=== PATIENT | female | born 1995 | race Caucasian/White ===

== ENCOUNTER → 2016-07-27 | Outpatient (CLI) | payer SELFPAY ==
[~2016-07-27] MED LIST: CATHETER FLUSH 10 ML SYR IV PRN; FLC150T PO; Ibuprofen PO; NAPR-243 PO; PREN-98 PO; PROP60CA8 PO; SPRINTEC PO
--- NOTE | 2016-07-27 11:06 | Diagnostic Imaging Report ---
INDICATION: Right upper quadrant pain. FINDINGS: The patient was administered 5.12 mCi of Tc 99m Choletec and sequential imaging was performed over the right upper abdomen. There is progressive, homogeneous accumulation of radiotracer within the liver parenchyma. There is filling of the bile ducts and subsequent filling of the gallbladder. There is progressive clearance of activity from the liver parenchyma and accumulation of radiotracer within loops of small bowel. The patient was then administered a fatty meal, utilizing 8 ounces of Ensure. The gallbladder ejection fraction was calculated to be approximately 46%. (Normal values with Ensure are 33% or greater.) IMPRESSION: 1. Hepatobiliary scan demonstrates a patent biliary tree. 2. Normal gallbladder ejection fraction of approximately 46%. Dictated by: Dictated on workstation # [id number]
== END ==
LOC: CARD 08:03
PROVIDERS: ATTEND Nurse Practitioner Community Health
DX: R10.11 Right upper quadrant pain (principal)
CPT/HCPCS: 78227

== ENCOUNTER 2017-07-18 16:39 | Emergency (ER) | payer SELFPAY ==
[~2017-07-18] VITALS: Ht 162.6 cm; Wt 77.1 kg
[~2017-07-18 16:39] MED LIST changes: -CATHETER FLUSH 10 ML SYR IV PRN
--- OUTSIDE RECORDS SUMMARY | 2017-07-18 16:44 | XMS REPORT ---
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
--- OUTSIDE RECORDS SUMMARY | 2017-07-18 16:44 | XMS REPORT ---
Author Author BASSEM BOWER [facility] Address [address] [place] [address] Care Team Providers Care Architecture Professor Name Role Phone BASSEM BOWER Unavailable PROBLEMS Type Condition ICD9-CM Code [id number] Code Onset Dates Condition Status SNOMED Code Problem Encounter for dental examination Z01.20 Active 166708004 ALLERGIES No Known Allergies SOCIAL HISTORY No smoking Hx information available PLAN OF CARE VITAL SIGNS MEDICATIONS No Known Medications RESULTS No Results PROCEDURES No Known procedures IMMUNIZATIONS No Known Immunizations
--- OUTSIDE RECORDS SUMMARY | 2017-07-18 16:44 | XMS REPORT ---
Author Author SUNIL JACQUES Organization eClinicalWorks Address Unknown Phone Unavailable Care Team Providers Care Auto Technician Name Role Phone SUNIL JACQUES CP Unavailable Allergies, Adverse Reactions, Alerts Substance Reaction Event Type Amoxicillin rash Drug Allergy Problems Problem Type Condition ICD-9 Code Onset Dates Condition Status Assessment Unspecified episodic mood disorder 296.90 Active Problem Unspecified episodic mood disorder 296.90 Active [...] Arthralgia of temporomandibular joint 524.62 Active Medications Medication Code System Code Instructions Start Date End Date Status Dosage Propranolol HCl [facility] [address]-54 40 MG Orally Twice a day Mar 22, 2015 1 tablet Brintellix [facility] [address]-63 10 MG Orally Once a day Apr 02, 2015 1 tablet Procedures Procedure Coding System Code Date Office Visit, Est Pt., Level 5 CPT-4 55161 Apr 02, 2015 Vital Signs Date/Time: Apr 02, 2015 Temperature 98.6 F Weight 163.2 lbs Height 64 in BMI 28.01 Index Blood Pressure Diastolic 70 mmHg Blood Pressure Systolic 100 mmHg Cardiac Monitoring Heart Rate 76 bpm Results No Known Results Summary Purpose eClinicalWorks Submission
--- OUTSIDE RECORDS SUMMARY | 2017-07-18 16:44 | XMS REPORT ---
Author Author MARQUISE GARCÍA [facility] [place] eClinicalWorks Address Unknown Phone Unavailable Care Team Providers Care Care Services Manager Name Role Phone MARQUISE GARCÍA CP Unavailable Allergies No Known Allergies Problems Problem Type Condition ICD-9 Code Onset Dates Condition Status Problem Unspecified [...]
--- OUTSIDE RECORDS SUMMARY | 2017-07-18 16:44 | XMS REPORT ---
Author Author BASSEM BOWER [facility] eClinicalWorks Address Unknown Phone Unavailable Care Team Providers Care Supervisor Riprap Placing Name Role Phone BASSEM BOWER CP Unavailable Allergies, Adverse Reactions, Alerts Substance Reaction Event Type Amoxicillin rash Drug Allergy Problems Problem Type Condition ICD-9 Code Onset Dates Condition Status Assessment Frequent headaches 784.0 Active Assessment Anxiety 300.00 Active Problem Personal history of tobacco use, presenting hazards to health V15.82 Active Assessment Alopecia 704.00 Active Problem Leukorrhea, not specified as infective 623.5 Active Problem Encounter for change or removal of nonsurgical wound dressing V58.30 Active Problem examination or test, positive result V72.42 Active Problem Surveillance of previously prescribed intrauterine contraceptive device V25.42 Active Problem Abdominal pain, generalized 789.07 Active Problem Intestinal infection due to other organism, NEC 008.8 Active Problem Unspecified episodic mood disorder 296.90 Active Problem Agoraphobia with panic disorder 300.21 Active Problem Anxiety state, unspecified 300.00 Active Problem Abdominal pain, right upper quadrant 789.01 Active Problem Other general counseling and advice for contraceptive management V25.09 Active Problem Other specified symptom associated with female genital organs 625.8 Active Problem Panic disorder without agoraphobia 300.01 Active Problem Cough 786.2 Active Problem Other ganglion and cyst of synovium, tendon, and bursa 727.49 Active Problem Supervision of normal first V22.0 Active Problem 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 Active Problem Need for prophylactic vaccination and inoculation against rubella alone V04.3 Active Problem General counseling for prescription of oral contraceptives V25.01 Active Problem Routine follow-up V24.2 Active Problem External hemorrhoids without mention of complication 455.3 Active Problem Candidiasis of vulva and vagina 112.1 Active Assessment Family history of bipolar disorder V17.0 Active Problem Unspecified constipation 564.00 Active Assessment Family history of thyroid disease in mother V18.19 Active Problem Counseling on other sexually transmitted diseases V65.45 Active Problem Pain in joint, hand 719.44 Active Problem Encounter for removal of intrauterine contraceptive device V25.12 Active Problem Arthralgia of temporomandibular joint 524.62 Active Problem Screening examination for venereal disease V74.5 Active Problem Headache 784.0 Active Problem Encounter for insertion of intrauterine contraceptive device V25.11 Active Medications Medication Code System Code Instructions Start Date End Date Status Dosage Acyclovir [facility] [address]-49 800 MG Orally Five times a day prn cold sores Aug 31, 2014 1 tablet Propranolol HCl [facility] [address]-75 40 MG Orally Twice a day Mar 22, 2015 1 tablet Procedures Procedure Coding System Code Date ASSAY THYROID STIM HORMONE CPT-4 14661 Mar 22, 2015 COMPREHEN METABOLIC PANEL CPT-4 14184 Mar 22, 2015 Office Visit, Est Pt., Level 3 CPT-4 22941 Mar 22, 2015 VENIPUNCT, ROUTINE* CPT-4 66076 Mar 22, 2015 COMPLETE CBC W/AUTO DIFF WBC CPT-4 45148 Mar 22, 2015 Vital Signs Date/Time: Mar 22, 2015 Temperature 97.0 F Weight 170.0 lbs Height 64 in BMI 29.18 Index Blood Pressure Diastolic 66 mmHg Blood Pressure Systolic 108 mmHg Cardiac Monitoring Heart Rate 78 bpm Results No Known Results Summary Purpose eClinicalWorks Submission
--- OUTSIDE RECORDS SUMMARY | 2017-07-18 16:45 | XMS REPORT ---
Author Author MARQUISE GARCÍA [facility] eClinicalWorks Address Unknown Phone Unavailable Care Team Providers Care Department Helper Name Role Phone MARQUISE GARCÍA CP Unavailable Allergies, Adverse Reactions, Alerts Substance Reaction Event Type Amoxicillin rash Drug Allergy Problems Problem Type Condition Code Onset Dates Condition Status Assessment Pelvic pain in female R10.2 Active Problem Unspecified episodic mood disorder 296.90 Active Problem Personal history of tobacco use, presenting hazards to health V15.82 Active Assessment IUD (intrauterine device) in place Z97.5 Active Problem Panic disorder without agoraphobia 300.01 Active Problem External hemorrhoids without mention of complication 455.3 Active Problem 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 Active Problem Other ganglion and cyst of synovium, tendon, and bursa 727.49 Active Problem Anxiety state, unspecified 300.00 Active Problem Agoraphobia with panic disorder 300.21 Active Problem Arthralgia of temporomandibular joint 524.62 Active Medications No Known Medications Procedures Procedure Coding System Code Date TRICHOMONAS VAGIN, DIR PROBE CPT-4 02230 Jun 11, 2015 No Charge CPT-4 26250 Jun 11, 2015 CULTURE, BACTERIA, OTHER CPT-4 29551 Jun 11, 2015 Office Visit, Est Pt., Level 3 CPT-4 34652 Jun 11, 2015 URINE TEST CPT-4 39287 Jun 11, 2015 Vital Signs Date/Time: Jun 11, 2015 Temperature 97.0 F Weight 158.6 lbs Height 64 in BMI 27.22 Index Blood Pressure Diastolic 78 mmHg Blood Pressure Systolic 120 mmHg Cardiac Monitoring Heart Rate 78 bpm Results Name Result Date Reference Range Unit Abnormality Flag TEST, URINE (IN HOUSE) CULTURE, GENITAL ----Genital Culture, Routine Final report [id number] Summary Purpose eClinicalWorks Submission
--- OUTSIDE RECORDS SUMMARY | 2017-07-18 16:45 | XMS REPORT ---
Author Author BASSEM BOWER Organization eClinicalWorks Address Unknown Phone Unavailable Care Team Providers Care Police Service Technician Name Role Phone BASSEM BOWER CP Unavailable Allergies, Adverse Reactions, Alerts Substance Reaction Event Type Amoxicillin rash Drug Allergy Problems No Known Problems Medications No Known Medications Results No Known Results Summary Purpose eClinicalWorks Submission
--- OUTSIDE RECORDS SUMMARY | 2017-07-18 16:45 | XMS REPORT ---
Author Author [facility], [facility] eClinicalWorks Address Unknown Phone Unavailable Care Team Providers Care Label Pinker Name Role Phone [facility] CP Unavailable Allergies No Known Allergies Problems Problem Type Condition Code Onset Dates Condition Status Assessment Unspecified mood [affective] disorder F39 Active Problem Unspecified episodic mood disorder 296.90 [...] Medications Procedures Procedure Coding System Code Date [facility] PROMOTION CPT-4 S0280 May 24, 2015 Results No Known Results Summary Purpose eClinicalWorks Submission
--- OUTSIDE RECORDS SUMMARY | 2017-07-18 16:45 | XMS REPORT ---
Author Author GAYLE PURDY [facility] eClinicalWorks Address Unknown Phone Unavailable Care Team Providers Care Exterior Work Helper Name Role Phone GAYLE PURDY Unavailable Allergies, Adverse Reactions, Alerts Substance Reaction Event Type Amoxicillin rash Drug Allergy Problems Problem Type Condition Code Onset Dates Condition Status Assessment Right upper quadrant pain R10.11 Active Medications No Known Medications Procedures Procedure Coding System Code Date Office Visit, Est Pt., Level 3 CPT-4 79973 May 24, 2016 VENDREW, ROUTINE* CPT-4 84029 May 24, 2016 [facility] CPT-4 NOBLL May 24, 2016 Vital Signs Date/Time: May 24, 2016 Cardiac Monitoring Heart Rate 84 bpm Weight 150.4 lbs Height 64 in BMI 25.81 Index Blood Pressure Diastolic 70 mmHg Blood Pressure Systolic 104 mmHg Results Name Result Date Reference Range Unit Abnormality Flag CMP ----Calcium, Serum 9.5 55550705 8.7-10.2 mg/dL ----Carbon Dioxide, Total 26 20160524 18-29 mmol/L ----ALT (SGPT) 13 20160524 0-32 IU/L ----Creatinine, Serum 0.97 61377710 0.57-1.00 mg/dL ----AST (SGOT) 17 20160524 0-40 IU/L ----eGFR If NonAfricn Am 83 [id number] >59 mL/min/1.73 ----Alkaline Phosphatase, S 70 53841949 39-117 IU/L ----eGFR If Africn Am 96 52182623 >59 mL/min/1.73 ----Bilirubin, Total 0.2 47745601 0.0-1.2 mg/dL ----BUN/Creatinine Ratio 11 20160524 8-20 ----A/G Ratio 1.6 20160524 1.1-2.5 ----Sodium, Serum 141 38328796 136-144 mmol/L ----Globulin, Total 2.8 26651432 1.5-4.5 g/dL ----Potassium, Serum 4.8 94955329 3.5-5.2 mmol/L ----Glucose, Serum 88 76486227 65-99 mg/dL ----Chloride, Serum 99 70188965 97-106 mmol/L ----Albumin, Serum 4.6 66366811 3.5-5.5 g/dL ----BUN 11 73021542 6-20 mg/dL ----Protein, Total, Serum 7.4 84723570 6.0-8.5 g/dL ROUTINE VENIPUNCTURE CBC ----MCHC 32.7 86594092 31.5-35.7 g/dL ----MCH 25.9 [id number] 26.6-33.0 pg L ----Platelets 292 49273948 150-379 x10E3/uL ----RDW 14.2 57309685 12.3-15.4 % ----Immature Granulocytes 0 69475438 % ----Immature Grans (Abs) 0.0 16251485 0.0-0.1 x10E3/uL ----Lymphs 27 65103474 % ----Monocytes 8 00795130 % ----Neutrophils 60 73778394 % ----Neutrophils (Absolute) 5.3 14967520 1.4-7.0 x10E3/uL ----Hematocrit 39.2 39568999 34.0-46.6 % ----Lymphs (Absolute) 2.4 49219865 0.7-3.1 x10E3/uL ----MCV 79 23823356 79-97 fL ----RBC 4.94 19551705 3.77-5.28 x10E6/uL ----Eos 4 68294148 % ----Basos 1 02320549 % ----Hemoglobin 12.8 01758934 11.1-15.9 g/dL ----Baso (Absolute) 0.1 66685208 0.0-0.2 x10E3/uL ----WBC 8.7 45055275 3.4-10.8 x10E3/uL ----Monocytes(Absolute) 0.7 20160524 0.1-0.9 x10E3/uL ----Eos (Absolute) 0.3 20160524 0.0-0.4 x10E3/uL Summary Purpose eClinicalWorks Submission
--- OUTSIDE RECORDS SUMMARY | 2017-07-18 16:45 | XMS REPORT ---
Author Author MARQUISE GARCÍA [facility] eClinicalWorks Address Unknown Phone Unavailable Care Team Providers Care Flour Tester Name Role Phone MARQUISE GARCÍA CP Unavailable Allergies, Adverse Reactions, Alerts Substance Reaction Event Type Amoxicillin rash Drug Allergy Problems Problem Type Condition ICD-9 Code Onset Dates Condition Status Assessment Bilateral amaurosis fugax 362.34 Active Problem Unspecified episodic mood disorder 296.90 [...] Office Visit, Est Pt., Level 3 CPT-4 98401 Mar 26, 2015 VISUAL ACUITY SCREEN CPT-4 16526 Mar 26, 2015 Vital Signs Date/Time: Mar 26, 2015 Temperature 98.4 F Weight 170.5 lbs Height 64 in BMI 29.26 Index Blood Pressure Diastolic 76 mmHg Blood Pressure Systolic 118 mmHg Cardiac Monitoring Heart Rate 86 bpm Results No Known Results Summary Purpose eClinicalWorks Submission
--- OUTSIDE RECORDS SUMMARY | 2017-07-18 16:45 | XMS REPORT ---
Author Author [facility], [facility] eClinicalWorks Address Unknown Phone Unavailable Care Team Providers Care Licensed Social Worker Name Role Phone [facility] CP Unavailable Allergies No Known Allergies Problems [...] Code Date HEALTH PROMOTION CPT-4 S0280 May 28, 2015 Results No Known Results Summary Purpose eClinicalWorks Submission
--- OUTSIDE RECORDS SUMMARY | 2017-07-18 16:45 | XMS REPORT ---
Author Author BASSEM BOWER [facility] Address [address] [place] [address] Care Team Providers Care Home Aide Name Role Phone BASSEM BOWER Unavailable PROBLEMS Type Condition ICD9-CM Code [id number] Code Onset Dates Condition Status SNOMED Code Problem Encounter for dental examination Z01.20 Active [id number] ALLERGIES Substance Reaction Event Type Date Status Amoxicillin rash Drug Allergy Jun, Active SOCIAL HISTORY No smoking Hx information available PLAN OF CARE VITAL SIGNS Height 64 in 2016-07-06 Weight 163.7 lbs 2016-07-06 Temperature 98.5 degrees Fahrenheit 2016-07-06 Heart Rate 82 bpm 2016-07-06 Respiratory Rate 18 2016-07-06 BMI 28.10 kg/m2 2016-07-06 Blood pressure systolic 104 mmHg 2016-07-06 Blood pressure diastolic 72 mmHg 2016-07-06 MEDICATIONS Unknown Medications RESULTS Name Result Date Reference Range TSH W/ FREE T4 2016-07-06 TSH 2.940 0.450-4.500 T4,Free(Direct) 1.06 0.82-1.77 PROCEDURES Procedure Date Ordered Related Diagnosis Body Site Office Visit, Est Pt., Level 3 Jul 06, 2016 ASSAY THYROID STIM HORMONE Jul 06, 2016 VENIPUNCT, ROUTINE* Jul 06, 2016 ASSAY OF FREE THYROXINE Jul 06, 2016 IMMUNIZATIONS No Known Immunizations
--- OUTSIDE RECORDS SUMMARY | 2017-07-18 16:48 | XMS REPORT | Continuity of Care Document ---
Author Author [facility] Address Unknown Phone Unavailable Allergies Active Description Code Type Severity Reaction Onset Reported/Identified Relationship to Patient Clinical Status Yes Penicillins Drug Allergy N/A N/A 11/09/2009 Yes Penicillins Drug Allergy 11/09/2009 Yes amoxicillin [id number] Drug Allergy Moderate RASH 12/01/2011 Yes latex [id number] Drug Allergy Mild RASH 12/01/2011 Yes Amoxicillin Drug Allergy N/A N/A 04/03/2012 Yes Amoxicillin Drug Allergy 04/03/2012 Yes Penicillins [id number] Drug Allergy Moderate RASH 04/21/2015 Medications There is no data. Problems Date Dx Coded Attending Type Code Diagnosis Diagnosed By 11/09/2009 BASSEM BOWER APRN V25.02 Contraceptives 11/09/2009 BASSEM BOWER APRN V25.02 Contraceptives 11/09/2009 V25.02 Contraceptives 11/09/2009 V25.02 Contraceptives 11/09/2009 V25.02 Contraceptives 11/09/2009 V25.02 CONTRACEPTIVES 11/09/2009 V25.02 CONTRACEPTIVES 11/09/2009 V25.02 CONTRACEPTIVES 11/09/2009 ASHISH LUIS APRN A V25.02 CONTRACEPTIVES 11/09/2009 HETAL QUEZADA DO V25.02 CONTRACEPTIVES 11/09/2009 BASSEM BOWER APRN V25.02 CONTRACEPTIVES 11/09/2009 V25.02 CONTRACEPTIVES 11/09/2009 MARQUISE GARCÍA MD V25.02 CONTRACEPTIVES 11/09/2009 ASHISH LUIS APRN V25.02 CONTRACEPTIVES 11/09/2009 ASHISH LUIS APRN V25.02 CONTRACEPTIVES 11/09/2009 MARQUISE GARCÍA MD V25.02 CONTRACEPTIVES 11/09/2009 MARQUISE GARCÍA MD V25.02 CONTRACEPTIVES 11/09/2009 ASHISH LUIS APRN A V25.02 CONTRACEPTIVES 11/09/2009 RICKY MD, MARQUISE N V25.02 CONTRACEPTIVES 11/09/2009 RICKY FITZPATRICK, MARQUISE N V25.02 CONTRACEPTIVES 11/09/2009 RICKY FITZPATRICK, MARQUISE Yoo V25.02 CONTRACEPTIVES 11/09/2009 RICKY FITZPATRICK, MARQUISE N V25.02 CONTRACEPTIVES 11/09/2009 RICKY FITZPATRICK, MARQUISE N V25.02 CONTRACEPTIVES 11/09/2009 RICKY FITZPATRICK, MARQUISE N V25.02 CONTRACEPTIVES 11/09/2009 RICKY FITZPATRICK, MARQUISE N V25.02 CONTRACEPTIVES 11/09/2009 RICKY FITZPATRICK, MARQUISE N V25.02 CONTRACEPTIVES 11/09/2009 SEDRICK FITZPATRICK, SABRINA Ramos V25.02 CONTRACEPTIVES 11/09/2009 SEDRICK FITZPATRICK, SABRINA Ramos V25.02 CONTRACEPTIVES 11/09/2009 QUEZADA DO, HETAL K V25.02 CONTRACEPTIVES 11/09/2009 QUEZADA DO, HETAL K V25.02 CONTRACEPTIVES 11/09/2009 QUEZADA DO, HETAL K V25.02 CONTRACEPTIVES 11/09/2009 QUEZADA DO, HETAL K V25.02 CONTRACEPTIVES 11/09/2009 TOBY CROWDER, ASHISH A V25.02 CONTRACEPTIVES 11/09/2009 GABINO FITZPATRICK, GREG V25.02 CONTRACEPTIVES 11/09/2009 TOBY CROWDER, ASHISH A V25.02 CONTRACEPTIVES 11/09/2009 ARNOLD ESPINOZA APRN R V25.02 CONTRACEPTIVES 11/09/2009 HARJIT ALBERT, WISAM Nice V25.02 CONTRACEPTIVES 11/09/2009 TIMOTHY CROWDER, BORA R V25.02 CONTRACEPTIVES 11/09/2009 TOBY CROWDER, ASHISH A V25.02 CONTRACEPTIVES 11/09/2009 RICKY FITZPATRICK, MARQUISE Yoo V25.02 CONTRACEPTIVES 11/09/2009 TOBY CROWDER, ASHISH A V25.02 CONTRACEPTIVES 01/31/2010 BASSEM BOWER APRN V25.49 SURVEILLANCE OF OTHER CONTRACEPTIVE METHOD 01/31/2010 BASSEM BOWER APRN V25.49 SURVEILLANCE OF OTHER CONTRACEPTIVE METHOD 01/31/2010 V25.49 SURVEILLANCE OF OTHER CONTRACEPTIVE METHOD 01/31/2010 V25.49 SURVEILLANCE OF OTHER CONTRACEPTIVE METHOD 01/31/2010 V25.49 SURVEILLANCE OF OTHER CONTRACEPTIVE METHOD 01/31/2010 V25.49 SURVEILLANCE OF OTHER CONTRACEPTIVE METHOD 01/31/2010 V25.49 SURVEILLANCE OF OTHER CONTRACEPTIVE METHOD 01/31/2010 V25.49 SURVEILLANCE OF OTHER CONTRACEPTIVE METHOD 01/31/2010 TOBY SCHOOL PSYCHOLOGIST ASSISTANT ASHISH A V25.49 SURVEILLANCE OF OTHER CONTRACEPTIVE METHOD 01/31/2010 HETAL QUEZADA DO K V25.49 SURVEILLANCE OF OTHER CONTRACEPTIVE METHOD 01/31/2010 BASSEM BOWER APRN V25.49 SURVEILLANCE OF OTHER CONTRACEPTIVE METHOD 01/31/2010 V25.49 SURVEILLANCE OF OTHER CONTRACEPTIVE METHOD 01/31/2010 MARQUISE GARCÍA MD V25.49 SURVEILLANCE OF OTHER CONTRACEPTIVE METHOD 01/31/2010 TOBY SCHOOL PSYCHOLOGIST ASSISTANTWILFRIDASHISH A V25.49 SURVEILLANCE OF OTHER CONTRACEPTIVE METHOD 01/31/2010 TOBY SCHOOL PSYCHOLOGIST ASSISTANT ASHISH A V25.49 SURVEILLANCE OF OTHER CONTRACEPTIVE METHOD 01/31/2010 MARQUISE GARCÍA MD V25.49 SURVEILLANCE OF OTHER CONTRACEPTIVE METHOD 01/31/2010 MARQUISE GARCÍA MD V25.49 SURVEILLANCE OF OTHER CONTRACEPTIVE METHOD 01/31/2010 ASHISH LUIS APRN A V25.49 SURVEILLANCE OF OTHER CONTRACEPTIVE METHOD 01/31/2010 MARQUISE GARCÍA MD V25.49 SURVEILLANCE OF OTHER CONTRACEPTIVE METHOD 01/31/2010 MARQUISE GARCÍA MD V25.49 SURVEILLANCE OF OTHER CONTRACEPTIVE METHOD 01/31/2010 MARQUISE GARCÍA MD V25.49 SURVEILLANCE OF OTHER CONTRACEPTIVE METHOD 01/31/2010 MARQUISE GARCÍA MD V25.49 SURVEILLANCE OF OTHER CONTRACEPTIVE METHOD 01/31/2010 MARQUISE GARCÍA MD V25.49 SURVEILLANCE OF OTHER CONTRACEPTIVE METHOD 01/31/2010 MARQUISE GARCÍA MD V25.49 SURVEILLANCE OF OTHER CONTRACEPTIVE METHOD 01/31/2010 MARQUISE GARCÍA MD V25.49 SURVEILLANCE OF OTHER CONTRACEPTIVE METHOD 01/31/2010 MARQUISE GARCÍA MD V25.49 SURVEILLANCE OF OTHER CONTRACEPTIVE METHOD 01/31/2010 SABRINA DUBOSE MD V25.49 SURVEILLANCE OF OTHER CONTRACEPTIVE METHOD 01/31/2010 SABRINA DUBOSE MD V25.49 SURVEILLANCE OF OTHER CONTRACEPTIVE METHOD 01/31/2010 HETAL QUEZADA DO K V25.49 SURVEILLANCE OF OTHER CONTRACEPTIVE METHOD 01/31/2010 QUEZADA DOMAIAA K V25.49 SURVEILLANCE OF OTHER CONTRACEPTIVE METHOD 01/31/2010 QUEZADA DO, HETAL K V25.49 SURVEILLANCE OF OTHER CONTRACEPTIVE METHOD 01/31/2010 HETAL QUEZADA DO V25.49 SURVEILLANCE OF OTHER CONTRACEPTIVE METHOD 01/31/2010 ASHISH LUIS APRN A V25.49 SURVEILLANCE OF OTHER CONTRACEPTIVE METHOD 01/31/2010 GREG LLOYD MD V25.49 SURVEILLANCE OF OTHER CONTRACEPTIVE METHOD 01/31/2010 ASHISH LUIS APRN A V25.49 SURVEILLANCE OF OTHER CONTRACEPTIVE METHOD 01/31/2010 ARNOLD ESPINOZA APRN V25.49 SURVEILLANCE OF OTHER CONTRACEPTIVE METHOD 01/31/2010 WISAM LOMBARDI DDS V25.49 SURVEILLANCE OF OTHER CONTRACEPTIVE METHOD 01/31/2010 BORA AGUIRRE APRN V25.49 SURVEILLANCE OF OTHER CONTRACEPTIVE METHOD 01/31/2010 ASHISH LUIS APRN A V25.49 SURVEILLANCE OF OTHER CONTRACEPTIVE METHOD 01/31/2010 MARQUISE GARCÍA MD V25.49 SURVEILLANCE OF OTHER CONTRACEPTIVE METHOD 01/31/2010 ASHISH LUIS APRN A V25.49 SURVEILLANCE OF OTHER CONTRACEPTIVE METHOD 05/12/2010 BASSEM BOWER APRN 054.9 HERPES SIMPLEX WITHOUT COMPLICATION 05/12/2010 BASSEM BOWER APRN V72.31 MATERIALS MANAGEMENT CLERK EXAM, ROUTINE 05/12/2010 BASSEM BOWER APRN 054.9 HERPES SIMPLEX WITHOUT COMPLICATION 05/12/2010 BASSEM BOWER APRN V72.31 MATERIALS MANAGEMENT CLERK EXAM, ROUTINE 05/12/2010 054.9 HERPES SIMPLEX WITHOUT COMPLICATION 05/12/2010 V72.31 MATERIALS MANAGEMENT CLERK EXAM, ROUTINE 05/12/2010 054.9 HERPES SIMPLEX WITHOUT COMPLICATION 05/12/2010 V72.31 MATERIALS MANAGEMENT CLERK EXAM, ROUTINE 05/12/2010 054.9 HERPES SIMPLEX WITHOUT COMPLICATION 05/12/2010 V72.31 MATERIALS MANAGEMENT CLERK EXAM, ROUTINE 05/12/2010 054.9 HERPES SIMPLEX WITHOUT COMPLICATION 05/12/2010 V72.31 MATERIALS MANAGEMENT CLERK EXAM, ROUTINE 05/12/2010 054.9 HERPES SIMPLEX WITHOUT COMPLICATION 05/12/2010 V72.31 MATERIALS MANAGEMENT CLERK EXAM, ROUTINE 05/12/2010 054.9 HERPES SIMPLEX WITHOUT COMPLICATION 05/12/2010 V72.31 MATERIALS MANAGEMENT CLERK EXAM, ROUTINE 05/12/2010 ASHISH LUIS APRN A 054.9 HERPES SIMPLEX WITHOUT COMPLICATION 05/12/2010 ASHISH LUIS APRN A V72.31 MATERIALS MANAGEMENT CLERK EXAM, ROUTINE 05/12/2010 HETAL QUEZADA DO 054.9 HERPES SIMPLEX WITHOUT COMPLICATION 05/12/2010 QUEZADA HETAL ERWIN V72.31 MATERIALS MANAGEMENT CLERK EXAM, ROUTINE 05/12/2010 BASSEM BOWER APRN 054.9 HERPES SIMPLEX WITHOUT COMPLICATION 05/12/2010 BASSEM BOWER APRN V72.31 MATERIALS MANAGEMENT CLERK EXAM, ROUTINE 05/12/2010 054.9 HERPES SIMPLEX WITHOUT COMPLICATION 05/12/2010 V72.31 MATERIALS MANAGEMENT CLERK EXAM, ROUTINE 05/12/2010 MARQUISE GARCÍA MD N 054.9 HERPES SIMPLEX WITHOUT COMPLICATION 05/12/2010 MARQUISE GARCÍA MD N V72.31 MATERIALS MANAGEMENT CLERK EXAM, ROUTINE 05/12/2010 TOBY SCHOOL PSYCHOLOGIST ASSISTANT, ASHISH A 054.9 HERPES SIMPLEX WITHOUT COMPLICATION 05/12/2010 TOBY SCHOOL PSYCHOLOGIST ASSISTANT, ASHSIH Bradford V72.31 MATERIALS MANAGEMENT CLERK EXAM, ROUTINE 05/12/2010 TOBY CROWDER, ASHISH A 054.9 HERPES SIMPLEX WITHOUT COMPLICATION 05/12/2010 TOBY ESPARZAN, ASHISH A V72.31 MATERIALS MANAGEMENT CLERK EXAM, ROUTINE 05/12/2010 MARQUISE GARCÍA MD N 054.9 HERPES SIMPLEX WITHOUT COMPLICATION 05/12/2010 MARQUISE GARCÍA MD N V72.31 MATERIALS MANAGEMENT CLERK EXAM, ROUTINE 05/12/2010 MARQUISE GARCÍA MD N 054.9 HERPES SIMPLEX WITHOUT COMPLICATION 05/12/2010 MARQUISE GARCÍA MD N V72.31 MATERIALS MANAGEMENT CLERK EXAM, ROUTINE 05/12/2010 TOBY CROWDER, ASHISH A 054.9 HERPES SIMPLEX WITHOUT COMPLICATION 05/12/2010 TOBY CROWDER, ASHISH A V72.31 MATERIALS MANAGEMENT CLERK EXAM, ROUTINE 05/12/2010 MARQUISE GARCÍA MD N 054.9 HERPES SIMPLEX WITHOUT COMPLICATION 05/12/2010 MARQUISE GARCÍA MD N V72.31 MATERIALS MANAGEMENT CLERK EXAM, ROUTINE 05/12/2010 MARQUISE GARCÍA MD N 054.9 HERPES SIMPLEX WITHOUT COMPLICATION 05/12/2010 MARQUISE GARCÍA MD N V72.31 MATERIALS MANAGEMENT CLERK EXAM, ROUTINE 05/12/2010 MARQUISE GARCÍA MD N 054.9 HERPES SIMPLEX WITHOUT COMPLICATION 05/12/2010 MARQUISE GARCÍA MD N V72.31 MATERIALS MANAGEMENT CLERK EXAM, ROUTINE 05/12/2010 MARQUISE GARCÍA MD N 054.9 HERPES SIMPLEX WITHOUT COMPLICATION 05/12/2010 RICKY FITZPATRICK, MARQUISE N V72.31 MATERIALS MANAGEMENT CLERK EXAM, ROUTINE 05/12/2010 RICKY FITZPATRICK, MARQUISE N 054.9 HERPES SIMPLEX WITHOUT COMPLICATION 05/12/2010 RICKY FITZPATRICK, MARQUISE N V72.31 MATERIALS MANAGEMENT CLERK EXAM, ROUTINE 05/12/2010 RICKY FITZPATRICK, MARQUISE N 054.9 HERPES SIMPLEX WITHOUT COMPLICATION 05/12/2010 RICKY FITZPATRICK, MARQUISE N V72.31 MATERIALS MANAGEMENT CLERK EXAM, ROUTINE 05/12/2010 RICKY FITZPATRICK, MARQUISE N 054.9 HERPES SIMPLEX WITHOUT COMPLICATION 05/12/2010 RICKY FITZPATRICK, MARQUISE N V72.31 MATERIALS MANAGEMENT CLERK EXAM, ROUTINE 05/12/2010 RICKY FITZPATRICK, MARQUISE N 054.9 HERPES SIMPLEX WITHOUT COMPLICATION 05/12/2010 RICKY FITZPATRICK, MARQUISE N V72.31 MATERIALS MANAGEMENT CLERK EXAM, ROUTINE 05/12/2010 SABRINA DUBOSE MD 054.9 HERPES SIMPLEX WITHOUT COMPLICATION 05/12/2010 SABRINA DUBOSE MD V72.31 MATERIALS MANAGEMENT CLERK EXAM, ROUTINE 05/12/2010 SABRINA DUBOSE MD 054.9 HERPES SIMPLEX WITHOUT COMPLICATION 05/12/2010 SABRINA DUBOSE MD V72.31 MATERIALS MANAGEMENT CLERK EXAM, ROUTINE 05/12/2010 QUEZADA DO, HETAL K 054.9 HERPES SIMPLEX WITHOUT COMPLICATION 05/12/2010 QUEZADA DO, HETAL K V72.31 MATERIALS MANAGEMENT CLERK EXAM, ROUTINE 05/12/2010 QUEZADA DO, HETAL K 054.9 HERPES SIMPLEX WITHOUT COMPLICATION 05/12/2010 QUEZADA DO HETAL K V72.31 MATERIALS MANAGEMENT CLERK EXAM, ROUTINE 05/12/2010 QUEZADA DO, HETAL K 054.9 HERPES SIMPLEX WITHOUT COMPLICATION 05/12/2010 QUEZADA DO, HETAL K V72.31 MATERIALS MANAGEMENT CLERK EXAM, ROUTINE 05/12/2010 QUEZADA DO, HETAL K 054.9 HERPES SIMPLEX WITHOUT COMPLICATION 05/12/2010 QUEZADA DO, HETAL K V72.31 MATERIALS MANAGEMENT CLERK EXAM, ROUTINE 05/12/2010 ASHISH LUIS APRN 054.9 HERPES SIMPLEX WITHOUT COMPLICATION 05/12/2010 ASHISH LUIS APRN V72.31 MATERIALS MANAGEMENT CLERK EXAM, ROUTINE 05/12/2010 GREG LLOYD MD 054.9 HERPES SIMPLEX WITHOUT COMPLICATION 05/12/2010 GABINO FITZPATRICK, GREG V72.31 MATERIALS MANAGEMENT CLERK EXAM, ROUTINE 05/12/2010 TOBY SCHOOL PSYCHOLOGIST ASSISTANT, ASHISH A 054.9 HERPES SIMPLEX WITHOUT COMPLICATION 05/12/2010 TOBY SCHOOL PSYCHOLOGIST ASSISTANT, ASHISH A V72.31 MATERIALS MANAGEMENT CLERK EXAM, ROUTINE 05/12/2010 OLGA SCHOOL PSYCHOLOGIST ASSISTANT, ARNOLD R 054.9 HERPES SIMPLEX WITHOUT COMPLICATION 05/12/2010 OLGA SCHOOL PSYCHOLOGIST ASSISTANT, ARNOLD R V72.31 MATERIALS MANAGEMENT CLERK EXAM, ROUTINE 05/12/2010 WHITE DDS, WISAM D 054.9 HERPES SIMPLEX WITHOUT COMPLICATION 05/12/2010 WHITE DDS, WISAM D V72.31 MATERIALS MANAGEMENT CLERK EXAM, ROUTINE 05/12/2010 TIMOTHY SCHOOL PSYCHOLOGIST ASSISTANT, BORA R 054.9 HERPES SIMPLEX WITHOUT COMPLICATION 05/12/2010 TIMOTHY ESPARZAN, BORA R V72.31 MATERIALS MANAGEMENT CLERK EXAM, ROUTINE 05/12/2010 TOBY APRN, ASHISH A 054.9 HERPES SIMPLEX WITHOUT COMPLICATION 05/12/2010 TOBY APRN, ASHISH A V72.31 MATERIALS MANAGEMENT CLERK EXAM, ROUTINE 05/12/2010 MARQUISE GARCÍA MD N 054.9 HERPES SIMPLEX WITHOUT COMPLICATION 05/12/2010 MARQUISE GARCÍA MD V72.31 MATERIALS MANAGEMENT CLERK EXAM, ROUTINE 05/12/2010 TOBY APRN, ASHISH A 054.9 HERPES SIMPLEX WITHOUT COMPLICATION 05/12/2010 TOBY APRN, ASHISH A V72.31 MATERIALS MANAGEMENT CLERK EXAM, ROUTINE 04/05/2011 BASSEM BOWER APRN 307.81 TENSION HEADACHE 04/05/2011 BASSEM BOWER APRN 307.81 TENSION HEADACHE 04/05/2011 307.81 TENSION HEADACHE 04/05/2011 307.81 TENSION HEADACHE 04/05/2011 307.81 TENSION HEADACHE 04/05/2011 307.81 TENSION HEADACHE 04/05/2011 307.81 TENSION HEADACHE 04/05/2011 307.81 TENSION HEADACHE 04/05/2011 ASHISH LUIS APRN A 307.81 TENSION HEADACHE 04/05/2011 HETAL QUEZADA DO 307.81 TENSION HEADACHE 04/05/2011 BASSEM BOWER APRN 307.81 TENSION HEADACHE 04/05/2011 307.81 TENSION HEADACHE 04/05/2011 MARQUISE GARCÍA MD 307.81 TENSION HEADACHE 04/05/2011 TOBYASHISH Yoo APRN A 307.81 TENSION HEADACHE 04/05/2011 TOBY APRN, ASHISH A 307.81 TENSION HEADACHE 04/05/2011 MARQUISE GARCÍA MD 307.81 TENSION HEADACHE 04/05/2011 MARQUISE GARCÍA MD 307.81 TENSION HEADACHE 04/05/2011 TOBY APRN, ASHISH A 307.81 TENSION HEADACHE 04/05/2011 MARQUISE GARCÍA MD N 307.81 TENSION HEADACHE 04/05/2011 MARQUISE GARCÍA MD N 307.81 TENSION HEADACHE 04/05/2011 MARQUISE GARCÍA MD N 307.81 TENSION HEADACHE 04/05/2011 MARQUISE GARCÍA MD N 307.81 TENSION HEADACHE 04/05/2011 MARQUISE GARCÍA MD 307.81 TENSION HEADACHE 04/05/2011 MARQUISE GARCÍA MD 307.81 TENSION HEADACHE 04/05/2011 MARQUISE GARCÍA MD N 307.81 TENSION HEADACHE 04/05/2011 MARQUISE GARCÍA MD N 307.81 TENSION HEADACHE 04/05/2011 SABRINA DUBOSE MD 307.81 TENSION HEADACHE 04/05/2011 SABRINA DUBOSE MD 307.81 TENSION HEADACHE 04/05/2011 QUEZADA DO, HETAL K 307.81 TENSION HEADACHE 04/05/2011 QUEZADA DO, HETAL K 307.81 TENSION HEADACHE 04/05/2011 QUEZADA DO, HETAL K 307.81 TENSION HEADACHE 04/05/2011 QUEZADA DO, HETAL K 307.81 TENSION HEADACHE 04/05/2011 TOBY APRN, ASHISH A 307.81 TENSION HEADACHE 04/05/2011 GREG LLOYD MD 307.81 TENSION HEADACHE 04/05/2011 TOBYWILFRID Yoo APRNIDI A 307.81 TENSION HEADACHE 04/05/2011 ARNOLD ESPINOZA APRN R 307.81 TENSION HEADACHE 04/05/2011 WISAM LOMBARDI DDS 307.81 TENSION HEADACHE 04/05/2011 BORA AGUIRRE APRN R 307.81 TENSION HEADACHE 04/05/2011 TOBYWILFRID Yoo APRNIDI A 307.81 TENSION HEADACHE 04/05/2011 MARQUISE GARCÍA MD 307.81 TENSION HEADACHE 04/05/2011 TOBYASHISH Yoo APRN A 307.81 TENSION HEADACHE 08/15/2011 BASSEM BOWER APRN 564.00 CONSTIPATION 08/15/2011 BASSEM BOWER APRN 780.4 DIZZINESS AND VERTIGO 08/15/2011 BASSEM BOWER APRN 564.00 CONSTIPATION 08/15/2011 BASSEM BOWER APRN 780.4 DIZZINESS AND VERTIGO 08/15/2011 564.00 CONSTIPATION 08/15/2011 780.4 DIZZINESS AND VERTIGO 08/15/2011 564.00 CONSTIPATION 08/15/2011 780.4 DIZZINESS AND VERTIGO 08/15/2011 564.00 CONSTIPATION 08/15/2011 780.4 DIZZINESS AND VERTIGO 08/15/2011 564.00 CONSTIPATION 08/15/2011 780.4 DIZZINESS AND VERTIGO 08/15/2011 564.00 CONSTIPATION 08/15/2011 780.4 DIZZINESS AND VERTIGO 08/15/2011 564.00 CONSTIPATION 08/15/2011 780.4 DIZZINESS AND VERTIGO 08/15/2011 ASHISH LUIS APRN A 564.00 CONSTIPATION 08/15/2011 ASHISH LUIS APRN A 780.4 DIZZINESS AND VERTIGO 08/15/2011 QUEZADA DOMAIAA K 564.00 CONSTIPATION 08/15/2011 QUEZADA DO HETAL K 780.4 DIZZINESS AND VERTIGO 08/15/2011 BASSEM BOWER APRN 564.00 CONSTIPATION 08/15/2011 BASSEM BOWER APRN 780.4 DIZZINESS AND VERTIGO 08/15/2011 564.00 CONSTIPATION 08/15/2011 780.4 DIZZINESS AND VERTIGO 08/15/2011 MARQUISE GARCÍA MD 564.00 CONSTIPATION 08/15/2011 MARQUISE GARCÍA MD 780.4 DIZZINESS AND VERTIGO 08/15/2011 ASHISH LUIS APRN A 564.00 CONSTIPATION 08/15/2011 ASHISH LUIS APRN A 780.4 DIZZINESS AND VERTIGO 08/15/2011 ASHISH LUIS APRN A 564.00 CONSTIPATION 08/15/2011 ASHISH LUIS APRN A 780.4 DIZZINESS AND VERTIGO 08/15/2011 MARQUISE GARCÍA MD 564.00 CONSTIPATION 08/15/2011 MARQUISE GARCÍA MD 780.4 DIZZINESS AND VERTIGO 08/15/2011 MARQUISE GARCÍA MD 564.00 CONSTIPATION 08/15/2011 RICKY MD, MARQUISE N 780.4 DIZZINESS AND VERTIGO 08/15/2011 TOBY SCHOOL PSYCHOLOGIST ASSISTANTASHISH Yoo A 564.00 CONSTIPATION 08/15/2011 TOBY SCHOOL PSYCHOLOGIST ASSISTANTASHISH Yoo 780.4 DIZZINESS AND VERTIGO 08/15/2011 MARQUISE GARCÍA MD N 564.00 CONSTIPATION 08/15/2011 MARQUISE GARCÍA MD N 780.4 DIZZINESS AND VERTIGO 08/15/2011 MARQUISE GARCÍA MD N 564.00 CONSTIPATION 08/15/2011 MARQUISE GARCÍA MD N 780.4 DIZZINESS AND VERTIGO 08/15/2011 MARQUISE GARCÍA MD N 564.00 CONSTIPATION 08/15/2011 MARQUISE GARCÍA MD N 780.4 DIZZINESS AND VERTIGO 08/15/2011 MARQUISE GARCÍA MD N 564.00 CONSTIPATION 08/15/2011 MARQUISE GARCÍA MD N 780.4 DIZZINESS AND VERTIGO 08/15/2011 MARQUISE GARCÍA MD N 564.00 CONSTIPATION 08/15/2011 MARQUISE GARCÍA MD N 780.4 DIZZINESS AND VERTIGO 08/15/2011 MARQUISE GARCÍA MD N 564.00 CONSTIPATION 08/15/2011 MARQUISE GARCÍA MD N 780.4 DIZZINESS AND VERTIGO 08/15/2011 MARQUISE GARCÍA MD N 564.00 CONSTIPATION 08/15/2011 MARQUISE GARCÍA MD N 780.4 DIZZINESS AND VERTIGO 08/15/2011 MARQUISE GARCÍA MD N 564.00 CONSTIPATION 08/15/2011 MARQUISE GARCÍA MD N 780.4 DIZZINESS AND VERTIGO 08/15/2011 SABRINA DUBOSE MD 564.00 CONSTIPATION 08/15/2011 SABRINA DUBOSE MD 780.4 DIZZINESS AND VERTIGO 08/15/2011 SABRINA DUBOSE MD 564.00 CONSTIPATION 08/15/2011 SABRINA DUBOSE MD 780.4 DIZZINESS AND VERTIGO 08/15/2011 QUEZADA DO, HETAL K 564.00 CONSTIPATION 08/15/2011 QUEZADA DO HETAL K 780.4 DIZZINESS AND VERTIGO 08/15/2011 QUEZADA DO, HETAL K 564.00 CONSTIPATION 08/15/2011 QUEZADA DO, HETAL K 780.4 DIZZINESS AND VERTIGO 08/15/2011 QUEZADA DO, HETAL K 564.00 CONSTIPATION 08/15/2011 QUEZADA DO, HETAL K 780.4 DIZZINESS AND VERTIGO 08/15/2011 QUEZADA DO, HETAL K 564.00 CONSTIPATION 08/15/2011 QUEZADA DO, HETAL K 780.4 DIZZINESS AND VERTIGO 08/15/2011 TOBYCLAYTON CROWDER, ASHISH A 564.00 CONSTIPATION 08/15/2011 TOBY CROWDER, ASHISH A 780.4 DIZZINESS AND VERTIGO 08/15/2011 GREG LLOYD MD 564.00 CONSTIPATION 08/15/2011 GREG LLOYD MD 780.4 DIZZINESS AND VERTIGO 08/15/2011 TOBY CROWDER, ASHISH A 564.00 CONSTIPATION 08/15/2011 TOBY CROWDER, ASHISH A 780.4 DIZZINESS AND VERTIGO 08/15/2011 OLGA CROWDER, ARNOLD R 564.00 CONSTIPATION 08/15/2011 OLGA CROWDER, ARNOLD R 780.4 DIZZINESS AND VERTIGO 08/15/2011 WHITE DDS, WISAM D 564.00 CONSTIPATION 08/15/2011 WHITE DDS, WISAM D 780.4 DIZZINESS AND VERTIGO 08/15/2011 TIMOTHY CROWDER, BORA R 564.00 CONSTIPATION 08/15/2011 TIMOTHY CROWDER, BORA R 780.4 DIZZINESS AND VERTIGO 08/15/2011 TOBY APRN, ASHISH A 564.00 CONSTIPATION 08/15/2011 TOBY APRN, ASHISH A 780.4 DIZZINESS AND VERTIGO 08/15/2011 MARQUISE GARCÍA MD 564.00 CONSTIPATION 08/15/2011 MARQUISE GARCÍA MD 780.4 DIZZINESS AND VERTIGO 08/15/2011 TOBY APRN, ASHISH A 564.00 CONSTIPATION 08/15/2011 TOBY APRN, ASHISH A 780.4 DIZZINESS AND VERTIGO 12/22/2011 BASSEM BOWER APRN 300.01 AN PANIC DIS W/O AGORA 12/22/2011 BASSEM BOWER APRN 300.01 AN PANIC DIS W/O AGORA 12/22/2011 300.01 AN PANIC DIS W/O AGORA 12/22/2011 300.01 AN PANIC DIS W/O AGORA 12/22/2011 300.01 AN PANIC DIS W/O AGORA 12/22/2011 300.01 AN PANIC DIS W/O AGORA 12/22/2011 300.01 AN PANIC DIS W/O AGORA 12/22/2011 300.01 AN PANIC DIS W/O AGORA 12/22/2011 TOBY SCHOOL PSYCHOLOGIST ASSISTANT, ASHISH A 300.01 AN PANIC DIS W/O AGORA 12/22/2011 DAMIEN HETLA ERWIN K 300.01 AN PANIC DIS W/O AGORA 12/22/2011 BASSEM BOWER APRN T 300.01 AN PANIC DIS W/O AGORA 12/22/2011 300.01 AN PANIC DIS W/O AGORA 12/22/2011 MARQUISE GARCÍA MD 300.01 AN PANIC DIS W/O AGORA 12/22/2011 TOBY SCHOOL PSYCHOLOGIST ASSISTANTASHISH Yoo A 300.01 AN PANIC DIS W/O AGORA 12/22/2011 TOBYWILFRID Yoo APRNIDI A 300.01 AN PANIC DIS W/O AGORA 12/22/2011 MARQUISE GARCÍA MD 300.01 AN PANIC DIS W/O AGORA 12/22/2011 MARQUISE GARCÍA MD 300.01 AN PANIC DIS W/O AGORA 12/22/2011 ASHISH LUIS APRN A 300.01 AN PANIC DIS W/O AGORA 12/22/2011 MARQUISE GARCÍA MD N 300.01 AN PANIC DIS W/O AGORA 12/22/2011 MARQUISE GARCÍA MD N 300.01 AN PANIC DIS W/O AGORA 12/22/2011 MARQUISE GARCÍA MD N 300.01 AN PANIC DIS W/O AGORA 12/22/2011 MARQUISE GARCÍA MD N 300.01 AN PANIC DIS W/O AGORA 12/22/2011 MARQUISE GARCÍA MD N 300.01 AN PANIC DIS W/O AGORA 12/22/2011 MARQUISE GARCÍA MD N 300.01 AN PANIC DIS W/O AGORA 12/22/2011 MARQUISE GARCÍA MD 300.01 AN PANIC DIS W/O AGORA 12/22/2011 MARQUISE GARCÍA MD N 300.01 AN PANIC DIS W/O AGORA 12/22/2011 SABRINA DUBOSE MD 300.01 AN PANIC DIS W/O AGORA 12/22/2011 SABRINA DUBOSE MD 300.01 AN PANIC DIS W/O AGORA 12/22/2011 QUEZADA DO, HETAL K 300.01 AN PANIC DIS W/O AGORA 12/22/2011 QUEZADA DO, HETAL K 300.01 AN PANIC DIS W/O [facility] 12/22/2011 QUEZADA DO, HETAL K 300.01 AN PANIC DIS W/O [facility] 12/22/2011 QUEZADA DO, HETAL K 300.01 AN PANIC DIS W/O [facility] 12/22/2011 ASHISH LUIS APRN A 300.01 AN PANIC DIS W/O [facility] 12/22/2011 GREG LLOYD MD 300.01 AN PANIC DIS W/O [facility] 12/22/2011 ASHISH LUIS APRN A 300.01 AN PANIC DIS W/O [facility] 12/22/2011 ARNOLD ESPINOZA APRN 300.01 AN PANIC DIS W/O [facility] 12/22/2011 HARJIT DDS, WISAM D 300.01 AN PANIC DIS W/O [facility] 12/22/2011 BORA AGUIRRE APRN 300.01 AN PANIC DIS W/O [facility] 12/22/2011 ASHSIH LUIS APRN A 300.01 AN PANIC DIS W/O [facility] 12/22/2011 MARQUISE GARCÍA MD 300.01 AN PANIC DIS W/O [facility] 12/22/2011 ASHISH LUIS APRN A 300.01 AN PANIC DIS W/O [facility] 01/31/2012 BASSEM BOWER APRN 300.21 AN PANIC DIS W [facility] 01/31/2012 BASSEM BOWER APRN 300.21 AN PANIC DIS W [facility] 01/31/2012 300.21 AN PANIC DIS W [facility] 01/31/2012 300.21 AN PANIC DIS W [facility] 01/31/2012 300.21 AN PANIC DIS W [facility] 01/31/2012 300.21 AN PANIC DIS W [facility] 01/31/2012 300.21 AN PANIC DIS W [facility] 01/31/2012 300.21 AN PANIC DIS W [facility] 01/31/2012 ASHISH LUIS APRN A 300.21 AN PANIC DIS W [facility] 01/31/2012 QUEZADA DO, HETAL K 300.21 AN PANIC DIS W [facility] 01/31/2012 BASSEM BOWER APRN 300.21 AN PANIC DIS W [facility] 01/31/2012 300.21 AN PANIC DIS W [facility] 01/31/2012 MARQUISE GARCÍA MD N 300.21 AN PANIC DIS W [facility] 01/31/2012 [employer] PSYCHOLOGIST ASSISTANT, ASHISH A 300.21 AN PANIC DIS W [facility] 01/31/2012 [employer] SCHO[employer] PSYCHOLOGIST ASSISTANT, ASHISH A 300.21 AN PANIC DIS W [facility] 01/31/2012 MARQUISE GARCÍA MD N 300.21 AN PANIC DIS W [facility] 01/31/2012 MARQUISE GARCÍA MD N 300.21 AN PANIC DIS W [facility] 01/31/2012 [employer] SCHO[employer] PSYCHOLOGIST ASSISTANT, ASHISH A 300.21 AN PANIC DIS W [facility] 01/31/2012 MARQUISE GARCÍA MD N 300.21 AN PANIC DIS W [facility] 01/31/2012 MARQUISE GARCÍA MD N 300.21 AN PANIC DIS W [facility] 01/31/2012 MARQUISE GARCÍA MD N 300.21 AN PANIC DIS W [facility] 01/31/2012 MARQUISE GARCÍA MD N 300.21 AN PANIC DIS W [facility] 01/31/2012 MARQUISE GARCÍA MD N 300.21 AN PANIC DIS W [facility] 01/31/2012 MARQUISE GARCÍA MD N 300.21 AN PANIC DIS W [facility] 01/31/2012 MARQUISE GARCÍA MD N 300.21 AN PANIC DIS W [facility] 01/31/2012 MARQUISE GARCÍA MD N 300.21 AN PANIC DIS W [facility] 01/31/2012 SABRINA DUBOSE MD 300.21 AN PANIC DIS W [facility] 01/31/2012 SABRINA DUBOSE MD 300.21 AN PANIC DIS W [facility] 01/31/2012 QUEZADA DO, HETAL K 300.21 AN PANIC DIS W [facility] 01/31/2012 QUEZADA DO, HETAL K 300.21 AN PANIC DIS W [facility] 01/31/2012 QUEZADA DO, HETAL K 300.21 AN PANIC DIS W [facility] 01/31/2012 QUEZADA DO, HETAL K 300.21 AN PANIC DIS W [facility] 01/31/2012 [employer] S[employer] PSYCHOLOGIST ASSISTANT, ASHISH A 300.21 AN PANIC DIS W [facility] 01/31/2012 GREG LLOYD MD 300.21 AN PANIC DIS W [facility] 01/31/2012 [employer] PSYCHOLOGIST ASSISTANT, ASHISH A 300.21 AN PANIC DIS W [facility] 01/31/2012 OLGA CROWDER ARNOLD R 300.21 AN PANIC DIS W [facility] 01/31/2012 WHITE DDS, WISAM D 300.21 AN PANIC DIS W [facility] 01/31/2012 TIMOTHY CROWDERBORA R 300.21 AN PANIC DIS W [facility] 01/31/2012 TOBYASHISH Yoo APRN A 300.21 AN PANIC DIS W [facility] 01/31/2012 MARQUISE GARCÍA MD 300.21 AN PANIC DIS W [facility] 01/31/2012 TOBY SCHOOL PSYCHOLOGIST ASSISTANTASHISH Yoo A 300.21 AN PANIC DIS W [facility] 03/19/2012 BASSEM BOWER APRN 296.90 MOOD DISORDER 03/19/2012 BASSEM BOWER APRN 296.90 MOOD DISORDER 03/19/2012 296.90 MOOD DISORDER 03/19/2012 296.90 MOOD DISORDER 03/19/2012 296.90 MOOD DISORDER 03/19/2012 296.90 MOOD DISORDER 03/19/2012 296.90 MOOD DISORDER 03/19/2012 296.90 MOOD DISORDER 03/19/2012 TOBYASHISH Yoo APRN A 296.90 MOOD DISORDER 03/19/2012 HETAL QUEZADA DO 296.90 MOOD DISORDER 03/19/2012 BASSEM BOWER APRN 296.90 MOOD DISORDER 03/19/2012 296.90 MOOD DISORDER 03/19/2012 MARQUISE GARCÍA MD 296.90 MOOD DISORDER 03/19/2012 TOBYASHISH Yoo APRN A 296.90 MOOD DISORDER 03/19/2012 TOBYASHISH Yoo APRN A 296.90 MOOD DISORDER 03/19/2012 MARQUISE GARCÍA MD 296.90 MOOD DISORDER 03/19/2012 MARQUISE GARCÍA MD 296.90 MOOD DISORDER 03/19/2012 TOBYASHISH Yoo APRN A 296.90 MOOD DISORDER 03/19/2012 MARQUISE GARCÍA MD 296.90 MOOD DISORDER 03/19/2012 MARQUISE GARCÍA MD 296.90 MOOD DISORDER 03/19/2012 MRAQUISE GARCÍA MD 296.90 MOOD DISORDER 03/19/2012 MARQUISE GARCÍA MD 296.90 MOOD DISORDER 03/19/2012 RICKY MD, MARQUISE N 296.90 MOOD DISORDER 03/19/2012 MARQUISE GARCÍA MD 296.90 MOOD DISORDER 03/19/2012 MARQUISE GARCÍA MD 296.90 MOOD DISORDER 03/19/2012 MARQUISE GARCÍA MD 296.90 MOOD DISORDER 03/19/2012 SABRINA DUBOSE MD 296.90 MOOD DISORDER 03/19/2012 SABRINA DUBOSE MD 296.90 MOOD DISORDER 03/19/2012 QUEZADA DO, HETAL K 296.90 MOOD DISORDER 03/19/2012 QUEZADA DO, HETAL K 296.90 MOOD DISORDER 03/19/2012 QUEZADA DO, HETAL K 296.90 MOOD DISORDER 03/19/2012 QUEZADA DO, HETAL K 296.90 MOOD DISORDER 03/19/2012 WILFRID LUIS APRNIDI A 296.90 MOOD DISORDER 03/19/2012 GREG LLOYD MD 296.90 MOOD DISORDER 03/19/2012 WILFRID LUIS APRNIDI A 296.90 MOOD DISORDER 03/19/2012 ARNOLD ESPINOZA APRN R 296.90 MOOD DISORDER 03/19/2012 WISAM LOMBARDI DDS 296.90 MOOD DISORDER 03/19/2012 BORA AGUIRRE APRN R 296.90 MOOD DISORDER 03/19/2012 WILFRID LUIS APRNIDI A 296.90 MOOD DISORDER 03/19/2012 MARQUISE GARCÍA MD 296.90 MOOD DISORDER 03/19/2012 WILFRID LUIS APRNIDI A 296.90 MOOD DISORDER 04/03/2012 BASSEM BOWER APRN V74.5 STD SCREEN 04/03/2012 BASSEM BOWER APRN V74.5 STD SCREEN 04/03/2012 V74.5 STD SCREEN 04/03/2012 V74.5 STD SCREEN 04/03/2012 V74.5 STD SCREEN 04/03/2012 V74.5 STD SCREEN 04/03/2012 V74.5 STD SCREEN 04/03/2012 V74.5 STD SCREEN 04/03/2012 ASHISH LUIS APRN A V74.5 STD SCREEN 04/03/2012 DAMIEN DO, HETAL K V74.5 STD SCREEN 04/03/2012 BASSEM BOWER APRN V74.5 STD SCREEN 04/03/2012 V74.5 STD SCREEN 04/03/2012 MARQUISE GARCÍA MD V74.5 STD SCREEN 04/03/2012 TOBY CROWDER, ASHISH A V74.5 STD SCREEN 04/03/2012 TOBY ESPARZAN, ASHISH A V74.5 STD SCREEN 04/03/2012 RICKY FITZPATRICK, MARQUISE Yoo V74.5 STD SCREEN 04/03/2012 RICKY FITZPATRICK, MARQUISE Yoo V74.5 STD SCREEN 04/03/2012 TOBY CROWDER, ASHISH A V74.5 STD SCREEN 04/03/2012 RICKY FITZPATRICK, MARQUISE Yoo V74.5 STD SCREEN 04/03/2012 RICKY FITZPATRICK, MARQUISE Yoo V74.5 STD SCREEN 04/03/2012 RICKY FITZPATRICK, MARQUISE Yoo V74.5 STD SCREEN 04/03/2012 RICKY FITZPATRICK, MARQUISE Yoo V74.5 STD SCREEN 04/03/2012 RICKY FITZPATRICK, MARQUISE Yoo V74.5 STD SCREEN 04/03/2012 RICKY FITZPATRICK, MARQUISE Yoo V74.5 STD SCREEN 04/03/2012 RICKY FITZPATRICK, MARQUISE Yoo V74.5 STD SCREEN 04/03/2012 RICKY FITZPATRICK, MARQUISE Yoo V74.5 STD SCREEN 04/03/2012 SEDRICK FITZPATRICK, SABRINA Ramos V74.5 STD SCREEN 04/03/2012 SEDRICK FITZPATRICK, SABRINA Ramos V74.5 STD SCREEN 04/03/2012 QUEZADA DO, HETAL K V74.5 STD SCREEN 04/03/2012 QUEZADA DO, HETAL K V74.5 STD SCREEN 04/03/2012 QUEZADA DO, HETAL K V74.5 STD SCREEN 04/03/2012 QUEZADA DO, HETAL K V74.5 STD SCREEN 04/03/2012 TOBY CROWDER, ASHISH A V74.5 STD SCREEN 04/03/2012 GREG LLOYD MD V74.5 STD SCREEN 04/03/2012 TOBY CROWDER, ASHISH A V74.5 STD SCREEN 04/03/2012 ARNOLD ESPINOZA APRN V74.5 STD SCREEN 04/03/2012 WISAM LOMBARDI DDS V74.5 STD SCREEN 04/03/2012 BORA AGUIRRE APRN V74.5 STD SCREEN 04/03/2012 TOBY CROWDER, ASHISH A V74.5 STD SCREEN 04/03/2012 MARQUISE GARCÍA MD V74.5 STD SCREEN 04/03/2012 ASHISH LUIS APRN A V74.5 STD SCREEN 04/18/2012 BASSEM BOWER APRN Raegan 300.00 AN ANXIETY UNSPEC 04/18/2012 SATHISH SCHOOL PSYCHOLOGIST ASSISTANTBASSEM Yoo Raegan 300.00 AN ANXIETY UNSPEC 04/18/2012 300.00 AN ANXIETY UNSPEC 04/18/2012 300.00 AN ANXIETY UNSPEC 04/18/2012 300.00 AN ANXIETY UNSPEC 04/18/2012 300.00 AN ANXIETY UNSPEC 04/18/2012 300.00 AN ANXIETY UNSPEC 04/18/2012 300.00 AN ANXIETY UNSPEC 04/18/2012 ASHISH LUIS APRN A 300.00 AN ANXIETY UNSPEC 04/18/2012 HETAL QUEZADA DO 300.00 AN ANXIETY UNSPEC 04/18/2012 SATHISH SCHOOL PSYCHOLOGIST ASSISTANT, BASSEM Carlin 300.00 AN ANXIETY UNSPEC 04/18/2012 300.00 AN ANXIETY UNSPEC 04/18/2012 MARQUISE GARCÍA MD 300.00 AN ANXIETY UNSPEC 04/18/2012 ASHISH LUIS APRN A 300.00 AN ANXIETY UNSPEC 04/18/2012 ASHISH LUIS APRN A 300.00 AN ANXIETY UNSPEC 04/18/2012 MARQUISE GARCÍA MD 300.00 AN ANXIETY UNSPEC 04/18/2012 MARQUISE GARCÍA MD 300.00 AN ANXIETY UNSPEC 04/18/2012 WILFRID LUIS APRNIDI A 300.00 AN ANXIETY UNSPEC 04/18/2012 MARQUISE GARCÍA MD 300.00 AN ANXIETY UNSPEC 04/18/2012 MARQUISE GARCÍA MD 300.00 AN ANXIETY UNSPEC 04/18/2012 MARQUISE GARCÍA MD 300.00 AN ANXIETY UNSPEC 04/18/2012 MARQUISE GARCÍA MD N 300.00 AN ANXIETY UNSPEC 04/18/2012 MARQUISE GARCÍA MD 300.00 AN ANXIETY UNSPEC 04/18/2012 MARQUISE GARCÍA MD 300.00 AN ANXIETY UNSPEC 04/18/2012 MARQUISE GARCÍA MD 300.00 AN ANXIETY UNSPEC 04/18/2012 MARQUISE GARCÍA MD 300.00 AN ANXIETY UNSPEC 04/18/2012 SABRINA DUBOSE MD 300.00 AN ANXIETY UNSPEC 04/18/2012 SABRINA DUBOSE MD 300.00 AN ANXIETY UNSPEC 04/18/2012 QUEZADA DO, HETAL K 300.00 AN ANXIETY UNSPEC 04/18/2012 QUEZADA DO, HETAL K 300.00 AN ANXIETY UNSPEC 04/18/2012 QUEZADA DO, HETAL K 300.00 AN ANXIETY UNSPEC 04/18/2012 QUEZADA DO, HETAL K 300.00 AN ANXIETY UNSPEC 04/18/2012 WILFRID LUIS APRNIDI A 300.00 AN ANXIETY UNSPEC 04/18/2012 GREG LLOYD MD 300.00 AN ANXIETY UNSPEC 04/18/2012 WILFRID LUIS APRNIDI A 300.00 AN ANXIETY UNSPEC 04/18/2012 ARNOLD ESPINOZA APRN R 300.00 AN ANXIETY UNSPEC 04/18/2012 HARJIT GERONIMOS, WISAM D 300.00 AN ANXIETY UNSPEC 04/18/2012 BORA AGUIRRE APRN 300.00 AN ANXIETY UNSPEC 04/18/2012 WILFRID LUIS APRNIDI A 300.00 AN ANXIETY UNSPEC 04/18/2012 MARQUISE GARCÍA MD 300.00 AN ANXIETY UNSPEC 04/18/2012 ASHISH LUIS APRN A 300.00 AN ANXIETY UNSPEC 06/17/2012 BASSEM BOWER APRN 354.0 CARPAL TUNNEL SYNDROME 06/17/2012 BASSEM BOWER APRN 354.0 CARPAL TUNNEL SYNDROME 06/17/2012 354.0 CARPAL TUNNEL SYNDROME 06/17/2012 354.0 CARPAL TUNNEL SYNDROME 06/17/2012 354.0 CARPAL TUNNEL SYNDROME 06/17/2012 354.0 CARPAL TUNNEL SYNDROME 06/17/2012 354.0 CARPAL TUNNEL SYNDROME 06/17/2012 354.0 CARPAL TUNNEL SYNDROME 06/17/2012 ASHISH LUIS APRN A 354.0 CARPAL TUNNEL SYNDROME 06/17/2012 QUEZADA DO, HETAL K 354.0 CARPAL TUNNEL SYNDROME 06/17/2012 BASSEM BOWER APRN 354.0 CARPAL TUNNEL SYNDROME 06/17/2012 354.0 CARPAL TUNNEL SYNDROME 06/17/2012 MARQUISE GARCÍA MD 354.0 CARPAL TUNNEL SYNDROME 06/17/2012 ASHISH LUIS APRN A 354.0 CARPAL TUNNEL SYNDROME 06/17/2012 ASHISH LUIS APRN A 354.0 CARPAL TUNNEL SYNDROME 06/17/2012 MARQUISE GARCÍA MD 354.0 CARPAL TUNNEL SYNDROME 06/17/2012 MARQUISE GARCÍA MD 354.0 CARPAL TUNNEL SYNDROME 06/17/2012 ASHISH LUIS APRN A 354.0 CARPAL TUNNEL SYNDROME 06/17/2012 MARQUISE GARCÍA MD 354.0 CARPAL TUNNEL SYNDROME 06/17/2012 MARQUISE GARCÍA MD 354.0 CARPAL TUNNEL SYNDROME 06/17/2012 MARQUISE GARCÍA MD 354.0 CARPAL TUNNEL SYNDROME 06/17/2012 MARQUISE GARCÍA MD N 354.0 CARPAL TUNNEL SYNDROME 06/17/2012 MARQUISE GARCÍA MD 354.0 CARPAL TUNNEL SYNDROME 06/17/2012 MARQUISE GARCÍA MD 354.0 CARPAL TUNNEL SYNDROME 06/17/2012 MARQUISE GARCÍA MD 354.0 CARPAL TUNNEL SYNDROME 06/17/2012 MARQUISE GARCÍA MD 354.0 CARPAL TUNNEL SYNDROME 06/17/2012 SABRINA DUBOSE MD 354.0 CARPAL TUNNEL SYNDROME 06/17/2012 SABRINA DUBOSE MD 354.0 CARPAL TUNNEL SYNDROME 06/17/2012 QUEZADA DO, HETAL K 354.0 CARPAL TUNNEL SYNDROME 06/17/2012 QUEZADA DO, HETAL K 354.0 CARPAL TUNNEL SYNDROME 06/17/2012 QUEZADA DO, HETAL K 354.0 CARPAL TUNNEL SYNDROME 06/17/2012 QUEZADA DO, HETAL K 354.0 CARPAL TUNNEL SYNDROME 06/17/2012 ASHISH LUIS APRN A 354.0 CARPAL TUNNEL SYNDROME 06/17/2012 GREG LLOYD MD 354.0 CARPAL TUNNEL SYNDROME 06/17/2012 ASHISH LUIS APRN A 354.0 CARPAL TUNNEL SYNDROME 06/17/2012 ARNOLD ESPINOZA APRN 354.0 CARPAL TUNNEL SYNDROME 06/17/2012 WISAM LOMBARDI DDS 354.0 CARPAL TUNNEL SYNDROME 06/17/2012 BORA AGUIRRE APRN 354.0 CARPAL TUNNEL SYNDROME 06/17/2012 ASHISH LUIS APRN A 354.0 CARPAL TUNNEL SYNDROME 06/17/2012 MARQUISE GARCÍA MD 354.0 CARPAL TUNNEL SYNDROME 06/17/2012 ASHISH LUIS APRN A 354.0 CARPAL TUNNEL SYNDROME 10/29/2012 V25.09 CONTRACEPTIVE COUNSELING - GENERAL 10/29/2012 V25.09 CONTRACEPTIVE COUNSELING - GENERAL 10/29/2012 V25.09 CONTRACEPTIVE COUNSELING - GENERAL 10/29/2012 V25.09 CONTRACEPTIVE COUNSELING - GENERAL 10/29/2012 V25.09 CONTRACEPTIVE COUNSELING - GENERAL 10/29/2012 V25.09 CONTRACEPTIVE COUNSELING - GENERAL 10/29/2012 TOBY ESPARZAN, ASHISH A V25.09 CONTRACEPTIVE COUNSELING - GENERAL 10/29/2012 HETAL QUEZADA DO V25.09 CONTRACEPTIVE COUNSELING - GENERAL 10/29/2012 BASSEM BOWER APRN V25.09 CONTRACEPTIVE COUNSELING - GENERAL 10/29/2012 V25.09 CONTRACEPTIVE COUNSELING - GENERAL 10/29/2012 MARQUISE GARCÍA MD V25.09 CONTRACEPTIVE COUNSELING - GENERAL 10/29/2012 TOBYASHISH Yoo APRN A V25.09 CONTRACEPTIVE COUNSELING - GENERAL 10/29/2012 TOBYASHISH Yoo APRN A V25.09 CONTRACEPTIVE COUNSELING - GENERAL 10/29/2012 MARQUISE GARCÍA MD V25.09 CONTRACEPTIVE COUNSELING - GENERAL 10/29/2012 MARQUISE GARCÍA MD V25.09 CONTRACEPTIVE COUNSELING - GENERAL 10/29/2012 TOBYASHISH Yoo APRN A V25.09 CONTRACEPTIVE COUNSELING - GENERAL 10/29/2012 MARQUISE GARCÍA MD V25.09 CONTRACEPTIVE COUNSELING - GENERAL 10/29/2012 MARQUISE GARCÍA MD V25.09 CONTRACEPTIVE COUNSELING - GENERAL 10/29/2012 MARQUISE GARCÍA MD V25.09 CONTRACEPTIVE COUNSELING - GENERAL 10/29/2012 MARQUISE GARCÍA MD V25.09 CONTRACEPTIVE COUNSELING - GENERAL 10/29/2012 MARQUISE GARCÍA MD V25.09 CONTRACEPTIVE COUNSELING - GENERAL 10/29/2012 MARQUISE GARCÍA MD V25.09 CONTRACEPTIVE COUNSELING - GENERAL 10/29/2012 MARQUISE GARCÍA MD V25.09 CONTRACEPTIVE COUNSELING - GENERAL 10/29/2012 MARQUISE GARCÍA MD V25.09 CONTRACEPTIVE COUNSELING - GENERAL 10/29/2012 SABRINA DUBOSE MD V25.09 CONTRACEPTIVE COUNSELING - GENERAL 10/29/2012 SABRINA DUBOSE MD V25.09 CONTRACEPTIVE COUNSELING - GENERAL 10/29/2012 HETAL QUEZADA DO V25.09 CONTRACEPTIVE COUNSELING - GENERAL 10/29/2012 MAIA QUEZADA DOA K V25.09 CONTRACEPTIVE COUNSELING - GENERAL 10/29/2012 QUEZADA DO, HETAL K V25.09 CONTRACEPTIVE COUNSELING - GENERAL 10/29/2012 QUEZADA DO, HETAL K V25.09 CONTRACEPTIVE COUNSELING - GENERAL 10/29/2012 WILFRID LUIS APRNIDI A V25.09 CONTRACEPTIVE COUNSELING - GENERAL 10/29/2012 GREG LLOYD MD V25.09 CONTRACEPTIVE COUNSELING - GENERAL 10/29/2012 ASHISH LUIS APRN A V25.09 CONTRACEPTIVE COUNSELING - GENERAL 10/29/2012 ARNOLD ESPINOZA APRN R V25.09 CONTRACEPTIVE COUNSELING - GENERAL 10/29/2012 HARJIT DDS, WISAM Nice V25.09 CONTRACEPTIVE COUNSELING - GENERAL 10/29/2012 BORA AGUIRRE APRN V25.09 CONTRACEPTIVE COUNSELING - GENERAL 10/29/2012 ASHISH LUIS APRN A V25.09 CONTRACEPTIVE COUNSELING - GENERAL 10/29/2012 MARQUISE GARCÍA MD V25.09 CONTRACEPTIVE COUNSELING - GENERAL 10/29/2012 ASHISH LUIS APRN A V25.09 CONTRACEPTIVE COUNSELING - GENERAL 11/06/2012 V25.11 IUD INSERTION 11/06/2012 V25.11 IUD INSERTION 11/06/2012 V25.11 IUD INSERTION 11/06/2012 V25.11 IUD INSERTION 11/06/2012 V25.11 IUD INSERTION 11/06/2012 ASHISH LUIS APRN A V25.11 IUD INSERTION 11/06/2012 HETAL QUEZADA DO K V25.11 IUD INSERTION 11/06/2012 BASSME BOWER APRN V25.11 IUD INSERTION 11/06/2012 V25.11 IUD INSERTION 11/06/2012 MARQUISE GARCÍA MD V25.11 IUD INSERTION 11/06/2012 ASHISH LUIS APRN A V25.11 IUD INSERTION 11/06/2012 ASHISH LUIS APRN A V25.11 IUD INSERTION 11/06/2012 MARQUISE GARCÍA MD V25.11 IUD INSERTION 11/06/2012 MARQUISE GARCÍA MD V25.11 IUD INSERTION 11/06/2012 ASHISH LUIS APRN A V25.11 IUD INSERTION 11/06/2012 MARQUISE GARCÍA MD N V25.11 IUD INSERTION 11/06/2012 RICKY FITZPATRICK, MARQUISE Yoo V25.11 IUD INSERTION 11/06/2012 RICKY FITZPATRICK, MARQUISE N V25.11 IUD INSERTION 11/06/2012 RICKY FITZPATRICK, MARQUISE Yoo V25.11 IUD INSERTION 11/06/2012 RICKY FITZPATRICK, MARQUISE Yoo V25.11 IUD INSERTION 11/06/2012 RICKY FITZPATRICK, MARQUISE Yoo V25.11 IUD INSERTION 11/06/2012 RICKY FITZPATRICK, MARQUISE Yoo V25.11 IUD INSERTION 11/06/2012 RICKY FITZPATRICK, MARQUISE Yoo V25.11 IUD INSERTION 11/06/2012 SEDRICK FITZPATRICK, SABRINA Ramos V25.11 IUD INSERTION 11/06/2012 SEDRICK FITZPATRICK, SABRINA Ramos V25.11 IUD INSERTION 11/06/2012 QUEZADA DO, HETAL K V25.11 IUD INSERTION 11/06/2012 QUEZADA DO, HETAL K V25.11 IUD INSERTION 11/06/2012 QUEZADA DO, HETAL K V25.11 IUD INSERTION 11/06/2012 QUEZADA DO, HETAL K V25.11 IUD INSERTION 11/06/2012 ASHISH LUIS APRN A V25.11 IUD INSERTION 11/06/2012 GREG LLOYD MD V25.11 IUD INSERTION 11/06/2012 ASHISH LUIS APRN A V25.11 IUD INSERTION 11/06/2012 ARNOLD ESPINOZA APRN R V25.11 IUD INSERTION 11/06/2012 WISAM LOMBARDI DDS V25.11 IUD INSERTION 11/06/2012 BORA AGUIRRE APRN V25.11 IUD INSERTION 11/06/2012 ASHISH LUIS APRN A V25.11 IUD INSERTION 11/06/2012 MARQUISE GARCÍA MD V25.11 IUD INSERTION 11/06/2012 ASHISH LUIS APRN A V25.11 IUD INSERTION 12/17/2012 682.9 CELLULITIS AND ABSCESS OF UNSPECIFIED SITES 12/17/2012 V25.42 CONTRACEPTION SURVEILLANCE (IUD) 12/17/2012 682.9 CELLULITIS AND ABSCESS OF UNSPECIFIED SITES 12/17/2012 V25.42 CONTRACEPTION SURVEILLANCE (IUD) 12/17/2012 682.9 CELLULITIS AND ABSCESS OF UNSPECIFIED SITES 12/17/2012 V25.42 CONTRACEPTION SURVEILLANCE (IUD) 12/17/2012 682.9 CELLULITIS AND ABSCESS OF UNSPECIFIED SITES 12/17/2012 V25.42 CONTRACEPTION SURVEILLANCE (IUD) 12/17/2012 ASHISH LUIS APRN 682.9 CELLULITIS AND ABSCESS OF UNSPECIFIED SITES 12/17/2012 ASHISH LUIS APRN V25.42 CONTRACEPTION SURVEILLANCE (IUD) 12/17/2012 HETAL QUEZADA DO 682.9 CELLULITIS AND ABSCESS OF UNSPECIFIED SITES 12/17/2012 QUEZADA DOHETAL K V25.42 CONTRACEPTION SURVEILLANCE (IUD) 12/17/2012 BASSEM BOWER APRN 682.9 CELLULITIS AND ABSCESS OF UNSPECIFIED SITES 12/17/2012 BASSEM BOWER APRN V25.42 CONTRACEPTION SURVEILLANCE (IUD) 12/17/2012 682.9 CELLULITIS AND ABSCESS OF UNSPECIFIED SITES 12/17/2012 V25.42 CONTRACEPTION SURVEILLANCE (IUD) 12/17/2012 MARQUISE GARCÍA MD 682.9 CELLULITIS AND ABSCESS OF UNSPECIFIED SITES 12/17/2012 MARQUISE GARCÍA MD V25.42 CONTRACEPTION SURVEILLANCE (IUD) 12/17/2012 ASHISH LUIS APRN 682.9 CELLULITIS AND ABSCESS OF UNSPECIFIED SITES 12/17/2012 ASHISH LUIS APRN V25.42 CONTRACEPTION SURVEILLANCE (IUD) 12/17/2012 ASHISH LUIS APRN 682.9 CELLULITIS AND ABSCESS OF UNSPECIFIED SITES 12/17/2012 ASHISH LUIS APRN V25.42 CONTRACEPTION SURVEILLANCE (IUD) 12/17/2012 MARQUISE GARCÍA MD 682.9 CELLULITIS AND ABSCESS OF UNSPECIFIED SITES 12/17/2012 MARQUISE GARCÍA MD V25.42 CONTRACEPTION SURVEILLANCE (IUD) 12/17/2012 MARQUISE GARCÍA MD 682.9 CELLULITIS AND ABSCESS OF UNSPECIFIED SITES 12/17/2012 MARQUISE GARCÍA MD V25.42 CONTRACEPTION SURVEILLANCE (IUD) 12/17/2012 ASHISH LUIS APRN 682.9 CELLULITIS AND ABSCESS OF UNSPECIFIED SITES 12/17/2012 ASHISH LUIS APRN V25.42 CONTRACEPTION SURVEILLANCE (IUD) 12/17/2012 MARQUISE GARCÍA MD 682.9 CELLULITIS AND ABSCESS OF UNSPECIFIED SITES 12/17/2012 MARQUISE GARCÍA MD V25.42 CONTRACEPTION SURVEILLANCE (IUD) 12/17/2012 MARQUISE GARCÍA MD 682.9 CELLULITIS AND ABSCESS OF UNSPECIFIED SITES 12/17/2012 MARQUISE GARCÍA MD V25.42 CONTRACEPTION SURVEILLANCE (IUD) 12/17/2012 MARQUISE GARCÍA MD 682.9 CELLULITIS AND ABSCESS OF UNSPECIFIED SITES 12/17/2012 MARQUISE GARCÍA MD V25.42 CONTRACEPTION SURVEILLANCE (IUD) 12/17/2012 MARQUISE GARCÍA MD 682.9 CELLULITIS AND ABSCESS OF UNSPECIFIED SITES 12/17/2012 MARQUISE GARCÍA MD V25.42 CONTRACEPTION SURVEILLANCE (IUD) 12/17/2012 MARQUISE GARCÍA MD 682.9 CELLULITIS AND ABSCESS OF UNSPECIFIED SITES 12/17/2012 MARQUISE GARCÍA MD V25.42 CONTRACEPTION SURVEILLANCE (IUD) 12/17/2012 MARQUISE GARCÍA MD 682.9 CELLULITIS AND ABSCESS OF UNSPECIFIED SITES 12/17/2012 MARQUISE GARCÍA MD V25.42 CONTRACEPTION SURVEILLANCE (IUD) 12/17/2012 MARQUISE GARCÍA MD 682.9 CELLULITIS AND ABSCESS OF UNSPECIFIED SITES 12/17/2012 MARQUISE GARCÍA MD V25.42 CONTRACEPTION SURVEILLANCE (IUD) 12/17/2012 MARQUISE GARCÍA MD 682.9 CELLULITIS AND ABSCESS OF UNSPECIFIED SITES 12/17/2012 MARQUISE GARCÍA MD V25.42 CONTRACEPTION SURVEILLANCE (IUD) 12/17/2012 SABRINA DUBOSE MD 682.9 CELLULITIS AND ABSCESS OF UNSPECIFIED SITES 12/17/2012 SABRINA DUBOSE MD V25.42 CONTRACEPTION SURVEILLANCE (IUD) 12/17/2012 SABRINA DUBOSE MD 682.9 CELLULITIS AND ABSCESS OF UNSPECIFIED SITES 12/17/2012 SABRINA DUBOSE MD V25.42 CONTRACEPTION SURVEILLANCE (IUD) 12/17/2012 QUEZADA DO HETAL K 682.9 CELLULITIS AND ABSCESS OF UNSPECIFIED SITES 12/17/2012 QUEZADA DO HETAL K V25.42 CONTRACEPTION SURVEILLANCE (IUD) 12/17/2012 QUEZADA DO, HETAL K 682.9 CELLULITIS AND ABSCESS OF UNSPECIFIED SITES 12/17/2012 QUEZADA DO HETAL K V25.42 CONTRACEPTION SURVEILLANCE (IUD) 12/17/2012 QUEZADA DO, HETAL K 682.9 CELLULITIS AND ABSCESS OF UNSPECIFIED SITES 12/17/2012 QUEZADA DOMAIAA K V25.42 CONTRACEPTION SURVEILLANCE (IUD) 12/17/2012 QUEZADA DOMAIAA K 682.9 CELLULITIS AND ABSCESS OF UNSPECIFIED SITES 12/17/2012 QUEZADA DOMAIAA K V25.42 CONTRACEPTION SURVEILLANCE (IUD) 12/17/2012 ASHISH LUIS APRN 682.9 CELLULITIS AND ABSCESS OF UNSPECIFIED SITES 12/17/2012 ASHISH LUIS APRN V25.42 CONTRACEPTION SURVEILLANCE (IUD) 12/17/2012 GREG LLOYD MD 682.9 CELLULITIS AND ABSCESS OF UNSPECIFIED SITES 12/17/2012 GREG LLOYD MD V25.42 CONTRACEPTION SURVEILLANCE (IUD) 12/17/2012 ASHISH LUIS APRN 682.9 CELLULITIS AND ABSCESS OF UNSPECIFIED SITES 12/17/2012 ASHISH LUIS APRN A V25.42 CONTRACEPTION SURVEILLANCE (IUD) 12/17/2012 ARNOLD ESPINOZA APRN R 682.9 CELLULITIS AND ABSCESS OF UNSPECIFIED SITES 12/17/2012 ARNOLD ESPINOZA APRN R V25.42 CONTRACEPTION SURVEILLANCE (IUD) 12/17/2012 WISAM LOMBARDI DDS 682.9 CELLULITIS AND ABSCESS OF UNSPECIFIED SITES 12/17/2012 WISAM LOMBARDI DDS V25.42 CONTRACEPTION SURVEILLANCE (IUD) 12/17/2012 BORA AGUIRRE APRN 682.9 CELLULITIS AND ABSCESS OF UNSPECIFIED SITES 12/17/2012 BORA AGUIRRE APRN V25.42 CONTRACEPTION SURVEILLANCE (IUD) 12/17/2012 ASHISH LUIS APRN A 682.9 CELLULITIS AND ABSCESS OF UNSPECIFIED SITES 12/17/2012 ASHISH LUIS APRN V25.42 CONTRACEPTION SURVEILLANCE (IUD) 12/17/2012 MARQUISE GARCÍA MD 682.9 CELLULITIS AND ABSCESS OF UNSPECIFIED SITES 12/17/2012 MARQUISE GARCÍA MD V25.42 CONTRACEPTION SURVEILLANCE (IUD) 12/17/2012 ASHISH LUIS APRN 682.9 CELLULITIS AND ABSCESS OF UNSPECIFIED SITES 12/17/2012 ASHISH LUIS APRN V25.42 CONTRACEPTION SURVEILLANCE (IUD) 12/19/2012 V58.30 ENCOUNTER FOR CHANGE OR REMOVAL OF NONSURGICAL WOUND DRESSING 12/19/2012 V58.30 ENCOUNTER FOR CHANGE OR REMOVAL OF NONSURGICAL WOUND DRESSING 12/19/2012 V58.30 ENCOUNTER FOR CHANGE OR REMOVAL OF NONSURGICAL WOUND DRESSING 12/19/2012 ASHISH LUIS APRN V58.30 ENCOUNTER FOR CHANGE OR REMOVAL OF NONSURGICAL WOUND DRESSING 12/19/2012 HETAL QUEZADA DO V58.30 ENCOUNTER FOR CHANGE OR REMOVAL OF NONSURGICAL WOUND DRESSING 12/19/2012 BASSEM BOWER APRN V58.30 ENCOUNTER FOR CHANGE OR REMOVAL OF NONSURGICAL WOUND DRESSING 12/19/2012 V58.30 ENCOUNTER FOR CHANGE OR REMOVAL OF NONSURGICAL WOUND DRESSING 12/19/2012 MARQUISE GARCÍA MD V58.30 ENCOUNTER FOR CHANGE OR REMOVAL OF NONSURGICAL WOUND DRESSING 12/19/2012 ASHISH LUIS APRN V58.30 ENCOUNTER FOR CHANGE OR REMOVAL OF NONSURGICAL WOUND DRESSING 12/19/2012 ASHISH LUIS APRN V58.30 ENCOUNTER FOR CHANGE OR REMOVAL OF NONSURGICAL WOUND DRESSING 12/19/2012 MARQUISE GARCÍA MD V58.30 ENCOUNTER FOR CHANGE OR REMOVAL OF NONSURGICAL WOUND DRESSING 12/19/2012 MARQUISE GARCÍA MD V58.30 ENCOUNTER FOR CHANGE OR REMOVAL OF NONSURGICAL WOUND DRESSING 12/19/2012 ASHISH LUIS APRN V58.30 ENCOUNTER FOR CHANGE OR REMOVAL OF NONSURGICAL WOUND DRESSING 12/19/2012 MARQUISE GARCÍA MD V58.30 ENCOUNTER FOR CHANGE OR REMOVAL OF NONSURGICAL WOUND DRESSING 12/19/2012 MARQUISE GARCÍA MD V58.30 ENCOUNTER FOR CHANGE OR REMOVAL OF NONSURGICAL WOUND DRESSING 12/19/2012 MARQUISE GARCÍA MD V58.30 ENCOUNTER FOR CHANGE OR REMOVAL OF NONSURGICAL WOUND DRESSING 12/19/2012 MARQUISE GARCÍA MD V58.30 ENCOUNTER FOR CHANGE OR REMOVAL OF NONSURGICAL WOUND DRESSING 12/19/2012 MARQUISE GARCÍA MD V58.30 ENCOUNTER FOR CHANGE OR REMOVAL OF NONSURGICAL WOUND DRESSING 12/19/2012 MARQUISE GARCÍA MD V58.30 ENCOUNTER FOR CHANGE OR REMOVAL OF NONSURGICAL WOUND DRESSING 12/19/2012 MARQUISE GARCÍA MD V58.30 ENCOUNTER FOR CHANGE OR REMOVAL OF NONSURGICAL WOUND DRESSING 12/19/2012 MARQUISE GARCÍA MD V58.30 ENCOUNTER FOR CHANGE OR REMOVAL OF NONSURGICAL WOUND DRESSING 12/19/2012 SABRINA DUBOSE MD V58.30 ENCOUNTER FOR CHANGE OR REMOVAL OF NONSURGICAL WOUND DRESSING 12/19/2012 SABRINA DUBOSE MD V58.30 ENCOUNTER FOR CHANGE OR REMOVAL OF NONSURGICAL WOUND DRESSING 12/19/2012 MAIA QUEZADA DOA K V58.30 ENCOUNTER FOR CHANGE OR REMOVAL OF NONSURGICAL WOUND DRESSING 12/19/2012 MAIA QUEZADA DOA K V58.30 ENCOUNTER FOR CHANGE OR REMOVAL OF NONSURGICAL WOUND DRESSING 12/19/2012 MAIA QUEZADA DOA K V58.30 ENCOUNTER FOR CHANGE OR REMOVAL OF NONSURGICAL WOUND DRESSING 12/19/2012 MAIA QUEZADA DOA K V58.30 ENCOUNTER FOR CHANGE OR REMOVAL OF NONSURGICAL WOUND DRESSING 12/19/2012 ASHISH LUIS APRN A V58.30 ENCOUNTER FOR CHANGE OR REMOVAL OF NONSURGICAL WOUND DRESSING 12/19/2012 GREG LLOYD MD V58.30 ENCOUNTER FOR CHANGE OR REMOVAL OF NONSURGICAL WOUND DRESSING 12/19/2012 ASHISH LUIS APRN A V58.30 ENCOUNTER FOR CHANGE OR REMOVAL OF NONSURGICAL WOUND DRESSING 12/19/2012 ARNOLD ESPINOZA APRN V58.30 ENCOUNTER FOR CHANGE OR REMOVAL OF NONSURGICAL WOUND DRESSING 12/19/2012 WISAM LOMBARDI DDS V58.30 ENCOUNTER FOR CHANGE OR REMOVAL OF NONSURGICAL WOUND DRESSING 12/19/2012 BORA AGUIRRE APRN V58.30 ENCOUNTER FOR CHANGE OR REMOVAL OF NONSURGICAL WOUND DRESSING 12/19/2012 ASHISH LUIS APRN A V58.30 ENCOUNTER FOR CHANGE OR REMOVAL OF NONSURGICAL WOUND DRESSING 12/19/2012 MARQUISE GARCÍA MD V58.30 ENCOUNTER FOR CHANGE OR REMOVAL OF NONSURGICAL WOUND DRESSING 12/19/2012 TOBYASHISH ARNOLD APRN V58.30 ENCOUNTER FOR CHANGE OR REMOVAL OF NONSURGICAL WOUND DRESSING 02/12/2013 ASHISH LUIS APRN V25.12 IUD REMOVAL 02/12/2013 HETAL QUEZADA DO K V25.12 IUD REMOVAL 02/12/2013 BASSEM BOWER APRN V25.12 IUD REMOVAL 02/12/2013 V25.12 IUD REMOVAL 02/12/2013 MARQUISE GARCÍA MD V25.12 IUD REMOVAL 02/12/2013 ASHISH LUIS APRN V25.12 IUD REMOVAL 02/12/2013 ASHISH LUIS APRN V25.12 IUD REMOVAL 02/12/2013 MARQUISE GARCÍA MD V25.12 IUD REMOVAL 02/12/2013 MARQUISE GARCÍA MD V25.12 IUD REMOVAL 02/12/2013 ASHISH LUIS APRN V25.12 IUD REMOVAL 02/12/2013 MARQUISE GARCÍA MD N V25.12 IUD REMOVAL 02/12/2013 MARQUISE GARCÍA MD V25.12 IUD REMOVAL 02/12/2013 MARQUISE GARCÍA MD V25.12 IUD REMOVAL 02/12/2013 MARQUISE GARCÍA MD N V25.12 IUD REMOVAL 02/12/2013 MARQUISE GARCÍA MD N V25.12 IUD REMOVAL 02/12/2013 MARQUISE GARCÍA MD N V25.12 IUD REMOVAL 02/12/2013 MARQUISE GARCÍA MD N V25.12 IUD REMOVAL 02/12/2013 MARQUISE GARCÍA MD N V25.12 IUD REMOVAL 02/12/2013 SABRINA DUBOSE MD V25.12 IUD REMOVAL 02/12/2013 SABRINA DUBOSE MD V25.12 IUD REMOVAL 02/12/2013 HETAL QUEZADA DO K V25.12 IUD REMOVAL 02/12/2013 HETAL QUEZADA DO K V25.12 IUD REMOVAL 02/12/2013 HETAL QUEZADA DO K V25.12 IUD REMOVAL 02/12/2013 DAMIEN DO, HETAL K V25.12 IUD REMOVAL 02/12/2013 TOBY CROWDER, ASHISH A V25.12 IUD REMOVAL 02/12/2013 GREG LLOYD MD V25.12 IUD REMOVAL 02/12/2013 TOBY CROWDER, ASHISH A V25.12 IUD REMOVAL 02/12/2013 [employer] ASSISTANT, ARNOLD R V25.12 IUD REMOVAL 02/12/2013 HARJIT DDS, WISAM D V25.12 IUD REMOVAL 02/12/2013 [employer] ASSIST[employer], BORA R V25.12 IUD REMOVAL 02/12/2013 TOBY CROWDER, ASHISH A V25.12 IUD REMOVAL 02/12/2013 MARQUISE GARCÍA MD V25.12 IUD REMOVAL 02/12/2013 TOBY CROWDER, ASHISH A V25.12 IUD REMOVAL 05/12/2013 ASHISH LUIS APRN A V65.45 COUNSELING - STD 05/12/2013 HETAL QUEZADA DO V65.45 COUNSELING - STD 05/12/2013 BASSEM BOWER APRN V65.45 COUNSELING - STD 05/12/2013 V65.45 COUNSELING - STD 05/12/2013 MARQUISE GARCÍA MD V65.45 COUNSELING - STD 05/12/2013 ASHISH LUIS APRN A V65.45 COUNSELING - STD 05/12/2013 ASHISH LUIS APRN A V65.45 COUNSELING - STD 05/12/2013 MARQUISE GARCÍA MD V65.45 COUNSELING - STD 05/12/2013 MARQUISE GARCÍA MD V65.45 COUNSELING - STD 05/12/2013 ASHISH LUIS APRN A V65.45 COUNSELING - STD 05/12/2013 MARQUISE GARCÍA MD V65.45 COUNSELING - STD 05/12/2013 MARQUISE GARCÍA MD V65.45 COUNSELING - STD 05/12/2013 MARQUISE GARCÍA MD V65.45 COUNSELING - STD 05/12/2013 MARQUISE GARCÍA MD V65.45 COUNSELING - STD 05/12/2013 MARQUISE GARCÍA MD V65.45 COUNSELING - STD 05/12/2013 MARQUISE GARCÍA MD V65.45 COUNSELING - STD 05/12/2013 MARQUISE GARCÍA MD V65.45 COUNSELING - STD 05/12/2013 MARQUISE GARCÍA MD V65.45 COUNSELING - STD 05/12/2013 SABRINA DUBOSE MD V65.45 COUNSELING - STD 05/12/2013 SABRINA DUBOSE MD V65.45 COUNSELING - STD 05/12/2013 QUEZADA DO, HETAL K V65.45 COUNSELING - STD 05/12/2013 QUEZADA DO, HETAL K V65.45 COUNSELING - STD 05/12/2013 QUEZADA DO, HETAL K V65.45 COUNSELING - STD 05/12/2013 QUEZADA DO, HETAL K V65.45 COUNSELING - STD 05/12/2013 ASHISH LUIS APRN A V65.45 COUNSELING - STD 05/12/2013 GREG LLOYD MD V65.45 COUNSELING - STD 05/12/2013 ASHISH LUIS APRN A V65.45 COUNSELING - STD 05/12/2013 ARNOLD ESPINOZA APRN V65.45 COUNSELING - STD 05/12/2013 WISAM LOMBARDI DDS V65.45 COUNSELING - STD 05/12/2013 BROA AGUIRRE APRN R V65.45 COUNSELING - STD 05/12/2013 ASHISH LUIS APRN A V65.45 COUNSELING - STD 05/12/2013 MARQUISE GARCÍA MD V65.45 COUNSELING - STD 05/12/2013 ASHISH LUIS APRN A V65.45 COUNSELING - STD 05/20/2013 HETAL QUEZADA DO K V72.42 TEST POSITIVE RESULT 05/20/2013 BASSEM BOWER APRN V72.42 TEST POSITIVE RESULT 05/20/2013 V72.42 TEST POSITIVE RESULT 05/20/2013 MARQUISE GARCÍA MD V72.42 TEST POSITIVE RESULT 05/20/2013 ASHISH LUIS APRN V72.42 TEST POSITIVE RESULT 05/20/2013 ASHISH LUIS APRN V72.42 TEST POSITIVE RESULT 05/20/2013 MARQUISE GARCÍA MD V72.42 TEST POSITIVE RESULT 05/20/2013 MARQUISE GARCÍA MD V72.42 TEST POSITIVE RESULT 05/20/2013 ASHISH LUIS APRN A V72.42 TEST POSITIVE RESULT 05/20/2013 MARQUISE GARCÍA MD V72.42 TEST POSITIVE RESULT 05/20/2013 MARQUISE GARCÍA MD V72.42 TEST POSITIVE RESULT 05/20/2013 MARQUISE GARCÍA MD V72.42 TEST POSITIVE RESULT 05/20/2013 MARQUISE GARCÍA MD V72.42 TEST POSITIVE RESULT 05/20/2013 MARQUISE GARCÍA MD V72.42 TEST POSITIVE RESULT 05/20/2013 MARQUISE GARCÍA MD V72.42 TEST POSITIVE RESULT 05/20/2013 MARQUISE GARCÍA MD V72.42 TEST POSITIVE RESULT 05/20/2013 MARQUISE GARCÍA MD V72.42 TEST POSITIVE RESULT 05/20/2013 SABRINA DUBOSE MD V72.42 TEST POSITIVE RESULT 05/20/2013 SABRINA DUBOSE MD V72.42 TEST POSITIVE RESULT 05/20/2013 QUEZADA DO, HETAL K V72.42 TEST POSITIVE RESULT 05/20/2013 QUEZADA DO, HETAL K V72.42 TEST POSITIVE RESULT 05/20/2013 QUEZADA DO, HETAL K V72.42 TEST POSITIVE RESULT 05/20/2013 QUEZADA DO, HETAL K V72.42 TEST POSITIVE RESULT 05/20/2013 ASHISH LUIS APRN A V72.42 TEST POSITIVE RESULT 05/20/2013 GREG LLOYD MD V72.42 TEST POSITIVE RESULT 05/20/2013 ASHISH LUIS APRN A V72.42 TEST POSITIVE RESULT 05/20/2013 ARNOLD ESPINOZA APRN V72.42 TEST POSITIVE RESULT 05/20/2013 WISAM LOMBARDI DDS V72.42 TEST POSITIVE RESULT 05/20/2013 BORA AGUIRRE APRN V72.42 TEST POSITIVE RESULT 05/20/2013 ASHISH LUIS APRN A V72.42 TEST POSITIVE RESULT 05/20/2013 MARQUISE GARCÍA MD V72.42 TEST POSITIVE RESULT 05/20/2013 ASHISH LUIS APRN A V72.42 TEST POSITIVE RESULT 06/02/2013 [employer] SCHOOL PSYCHOLOGIST ASSISTANT, BASSEM T 008.8 GASTROENTERITIS, VIRAL 06/02/2013 SATHISH SCHO[employer] PSYCHOLOGIST ASSISTANT, BASSEM T 465.9 UPPER RESPIRATORY INFECTION 06/02/2013 008.8 GASTROENTERITIS, VIRAL 06/02/2013 465.9 UPPER RESPIRATORY INFECTION 06/02/2013 MARQUISE GARCÍA MD N 008.8 GASTROENTERITIS, VIRAL 06/02/2013 MARQUISE GARCÍA MD N 465.9 UPPER RESPIRATORY INFECTION 06/02/2013 TOBY SCHOOL PSYCHOLOGIST ASSISTANT, ASHISH A 008.8 GASTROENTERITIS, VIRAL 06/02/2013 [employer]BY SCHOOL PSYCHOLOGIST ASSISTANT, ASHISH A 465.9 UPPER RESPIRATORY INFECTION 06/02/2013 TOBY SCHOOL PSYCHOLOGIST ASSISTANT, ASHISH A 008.8 GASTROENTERITIS, VIRAL 06/02/2013 [facility] SCHOOL PSYCHOLOGIST ASSISTANT, ASHISH A 465.9 UPPER RESPIRATORY INFECTION 06/02/2013 MARQUISE GARCÍA MD N 008.8 GASTROENTERITIS, VIRAL 06/02/2013 MARQUISE GARCÍA MD N 465.9 UPPER RESPIRATORY INFECTION 06/02/2013 MARQUISE GARCÍA MD N 008.8 GASTROENTERITIS, VIRAL 06/02/2013 MARQUISE GARCÍA MD N 465.9 UPPER RESPIRATORY INFECTION 06/02/2013 [employer]BY SCHOOL PSYCHOLOGIST ASSISTANT, ASHISH A 008.8 GASTROENTERITIS, VIRAL 06/02/2013 [facility] SCHOOL PSYCHOLOGIST ASSISTANT, ASHISH A 465.9 UPPER RESPIRATORY INFECTION 06/02/2013 MARQUISE GARCÍA MD N 008.8 GASTROENTERITIS, VIRAL 06/02/2013 MARQUISE GARCÍA MD N 465.9 UPPER RESPIRATORY INFECTION 06/02/2013 MARQUISE GARCÍA MD N 008.8 GASTROENTERITIS, VIRAL 06/02/2013 MARQUISE GARCÍA MD N 465.9 UPPER RESPIRATORY INFECTION 06/02/2013 MARQUISE GARCÍA MD N 008.8 GASTROENTERITIS, VIRAL 06/02/2013 MARQUISE GARCÍA MD N 465.9 UPPER RESPIRATORY INFECTION 06/02/2013 MARQUISE GARCÍA MD N 008.8 GASTROENTERITIS, VIRAL 06/02/2013 MARQUISE GARCÍA MD N 465.9 UPPER RESPIRATORY INFECTION 06/02/2013 MARQUISE GARCÍA MD N 008.8 GASTROENTERITIS, VIRAL 06/02/2013 MARQUISE GARCÍA MD N 465.9 UPPER RESPIRATORY INFECTION 06/02/2013 MARQUISE GARCÍA MD N 008.8 GASTROENTERITIS, VIRAL 06/02/2013 MARQUISE GARCÍA MD N 465.9 UPPER RESPIRATORY INFECTION 06/02/2013 RICKY FITZPATRICK, MARQUISE N 008.8 GASTROENTERITIS, VIRAL 06/02/2013 RICKY FITZPATRICK, MARQUISE N 465.9 UPPER RESPIRATORY INFECTION 06/02/2013 RICKY FITZPATRICK, MARQUISE N 008.8 GASTROENTERITIS, VIRAL 06/02/2013 RICKY FITZPATRICK, MARQUISE N 465.9 UPPER RESPIRATORY INFECTION 06/02/2013 SABRINA DUBOSE MD 008.8 GASTROENTERITIS, VIRAL 06/02/2013 SABRINA DUBOSE MD 465.9 UPPER RESPIRATORY INFECTION 06/02/2013 SABRINA DUBOSE MD 008.8 GASTROENTERITIS, VIRAL 06/02/2013 SABRINA DUBOSE MD 465.9 UPPER RESPIRATORY INFECTION 06/02/2013 QUEZADA DO HETAL K 008.8 GASTROENTERITIS, VIRAL 06/02/2013 QUEZADA DO HETAL K 465.9 UPPER RESPIRATORY INFECTION 06/02/2013 QUEZADA DO HETAL K 008.8 GASTROENTERITIS, VIRAL 06/02/2013 QUEZADA DO HETAL K 465.9 UPPER RESPIRATORY INFECTION 06/02/2013 QUEZADA DO HETAL K 008.8 GASTROENTERITIS, VIRAL 06/02/2013 QUEZADA DO HETAL K 465.9 UPPER RESPIRATORY INFECTION 06/02/2013 QUEZADA DO HETAL K 008.8 GASTROENTERITIS, VIRAL 06/02/2013 QUEZADA DO HETAL K 465.9 UPPER RESPIRATORY INFECTION 06/02/2013 TOBY CROWDER, ASHISH A 008.8 GASTROENTERITIS, VIRAL 06/02/2013 TOBY CROWDER, ASHISH A 465.9 UPPER RESPIRATORY INFECTION 06/02/2013 GREG LLOYD MD 008.8 GASTROENTERITIS, VIRAL 06/02/2013 GREG LLOYD MD 465.9 UPPER RESPIRATORY INFECTION 06/02/2013 WILFRID LUIS APRNIDI A 008.8 GASTROENTERITIS, VIRAL 06/02/2013 TOBY CROWDER, ASHISH A 465.9 UPPER RESPIRATORY INFECTION 06/02/2013 OLGA CROWDER ARNOLD R 008.8 GASTROENTERITIS, VIRAL 06/02/2013 OLGA CROWDER, ARNOLD R 465.9 UPPER RESPIRATORY INFECTION 06/02/2013 WHITE DDS, WISAM Nice 008.8 GASTROENTERITIS, VIRAL 06/02/2013 WHITE DDS, WISAM Nice 465.9 UPPER RESPIRATORY INFECTION 06/02/2013 AGUIRRE SCHOOL PSYCHOLOGIST ASSISTANT, BORA R 008.8 GASTROENTERITIS, VIRAL 06/02/2013 TIMOTHY CROWDERBORA R 465.9 UPPER RESPIRATORY INFECTION 06/02/2013 TOBY APRN, ASHISH A 008.8 GASTROENTERITIS, VIRAL 06/02/2013 [employer]BY SCHOOL PSYCHOLOGIST ASSISTANT, ASHISH A 465.9 UPPER RESPIRATORY INFECTION 06/02/2013 MARQUISE GARCÍA MD N 008.8 GASTROENTERITIS, VIRAL 06/02/2013 MARQUISE GARCÍA MD N 465.9 UPPER RESPIRATORY INFECTION 06/02/2013 TOBY APRN, ASHISH A 008.8 GASTROENTERITIS, VIRAL 06/02/2013 [facility] SCHOOL PSYCHOLOGIST ASSISTANT, ASHISH A 465.9 UPPER RESPIRATORY INFECTION 06/18/2013 V04.3 RUBELLA NON- IMMUNE - NEED FOR VACCINATION 06/18/2013 V22.0 , NORMAL FIRST 06/18/2013 MARQUISE GARCÍA MD V04.3 RUBELLA NON-IMMUNE - NEED FOR VACCINATION 06/18/2013 MARQUISE GARCÍA MD V22.0 , NORMAL FIRST 06/18/2013 TOBYASHISH Yoo APRN A V04.3 RUBELLA NON-IMMUNE - NEED FOR VACCINATION 06/18/2013 TOBYASHISH Yoo APRN A V22.0 , NORMAL FIRST 06/18/2013 TOBYASHISH Yoo APRN A V04.3 RUBELLA NON-IMMUNE - NEED FOR VACCINATION 06/18/2013 TOBYASHISH Yoo APRN A V22.0 , NORMAL FIRST 06/18/2013 MARQUISE GARCÍA MD V04.3 RUBELLA NON-IMMUNE - NEED FOR VACCINATION 06/18/2013 MARQUISE GARCÍA MD N V22.0 , NORMAL FIRST 06/18/2013 MARQUISE GARCÍA MD V04.3 RUBELLA NON-IMMUNE - NEED FOR VACCINATION 06/18/2013 MARQUISE GARCÍA MD V22.0 , NORMAL FIRST 06/18/2013 TOBYASHISH Yoo APRN A V04.3 RUBELLA NON-IMMUNE - NEED FOR VACCINATION 06/18/2013 TOBYASHISH Yoo APRN A V22.0 , NORMAL FIRST 06/18/2013 MARQUISE GARCÍA MD V04.3 RUBELLA NON-IMMUNE - NEED FOR VACCINATION 06/18/2013 MARQUISE GARCÍA MD V22.0 , NORMAL FIRST 06/18/2013 MARQUISE GARCÍA MD V04.3 RUBELLA NON-IMMUNE - NEED FOR VACCINATION 06/18/2013 MARQUISE GARCÍA MD V22.0 , NORMAL FIRST 06/18/2013 MARQUISE GARCÍA MD V04.3 RUBELLA NON-IMMUNE - NEED FOR VACCINATION 06/18/2013 MARQUISE GARCÍA MD V22.0 , NORMAL FIRST 06/18/2013 MARQUISE GARCÍA MD V04.3 RUBELLA NON-IMMUNE - NEED FOR VACCINATION 06/18/2013 MARQUISE GARCÍA MD V22.0 , NORMAL FIRST 06/18/2013 MARQUISE GARCÍA MD V04.3 RUBELLA NON-IMMUNE - NEED FOR VACCINATION 06/18/2013 MARQUISE GARCÍA MD V22.0 , NORMAL FIRST 06/18/2013 MARQUISE GARCÍA MD V04.3 RUBELLA NON-IMMUNE - NEED FOR VACCINATION 06/18/2013 MARQUISE GARCÍA MD V22.0 , NORMAL FIRST 06/18/2013 MARQUISE GARCÍA MD V04.3 RUBELLA NON-IMMUNE - NEED FOR VACCINATION 06/18/2013 MARQUISE GARCÍA MD V22.0 , NORMAL FIRST 06/18/2013 MARQUISE GARCÍA MD V04.3 RUBELLA NON-IMMUNE - NEED FOR VACCINATION 06/18/2013 MARQUISE GARCÍA MD V22.0 , NORMAL FIRST 06/18/2013 SABRINA DUBOSE MD V04.3 RUBELLA NON-IMMUNE - NEED FOR VACCINATION 06/18/2013 SABRINA DUBOSE MD V22.0 , NORMAL FIRST 06/18/2013 SABRINA DUBOSE MD V04.3 RUBELLA NON-IMMUNE - NEED FOR VACCINATION 06/18/2013 SABRINA DUBOSE MD V22.0 , NORMAL FIRST 06/18/2013 HETAL QUEZADA DO V04.3 RUBELLA NON-IMMUNE - NEED FOR VACCINATION 06/18/2013 QUEZADA MAIA ERWINA K V22.0 , NORMAL FIRST 06/18/2013 HETAL QUEZADA DO K V04.3 RUBELLA NON-IMMUNE - NEED FOR VACCINATION 06/18/2013 QUEZADA DO, HETAL K V22.0 , NORMAL FIRST 06/18/2013 QUEZADA DO, HETAL K V04.3 RUBELLA NON-IMMUNE - NEED FOR VACCINATION 06/18/2013 QUEZADA DO, HETAL K V22.0 , NORMAL FIRST 06/18/2013 QUEZADA DO, HETAL K V04.3 RUBELLA NON-IMMUNE - NEED FOR VACCINATION 06/18/2013 QUEZADA DO, HETAL K V22.0 , NORMAL FIRST 06/18/2013 TOBY APRN, ASHISH A V04.3 RUBELLA NON-IMMUNE - NEED FOR VACCINATION 06/18/2013 TOBY CROWDER, ASHISH A V22.0 , NORMAL FIRST 06/18/2013 GREG LLOYD MD V04.3 RUBELLA NON-IMMUNE - NEED FOR VACCINATION 06/18/2013 GREG LLOYD MD V22.0 , NORMAL FIRST 06/18/2013 TOBY APRN, ASHISH A V04.3 RUBELLA NON-IMMUNE - NEED FOR VACCINATION 06/18/2013 WILFRID LUIS APRNIDI A V22.0 , NORMAL FIRST 06/18/2013 OLGA CROWDER, ARNOLD R V04.3 RUBELLA NON-IMMUNE - NEED FOR VACCINATION 06/18/2013 OLGA CROWDER, ARNOLD R V22.0 , NORMAL FIRST 06/18/2013 WHITE DDS, WISAM Nice V04.3 RUBELLA NON-IMMUNE - NEED FOR VACCINATION 06/18/2013 WHITE DDS, WISAM Nice V22.0 , NORMAL FIRST 06/18/2013 BORA AGUIRRE APRN R V04.3 RUBELLA NON-IMMUNE - NEED FOR VACCINATION 06/18/2013 HELIO AGUIRRE APRNIA R V22.0 , NORMAL FIRST 06/18/2013 TOBY APRN, ASHISH A V04.3 RUBELLA NON-IMMUNE - NEED FOR VACCINATION 06/18/2013 TOBY CROWDER, ASHISH A V22.0 , NORMAL FIRST 06/18/2013 MARQUISE GARCÍA MD V04.3 RUBELLA NON-IMMUNE - NEED FOR VACCINATION 06/18/2013 MARQUISE GARCÍA MD V22.0 , NORMAL FIRST 06/18/2013 TOBY CROWDER, ASHISH A V04.3 RUBELLA NON-IMMUNE - NEED FOR VACCINATION 06/18/2013 TOBY SCHOOL PSYCHOLOGIST ASSISTANT, ASHISH A V22.0 , NORMAL FIRST 07/09/2013 RICKY FITZPATRICK, MARQUISE N 784.0 HEADACHE 07/09/2013 TOBY SCHOOL PSYCHOLOGIST ASSISTANT, ASHISH A 784.0 HEADACHE 07/09/2013 TOBY SCHOOL PSYCHOLOGIST ASSISTANT, ASHISH A 784.0 HEADACHE 07/09/2013 RICKY FITZPATRICK, MARQUISE N 784.0 HEADACHE 07/09/2013 RICKY FITZPATRICK, MARQUISE N 784.0 HEADACHE 07/09/2013 TOBY SCHOOL PSYCHOLOGIST ASSISTANT, ASHISH A 784.0 HEADACHE 07/09/2013 RICKY FITZPATRICK, MARQUISE N 784.0 HEADACHE 07/09/2013 RICKY FITZPATRICK, MARQUISE N 784.0 HEADACHE 07/09/2013 RICKY FITZPATRICK, MARQUISE N 784.0 HEADACHE 07/09/2013 RICKY FITZPATRICK, MARQUISE N 784.0 HEADACHE 07/09/2013 RICKY FITZPATRICK, MARQUISE N 784.0 HEADACHE 07/09/2013 RICKY FITZPATRICK, MARQUISE N 784.0 HEADACHE 07/09/2013 RICKY FITZPATRICK, MARQUISE N 784.0 HEADACHE 07/09/2013 RICKY FITZPATRICK, MARQUISE N 784.0 HEADACHE 07/09/2013 SABRINA DUBOSE MD 784.0 HEADACHE 07/09/2013 SABRINA DUBOSE MD 784.0 HEADACHE 07/09/2013 QUEZADA DO, HETAL K 784.0 HEADACHE 07/09/2013 QUEZADA DO, HETAL K 784.0 HEADACHE 07/09/2013 QUEZADA DO, HETAL K 784.0 HEADACHE 07/09/2013 QUEZADA DO, HETAL K 784.0 HEADACHE 07/09/2013 TOBY SCHOOL PSYCHOLOGIST ASSISTANT, ASHISH A 784.0 HEADACHE 07/09/2013 GREG LLOYD MD 784.0 HEADACHE 07/09/2013 TOBY SCHOOL PSYCHOLOGIST ASSISTANT, ASHISH A 784.0 HEADACHE 07/09/2013 OLGA SCHOOL PSYCHOLOGIST ASSISTANT, ARNOLD R 784.0 HEADACHE 07/09/2013 HARJIT ALBERT, WISAM Nice 784.0 HEADACHE 07/09/2013 TIMOTHY SCHOOL PSYCHOLOGIST ASSISTANT, BORA R 784.0 HEADACHE 07/09/2013 TOBY SCHOOL PSYCHOLOGIST ASSISTANT, ASHISH A 784.0 HEADACHE 07/09/2013 MARQUISE GARCÍA MD N 784.0 HEADACHE 07/09/2013 ASHISH LUIS APRN A 784.0 HEADACHE 07/28/2013 TOBYASHISH Yoo APRN A 112.1 CANDIDIASIS VAGINAL 07/28/2013 MARQUISE GARCÍA MD N 112.1 CANDIDIASIS VAGINAL 07/28/2013 MARQUISE GARCÍA MD N 112.1 CANDIDIASIS VAGINAL 07/28/2013 TOBYASHISH Yoo APRN A 112.1 CANDIDIASIS VAGINAL 07/28/2013 MARQUISE GARCÍA MD N 112.1 CANDIDIASIS VAGINAL 07/28/2013 MARQUISE GARCÍA MD N 112.1 CANDIDIASIS VAGINAL 07/28/2013 MARQUISE AGRCÍA MD N 112.1 CANDIDIASIS VAGINAL 07/28/2013 MARQUISE GARCÍA MD N 112.1 CANDIDIASIS VAGINAL 07/28/2013 MARQUISE GARCÍA MD N 112.1 CANDIDIASIS VAGINAL 07/28/2013 MARQUISE GARCÍA MD N 112.1 CANDIDIASIS VAGINAL 07/28/2013 MARQUISE GARCÍA MD N 112.1 CANDIDIASIS VAGINAL 07/28/2013 MARQUISE GARCÍA MD N 112.1 CANDIDIASIS VAGINAL 07/28/2013 SABRINA DUBOSE MD 112.1 CANDIDIASIS VAGINAL 07/28/2013 SABRINA DUBOSE MD 112.1 CANDIDIASIS VAGINAL 07/28/2013 QUEZADA DO HETAL K 112.1 CANDIDIASIS VAGINAL 07/28/2013 QUEZADA DO HETAL K 112.1 CANDIDIASIS VAGINAL 07/28/2013 QUEZADA DO HETAL K 112.1 CANDIDIASIS VAGINAL 07/28/2013 QUEZADA DO HETAL K 112.1 CANDIDIASIS VAGINAL 07/28/2013 TOBYASHISH Yoo APRN A 112.1 CANDIDIASIS VAGINAL 07/28/2013 GREG LLOYD MD 112.1 CANDIDIASIS VAGINAL 07/28/2013 TOBYASHISH Yoo APRN A 112.1 CANDIDIASIS VAGINAL 07/28/2013 ARNOLD ESPINOZA APRN 112.1 CANDIDIASIS VAGINAL 07/28/2013 WISAM LOMBARDI DDS 112.1 CANDIDIASIS VAGINAL 07/28/2013 BORA AGUIRRE APRN 112.1 CANDIDIASIS VAGINAL 07/28/2013 TOBYASHISH Yoo APRN A 112.1 CANDIDIASIS VAGINAL 07/28/2013 MARQUISE GARCÍA MD N 112.1 CANDIDIASIS VAGINAL 07/28/2013 TOBY SCHOOL PSYCHOLOGIST ASSISTANT, ASHISH A 112.1 CANDIDIASIS VAGINAL 08/26/2013 TOBY SCHOOL PSYCHOLOGIST ASSISTANT, ASHISH A 455.3 EXTERNAL HEMORRHOIDS WITHOUT COMPLICATION 08/26/2013 MARQUISE GARCÍA MD 455.3 EXTERNAL HEMORRHOIDS WITHOUT COMPLICATION 08/26/2013 MARQUISE GARCÍA MD 455.3 EXTERNAL HEMORRHOIDS WITHOUT COMPLICATION 08/26/2013 MARQUISE GARCÍA MD 455.3 EXTERNAL HEMORRHOIDS WITHOUT COMPLICATION 08/26/2013 MARQUISE GARCÍA MD 455.3 EXTERNAL HEMORRHOIDS WITHOUT COMPLICATION 08/26/2013 MARQUISE GARCÍA MD 455.3 EXTERNAL HEMORRHOIDS WITHOUT COMPLICATION 08/26/2013 MARQUISE GARCÍA MD 455.3 EXTERNAL HEMORRHOIDS WITHOUT COMPLICATION 08/26/2013 MARQUISE GARCÍA MD 455.3 EXTERNAL HEMORRHOIDS WITHOUT COMPLICATION 08/26/2013 MARQUISE GARCÍA MD 455.3 EXTERNAL HEMORRHOIDS WITHOUT COMPLICATION 08/26/2013 SABRINA DUBOSE MD 455.3 EXTERNAL HEMORRHOIDS WITHOUT COMPLICATION 08/26/2013 SABRINA DUBOSE MD 455.3 EXTERNAL HEMORRHOIDS WITHOUT COMPLICATION 08/26/2013 QUEZADA DO, HETAL K 455.3 EXTERNAL HEMORRHOIDS WITHOUT COMPLICATION 08/26/2013 QUEZADA DO, HETAL K 455.3 EXTERNAL HEMORRHOIDS WITHOUT COMPLICATION 08/26/2013 QUEZADA DO, HETAL K 455.3 EXTERNAL HEMORRHOIDS WITHOUT COMPLICATION 08/26/2013 QUEZADA DO, HETAL K 455.3 EXTERNAL HEMORRHOIDS WITHOUT COMPLICATION 08/26/2013 TOBY APRN, ASHISH A 455.3 EXTERNAL HEMORRHOIDS WITHOUT COMPLICATION 08/26/2013 GREG LLOYD MD 455.3 EXTERNAL HEMORRHOIDS WITHOUT COMPLICATION 08/26/2013 TOBY SCHOOL PSYCHOLOGIST ASSISTANT, ASHISH A 455.3 EXTERNAL HEMORRHOIDS WITHOUT COMPLICATION 08/26/2013 OLGA SCHOOL PSYCHOLOGIST ASSISTANT, ARNOLD R 455.3 EXTERNAL HEMORRHOIDS WITHOUT COMPLICATION 08/26/2013 WISAM LOMBARDI DDS 455.3 EXTERNAL HEMORRHOIDS WITHOUT COMPLICATION 08/26/2013 TIMOTHY SCHOOL PSYCHOLOGIST ASSISTANT, BORA R 455.3 EXTERNAL HEMORRHOIDS WITHOUT COMPLICATION 08/26/2013 TOBY APRN, ASHISH A 455.3 EXTERNAL HEMORRHOIDS WITHOUT COMPLICATION 08/26/2013 MARQUISE GARCÍA MD 455.3 EXTERNAL HEMORRHOIDS WITHOUT COMPLICATION 08/26/2013 TOBY CROWDER, ASHISH A 455.3 EXTERNAL HEMORRHOIDS WITHOUT COMPLICATION 10/02/2013 MARQUISE GARCÍA MD Ot 646.83 PREG COMPL NEC-ANTEPART 10/02/2013 MARQUISE GARCÍA MD Ot 789.00 ABDOMINAL PAIN, UNSPECIFIED SITE 10/17/2013 MARQUISE GARCÍA MD 789.07 ABDOMINAL PAIN GENERALIZED 10/17/2013 MARQUISE GARCÍA MD 789.07 ABDOMINAL PAIN GENERALIZED 10/17/2013 MARQUISE GARCÍA MD 789.07 ABDOMINAL PAIN GENERALIZED 10/17/2013 MARQUISE GARCÍA MD 789.07 ABDOMINAL PAIN GENERALIZED 10/17/2013 MARQUISE GARCÍA MD 789.07 ABDOMINAL PAIN GENERALIZED 10/17/2013 MARQUISE GARCÍA MD 789.07 ABDOMINAL PAIN GENERALIZED 10/17/2013 SABRINA DUBOSE MD 789.07 ABDOMINAL PAIN GENERALIZED 10/17/2013 SABRINA DUBOSE MD 789.07 ABDOMINAL PAIN GENERALIZED 10/17/2013 MAIA QUEZADA DOA K 789.07 ABDOMINAL PAIN GENERALIZED 10/17/2013 QUEZADA MAIA ERWINA K 789.07 ABDOMINAL PAIN GENERALIZED 10/17/2013 QUEZADA MAIA ERWINA K 789.07 ABDOMINAL PAIN GENERALIZED 10/17/2013 QUEZADA MAIA ERWINA K 789.07 ABDOMINAL PAIN GENERALIZED 10/17/2013 TOBY CROWDER, ASHISH A 789.07 ABDOMINAL PAIN GENERALIZED 10/17/2013 GREG LLOYD MD 789.07 ABDOMINAL PAIN GENERALIZED 10/17/2013 ASHISH LUIS APRN A 789.07 ABDOMINAL PAIN GENERALIZED 10/17/2013 ARNOLD ESPINOZA APRN R 789.07 ABDOMINAL PAIN GENERALIZED 10/17/2013 WISAM LOMBARDI DDS 789.07 ABDOMINAL PAIN GENERALIZED 10/17/2013 BORA AGUIRRE APRN R 789.07 ABDOMINAL PAIN GENERALIZED 10/17/2013 ASHISH LUIS APRN A 789.07 ABDOMINAL PAIN GENERALIZED 10/17/2013 MARQUISE GARCÍA MD 789.07 ABDOMINAL PAIN GENERALIZED 10/17/2013 ASHISH LUIS APRN A 789.07 ABDOMINAL PAIN GENERALIZED 10/29/2013 MARQUISE GARCÍA MD V06.1 DTAP DX 10/29/2013 MARQUISE GARCÍA MD V06.1 DTAP DX 10/29/2013 RICKY FITZPATRICK, MARQUISE Yoo V06.1 DTAP DX 10/29/2013 SEDRICK FITZPATRICK, SABRINA Ramos V06.1 DTAP DX 10/29/2013 SEDRICK FITZPATRICK, SABRINA Ramos V06.1 DTAP DX 10/29/2013 QUEZADA DO, HETAL K V06.1 DTAP DX 10/29/2013 QUEZADA DO, HETAL K V06.1 DTAP DX 10/29/2013 QUEZADA DO, HETAL K V06.1 DTAP DX 10/29/2013 QUEZADA DO, HETAL K V06.1 DTAP DX 10/29/2013 [employer]BY SCHOOL PSYCHOLOGIST ASSISTANT, ASHISH A V06.1 DTAP DX 10/29/2013 GABINO FITZPATRICK, GREG V06.1 DTAP DX 10/29/2013 [employer]BY SCHOOL PSYCHOLOGIST ASSISTANT, ASHISH A V06.1 DTAP DX 10/29/2013 [employer]GA SCHOOL PSYCHOLOGIST ASSISTANT, ARNOLD R V06.1 DTAP DX 10/29/2013 HARJIT DDS, WISAM D V06.1 DTAP DX 10/29/2013 TIMOTHY SCHOOL PSYCHOLOGIST ASSISTANT, BORA R V06.1 DTAP DX 10/29/2013 TOBY SCHOOL PSYCHOLOGIST ASSISTANT, ASHISH A V06.1 DTAP DX 10/29/2013 RICKY FITZPATRICK, MARQUISE N V06.1 DTAP DX 10/29/2013 TOBY APRN, ASHISH A V06.1 DTAP DX 12/22/2013 SABRINA DUBOSE MD Ot 346.80 OTH FORMS MIGRAINE W/O INTRACT MGRN W/O 12/22/2013 SABRINA DUBOSE MD Ot 648.93 OTH CURR COND-ANTEPARTUM 12/25/2013 SABRINA DUBOSE MD Ot 649.53 SPOTTING COMP , ANTEPARTUM COND 12/25/2013 SABRINA DUBOSE MD Ot 655.73 DECR MOVEMNT ANTEPARTUM CONDITION 01/17/2014 SABRINA DUBOSE MD Ot 285.9 ANEMIA NOS 01/17/2014 SABRINA DUBOSE MD Ot 648.22 ANEMIA-DELIVERED W P/P 01/17/2014 SABRINA DUBOSE MD Ot V06.4 [id number] 01/17/2014 SEDRICK FITZPATRICK, SABRIAN Rachel Gonzalez V27.0 DELIVER-SINGLE LIVEBORN 02/26/2014 ASHISH LUIS APRN A V24.2 F/U, ROUTINE 02/26/2014 ASHISH LUIS APRN A V25.01 CONTRACEPTION - ORAL CONTRACEPTION 02/26/2014 GREG LLOYD MD V24.2 F/U, ROUTINE 02/26/2014 GREG LLOYD MD V25.01 CONTRACEPTION - ORAL CONTRACEPTION 02/26/2014 ASHISH LUIS APRN A V24.2 F/U, ROUTINE 02/26/2014 ASHISH LUIS APRN A V25.01 CONTRACEPTION - ORAL CONTRACEPTION 02/26/2014 ARNOLD ESPINOZA APRN R V24.2 F/U, ROUTINE 02/26/2014 ARNOLD ESPINOZA APRN V25.01 CONTRACEPTION - ORAL CONTRACEPTION 02/26/2014 WHITE DDS, WISAM D V24.2 F/U, ROUTINE 02/26/2014 WHITE DDS, WISAM D V25.01 CONTRACEPTION - ORAL CONTRACEPTION 02/26/2014 HELIO AGUIRRE APRNIA R V24.2 F/U, ROUTINE 02/26/2014 TIMOTHY CROWDER BORA R V25.01 CONTRACEPTION - ORAL CONTRACEPTION 02/26/2014 ASHISH LUIS APRN A V24.2 F/U, ROUTINE 02/26/2014 ASHISH LUIS APRN A V25.01 CONTRACEPTION - ORAL CONTRACEPTION 02/26/2014 MARQUISE GARCÍA MD V24.2 F/U, ROUTINE 02/26/2014 MARQUISE GARCÍA MD V25.01 CONTRACEPTION - ORAL CONTRACEPTION 02/26/2014 ASHISH LUIS APRN A V24.2 F/U, ROUTINE 02/26/2014 ASHISH LUIS APRN A V25.01 CONTRACEPTION - ORAL CONTRACEPTION 03/05/2014 GREG LLOYD MD 524.62 TEMPOROMANDIBULAR JOINT DISORDERS ARTHRALGIA OF TEMPOROMANDIBULAR JOINT 03/05/2014 ASHISH LUIS APRN 524.62 TEMPOROMANDIBULAR JOINT DISORDERS ARTHRALGIA OF TEMPOROMANDIBULAR JOINT 03/05/2014 [employer]GA [employer] PSYCHOLOGIST ASSISTANT, ARNOLD R 524.62 TEMPOROMANDIBULAR JOINT DISORDERS ARTHRALGIA OF TEMPOROMANDIBULAR JOINT 03/05/2014 WHITE DDS, WISAM D 524.62 TEMPOROMANDIBULAR JOINT DISORDERS ARTHRALGIA OF TEMPOROMANDIBULAR JOINT 03/05/2014 BORA AGUIRRE APRN R 524.62 TEMPOROMANDIBULAR JOINT DISORDERS ARTHRALGIA OF TEMPOROMANDIBULAR JOINT 03/05/2014 TOBYCLAYTON CROWDER, ASHISH A 524.62 TEMPOROMANDIBULAR JOINT DISORDERS ARTHRALGIA OF TEMPOROMANDIBULAR JOINT 03/05/2014 RICKY FITZPATRICK, MARQUISE N 524.62 TEMPOROMANDIBULAR JOINT DISORDERS ARTHRALGIA OF TEMPOROMANDIBULAR JOINT 03/05/2014 TOBYCLAYTON CROWDER ASHISH A 524.62 TEMPOROMANDIBULAR JOINT DISORDERS ARTHRALGIA OF TEMPOROMANDIBULAR JOINT 04/30/2014 TOBYCLAYTON CROWDER, ASHISH A 789.01 ABDOMINAL PAIN RIGHT UPPER QUADRANT 04/30/2014 ALIX ESPINOZA APRNINA R 789.01 ABDOMINAL PAIN RIGHT UPPER QUADRANT 04/30/2014 WHITE DDS, WISAM D 789.01 ABDOMINAL PAIN RIGHT UPPER QUADRANT 04/30/2014 BORA AGUIRRE APRN R 789.01 ABDOMINAL PAIN RIGHT UPPER QUADRANT 04/30/2014 TOBYCLAYTON CROWDER, ASHISH A 789.01 ABDOMINAL PAIN RIGHT UPPER QUADRANT 04/30/2014 RICKY FITZPATRICK, MARQUISE N 789.01 ABDOMINAL PAIN RIGHT UPPER QUADRANT 04/30/2014 TOBY APRN, ASHISH A 789.01 ABDOMINAL PAIN RIGHT UPPER QUADRANT 05/21/2014 TOBY APRN, ASHISH A 623.5 LEUKORRHEA NOT SPECIFIED INFECTIVE 05/21/2014 TOBY APRN, ASHISH A V25.09 CONTRACEPTIVE COUNSELING - GENERAL 05/21/2014 ALIX ESPINOZA APRNINA R 623.5 LEUKORRHEA NOT SPECIFIED INFECTIVE 05/21/2014 OLGA CROWDER ARNOLD R V25.09 CONTRACEPTIVE COUNSELING - GENERAL 05/21/2014 WHITE DDS, WISAM D 623.5 LEUKORRHEA NOT SPECIFIED INFECTIVE 05/21/2014 WHITE DDS, WISAM Nice V25.09 CONTRACEPTIVE COUNSELING - GENERAL 05/21/2014 BORA AGUIRRE APRN R 623.5 LEUKORRHEA NOT SPECIFIED INFECTIVE 05/21/2014 BORA AGUIRRE APRN R V25.09 CONTRACEPTIVE COUNSELING - GENERAL 05/21/2014 TOBYASHISH Yoo APRN A 623.5 LEUKORRHEA NOT SPECIFIED INFECTIVE 05/21/2014 TOBY ESPARZAN, ASHISH A V25.09 CONTRACEPTIVE COUNSELING - GENERAL 05/21/2014 MARQUISE GARCÍA MD N 623.5 LEUKORRHEA NOT SPECIFIED INFECTIVE 05/21/2014 MARQUISE GARCÍA MD N V25.09 CONTRACEPTIVE COUNSELING - GENERAL 05/21/2014 TOBY ASHISH CROWDER A 623.5 LEUKORRHEA NOT SPECIFIED INFECTIVE 05/21/2014 TOBYASHISH Yoo APRN A V25.09 CONTRACEPTIVE COUNSELING - GENERAL 06/16/2014 ARNOLD ESPINOZA APRN R 719.44 PAIN IN JOINT INVOLVING HAND 06/16/2014 ALIX ESPINOZA APRNINA R 727.49 OTHER GANGLION AND CYST OF SYNOVIUM TENDON AND BURSA 06/16/2014 HARJIT ALBERT, WISAM D 719.44 PAIN IN JOINT INVOLVING HAND 06/16/2014 HARJIT GERONIMOSWISAM D 727.49 OTHER GANGLION AND CYST OF SYNOVIUM TENDON AND BURSA 06/16/2014 BORA AGUIRRE APRN R 719.44 PAIN IN JOINT INVOLVING HAND 06/16/2014 BORA AGUIRRE APRN R 727.49 OTHER GANGLION AND CYST OF SYNOVIUM TENDON AND BURSA 06/16/2014 ASHISH LUIS APRN A 719.44 PAIN IN JOINT INVOLVING HAND 06/16/2014 ASHISH LUIS APRN A 727.49 OTHER GANGLION AND CYST OF SYNOVIUM TENDON AND BURSA 06/16/2014 MARQUISE GARCÍA MD N 719.44 PAIN IN JOINT INVOLVING HAND 06/16/2014 MARQUISE GARCÍA MD N 727.49 OTHER GANGLION AND CYST OF SYNOVIUM TENDON AND BURSA 06/16/2014 ASHISH LUIS APRN A 719.44 PAIN IN JOINT INVOLVING HAND 06/16/2014 ASHISH LUIS APRN A 727.49 OTHER GANGLION AND CYST OF SYNOVIUM TENDON AND BURSA 07/22/2014 BORA AGUIRRE APRN R 465.9 UPPER RESPIRATORY INFECTION 07/22/2014 AGUIRRE SCHOOL PSYCHOLOGIST ASSISTANT, BORA R V15.82 NICOTINE ABUSE 07/22/2014 TOBY SCHO[employer] PSYCHOLOGIST ASSISTANT, ASHISH A 465.9 UPPER RESPIRATORY INFECTION 07/22/2014 TOBY APRN, ASHISH A V15.82 NICOTINE ABUSE 07/22/2014 MARQUISE GARCÍA MD 465.9 UPPER RESPIRATORY INFECTION 07/22/2014 MARQUISE GARCÍA MD V15.82 NICOTINE ABUSE 07/22/2014 TOBY APRN, ASHISH A 465.9 UPPER RESPIRATORY INFECTION 07/22/2014 TOBY APRN, ASHISH A V15.82 NICOTINE ABUSE 07/24/2014 BORA AGUIRRE APRN R 786.2 COUGH 07/24/2014 TOBY APRN, ASHISH A 786.2 COUGH 07/24/2014 MARQUISE GARCÍA MD 786.2 COUGH 07/24/2014 TOBY APRN, ASHISH A 786.2 COUGH 08/31/2014 TOBY APRN, ASHISH A 625.8 OTHER SPECIFIED SYMPTOMS ASSOCIATED WITH FEMALE GENITAL ORGANS 08/31/2014 MARQUISE GARCÍA MD N 625.8 OTHER SPECIFIED SYMPTOMS ASSOCIATED WITH FEMALE GENITAL ORGANS 08/31/2014 TOBYASHISH Yoo APRN A 625.8 OTHER SPECIFIED SYMPTOMS ASSOCIATED WITH FEMALE GENITAL ORGANS 10/29/2014 MARQUISE GARCÍA MD N 346.90 HEADACHE, MIGRAINE 10/29/2014 TOBYASHISH Yoo APRN A 346.90 HEADACHE, MIGRAINE 10/29/2014 TOBYASHISH Yoo APRN A V25.42 CONTRACEPTION SURVEILLANCE (IUD) 10/29/2014 TOBYASHISH Yoo APRN A 626.9 MENSTRUATION AND OTHER ABNORMAL BLEEDING FROM FEMALE GENITAL TRACT 04/21/2015 MARQUISE GARCÍA MD Ot V28.81 04/21/2015 ARNOLD ESPINOZA APRN Ot 789.01 04/21/2015 HOLLIE DOOLEY MD Ot 305.1 TOBACCO USE DISORDER 04/21/2015 HOLLIE DOOLEY MD Ot 346.80 OTH FORMS MIGRAINE W/O INTRACT MGRN W/O 04/21/2015 HOLLIE DOOLEY MD Ot 780.4 DIZZINESS AND GIDDINESS 09/22/2015 MARQUISE GARCÍA MD Ot V28.81 09/22/2015 ARNOLD ESPINOZA APRN Ot 789.01 10/07/2015 MARQUISE GARCÍA MD Ot R10.2 05/25/2016 MARQUISE GARCÍA MD Ot V28.81 ENCOUNTER FOR ANATOMIC SURVEY 05/25/2016 OLGA ARNOLDMATTHEW Thompson APRN Ot 789.01 ABDOMINAL PAIN, RIGHT UPPER QUADRANT 05/25/2016 MARQUISE GARCÍA MD Ot R10.2 PELVIC AND PERINEAL PAIN 05/26/2016 MADL GAYLE L POST OFFICE MARKUP CLERK Ot R10.11 RIGHT UPPER QUADRANT PAIN 05/29/2016 MADL, GAYLE L POST OFFICE MARKUP CLERK Ot R10.11 RIGHT UPPER QUADRANT PAIN 06/08/2016 MADL, GAYLE Sanjuana POST OFFICE MARKUP CLERK Ot R10.11 RIGHT UPPER QUADRANT PAIN 07/28/2016 BASSEM BOWER POST OFFICE MARKUP CLERK Ot R10.11 RIGHT UPPER QUADRANT PAIN 08/09/2016 BASSEM BOWER POST OFFICE MARKUP CLERK Ot R10.11 RIGHT UPPER QUADRANT PAIN 08/28/2016 BASSEM BOWER POST OFFICE MARKUP CLERK Ot R10.11 RIGHT UPPER QUADRANT PAIN Procedures Code Description [place] [address] URINE TEST (IN- HOUSE) 10/29/2012 27407 GC/CHLAM URINE (STATE) 10/30/2012 65050 URINE TEST (IN- HOUSE) 11/06/2012 59986 IUD INSERTION 11/07/2012 J7302 LEVONORGESTREL IU CONTRACEPT 11/07/2012 25999 I/D SIMPLE ABSCESS 12/18/2012 93533 URINE TEST (IN- HOUSE) 05/20/2013 31230 ROUTINE VENIPUNCTURE 06/18/2013 15798 CBC 06/18/2013 52744 TSH 06/18/2013 3863214 ANTIBODY SCREEN (RESULT ONLY) 06/19/2013 63311 BLOOD TYPE/Rh FACTOR 06/19/2013 02298 HIV ANTIBODIES (RML) 06/19/2013 83665 RUBELLA ANTIBODY, IGG 06/19/2013 18181 CULTURE URINE 06/19/2013 68247 [facility] 06/23/2013 58116 ANTIBODY SCREEN (order) 06/23/2013 99124 HEP B SURFACE ANTIGEN (STATE ) 06/23/2013 92337 GC/CHLAM PROBE (STATE) 07/14/2013 07085 UA OB DIP 07/14/2013 44506 CULTURE UROGENITAL 07/17/2013 22973 UA W/ CULTURE IF INDICATED 07/28/2013 36780 CULTURE URINE 07/28/2013 35125 UA OB DIP 08/08/2013 35380 CULTURE UROGENITAL 08/08/2013 TETRA TETRA SCREEN 08/08/2013 60699 CULTURE UROGENITAL 08/22/2013 59273 UA OB DIP 08/22/2013 35002 TRICHOMONAS (IN-HOUSE) 08/22/2013 09063 UA OB DIP 09/05/2013 91376 US OB - COMPLETE >14 WEEKS 09/05/2013 85009 UA OB DIP 10/03/2013 23243 UA W/ CULTURE IF INDICATED 10/17/2013 21685 UA OB DIP 10/21/2013 66215 UA W/ CULTURE IF INDICATED 10/21/2013 99133 CULTURE UROGENITAL 10/21/2013 96017 GC/CHLAM PROBE ([facility]) 10/21/2013 00909 TRICHOMONAS (IN-HOUSE) 10/21/2013 48146 ROUTINE VENIPUNCTURE 10/29/2013 34372 UA OB DIP 10/29/2013 43191 GLUCOSE WILI 1 HOUR 10/29/2013 68424 UA OB DIP 11/12/2013 37610 UA OB DIP 11/26/2013 79690 UA OB DIP 12/10/2013 40488 UA OB DIP 12/17/2013 93031 CULTURE GROUP B STREP VAG 12/19/2013 25164 UA OB DIP 12/24/2013 76722 UA OB DIP 12/31/2013 06136 UA OB DIP 01/07/2014 96.49 01/14/2014 73448 UA OB DIP 01/14/2014 73.6 01/15/2014 82674 TEST, URINE (IN- HOUSE) 02/26/2014 74640 US GALLBLADDER ULTRASOUND 05/11/2014 37619 CULTURE UROGENITAL 05/24/2014 83219 XRAY HAND LEFT 2 VIEWS 06/22/2014 90398 INFLUENZA A & B (IN-HOUSE) 07/24/2014 38962 CULTURE UROGENITAL 10/29/2014 Results There is no data. Encounters ACCT No. Visit Date/Time Discharge Status Pt. Type Provider Facility Loc./Unit Complaint [id number] 10/29/2014 14:04:00 10/29/2014 23:59:59 CLS Outpatient ASHISH LUIS APRN [id number] 10/29/2014 11:14:00 10/29/2014 23:59:59 CLS Outpatient MARQUISE GARCÍA MD [id number] 08/31/2014 09:49:00 08/31/2014 23:59:59 CLS Outpatient ASHISH LUIS APRN [id number] 07/24/2014 14:00:00 07/24/2014 23:59:59 CLS Outpatient BORA AGUIRRE APRN [id number] 06/26/2014 13:00:00 06/26/2014 23:59:59 CLS Outpatient HARJIT BETY WIS[place] [id number] 06/16/2014 17:18:00 06/16/2014 23:59:59 CLS Outpatient ARNOLD ESPINOZA APRN Jay [id number] 05/21/2014 11:04:00 05/21/2014 23:59:59 CLS Outpatient ASHISH LUIS APRN [id number] 03/05/2014 16:36:00 03/05/2014 23:59:59 CLS Outpatient GREG LLOYD MD [id number] 02/26/2014 09:48:00 02/26/2014 23:59:59 CLS Outpatient ASHISH LUIS APRN [id number] 01/07/2014 14:39:00 01/07/2014 23:59:59 CLS Outpatient DAMIEN ERWINHETAL [id number] 01/07/2014 14:39:00 01/07/2014 23:59:59 CLS Outpatient HETAL QUEZADA DO [id number] 12/31/2013 15:20:00 12/31/2013 23:59:59 CLS Outpatient HETAL QUEZADA DO [id number] 12/31/2013 15:20:00 12/31/2013 23:59:59 CLS Outpatient SABRINA DUBOSE MD [id number] 12/24/2013 15:20:00 12/24/2013 23:59:59 CLS Outpatient HETAL QUEZADA DO [id number] 12/10/2013 13:42:00 12/10/2013 23:59:59 CLS Outpatient SABRINA DUBOSE MD [id number] 11/12/2013 14:11:00 11/12/2013 23:59:59 CLS Outpatient MARQUISE GARCÍA MD [id number] 11/12/2013 14:11:00 11/12/2013 23:59:59 CLS Outpatient MARQUISE GARCÍA MD [id number] 10/29/2013 13:46:00 10/29/2013 23:59:59 CLS Outpatient MARQUISE GARCÍA MD [id number] 10/21/2013 14:35:00 10/21/2013 23:59:59 CLS Outpatient MARQUISE GARCÍA MD [id number] 10/17/2013 08:33:00 10/17/2013 23:59:59 CLS Outpatient MARQUISE GARCÍA MD [id number] 10/03/2013 14:24:00 10/03/2013 23:59:59 CLS Outpatient MARQUISE GARCÍA MD [id number] 10/03/2013 14:24:00 10/03/2013 23:59:59 CLS Outpatient MARQUISE GARCÍA MD [id number] 09/05/2013 14:40:00 09/05/2013 23:59:59 CLS Outpatient MARQUISE GARCÍA MD [id number] 08/26/2013 09:46:00 08/26/2013 23:59:59 CLS Outpatient ASHISH LUIS APRN [id number] 08/22/2013 13:37:00 08/22/2013 23:59:59 CLS Outpatient MARQUISE GARCÍA MD [id number] 08/08/2013 13:51:00 08/08/2013 23:59:59 CLS Outpatient MARQUISE GARCÍA MD [id number] 07/28/2013 10:26:00 07/28/2013 23:59:59 CLS Outpatient ASHISH LUIS APRN [id number] 07/14/2013 14:41:00 07/14/2013 23:59:59 CLS Outpatient ASHISH LUIS APRN [id number] 07/09/2013 13:59:00 07/09/2013 23:59:59 CLS Outpatient MARQUISE GARCÍA MD [id number] 06/23/2013 08:08:00 06/23/2013 23:59:59 CLS Outpatient [id number] 06/02/2013 12:45:00 06/02/2013 23:59:59 CLS Outpatient BASSEM BOWER APRN [id number] 05/20/2013 11:16:00 05/20/2013 23:59:59 CLS Outpatient HETAL QUEZADA DO [id number] 05/12/2013 15:26:00 05/12/2013 23:59:59 CLS Outpatient ASHISH LUIS APRN [id number] 10/29/2012 10:36:00 10/29/2012 23:59:59 CLS Outpatient [id number] 06/17/2012 11:49:00 06/17/2012 23:59:59 CLS Outpatient BASSEM BOWER APRN [id number] 04/18/2012 13:10:00 04/18/2012 23:59:59 CLS Outpatient BASSEM BOWER APRN [id number] 01/03/2013 10:23:00 Document Registration [id number] 12/26/2012 09:07:00 Document Registration [id number] 12/23/2012 10:24:00 Document Registration [id number] 12/17/2012 10:23:00 Document Registration [id number] 11/06/2012 16:07:00 Document Registration [id number] 07/27/2016 08:03:00 07/27/2016 23:59:59 CLS Outpatient BASSEM BOWER POST OFFICE MARKUP CLERK [facility] CARD RUQ PAIN [id number] 05/25/2016 08:41:00 05/25/2016 23:59:59 CLS Outpatient GAYLE PURDY POST OFFICE MARKUP CLERK [facility] RAD RUQ PAIN [id number] 09/22/2015 14:48:00 09/22/2015 23:59:59 CLS Outpatient MARQUISE GARCÍA MD [facility] RAD PELVIC PAIN [id number] 04/21/2015 15:33:00 04/21/2015 17:30:00 DIS Emergency HOLLIE DOOLEY MD [facility] ER DIZZINESS, LOSS OF VISION [id number] 05/08/2014 09:53:00 05/08/2014 23:59:59 CLS Outpatient ARNOLD ESPINOZA [employer]CHOOL PSYCHOLOGIST ASSISTANT [facility] RAD RUQ PAIN [id number] 01/14/2014 18:43:00 01/17/2014 15:30:00 DIS Inpatient SABRINA DUBOSE MD [facility] LDRP INDUCTION [id number] 12/25/2013 09:24:00 12/25/2013 10:35:00 DIS Outpatient SABRINA DUBOSE MD [facility] WSo VAG BLEEDING/DEC BABY MOVEMENT [id number] 12/22/2013 18:59:00 12/22/2013 23:59:59 CLS Emergency [id number] 12/22/2013 19:41:00 12/22/2013 20:55:00 DIS Outpatient SABRINA DUBOSE MD [facility] WSo RIGHT SIDE NUMBNESS [id number] 10/02/2013 20:05:00 10/02/2013 22:29:00 DIS Outpatient MARQUISE GARCÍA MD [facility] WSo LOWER ABD PAIN [id number] 09/15/2013 13:47:00 09/15/2013 23:59:59 CLS Outpatient MARQUISE GARCÍA MD [facility] RAD ANATOMY
--- NOTE | 2017-07-18 16:50 | ED Cough/URI ---
General Chief Complaint: Cough/Cold/Flu Symptoms Stated Complaint: CONGESTION,COUGH,FEVER Source: patient Exam Limitations: no limitations (ANGELA CURTIS MD) History of Present Illness Time seen by provider: 16:50 Initial Comments The patient is a 21-year-old white female who presents with complaints of cough congestion and fever. (ANGELA CURTIS MD) Timing/Duration: other (symptoms started 07/15. Include fevers, sore throat, diffuse body aches, nasal congestion. Son tested positive for influenza this morning.) (MONICA STEWART APRN) Allergies and Home Medications Allergies Coded Allergies: Penicillins (Unverified Adverse Reaction, Intermediate, RASH, 04/21/15) amoxicillin (Verified Adverse Reaction, Intermediate, RASH, 12/01/11) latex (Unverified Adverse Reaction, Mild, RASH, 12/01/11) Home Medications Vit37/Iron/Folic Acid 1 Each Tab.chew, 1 EACH PO DAILY PRN for ABDOMINAL PAIN, #30 Prescribed by: CATALINA LAU on 10/02/13 2202 Propranolol HCl 60 Mg Cap.sa.24h, 60 MG PO DAILY, #21 Prescribed by: HOLLIE DOOLEY on 04/21/15 1726 [Ibuprofen] 600 MG TAB, 600 MG PO Q6H PRN for PAIN, #90 Ref 0 Prescribed by: HETAL QUEZADA on 01/17/14 1211 Constitutional: see HPI, chills, malaise, weakness EENTM: nose congestion Respiratory: see HPI, cough Cardiovascular: no symptoms reported Genitourinary: no symptoms reported Musculoskeletal: no symptoms reported Skin: no symptoms reported Psychiatric/Neurological: No Symptoms Reported (MONICA STEWART APRN) Past Xaebxgh-Aohuwq-Cciplf Hx Patient Social History Recent Foreign Travel: No Contact w/Someone Who Travel: No (ANGELA CURTIS MD) Immunizations Up To Date Tetanus Booster (TDap): Less than 5yrs PED Vaccines UTD: No (ANGELA CURTIS MD) Surgeries Surgeries: Tonsillectomy (ANGELA CURTIS MD) Reproductive System Hx Reproductive Disorders: No (ANGELA CURTIS MD) Blood Transfusions Adverse Reaction to a Blood Tr: No (ANGELA CURTIS MD) Family Medical History Family Medial History: Patient reports no known family medical history. (ANGELA CURTIS MD) Family Medial History: Patient reports no known family medical history. (MONICA STEWART APRN) Physical Exam Vital Signs Vital Sign - Last 12Hours 07/18/17 16:47 O2 Delivery Room Air (MONICA STEWART APRN) Vital Signs Capillary Refill : (ANGELA CURTIS MD) General Appearance: WD/WN, no apparent distress Eyes: Bilateral Eye Normal Inspection, Bilateral Eye PERRL, Bilateral Eye EOMI HEENT: PERRL/EOMI, normal ENT inspection, TMs normal Neck: non-tender Respiratory: lungs clear, normal breath sounds, no respiratory distress, no accessory muscle use Cardiovascular: regular rate, rhythm, no murmur Gastrointestinal: normal bowel sounds, non tender, soft Neurologic/Psychiatric: alert, normal mood/affect, oriented x 3 Skin: normal color, warm/dry (MONICA STEWART APRN) Progress/Results/Core Measures Suspected Sepsis SIRS Temperature: Pulse: Respiratory Rate: Blood Pressure / Mean: (ANGELA CURTIS MD) Results/Orders Vital Signs/I&O Vital Sign - Last 12Hours 07/18/17 16:47 O2 Delivery Room Air (MONICA STEWART APRN) Vital Signs/I&O Capillary Refill : (ANGELA CURTIS MD) Departure Impression Impression: Primary Impression: Influenza Disposition: 01 HOME, SELF-CARE Condition: Improved Departure-Patient Inst. Decision time for Depature: 17:00 (MONICA STEWART APRN) Referrals: NO,LOCAL PHYSICIAN (PCP/Family) Primary Care Physician Patient Instructions: Flu, Adult (DC) Add. Discharge Instructions: 1. Drink plenty of fluids 2. Tylenol and Motrin for body aches and fevers 3. Please stay home from work until 07/22/17 All discharge instructions reviewed with patient and/or family. Voiced understanding. Scripts D-Methorphan Hb/P-Epd HCl/Bpm (Bromfed Dm Cough Syrup) 118 Ml Syrup 7.5 ML PO Q6H Y for CONGESTION, #120 ML Prov: MONICA STEWART APRN 07/18/17 Work/School Note: Work Release Form Date Seen in the Emergency Department: Jul 18, 2017 Return to Work: Jul 22, 2017 ANGELA CURTIS MD Jul 18, 2017 16:50 MONICA STEWART APRN Jul 18, 2017 17:01
[2017-07-18] MEDS ORDERED: D-ME118S33 PO (17:01)
[2017-07-18 17:10] VITALS: BP 123/78
== END 2017-07-18 17:10 | disposition home or self-care (01) ==
LOC: EDUNIT# 16:39 → ER 16:41
DX: J11.1 Influenza due to unidentified influenza virus with other respiratory manifestations (principal)
CPT/HCPCS: 99282

== ENCOUNTER 2018-12-24 15:00 | Outpatient (CLI) | payer MEDICAID ==
--- NOTE | 2018-12-23 07:42 | Discharge Instructions ---
Discharge Instructions Discharge Medications New, Converted or Re-Newed RX: RX on Chart Patient Instructions Patient Instructions: As directed Return to The Hospital For: As directed Activity & Diet Discharge Diet: No Restrictions Activity as Tolerated: No Orders-Post D/C & Referrals Follow Up Appt: Call to make follow up appt. for patient in 2 weeks. Activity: Rest for 24 hours, than as tolerated. Diet: As tolerated-Clear Liquids only if nauseated. may shower or tub bathe as desired. No driving for 24 hours, no alcoholic beverages for 24 hours, and nothing per vagina (no tampons, douching, or intercourse) for 2 weeks. Patient to return to the clinic as soon as possible for: Temperature greater than 101F, Severe Pain, Foul discharge from incision or vagina, Excessive Bleeding (more than a period). GUCCI VERAS MD Dec 23, 2018 07:42
--- NOTE | 2018-12-23 07:43 | Progress Note-Pre Operative ---
Pre-Operative Progress Note H&P Reviewed The H&P was reviewed, patient examined and no changes noted. Date Seen by Provider: Dec 23, 2018 Date H&P Reviewed: Dec 23, 2018 Pre-Operative Diagnosis: Dysfunctional uterine bleeding GUCCI VERAS MD Dec 23, 2018 07:43
--- NOTE | 2018-12-23 07:44 | Progress Note-Post Operative ---
Post-Operative Progess Note Surgeon (s)/[employer]) Surgeon GUCCI VERAS MD [employer]: None Pre-Operative Diagnosis Dysfunctional uterine bleeding Post-Operative Diagnosis Same with pathology pending Procedure & Operative Findings Date of Procedure 12/23/18 Procedure Performed/Findings Hysteroscopy with directed biopsy and D&C Anesthesia Type GETA Specimens/Packing Specimens Removed Endometrial curettings and directed endometrial biopsy GUCCI VERAS MD Dec 23, 2018 07:44
[~2018-12-24] VITALS: Ht 162.6 cm; Wt 93.0 kg
[~2018-12-24 15:00] MED LIST changes: +D-ME118S33 PO; +D5 LR IV SOLUTION 1,000 ML IV SCH; +KETOROLAC 30 MG/ML VIAL IVP ONE; +MEPERIDINE (DEMEROL) INJ 100 MG/ML IM ONE; +ONDANSETRON 4 MG/2 ML (SDV) Z0FRAN IVP PRN; +OXYC1TAB87 PO; +PROMETHAZINE INJ 25 MG/ML (PHENERGAN) AMP IM ONE; +oxyCODONE/APAP 5/325MG (PERCOCET 5) TABLET PO PRN
== END 2018-12-24 15:36 | disposition home or self-care (01) ==
LOC: PREOP 15:00
PROVIDERS: ATTEND Obstetrics & Gynecology
DX: Z01.818 Encounter for other preprocedural examination (principal)

== ENCOUNTER 2018-12-27 13:05 | Day surgery (SDC) | payer MEDICAID ==
[~2018-12-27] VITALS: Ht 162.6 cm; Wt 93.0 kg
[2018-12-27] VITALS (10 sets, daily range): BP systolic 117–137; BP diastolic 81–103
[~2018-12-27 13:05] MED LIST changes: -D5 LR IV SOLUTION 1,000 ML IV SCH; -KETOROLAC 30 MG/ML VIAL IVP ONE; -MEPERIDINE (DEMEROL) INJ 100 MG/ML IM ONE; -ONDANSETRON 4 MG/2 ML (SDV) Z0FRAN IVP PRN; -PROMETHAZINE INJ 25 MG/ML (PHENERGAN) AMP IM ONE; -oxyCODONE/APAP 5/325MG (PERCOCET 5) TABLET PO PRN
[2018-12-27] MEDS ORDERED: ceFAZolin INJECTION 1,000 MG in WATER (STERILE) FOR INJECTION 10 ML IV ONE (13:45)
[2018-12-27] MEDS ORDERED: proPOfol 200 MG/20 ML (DIPRIVAN) VIAL IV ONE (13:53)
[2018-12-27] MEDS ORDERED: LIDOCAINE PF 2% 5 ML (XYLOCAINE) VIAL ONE (13:53)
[2018-12-27] MEDS ORDERED: DEXAMETHASONE 10 MG/ML (DECADRON) 1 ML VIAL ONE (13:53)
[2018-12-27] MEDS ORDERED: ONDANSETRON 4 MG/2 ML (SDV) Z0FRAN ONE ×2 (13:53→16:44)
[2018-12-27] MEDS ORDERED: MIDAZOLAM 2 MG/2 ML (VERSED) VIAL ONE (13:54)
[2018-12-27] MEDS ORDERED: fentaNYL INJECTION 100 MCG/2 ML AMP ONE (13:54)
[2018-12-27 14:22] LABS: BASOPHILS % (AUTO) 0 % (0-10); EOSINOPHILS # (AUTO) 0.2 10^3/uL (0.0-0.3); EOSINOPHILS % (AUTO) 2 % (0-10); HEMATOCRIT 39 % (35-52); HEMOGLOBIN 12.7 G/DL (11.5-16.0); LYMPHOCYTES # (AUTO) 4.1 X 10^3 (1.0-4.0); LYMPHOCYTES % (AUTO) 41 % (12-44); MEAN CORPUSCULAR HEMOGLOBIN 25 PG (25-34); MEAN CORPUSCULAR HGB CONC 33 G/DL (32-36); MEAN CORPUSCULAR VOLUME 76 FL (80-99); MEAN PLATELET VOLUME 11.3 FL (7.4-10.4); MONOCYTES # (AUTO) 0.6 X 10^3 (0.0-1.0); MONOCYTES % (AUTO) 6 % (0-12); NEUTROPHILS # (AUTO) 5.1 X 10^3 (1.8-7.8); NEUTROPHILS % (AUTO) 51 % (42-75); PLATELET COUNT 331 10^3/uL (130-400); RED CELL DISTRIBUTION WIDTH 14.6 % (10.0-14.5)
[2018-12-27] MEDS: LACTATED RINGERS 1,000 ML IV PRN ×2 (14:55→17:11)
[2018-12-27] MEDS ORDERED: D5 LR IV SOLUTION 1,000 ML IV SCH (15:06)
[2018-12-27] MEDS ORDERED: ESTROGENS CONJ IV 25 MG/5 ML (PREMARIN) VIAL IVP ONE (15:15)
[2018-12-27] MEDS ORDERED: ONDANSETRON 4 MG/2 ML (SDV) Z0FRAN IVP PRN ×2 (15:15→16:30)
[2018-12-27] MEDS ORDERED: MEPERIDINE (DEMEROL) INJ 100 MG/ML IM ONE (15:15)
[2018-12-27] MEDS ORDERED: KETOROLAC 30 MG/ML VIAL IVP ONE (15:15)
[2018-12-27] MEDS ORDERED: oxyCODONE/APAP 5/325MG (PERCOCET 5) TABLET PO PRN (15:15)
[2018-12-27] MEDS ORDERED: PROMETHAZINE INJ 25 MG/ML (PHENERGAN) AMP IM ONE (15:15)
[2018-12-27] MEDS ORDERED: KETOROLAC 30 MG/ML VIAL ONE (15:35)
[2018-12-27] MEDS ORDERED: ESTROGENS CONJ IV 25 MG/5 ML (PREMARIN) VIAL ONE (15:35)
[2018-12-27] MEDS ORDERED: WATER (STERILE) FOR INJECTION 10 ML ONE (15:35)
[2018-12-27] MEDS ORDERED: morphine INJ 10 MG/ML 1ML (SYR OR VIAL) IVP ONE (16:30)
[2018-12-27] MEDS ORDERED: morphine INJ 10 MG/ML 1ML (SYR OR VIAL) ONE (16:44)
--- OUTSIDE RECORDS SUMMARY | 2018-12-27 17:03 | XMS REPORT ---
Author Author Migration, Doctor Organization [facility] Address Unknown Phone Unavailable Care Team Providers Care Yard Supervisor Name Role Phone Migration, Doctor Unavailable Unavailable PROBLEMS Type Condition ICD9-CM Code [id number] Code Onset Dates Condition Status SNOMED Code Problem Acute constipation K59.00 Active 395858364 Problem Obesity (BMI 35.0-39.9 without comorbidity) E66.9 Active 985397218 Problem Migraine with aura and without status migrainosus, not intractable G43.109 Active 1892456 Problem Uterine cramping N94.89 Active [id number] ALLERGIES No Information ENCOUNTERS Encounter Location Date Diagnosis [place] [address] [address] Sep, Weight gain R63.5 and Obesity (BMI 35.0-39.9 without comorbidity) E66.9 [place] [address] [place] [id number] [place] [address] Jul, Encounter for immunization Z23 [place] [address] [address] Jul, Visit for TB skin test Z11.1 and Encounter for immunization Z23 [place] [address] [address] May, Well woman exam with routine gynecological exam Z01.419 [place] [address] [place] [id number] [place] [address] May, Vaginal itching L29.8 and Yeast infection involving the vagina and surrounding area B37.3 [facility] [address] [place] [id number] [place] [address] 12 May, 2018 Acute epigastric pain R10.13 and Acute constipation K59.00 [place] [address] [address] 08 May, 2018 IUD check up Z30.431 and Uterine cramping N94.89 [facility] [place] [address] [place] [id number] [place] [address] 11 Dec, 2017 Migraine with aura and without status migrainosus, not intractable G43.109 [facility] [place] [address] [place] [id number] [place] [address] 22 Jul, 2017 IUD check up Z30.431 and Pelvic pain R10.2 [facility] [address] [place] [id number] [place] [id number] 24 Feb, 2017 Dental examination Z01.20 [facility] [place] [address] [address] 14 Jan, 2017 Acute vaginitis N76.0 [place] [address] [place] [id number] [place] [address] 11 Jan, 2017 Vaginal discharge N89.8 ; Vaginal odor N89.8 and Acute vaginitis N76.0 [facility] [address] [place] [id number] [place] [id number] 10 Jan, 2017 Encounter for dental examination Z01.20 [place] [address] [place] [id number] [place] [address] 10 Jul, 2016 [facility] [place] [address] [place] [id number] [place] [address] 15 Jun, 2016 Right upper quadrant abdominal pain R10.11 ; Weight gain, abnormal R63.5 ; Alopecia L65.9 ; Dry skin L85.3 and Family history of thyroid disease Z83.49 [place] [address] [place] [id number] [place] [address] May, [place] [address] [address] May, Right upper quadrant pain R10.11 [place] [address] [place] [id number] [place] [address] Sep, Pelvic pain R10.2 [facility] [place] [id number] [place] [address] Aug, Dysuria R30.0 ; Pelvic pain R10.2 ; Encounter for genetic counseling Z31.5 and Inguinal lymphadenopathy R59.0 [facility] [place] [address] [place] [id number] [place] [address] May, Pelvic pain in female R10.2 and IUD (intrauterine device) in place Z97.5 [facility] [place] [address] [place] [id number] [place] [address] May, Unspecified mood [affective] disorder F39 [place] [address] [place] [id number] [place] [address] May, Unspecified mood [affective] disorder F39 [place] [address] [place] [id number] [place] [address] Apr, [facility] [place] [address] [place] [id number] [place] [address] Mar, Unspecified episodic mood disorder 296.90 [place] [address] [place] [id number] [place] [address] Mar, Bilateral amaurosis fugax 362.34 [place] [address] [place] [id number] [place] [address] Feb, Alopecia 704.00 ; Frequent headaches 784.0 ; Anxiety 300.00 ; Family history of thyroid disease in mother V18.19 and Family history of bipolar disorder V17.0 [facility] [place] [id number] [place] [address] Feb, [facility] [place] [address] [place] [id number] [place] [address] Feb, [facility] [place] [address] [place] [id number] [place] [address] Jan, Mood disorder 296.90 [facility] [place] [address] [place] [address] Jan, Panic attacks 300.01 ; Anxiety, generalized 300.02 ; No condition on [place] II V71.09 and No condition on axis III V71.09 [facility] [place] [address] [place] [id number] [place] [address] Jan, Anxiety, generalized 300.02 ; Panic attack 300.01 ; Major depression, melancholic type 296.20 ; No condition on [place] II V71.09 and No condition on axis III V71.09 [facility] [place] [address] [place] [id number] [place] [address] Dec, [facility] [place] [address] [place] [id number] [place] [address] Dec, Routine gynecological examination V72.31 ; Pap test, as part of routine gynecological examination V76.2 ; Breast cancer screening V76.10 and IUD surveillance V25.42 [facility] [place] [address] [place] [id number] [place] [address] Dec, 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 [facility] [place] [address] [place] [id number] [place] [address] Dec, [facility] [place] [address] [place] [id number] [place] [address] Dec, [facility] [place] [address] [address] November, [facility] [place] [address] [place] [id number] [place] [address] Oct, [facility] [place] [address] [place] [id number] [address] Oct, [facility] [place] [address] [place] [id number] [place] [address] Sep, [facility] [place] [address] [address] Sep, [facility] [place] [id number] [place] [address] Aug, 2014 [facility] [place] [facility] [address] [id number] [place] [address] Aug, [facility] [place] [facility] [address] [id number] [place] [address] Jul, [facility] [place] [facility] [address] [id number] [place] [address] Jul, [facility] [place] [facility] [address] [id number] [place] [address] Jul, [facility] [place] [facility] [address] [id number] [place] [address] Jul, [facility] [place] [facility] [address] [id number] [place] [address] Jun, [facility] [place] [facility] [address] [id number] [place] [address] Jun, [facility] [place] [facility] [address] [facility] [id number] [place] [id number] Jun, [facility] [place] [facility] [address] [id number] [place] [address] Jun, [facility] [place] [facility] [address] [facility] [id number] [place] [address] Jun, [facility] [place] [facility] [address] [id number] [place] [address] Jun, [facility] [place] [facility] [address] [id number] [place] [address] May, [facility] [place] [facility] [address] [id number] [place] [address] May, [facility] [place] [facility] [address] [id number] [place] [address] May, [facility] [place] [facility] [address] [id number] [place] [address] May, [facility] [place] [facility] [address] [id number] [place] [address] May, [facility] [place] [facility] [address] [id number] [place] [address] May, [facility] [place] [facility] [address] [id number] [place] [address] May, [facility] [place] [facility] [address] [id number] [place] [address] Apr, [facility] [place] [facility] [address] [id number] [place] [address] Apr, [facility] [place] [facility] [address] [id number] [place] [address] Apr, [facility] [place] [facility] [address] [id number] [place] [address] Apr, [facility] [place] [facility] [address] [id number] [place] [address] Apr, [facility] [place] [facility] [address] [id number] [place] [address] Apr, [facility] [place] [facility] [address] [id number] [place] [address] Feb, [facility] [place] [facility] [address] [id number] [place] [address] Feb, [facility] [place] [facility] [address] [id number], [place] [address] Feb, [facility] [place] [facility] [address] [id number] [place] [address] Feb, [facility] [place] [facility] [address] [id number] [place] [address] Feb, [facility] [place] [facility] [address] [id number] [place] [address] Feb, [facility] [place] [facility] [address] [id number], [place] [address] Jan, [facility] [place] [facility] [address] [id number] [place] [address] Jan, [facility] [place] [facility] [address] [id number] [place] [address] Dec, [facility] [place] [facility] [address] [id number] [place] [address] Dec, [facility] [place] [facility] [address] [id number] [place] [address] Dec, [facility] [place] [facility] [address] [id number] [place] [address] Dec, [facility] [place] [facility] [address] [id number] [place] [address] Dec, [facility] [place] [facility] [address] [id number] [place] [address] Dec, [facility] [place] [facility] [address] [id number] [place] [address] Dec, [facility] [place] [facility] [address] [id number] [place] [address] Dec, [facility] [place] [facility] [address] [id number] [place] [address] Dec, [facility] [place] [facility] [address] [id number] [place] [address] Dec, [facility] [place] [facility] [address] [id number], [place] [address] Dec, [facility] [place] [facility] [address] [id number] [place] [address] Dec, [facility] [place] [facility] [address] [id number] [place] [address] November, [facility] [place] [facility] [address] [id number] [place] [address] November, [facility] [place] [facility] [address] [id number] [place] [address] November, [facility] [place] [facility] [address] [id number] [place] [address] November, [facility] [place] [facility] [address] [id number] [place] [address] November, [facility] [place] [facility] [address] [id number] [place] [address] November, [facility] [place] [facility] [address] [id number] [place] [address] November, [facility] [place] [facility] [address] [id number] [place] [address] November, [facility] [place] [facility] [address] [id number] [place] [address] November, [facility] [place] [facility] [address] [id number] [place] [address] November, [facility] [place] [facility] [address] [id number] [place] [address] November, [facility] [place] [facility] [address] [id number] [place] [address] Oct, [facility] [place] [facility] [address] [id number] [place] [address] Oct, [facility] [place] [facility] [address] [id number] [place] [address] Oct, [facility] [place] [facility] [address] [id number] [place] [address] Oct, [facility] [place] [facility] [address] [id number] [place] [address] Oct, [facility] [place] [facility] [address] [id number] [place] [address] Oct, [facility] [place] [facility] [address] [id number] [place] [address] Oct, [facility] [place] [facility] [address] [id number] [place] [address] Oct, [facility] [place] [facility] [address] [id number] [place] [address] Oct, [facility] [place] [facility] [address] [id number] [place] [address] Oct, [facility] [place] [facility] [address] [id number] [place] [address] Oct, [facility] [place] [facility] [address] [id number] [place] [address] Oct, [facility] [place] [facility] [address] [id number] [place] [address] Oct, [facility] [place] [facility] [address] [id number] [place] [address] Oct, [facility] [place] [facility] [address] [id number] [place] [address] Oct, [facility] [place] [facility] [address] [id number] [place] [address] Oct, [facility] [place] [facility] [address] [id number] [place] [address] Oct, [facility] [place] [facility] [address] [id number] [place] [address] Oct, [facility] [place] [facility] [address] [id number] [place] [address] Oct, [facility] [place] [facility] [address] [id number] [place] [address] Sep, [facility] [place] [facility] [address] [id number] [place] [address] Sep, [facility] [place] [facility] [address] [id number] [place] [address] Sep, [facility] [place] [facility] [address] [id number] [place] [address] Sep, [facility] [place] [facility] [address] [id number] [place] [address] Aug, [facility] [place] [facility] [address] [id number] [place] [address] Aug, [facility] [place] [facility] [address] [id number] [place] [address] Aug, [facility] [place] [facility] [address] [id number] [place] [address] Aug, [facility] [place] [facility] [address] [id number] [place] [address] Aug, [facility] [place] [facility] [address] [id number] [place] [address] Aug, [facility] [place] [facility] [address] [id number] [place] [address] Aug, [facility] [place] [facility] [address] [id number] [place] [address] Aug, [facility] [place] [facility] [address] [id number] [place] [address] Aug, [facility] [place] [facility] [address] [facility] [id number] [place] [address] Aug, [facility] [place] [facility] [address] [id number] [place] [address] Aug, [facility] [place] [facility] [address] [id number] [place] [address] Jul, [facility] [place] [facility] [address] [id number] [place] [address] Jul, [facility] [place] [facility] [address] [id number] [place] [address] Jul, [facility] [place] [facility] [address] [id number] [place] [address] Jul, [facility] [address] [id number] [place] [address] Jul, [facility] [place] [facility] [address] [id number] [place] [address] Jul, [facility] [place] [facility] [address] [id number] [place] [address] Jul, [facility] [place] [facility] [address] [id number] [place] [address] Jul, [facility] [place] [facility] [address] [id number] [place] [address] Jul, [facility] [place] [facility] [address] [id number] [place] [address] Jul, [facility] [place] [facility] [address] [id number] [place] [address] Jul, [facility] [place] [facility] [address] [id number] [place] [address] Jul, [facility] [place] [facility] [address] [id number] [place] [address] Jul, [facility] [place] [facility] [address] [id number] [place] [address] Jul, [facility] [place] [facility] [address] [id number] [place] [address] Jul, [facility] [place] [facility] [address] [id number] [place] [address] Jun, [facility] [place] [facility] [address] [id number] [place] [address] Jun, [facility] [place] [facility] [address] [id number] [place] [address] Jun, [facility] [place] [facility] [address] [id number] [place] [address] Jun, [facility] [place] [facility] [address] [id number] [place] [address] Jun, [facility] [address] [id number] [place] [address] Jun, [facility] [place] [facility] [address] [id number] [place] [address] Jun, [facility] [address] [id number] [place] [address] Jun, [facility] [place] [facility] [address] [id number] [place] [address] Jun, [facility] [address] [id number] [place] [address] May, [facility] [address] [id number] [place] [address] May, [facility] [address] [id number] [place] [address] May, [facility] [address] [id number] [place] [address] May, [facility] [address] [id number] [place] [address] May, [facility] [address] [facility] [id number] [place] [address] May, [facility] [place] [facility] [address] [id number] [place] [address] May, [facility] [place] [facility] [address] [id number] [place] [address] Apr, [facility] [place] [facility] [address] [id number] [place] [address] Apr, [facility] [place] [facility] [address] [id number] [place] [address] Apr, [facility] [place] [facility] [address] [id number] [place] [address] Apr, [facility] [address] [id number] [place] [address] Jan, [facility] [place] [facility] [address] [id number] [place] [address] Dec, [facility] [place] [facility] [address] [id number] [place] [address] Dec, [facility] [place] [facility] [address] [id number] [place] [address] Dec, [facility] [place] [facility] [address] [id number] [place] [address] November, [facility] [place] [facility] [address] [id number] [place] [address] November, [facility] [place] [facility] [address] [id number] [place] [address] Oct, [facility] [place] [facility] [address] [id number] [place] [address] Oct, [facility] [place] [facility] [address] [id number] [place] [address] Aug, [facility] [place] [facility] [address] [facility] [id number], [place] [address] Jun, [facility] [place] [facility] [address] [id number], [place] [address] Jun, [facility] [place] [facility] [address] [id number], [place] [address] May, [facility] [place] [facility] [address] [id number] [place] [address] May, [facility] [place] [facility] [address] [id number], [place] [address] May, [facility] [place] [facility] [address] [facility] [id number], [place] [address] May, [facility] [place] [facility] [address] [id number], [place] [address] 28 Mar, 2012 [facility] [place] [facility] [address] [id number] [place] [address] 27 Mar, 2012 [facility] [place] [facility] [address] [id number] [place] [address] 25 Mar, 2012 [facility] [place] [facility] [address] [id number] [place] [address] Mar, [facility] [place] [facility] [address] [id number] [place] [address] 04 Mar, 2012 [facility] [place] [facility] [address] [id number] [place] [address] Feb, [facility] [place] [facility] [address] [id number] [place] [address] Feb, [facility] [address] [id number] [place] [address] Feb, [facility] [place] [facility] [address] [id number] [place] [address] Jan, [facility] [place] [facility] [address] [id number] [place] [address] Dec, [facility] [place] [facility] [address] [id number] [place] [address] November, [facility] [place] [facility] [address] [id number] [place] [address] Jul, [facility] [place] [facility] [address] [id number] [place] [address] Jul, [facility] [place] [facility] [address] [id number] [place] [address] Jul, [facility] [place] [facility] [address] [id number] [place] [address] 14 Mar, 2011 [facility] [place] [facility] [address] [id number] [place] [address] May, [facility] [place] [facility] [address] [facility] [id number] [place] [address] Apr, [facility] [place] [address] [facility] [id number], [place] [address] Oct, IMMUNIZATIONS No Known Immunizations SOCIAL HISTORY Never Assessed 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 EMR-[facility] [place]AN OF CARE VITAL SIGNS MEDICATIONS Unknown Medications RESULTS No Results PROCEDURES No Known procedures INSTRUCTIONS MEDICATIONS ADMINISTERED No Known Medications MEDICAL (GENERAL) HISTORY Type Description Date Medical History herpes simplex oral - severe Medical History PCOS (Polycystic Ovary Syndrome) Surgical History tonsillectomy and adenoidectomy Surgical History wisdom teeth Hospitalization History childbirth only
--- OUTSIDE RECORDS SUMMARY | 2018-12-27 17:04 | XMS REPORT ---
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 Name Role Phone Migration, Doctor Unavailable Unavailable PROBLEMS Type Condition ICD9-CM Code NQB33-UO Code Onset Dates Condition Status SNOMED Code Problem Acute constipation K59.00 Active 826943160 Problem Obesity (BMI 35.0-39.9 without comorbidity) E66.9 Active 994685051 Problem Migraine with aura and without status migrainosus, not intractable G43.109 Active 3800191 Problem Uterine cramping N94.89 Active [id number] ALLERGIES No Information ENCOUNTERS Encounter Location Date Diagnosis [place] [address] [address] Sep, Weight gain R63.5 and Obesity (BMI 35.0-39.9 without comorbidity) E66.9 [place] [address] [place] [id number] [place] [address] Jul, Encounter for immunization Z23 [place] [address] [address] Jul, Visit for TB skin test Z11.1 and Encounter for immunization Z23 [place] [address] [address] May, Well woman exam with routine gynecological exam Z01.419 [place] [address] [place] [id number] [place] [address] May, Vaginal itching L29.8 and Yeast infection involving the vagina and surrounding area B37.3 [facility] [address] [place] [id number] [place] [address] May, Acute epigastric pain R10.13 and Acute constipation K59.00 [place] [address] [address] 08 May, 2018 IUD check up Z30.431 and Uterine cramping N94.89 [facility] [address] [place] [id number] [place] [address] 11 Dec, 2017 Migraine with aura and without status migrainosus, not intractable G43.109 [facility] [address] [place] [id number] [place] [address] 22 Jul, 2017 IUD check up Z30.431 and Pelvic pain R10.2 [facility] [address] [place] [id number] [place] [id number] 24 Feb, 2017 Dental examination Z01.20 [facility] [address] [address] 14 Jan, 2017 Acute vaginitis N76.0 [place] [address] [place] [id number] [place] [address] 11 Jan, 2017 Vaginal discharge N89.8 ; Vaginal odor N89.8 and Acute vaginitis N76.0 [facility] [address] [place] [id number] [place] [id number] 10 Jan, 2017 Encounter for dental examination Z01.20 [place] [address] [place] [id number] [place] [address] 10 Jul, 2016 [facility] [address] [place] [id number] [place] [address] 15 Jun, 2016 Right upper quadrant abdominal pain R10.11 ; Weight gain, abnormal R63.5 ; Alopecia L65.9 ; Dry skin L85.3 and Family history of thyroid disease Z83.49 [place] [address] [place] [id number] [place] [address] May, [place] [address] [address] May, Right upper quadrant pain R10.11 [place] [address] [place] [id number] [place] [address] Sep, Pelvic pain R10.2 [facility] [id number] [place] [address] Aug, Dysuria R30.0 ; Pelvic pain R10.2 ; Encounter for genetic counseling Z31.5 and Inguinal lymphadenopathy R59.0 [facility] [address] [place] [id number] [place] [address] May, Pelvic pain in female R10.2 and IUD (intrauterine device) in place Z97.5 [facility] [address] [place] [id number] [place] [address] May, Unspecified mood [affective] disorder F39 [place] [address] [place] [id number] [place] [address] May, Unspecified mood [affective] disorder F39 [place] [address] [place] [id number] [place] [address] Apr, [facility] [address] [place] [id number] [place] [address] Mar, Unspecified episodic mood disorder 296.90 [place] [address] [place] [id number] [place] [address] Mar, Bilateral amaurosis fugax 362.34 [place] [address] [place] [id number] [place] [address] Feb, Alopecia 704.00 ; Frequent headaches 784.0 ; Anxiety 300.00 ; Family history of thyroid disease in mother V18.19 and Family history of bipolar disorder V17.0 [facility] [id number] [place] [address] Feb, [facility] [address] [place] [id number] [place] [address] Feb, [facility] [address] [place] [id number] [place] [address] Jan, Mood disorder 296.90 [facility] [address] [place] [address] Jan, Panic attacks 300.01 ; Anxiety, generalized 300.02 ; No condition on Kent II V71.09 and No condition on axis III V71.09 [facility] [address] [place] [id number] [place] [address] Jan, Anxiety, generalized 300.02 ; Panic attack 300.01 ; Major depression, melancholic type 296.20 ; No condition on Kent II V71.09 and No condition on axis III V71.09 [facility] [address] [place] [id number] [place] [address] Dec, [facility] [address] [place] [id number] [place] [address] Dec, Routine gynecological examination V72.31 ; Pap test, as part of routine gynecological examination V76.2 ; Breast cancer screening V76.10 and IUD surveillance V25.42 [facility] [address] [place] [id number] [place] [address] Dec, 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 [facility] [address] [place] [id number] [place] [address] Dec, [facility] [address] [place] [id number] [place] [address] Dec, [facility] [address] [address] November, [facility] [address] [place] [id number] [place] [address] Oct, [facility] [address] [place] [id number] [address] Oct, [facility] [address] [place] [id number] [place] [address] Sep, [facility] [address] [address] Sep, [facility] [id number] [place] [address] Aug, 2014 [facility] [place] [facility] [address] [id number] [place] [address] Aug, [facility] [place] [facility] [address] [id number] [place] [address] Jul, [facility] [place] [facility] [address] [id number] [place] [address] Jul, [facility] [place] [facility] [address] [id number] [place] [address] Jul, [facility] [place] [facility] [address] [id number] [place] [address] Jul, [facility] [place] [facility] [address] [id number] [place] [address] Jun, [facility] [place] [facility] [address] [id number] [place] [address] Jun, [facility] [place] [facility] [address] [facility] [id number] [place] [id number] Jun, [facility] [place] [facility] [address] [id number] [place] [address] Jun, [facility] [place] [facility] [address] [facility] [id number] [place] [address] Jun, [facility] [place] [facility] [address] [id number] [place] [address] Jun, [facility] [place] [facility] [address] [id number] [place] [address] May, [facility] [place] [facility] [address] [id number] [place] [address] May, [facility] [place] [facility] [address] [id number] [place] [address] May, [facility] [place] [facility] [address] [id number] [place] [address] May, [facility] [place] [facility] [address] [id number] [place] [address] May, [facility] [place] [facility] [address] [id number] [place] [address] May, [facility] [place] [facility] [address] [id number] [place] [address] May, [facility] [place] [facility] [address] [id number] [place] [address] Apr, [facility] [place] [facility] [address] [id number] [place] [address] Apr, [facility] [place] [facility] [address] [id number] [place] [address] Apr, [facility] [place] [facility] [address] [id number] [place] [address] Apr, [facility] [place] [facility] [address] [id number] [place] [address] Apr, [facility] [place] [facility] [address] [id number] [place] [address] Apr, [facility] [place] [facility] [address] [id number] [place] [address] Feb, [facility] [place] [facility] [address] [id number] [place] [address] Feb, [facility] [place] [facility] [address] [id number] [address] Feb, [facility] [place] [facility] [address] [id number] [place] [address] Feb, [facility] [place] [facility] [address] [id number] [place] [address] Feb, [facility] [place] [facility] [address] [id number] [place] [address] Feb, [facility] [place] [facility] [address] [id number] [address] Jan, [facility] [place] [facility] [address] [id number] [place] [address] Jan, [facility] [place] [facility] [address] [id number] [place] [address] Dec, [facility] [place] [facility] [address] [id number] [place] [address] Dec, [facility] [place] [facility] [address] [id number] [place] [address] Dec, [facility] [place] [facility] [address] [id number] [place] [address] Dec, [facility] [place] [facility] [address] [id number] [place] [address] Dec, [facility] [place] [facility] [address] [id number] [place] [address] Dec, [facility] [place] [facility] [address] [id number] [place] [address] Dec, [facility] [place] [facility] [address] [id number] [place] [address] Dec, [facility] [place] [facility] [address] [id number] [place] [address] Dec, [facility] [place] [facility] [address] [id number] [place] [address] Dec, [facility] [place] [facility] [address] [id number] [address] Dec, [facility] [place] [facility] [address] [id number] [place] [address] Dec, [facility] [place] [facility] [address] [id number] [place] [address] November, [facility] [place] [facility] [address] [id number] [place] [address] November, [facility] [place] [facility] [address] [id number] [place] [address] November, [facility] [place] [facility] [address] [id number] [place] [address] November, [facility] [place] [facility] [address] [id number] [place] [address] November, [facility] [place] [facility] [address] [id number] [place] [address] November, [facility] [place] [facility] [address] [id number] [place] [address] November, [facility] [place] [facility] [address] [id number] [place] [address] November, [facility] [place] [facility] [address] [id number] [place] [address] November, [facility] [place] [facility] [address] [id number] [place] [address] November, [facility] [place] [facility] [address] [id number] [place] [address] November, [facility] [place] [facility] [address] [id number] [place] [address] Oct, [facility] [place] [facility] [address] [id number] [place] [address] Oct, [facility] [place] [facility] [address] [id number] [place] [address] Oct, [facility] [place] [facility] [address] [id number] [place] [address] Oct, [facility] [place] [facility] [address] [id number] [place] [address] Oct, [facility] [place] [facility] [address] [id number] [place] [address] Oct, [facility] [place] [facility] [address] [id number] [place] [address] Oct, [facility] [place] [facility] [address] [id number] [place] [address] Oct, [facility] [place] [facility] [address] [id number] [place] [address] Oct, [facility] [place] [facility] [address] [id number] [place] [address] Oct, [facility] [place] [facility] [address] [id number] [place] [address] Oct, [facility] [place] [facility] [address] [id number] [place] [address] Oct, [facility] [place] [facility] [address] [id number] [place] [address] Oct, [facility] [place] [facility] [address] [id number] [place] [address] Oct, [facility] [place] [facility] [address] [id number] [place] [address] Oct, [facility] [place] [facility] [address] [id number] [place] [address] Oct, [facility] [place] [facility] [address] [id number] [place] [address] Oct, [facility] [place] [facility] [address] [id number] [place] [address] Oct, [facility] [place] [facility] [address] [id number] [place] [address] Oct, [facility] [place] [facility] [address] [id number] [place] [address] Sep, [facility] [place] [facility] [address] [id number] [place] [address] Sep, [facility] [place] [facility] [address] [id number] [place] [address] Sep, [facility] [place] [facility] [address] [id number] [place] [address] Sep, [facility] [place] [facility] [address] [id number] [place] [address] Aug, [facility] [place] [facility] [address] [id number] [place] [address] Aug, [facility] [place] [facility] [address] [id number] [place] [address] Aug, [facility] [place] [facility] [address] [id number] [place] [address] Aug, [facility] [place] [facility] [address] [id number] [place] [address] Aug, [facility] [place] [facility] [address] [id number] [place] [address] Aug, [facility] [place] [facility] [address] [id number] [place] [address] Aug, [facility] [place] [facility] [address] [id number] [place] [address] Aug, [facility] [place] [facility] [address] [id number] [place] [address] Aug, [facility] [place] [facility] [address] [facility] [id number] [place] [address] Aug, [facility] [place] [facility] [address] [id number] [place] [address] Aug, [facility] [place] [facility] [address] [id number] [place] [address] Jul, [facility] [place] [facility] [address] [id number] [place] [address] Jul, [facility] [place] [facility] [address] [id number] [place] [address] Jul, [facility] [place] [facility] [address] [id number] [place] [address] Jul, [facility] [address] [id number] [place] [address] Jul, [facility] [place] [facility] [address] [id number] [place] [address] Jul, [facility] [place] [facility] [address] [id number] [place] [address] Jul, [facility] [place] [facility] [address] [id number] [place] [address] Jul, [facility] [place] [facility] [address] [id number] [place] [address] Jul, [facility] [place] [facility] [address] [id number] [place] [address] Jul, [facility] [place] [facility] [address] [id number] [place] [address] Jul, [facility] [place] [facility] [address] [id number] [place] [address] Jul, [facility] [place] [facility] [address] [id number] [place] [address] Jul, [facility] [place] [facility] [address] [id number] [place] [address] Jul, [facility] [place] [facility] [address] [id number] [place] [address] Jul, [facility] [place] [facility] [address] [id number] [place] [address] Jun, [facility] [place] [facility] [address] [id number] [place] [address] Jun, [facility] [place] [facility] [address] [id number] [place] [address] Jun, [facility] [place] [facility] [address] [id number] [place] [address] Jun, [facility] [place] [facility] [address] [id number] [place] [address] Jun, [facility] [address] [id number] [place] [address] Jun, [facility] [place] [facility] [address] [id number] [place] [address] Jun, [facility] [address] [id number] [place] [address] Jun, [facility] [place] [facility] [address] [id number] [place] [address] Jun, [facility] [address] [id number] [place] [address] May, [facility] [address] [id number] [place] [address] May, [facility] [address] [id number] [place] [address] May, [facility] [address] [id number] [place] [address] May, [facility] [address] [id number] [place] [address] May, [facility] [address] [facility] [id number] [place] [address] May, [facility] [place] [facility] [address] [id number] [place] [address] May, [facility] [place] [facility] [address] [id number] [place] [address] Apr, [facility] [place] [facility] [address] [id number] [place] [address] Apr, [facility] [place] [facility] [address] [id number] [place] [address] Apr, [facility] [place] [facility] [address] [id number] [place] [address] Apr, [facility] [address] [id number] [place] [address] Jan, [facility] [place] [facility] [address] [id number] [place] [address] Dec, [facility] [place] [facility] [address] [id number] [place] [address] Dec, [facility] [place] [facility] [address] [id number] [place] [address] Dec, [facility] [place] [facility] [address] [id number] [place] [address] November, [facility] [place] [facility] [address] [id number] [place] [address] November, [facility] [place] [facility] [address] [id number] [place] [address] Oct, [facility] [place] [facility] [address] [id number] [place] [address] Oct, [facility] [place] [facility] [address] [id number] [place] [address] Aug, [facility] [place] [facility] [address] [facility] [id number] [address] Jun, [facility] [place] [facility] [address] [id number], [place] [address] Jun, [facility] [place] [facility] [address] [id number], [place] [address] May, [facility] [place] [facility] [address] [id number] [place] [address] May, [facility] [place] [facility] [address] [id number] [address] May, [facility] [place] [facility] [address] [facility] [id number], [place] [address] May, [facility] [place] [facility] [address] [id number], [place] [address] 28 Mar, 2012 [facility] [place] [facility] [address] [id number] [place] [address] 27 Mar, 2012 [facility] [place] [facility] [address] [id number] [place] [address] 25 Mar, 2012 [facility] [place] [facility] [address] [id number] [place] [address] Mar, [facility] [place] [facility] [address] [id number] [place] [address] 04 Mar, 2012 [facility] [place] [facility] [address] [id number] [place] [address] Feb, [facility] [place] [facility] [address] [id number] [place] [address] Feb, [facility] [address] [id number] [place] [address] Feb, [facility] [place] [facility] [address] [id number] [place] [address] Jan, [facility] [place] [facility] [address] [id number] [place] [address] Dec, [facility] [place] [facility] [address] [id number] [place] [address] November, [facility] [place] [facility] [address] [id number] [place] [address] Jul, [facility] [place] [facility] [address] [id number] [place] [address] Jul, [facility] [place] [facility] [address] [id number] [place] [address] Jul, [facility] [place] [facility] [address] [id number] [place] [address] 14 Mar, 2011 [facility] [place] [facility] [address] [id number] [place] [address] May, [facility] [place] [facility] [address] [facility] [id number] [place] [address] Apr, [facility] [address] [facility] [id number], [place] [address] Oct, IMMUNIZATIONS No Known Immunizations SOCIAL HISTORY Never Assessed 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 [place] VITAL SIGNS MEDICATIONS Unknown Medications RESULTS No Results PROCEDURES No Known procedures INSTRUCTIONS MEDICATIONS ADMINISTERED No Known Medications MEDICAL (GENERAL) HISTORY Type Description Date Medical History herpes simplex oral - severe Medical History PCOS (Polycystic Ovary Syndrome) Surgical History tonsillectomy and adenoidectomy Surgical History wisdom teeth Hospitalization History childbirth only
--- OUTSIDE RECORDS SUMMARY | 2018-12-27 17:04 | XMS REPORT ---
Author Author Migration, Doctor Organization [facility] Address Unknown Phone Unavailable Care Team Providers Care Fish Butcher Name Role Phone Migration, Doctor Unavailable Unavailable PROBLEMS Type Condition ICD9-CM Code WHH65-PD Code Onset Dates Condition Status SNOMED Code Problem Acute constipation K59.00 Active 601499618 Problem Obesity (BMI 35.0-39.9 without comorbidity) E66.9 Active 391937717 Problem Migraine with aura and without status migrainosus, not intractable G43.109 Active 7801591 Problem Uterine cramping N94.89 Active [id number] ALLERGIES No Information ENCOUNTERS Encounter Location Date Diagnosis [place] [address] [address] Sep, Weight gain R63.5 and Obesity (BMI 35.0-39.9 without comorbidity) E66.9 [place] [address] [place] [id number] [place] [address] Jul, Encounter for immunization Z23 [place] [address] [address] Jul, Visit for TB skin test Z11.1 and Encounter for immunization Z23 [place] [address] [address] May, Well woman exam with routine gynecological exam Z01.419 [place] [address] [place] [id number] [place] [address] May, Vaginal itching L29.8 and Yeast infection involving the vagina and surrounding area B37.3 [facility] [address] [place] [id number] [place] [address] 12 May, 2018 Acute epigastric pain R10.13 and Acute constipation K59.00 [place] [address] [address] 08 May, 2018 IUD check up Z30.431 and Uterine cramping N94.89 [facility] [address] [place] [id number] [place] [address] 11 Dec, 2017 Migraine with aura and without status migrainosus, not intractable G43.109 [facility] [address] [place] [id number] [place] [address] 22 Jul, 2017 IUD check up Z30.431 and Pelvic pain R10.2 [facility] [address] [place] [id number] [place] [id number] 24 Feb, 2017 Dental examination Z01.20 [facility] [address] [address] 14 Jan, 2017 Acute vaginitis N76.0 [place] [address] [id number] [place] [address] 11 Jan, 2017 Vaginal discharge N89.8 ; Vaginal odor N89.8 and Acute vaginitis N76.0 [facility] [address] [place] [id number] [place] [id number] 10 Jan, 2017 Encounter for dental examination Z01.20 [place] [address] [place] [id number] [place] [address] 10 Jul, 2016 [facility] [address] [place] [id number] [place] [address] 15 Jun, 2016 Right upper quadrant abdominal pain R10.11 ; Weight gain, abnormal R63.5 ; Alopecia L65.9 ; Dry skin L85.3 and Family history of thyroid disease Z83.49 [place] [address] [place] [id number] [place] [address] May, [place] [address] [address] May, Right upper quadrant pain R10.11 [place] [address] [place] [id number] [place] [address] Sep, Pelvic pain R10.2 [facility] [id number] [place] [address] Aug, Dysuria R30.0 ; Pelvic pain R10.2 ; Encounter for genetic counseling Z31.5 and Inguinal lymphadenopathy R59.0 [facility] [address] [place] [id number] [place] [address] May, Pelvic pain in female R10.2 and IUD (intrauterine device) in place Z97.5 [facility] [address] [place] [id number] [place] [address] May, Unspecified mood [affective] disorder F39 [place] [address] [place] [id number] [place] [address] May, Unspecified mood [affective] disorder F39 [place] [address] [place] [id number] [place] [address] Apr, [facility] [address] [place] [id number] [place] [address] Mar, Unspecified episodic mood disorder 296.90 [place] [address] [place] [id number] [place] [address] Mar, Bilateral amaurosis fugax 362.34 [place] [address] [place] [id number] [place] [address] Feb, Alopecia 704.00 ; Frequent headaches 784.0 ; Anxiety 300.00 ; Family history of thyroid disease in mother V18.19 and Family history of bipolar disorder V17.0 [facility] [id number] [place] [address] Feb, [facility] [address] [place] [id number] [place] [address] Feb, [facility] [address] [place] [id number] [place] [address] Jan, Mood disorder 296.90 [facility] [address] [place] [address] Jan, Panic attacks 300.01 ; Anxiety, generalized 300.02 ; No condition on [place] II V71.09 and No condition on axis III V71.09 [facility] [address] [place] [id number] [place] [address] Jan, Anxiety, generalized 300.02 ; Panic attack 300.01 ; Major depression, melancholic type 296.20 ; No condition on [place] II V71.09 and No condition on axis III V71.09 [facility] [address] [place] [id number] [place] [address] Dec, [facility] [address] [place] [id number] [place] [address] Dec, Routine gynecological examination V72.31 ; Pap test, as part of routine gynecological examination V76.2 ; Breast cancer screening V76.10 and IUD surveillance V25.42 [facility] [address] [place] [id number] [place] [address] Dec, 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 [facility] [address] [place] [id number] [place] [address] Dec, [facility] [address] [place] [id number] [place] [address] Dec, [facility] [address] [address] November, [facility] [address] [place] [id number] [place] [address] Oct, [facility] [address] [place] [id number] [address] Oct, [facility] [address] [place] [id number] [place] [address] Sep, [facility] [address] [address] Sep, [facility] [address] [place] [address] Aug, 2014 [facility] [place] [facility] [address] [id number] [place] [address] Aug, [facility] [place] [facility] [address] [id number] [place] [address] Jul, [facility] [place] [facility] [address] [id number] [place] [address] Jul, [facility] [place] [facility] [address] [id number] [place] [address] Jul, [facility] [place] [facility] [address] [id number] [place] [address] Jul, [facility] [place] [facility] [address] [id number] [place] [address] Jun, [facility] [place] [facility] [address] [id number] [place] [address] Jun, [facility] [place] [facility] [address] [facility] [id number] [place] [id number] Jun, [facility] [place] [facility] [address] [id number] [place] [address] Jun, [facility] [place] [facility] [address] [facility] [id number] [place] [address] Jun, [facility] [place] [facility] [address] [id number] [place] [address] Jun, [facility] [place] [facility] [address] [id number] [place] [address] May, [facility] [place] [facility] [address] [id number] [place] [address] May, [facility] [place] [facility] [address] [id number] [place] [address] May, [facility] [place] [facility] [address] [id number] [place] [address] May, [facility] [place] [facility] [address] [id number] [place] [address] May, [facility] [place] [facility] [address] [id number] [place] [address] May, [facility] [place] [facility] [address] [id number] [place] [address] May, [facility] [place] [facility] [address] [id number] [place] [address] Apr, [facility] [place] [facility] [address] [id number] [place] [address] Apr, [facility] [place] [facility] [address] [id number] [place] [address] Apr, [facility] [place] [facility] [address] [id number] [place] [address] Apr, [facility] [place] [facility] [address] [id number] [place] [address] Apr, [facility] [place] [facility] [address] [id number] [place] [address] Apr, [facility] [place] [facility] [address] [id number] [place] [address] Feb, [facility] [place] [facility] [address] [id number] [place] [address] Feb, [facility] [place] [facility] [address] [id number], [place] [address] Feb, [facility] [place] [facility] [address] [id number] [place] [address] Feb, [facility] [place] [facility] [address] [id number] [place] [address] Feb, [facility] [place] [facility] [address] [id number] [place] [address] Feb, [facility] [place] [facility] [address] [id number], [place] [address] Jan, [facility] [place] [facility] [address] [id number] [place] [address] Jan, [facility] [place] [facility] [address] [id number] [place] [address] Dec, [facility] [place] [facility] [address] [id number] [place] [address] Dec, [facility] [place] [facility] [address] [id number] [place] [address] Dec, [facility] [place] [facility] [address] [id number] [place] [address] Dec, [facility] [place] [facility] [address] [id number] [place] [address] Dec, [facility] [place] [facility] [address] [id number] [place] [address] Dec, [facility] [place] [facility] [address] [id number] [place] [address] Dec, [facility] [place] [facility] [address] [id number] [place] [address] Dec, [facility] [place] [facility] [address] [id number] [place] [address] Dec, [facility] [place] [facility] [address] [id number] [place] [address] Dec, [facility] [place] [facility] [address] [id number], [place] [address] Dec, [facility] [place] [facility] [address] [id number] [place] [address] Dec, [facility] [place] [facility] [address] [id number] [place] [address] November, [facility] [place] [facility] [address] [id number] [place] [address] November, [facility] [place] [facility] [address] [id number] [place] [address] November, [facility] [place] [facility] [address] [id number] [place] [address] November, [facility] [place] [facility] [address] [id number] [place] [address] November, [facility] [place] [facility] [address] [id number] [place] [address] November, [facility] [place] [facility] [address] [id number] [place] [address] November, [facility] [place] [facility] [address] [id number] [place] [address] November, [facility] [place] [facility] [address] [id number] [place] [address] November, [facility] [place] [facility] [address] [id number] [place] [address] November, [facility] [place] [facility] [address] [id number] [place] [address] November, [facility] [place] [facility] [address] [id number] [place] [address] Oct, [facility] [place] [facility] [address] [id number] [place] [address] Oct, [facility] [place] [facility] [address] [id number] [place] [address] Oct, [facility] [place] [facility] [address] [id number] [place] [address] Oct, [facility] [place] [facility] [address] [id number] [place] [address] Oct, [facility] [place] [facility] [address] [id number] [place] [address] Oct, [facility] [place] [facility] [address] [id number] [place] [address] Oct, [facility] [place] [facility] [address] [id number] [place] [address] Oct, [facility] [place] [facility] [address] [id number] [place] [address] Oct, [facility] [place] [facility] [address] [id number] [place] [address] Oct, [facility] [place] [facility] [address] [id number] [place] [address] Oct, [facility] [place] [facility] [address] [id number] [place] [address] Oct, [facility] [place] [facility] [address] [id number] [place] [address] Oct, [facility] [place] [facility] [address] [id number] [place] [address] Oct, [facility] [place] [facility] [address] [id number] [place] [address] Oct, [facility] [place] [facility] [address] [id number] [place] [address] Oct, [facility] [place] [facility] [address] [id number] [place] [address] Oct, [facility] [place] [facility] [address] [id number] [place] [address] Oct, [facility] [place] [facility] [address] [id number] [place] [address] Oct, [facility] [place] [facility] [address] [id number] [place] [address] Sep, [facility] [place] [facility] [address] [id number] [place] [address] Sep, [facility] [place] [facility] [address] [id number] [place] [address] Sep, [facility] [place] [facility] [address] [id number] [place] [address] Sep, [facility] [place] [facility] [address] [id number] [place] [address] Aug, [facility] [place] [facility] [address] [id number] [place] [address] Aug, [facility] [place] [facility] [address] [id number] [place] [address] Aug, [facility] [place] [facility] [address] [id number] [place] [address] Aug, [facility] [place] [facility] [address] [id number] [place] [address] Aug, [facility] [place] [facility] [address] [id number] [place] [address] Aug, [facility] [place] [facility] [address] [id number] [place] [address] Aug, [facility] [place] [facility] [address] [id number] [place] [address] Aug, [facility] [place] [facility] [address] [id number] [place] [address] Aug, [facility] [place] [facility] [address] [facility] [id number] [place] [address] Aug, [facility] [place] [facility] [address] [id number] [place] [address] Aug, [facility] [place] [facility] [address] [id number] [place] [address] Jul, [facility] [place] [facility] [address] [id number] [place] [address] Jul, [facility] [place] [facility] [address] [id number] [place] [address] Jul, [facility] [place] [facility] [address] [id number] [place] [address] Jul, [facility] [address] [id number] [place] [address] Jul, [facility] [place] [facility] [address] [id number] [place] [address] Jul, [facility] [place] [facility] [address] [id number] [place] [address] Jul, [facility] [place] [facility] [address] [id number] [place] [address] Jul, [facility] [place] [facility] [address] [id number] [place] [address] Jul, [facility] [place] [facility] [address] [id number] [place] [address] Jul, [facility] [place] [facility] [address] [id number] [place] [address] Jul, [facility] [place] [facility] [address] [id number] [place] [address] Jul, [facility] [place] [facility] [address] [id number] [place] [address] Jul, [facility] [place] [facility] [address] [id number] [place] [address] Jul, [facility] [place] [facility] [address] [id number] [place] [address] Jul, [facility] [place] [facility] [address] [id number] [place] [address] Jun, [facility] [place] [facility] [address] [id number] [place] [address] Jun, [facility] [place] [facility] [address] [id number] [place] [address] Jun, [facility] [place] [facility] [address] [id number] [place] [address] Jun, [facility] [place] [facility] [address] [id number] [place] [address] Jun, [facility] [address] [id number] [place] [address] Jun, [facility] [place] [facility] [address] [id number] [place] [address] Jun, [facility] [address] [id number] [place] [address] Jun, [facility] [place] [facility] [address] [id number] [place] [address] Jun, [facility] [address] [id number] [place] [address] May, [facility] [address] [id number] [place] [address] May, [facility] [address] [id number] [place] [address] May, [facility] [address] [id number] [place] [address] May, [facility] [address] [id number] [place] [address] May, [facility] [address] [facility] [id number] [place] [address] May, [facility] [place] [facility] [address] [id number] [place] [address] May, [facility] [place] [facility] [address] [id number] [place] [address] Apr, [facility] [place] [facility] [address] [id number] [place] [address] Apr, [facility] [place] [facility] [address] [id number] [place] [address] Apr, [facility] [place] [facility] [address] [id number] [place] [address] Apr, [facility] [address] [id number] [place] [address] Jan, [facility] [place] [facility] [address] [id number] [place] [address] Dec, [facility] [place] [facility] [address] [id number] [place] [address] Dec, [facility] [place] [facility] [address] [id number] [place] [address] Dec, [facility] [place] [facility] [address] [id number] [place] [address] November, [facility] [place] [facility] [address] [id number] [place] [address] November, [facility] [place] [facility] [address] [id number] [place] [address] Oct, [facility] [place] [facility] [address] [id number] [place] [address] Oct, [facility] [place] [facility] [address] [id number] [place] [address] Aug, [facility] [place] [facility] [address] [facility] [id number], [place] [address] Jun, [facility] [place] [facility] [address] [id number], [place] [address] Jun, [facility] [place] [facility] [address] [id number], [place] [address] May, [facility] [place] [facility] [address] [id number] [place] [address] May, [facility] [place] [facility] [address] [id number], [place] [address] May, [facility] [place] [facility] [address] [facility] [id number], [place] [address] May, [facility] [place] [facility] [address] [id number], [place] [address] 28 Mar, 2012 [facility] [place] [facility] [address] [id number] [place] [address] 27 Mar, 2012 [facility] [place] [facility] [address] [id number] [place] [address] 25 Mar, 2012 [facility] [place] [facility] [address] [id number] [place] [address] Mar, [facility] [place] [facility] [address] [id number] [place] [address] 04 Mar, 2012 [facility] [place] [facility] [address] [id number] [place] [address] Feb, [facility] [place] [facility] [address] [id number] [place] [address] Feb, [facility] [address] [id number] [place] [address] Feb, [facility] [place] [facility] [address] [id number] [place] [address] Jan, [facility] [place] [facility] [address] [id number] [place] [address] Dec, [facility] [place] [facility] [address] [id number] [place] [address] November, [facility] [place] [facility] [address] [id number] [place] [address] Jul, [facility] [place] [facility] [address] [id number] [place] [address] Jul, [facility] [place] [facility] [address] [id number] [place] [address] Jul, [facility] [place] [facility] [address] [id number] [place] [address] 14 Mar, 2011 [facility] [place] [facility] [address] [id number] [place] [address] May, [facility] [place] [facility] [address] [facility] [id number] [place] [address] Apr, [facility] [address] [facility] [id number], [place] [address] Oct, IMMUNIZATIONS No Known Immunizations SOCIAL HISTORY Never Assessed 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 [place] [place] VITAL SIGNS MEDICATIONS Unknown Medications RESULTS No Results PROCEDURES No Known procedures INSTRUCTIONS MEDICATIONS ADMINISTERED No Known Medications MEDICAL (GENERAL) HISTORY Type Description Date Medical History herpes simplex oral - severe Medical History PCOS (Polycystic Ovary Syndrome) Surgical History tonsillectomy and adenoidectomy Surgical History wisdom teeth Hospitalization History childbirth only
--- OUTSIDE RECORDS SUMMARY | 2018-12-27 17:05 | XMS REPORT ---
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 Phone KYRIE MORATA Unavailable PROBLEMS Type Condition ICD9-CM Code TNO59-XC Code Onset Dates Condition Status SNOMED Code Problem Acute constipation K59.00 Active 617987530 Problem Uterine cramping N94.89 Active 484332790 Problem Migraine with aura and without status migrainosus, not intractable G43.109 Active 5842332 ALLERGIES Substance Reaction Event Type Date Status Amoxicillin rash Drug Allergy May, Active ENCOUNTERS Encounter Location Date Diagnosis [facility] [address] [address] May, Well woman exam with routine gynecological exam Z01.419 [facility] [address] [address] May, Vaginal itching L29.8 and Yeast infection involving the vagina and surrounding area B37.3 [facility] [id number] [place] [address] May, Acute epigastric pain R10.13 and Acute constipation K59.00 [facility] [address] [address] 08 May, 2018 IUD check up Z30.431 and Uterine cramping N94.89 [facility] [address] [address] Dec, Migraine with aura and without status migrainosus, not intractable G43.109 [facility] [address] [address] Jul, IUD check up Z30.431 and Pelvic pain R10.2 [place] [id number] [place] [id number] Feb, Dental examination Z01.20 [facility] [id number] [place] [address] 14 Jan, 2017 Acute vaginitis N76.0 [facility] [id number] [place] [address] 11 Jan, 2017 Vaginal discharge N89.8 ; Vaginal odor N89.8 and Acute vaginitis N76.0 [facility] [id number] [place] [id number] 10 Jan, 2017 Encounter for dental examination Z01.20 [facility] [id number] [place] [address] 10 Jul, 2016 [facility] [id number] [place] [address] 15 Jun, 2016 Right upper quadrant abdominal pain R10.11 ; Weight gain, abnormal R63.5 ; Alopecia L65.9 ; Dry skin L85.3 and Family history of thyroid disease Z83.49 [place] [address] [address] May, [facility] [id number] [place] [address] May, Right upper quadrant pain R10.11 [place] [address] [address] Sep, Pelvic pain R10.2 [place] [id number] [place] [address] 24 Aug, 2015 Dysuria R30.0 ; Pelvic pain R10.2 ; Encounter for genetic counseling Z31.5 and Inguinal lymphadenopathy R59.0 [place] [id number] [place] [address] May, Pelvic pain in female R10.2 and IUD (intrauterine device) in place Z97.5 [place] [address] [address] May, Unspecified mood [affective] disorder F39 [facility] [id number] [place] [address] May, Unspecified mood [affective] disorder F39 [facility] [id number] [place] [address] Apr, [facility] [id number] [place] [address] Mar, Unspecified episodic mood disorder 296.90 [facility] [id number] [place] [address] Mar, Bilateral amaurosis fugax 362.34 [facility] [address] [place] [address] Feb, Alopecia 704.00 ; Frequent headaches 784.0 ; Anxiety 300.00 ; Family history of thyroid disease in mother V18.19 and Family history of bipolar disorder V17.0 [facility] [id number] [place] [address] Feb, [facility] [id number] [place] [address] Feb, [facility] [id number] [place] [address] Jan, Mood disorder 296.90 [facility] [id number] [place] [address] Jan, Panic attacks 300.01 ; Anxiety, generalized 300.02 ; No condition on Peyton II V71.09 and No condition on axis III V71.09 [facility] [address] [address] Jan, Anxiety, generalized 300.02 ; Panic attack 300.01 ; Major depression, melancholic type 296.20 ; No condition on Peyton II V71.09 and No condition on axis III V71.09 [facility] [address], [place] [address] 30 Dec, 2014 [facility] [address], [place] [address] 24 Dec, 2014 Routine gynecological examination V72.31 ; Pap test, as part of routine gynecological examination V76.2 ; Breast cancer screening V76.10 and IUD surveillance V25.42 [facility] [address], [place] [address] 17 Dec, 2014 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 [facility] [address] [place] [address] Dec, [facility] [id number] [address] Dec, [facility] [address] [place] [address] November, [facility] [address], [place] [address] Oct, [facility] [address], [place] [address] Oct, [facility] [address], [place] [address] Sep, [facility] [address], [place] [address] Sep, [facility] [address], [place] [address] Aug, [facility] [id number] [address] Aug, [facility] [address], [place] [address] Jul, [facility] [address], [place] [address] Jul, [facility] [place] [facility] [address] [id number] [place] [address] Jul, [facility] [place] [facility] [address] [id number] [place] [address] Jul, [facility] [place] [facility] [address] [id number] [place] [address] Jun, [facility] [place] [facility] [address] [id number] [place] [address] Jun, [facility] [place] [facility] [address] [id number] [place] [id number] Jun, [facility] [place] [facility] [address] [id number] [place] [address] Jun, [facility] [place] [facility] [address] [id number] [place] [address] Jun, [facility] [place] [facility] [address] [id number] [place] [address] Jun, [facility] [place] [facility] [address] [id number] [place] [address] May, [facility] [place] [facility] [address] [id number] [place] [address] May, [facility] [place] [facility] [address] [id number] [place] [address] May, [facility] [place] [facility] [address] [id number] [place] [address] May, [facility] [place] [facility] [address] [id number] [place] [address] May, [facility] [place] [facility] [address] [id number] [place] [address] May, [facility] [place] [facility] [address] [id number] [place] [address] May, [facility] [place] [facility] [address] [id number] [place] [address] Apr, [facility] [place] [facility] [address] [id number] [place] [address] Apr, [facility] [place] [facility] [address] [id number] [place] [address] Apr, [facility] [place] [facility] [address] [id number] [place] [address] Apr, [facility] [place] [facility] [address] [id number] [place] [address] Apr, [facility] [place] [facility] [address] [id number] [place] [address] Apr, [facility] [place] [facility] [address] [id number] [place] [address] Feb, [facility] [place] [facility] [address] [id number] [place] [address] Feb, [facility] [place] [facility] [address] [id number] [place] [address] Feb, [facility] [place] [facility] [address] [id number] [place] [address] Feb, [facility] [place] [facility] [address] [id number] [place] [address] Feb, [facility] [place] [facility] [address] [id number] [place] [address] Feb, [facility] [place] [facility] [address] [id number], [place] [address] Jan, [facility] [place] [facility] [address] [id number] [place] [address] Jan, [facility] [place] [facility] [address] [id number] [place] [address] Dec, [facility] [place] [facility] [address] [id number] [place] [address] Dec, [facility] [place] [facility] [address] [id number] [place] [address] Dec, [facility] [place] [facility] [address] [id number] [place] [address] Dec, [facility] [place] [facility] [address] [id number] [place] [address] Dec, [facility] [place] [facility] [address] [id number] [place] [address] Dec, [facility] [place] [facility] [address] [id number] [place] [address] Dec, [facility] [place] [facility] [address] [id number] [place] [address] Dec, [facility] [place] [facility] [address] [id number] [place] [address] Dec, [facility] [place] [facility] [address] [id number] [place] [address] Dec, [facility] [place] [facility] [address] [id number] [place] [address] Dec, [facility] [place] [facility] [address] [id number] [place] [address] Dec, [facility] [place] [facility] [address] [id number] [place] [address] November, [facility] [place] [facility] [address] [id number] [place] [address] November, [facility] [place] [facility] [address] [id number] [place] [address] November, [facility] [place] [facility] [address] [id number] [place] [address] November, [facility] [place] [facility] [address] [id number] [place] [address] November, [facility] [place] [facility] [address] [id number] [place] [address] November, [facility] [place] [facility] [address] [id number] [place] [address] November, [facility] [address] [id number] [place] [address] November, [facility] [place] [facility] [address] [id number] [place] [address] November, [facility] [address] [id number] [place] [address] November, [facility] [address] [id number] [place] [address] November, [facility] [address] [id number] [place] [address] Oct, [facility] [address] [id number] [place] [address] Oct, [facility] [address] [id number] [place] [address] Oct, [facility] [place] [facility] [address] [id number] [place] [address] Oct, [facility] [place] [facility] [address] [id number] [place] [address] Oct, [facility] [place] [facility] [address] [id number] [place] [address] Oct, [facility] [place] [facility] [address] [id number] [place] [address] Oct, [facility] [place] [facility] [address] [id number] [place] [address] Oct, [facility] [place] [facility] [address] [id number] [place] [address] Oct, [facility] [place] [facility] [address] [id number] [place] [address] Oct, [facility] [place] [facility] [address] [id number] [place] [address] Oct, [facility] [place] [facility] [address] [id number] [place] [address] Oct, [facility] [place] [facility] [address] [id number] [place] [address] Oct, [facility] [place] [facility] [address] [id number] [place] [address] Oct, [facility] [place] [facility] [address] [id number] [place] [address] Oct, [facility] [place] [facility] [address] [id number] [place] [address] Oct, [facility] [place] [facility] [address] [id number] [place] [address] Oct, [facility] [place] [facility] [address] [id number] [place] [address] Oct, [facility] [place] [facility] [address] [id number] [place] [address] Oct, [facility] [place] [facility] [address] [id number] [place] [address] Sep, [facility] [place] [facility] [address] [id number] [place] [address] Sep, [facility] [place] [facility] [address] [id number] [place] [address] Sep, [facility] [place] [facility] [address] [id number] [place] [address] Sep, [facility] [place] [facility] [address] [id number] [place] [address] Aug, [facility] [place] [facility] [address] [id number] [place] [address] Aug, [facility] [place] [facility] [address] [id number] [place] [address] Aug, [facility] [place] [facility] [address] [id number] [place] [address] 14 Aug, 2013 [facility] [place] [facility] [address] [id number] [place] [address] Aug, [facility] [place] [facility] [address] [id number] [place] [address] Aug, [facility] [place] [facility] [address] [id number] [place] [address] Aug, [facility] [place] [facility] [address] [id number] [place] [address] Aug, [facility] [place] [facility] [address] [id number] [place] [address] Aug, [facility] [place] [facility] [address] [facility] [id number] [place] [address] Aug, [facility] [place] [facility] [address] [id number] [place] [address] Aug, [facility] [place] [facility] [address] [id number] [place] [address] Jul, [facility] [place] [facility] [address] [id number] [place] [address] Jul, [facility] [place] [facility] [address] [id number], [place] [address] Jul, [facility] [place] [facility] [address] [id number], [place] [address] Jul, [facility] [place] [facility] [address] [id number] [place] [address] Jul, [facility] [place] [facility] [address] [id number] [place] [address] Jul, [facility] [place] [facility] [address] [id number], [place] [address] Jul, [facility] [place] [facility] [address] [id number], [place] [address] Jul, [facility] [address] [id number] [place] [address] Jul, [facility] [place] [facility] [address] [id number] [place] [address] Jul, [facility] [address] [id number] [place] [address] Jul, [facility] [place] [facility] [address] [id number] [place] [address] Jul, [facility] [address] [id number] [place] [address] Jul, [facility] [address] [id number] [place] [address] Jul, [facility] [address] [id number] [place] [address] Jul, [facility] [place] [facility] [address] [id number] [place] [address] Jun, [facility] [address] [id number] [place] [address] Jun, [facility] [place] [facility] [address] [facility] [id number] [place] [address] Jun, [facility] [place] [facility] [address] [id number] [place] [address] Jun, [facility] [place] [facility] [address] [id number] [place] [address] Jun, [facility] [place] [facility] [address] [id number] [place] [address] Jun, [facility] [place] [facility] [address] [id number] [place] [address] Jun, [facility] [place] [facility] [address] [id number] [place] [address] 18 Jun, 2013 [facility] [place] [facility] [address] [id number] [place] [address] Jun, [facility] [place] [facility] [address] [id number] [place] [address] May, [facility] [place] [facility] [address] [id number] [place] [address] May, [facility] [place] [facility] [address] [id number] [place] [address] May, [facility] [place] [facility] [address] [id number] [place] [address] May, [facility] [place] [facility] [address] [id number] [place] [address] May, [facility] [place] [facility] [address] [id number] [place] [address] May, [facility] [place] [facility] [address] [id number] [place] [address] May, [facility] [place] [facility] [address] [id number] [place] [address] Apr, [facility] [place] [facility] [address] [id number] [place] [address] Apr, [facility] [place] [facility] [address] [id number] [place] [address] Apr, [facility] [place] [facility] [address] [id number] [place] [address] Apr, [facility] [place] [facility] [address] [id number] [place] [address] Jan, [facility] [place] [facility] [address] [id number] [place] [address] Dec, [facility] [place] [facility] [address] [id number] [place] [address] Dec, [facility] [place] [facility] [address] [id number] [place] [address] Dec, [facility] [place] [facility] [address] [id number] [place] [address] November, [facility] [place] [facility] [address] [id number] [place] [address] November, [facility] [place] [facility] [address] [id number] [place] [address] Oct, [facility] [place] [facility] [address] [id number] [place] [address] Oct, [facility] [place] [facility] [address] [id number] [place] [address] Aug, [facility] [place] [facility] [address] [id number] [place] [address] Jun, [facility] [place] [facility] [address] [id number] [place] [address] Jun, [facility] [place] [facility] [address] [id number] [place] [address] May, [facility] [place] [facility] [address] [id number] [place] [address] May, [facility] [place] [facility] [address] [id number] [place] [address] May, [facility] [place] [facility] [address] [id number] [place] [address] May, [facility] [place] [facility] [address] [id number], [place] [address] 28 Mar, 2012 [facility] [place] [facility] [address] [id number] [place] [address] 27 Mar, 2012 [facility] [place] [facility] [address] [id number] [place] [address] 25 Mar, 2012 [facility] [place] [facility] [address] [id number] [place] [address] 12 Mar, 2012 [facility] [place] [facility] [address] [facility] [id number], [place] [address] Mar, [facility] [address] [id number], [place] [address] Feb, [facility] [address] [facility] [id number], [place] [address] Feb, [facility] [address] [facility] [id number], [place] [address] Feb, [facility] [address] [facility] [id number], [place] [address] Jan, [facility] [address] [facility] [id number], [place] [address] Dec, [facility] [address] [facility] [id number], [place] [address] November, [facility] [id number], [place] [address] Jul, [facility] [address] [facility] [id number], [place] [address] Jul, [facility] [address] [id number], [place] [address] Jul, [facility] [address] [id number], [place] [address] Mar, [facility] [address] [id number], [place] [address] May, [facility] [address] [facility] [id number], [place] [address] Apr, [facility] [address] [facility] [id number], [place] [address] Oct, IMMUNIZATIONS No Known Immunizations SOCIAL HISTORY Never Assessed 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 Annual physical (female) Riki Garrido MA PLAN OF CARE Activity Details Follow Up 1 Year or as indicated Reason:[facility]WE Pending Test BACTERIAL VAGINOSIS (IN HOUSE) Pending Test CULTURE, VAGINAL YEAST Pending Test PAP REFLEX TO HPV IF ASCUS VITAL SIGNS Height 64.5 in 2018-06-12 Weight 206.9 lbs 2018-06-12 Temperature 97.7 degrees Fahrenheit 2018-06-12 Heart Rate 69 bpm 2018-06-12 Respiratory Rate 2018-06-12 BMI 34.96 kg/m2 2018-06-12 Blood pressure systolic 122 mmHg 2018-06-12 Blood pressure diastolic 72 mmHg 2018-06-12 MEDICATIONS Medication Instructions Dosage Frequency Start Date End Date Duration Status Paragard Intrauterine Copper May, Active Fluconazole 150 MG Orally Once a day Take 1 tablet today. Take second tablet three days later. 24h May, 2 doses Active RESULTS No Results PROCEDURES Procedure Date Ordered Result Body Site SPECIMEN HANDLING Jun 12, 2018 Bacterial Vaginosis In House Jun 12, 2018 LAB NOT BILLED BY [facility] Jun 12, 2018 INSTRUCTIONS MEDICATIONS ADMINISTERED No Known Medications MEDICAL (GENERAL) HISTORY Type Description Date Medical History herpes simplex oral - severe Surgical History tonsillectomy and adenoidectomy Surgical History wisdom teeth Hospitalization History childbirth only
--- OUTSIDE RECORDS SUMMARY | 2018-12-27 17:05 | XMS REPORT ---
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 Mining Engineering Technologist Name Role Phone JENNIFER CAPPS Unavailable PROBLEMS Type Condition ICD9-CM Code IUC60-CP Code Onset Dates Condition Status SNOMED Code Problem Acute constipation K59.00 Active 353706402 Problem Uterine cramping N94.89 Active 997060905 Problem Migraine with aura and without status migrainosus, not intractable G43.109 Active 7267457 ALLERGIES Substance Reaction Event Type Date Status Amoxicillin rash Drug Allergy May, Active ENCOUNTERS Encounter Location Date Diagnosis [facility] [address] [address] May, Well woman exam with routine gynecological exam Z01.419 [place] [address] [address] May, Vaginal itching L29.8 and Yeast infection involving the vagina and surrounding area B37.3 [facility] [id number] [place] [address] May, Acute epigastric pain R10.13 and Acute constipation K59.00 [facility] [address] [address] May, IUD check up Z30.431 and Uterine cramping N94.89 [facility] [address] [address] Dec, Migraine with aura and without status migrainosus, not intractable G43.109 [place] [address] [address] Jul, IUD check up Z30.431 and Pelvic pain R10.2 [facility] [id number] [id number] Feb, Dental examination Z01.20 [facility] [id number] [place] [address] 14 Jan, 2017 Acute vaginitis N76.0 [facility] [id number] [place] [address] 11 Jan, 2017 Vaginal discharge N89.8 ; Vaginal odor N89.8 and Acute vaginitis N76.0 [facility] [id number] [place] [id number] 10 Jan, 2017 Encounter for dental examination Z01.20 [place] [id number] [place] [address] 10 Jul, 2016 [place] [id number] [place] [address] 15 Jun, 2016 Right upper quadrant abdominal pain R10.11 ; Weight gain, abnormal R63.5 ; Alopecia L65.9 ; Dry skin L85.3 and Family history of thyroid disease Z83.49 [place] [id number] [place] [address] May, [place] [id number] [place] [address] May, Right upper quadrant pain R10.11 [place] [id number] [place] [address] 07 Sep, 2015 Pelvic pain R10.2 [place] [id number] [place] [address] 24 Aug, 2015 Dysuria R30.0 ; Pelvic pain R10.2 ; Encounter for genetic counseling Z31.5 and Inguinal lymphadenopathy R59.0 [place] [id number] [place] [address] 20 May, 2015 Pelvic pain in female R10.2 and IUD (intrauterine device) in place Z97.5 [place] [address], [place] [address] May, Unspecified mood [affective] disorder F39 [facility] [id number] [place] [address] May, Unspecified mood [affective] disorder F39 [facility] [id number] [place] [address] Apr, [facility] [id number] [place] [address] Mar, Unspecified episodic mood disorder 296.90 [facility] [id number] [place] [address] Mar, Bilateral amaurosis fugax 362.34 [place] [address] [place] [address] Feb, Alopecia 704.00 ; Frequent headaches 784.0 ; Anxiety 300.00 ; Family history of thyroid disease in mother V18.19 and Family history of bipolar disorder V17.0 [facility] [id number] [place] [address] Feb, [facility] [id number] [place] [address] Feb, [facility] [id number] [place] [address] Jan, Mood disorder 296.90 [facility] [id number] [place] [address] Jan, Panic attacks 300.01 ; Anxiety, generalized 300.02 ; No condition on Herk[place] II V71.09 and No condition on axis III V71.09 [facility] [address], [place] [address] Jan, Anxiety, generalized 300.02 ; Panic attack 300.01 ; Major depression, melancholic type 296.20 ; No condition on Her[place] II V71.09 and No condition on axis III V71.09 [facility] [address], [place] [address] Dec, [facility] [address], [place] [address] 24 Dec, 2014 Routine gynecological examination V72.31 ; Pap test, as part of routine gynecological examination V76.2 ; Breast cancer screening V76.10 and IUD surveillance V25.42 [facility] [address], [place] [address] 17 Dec, 2014 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 [facility] [address], [place] [address] Dec, [facility] [address], [place] [address] Dec, [facility] [address], [place] [address] November, [facility] [address], [place] [address] Oct, [facility] [address], [place] [address] Oct, [facility] [address], [place] [address] Sep, [facility] [address], [place] [address] Sep, [facility] [address], [place] [address] Aug, [facility] [address], [place] [address] Aug, [facility] [address], [place] [address] Jul, [facility] [address], [place] [address] Jul, [facility] [address] [id number] [place] [address] Jul, [facility] [place] [facility] [address] [id number] [place] [address] Jul, [facility] [place] [facility] [address] [id number] [place] [address] Jun, [facility] [place] [facility] [address] [id number] [place] [address] Jun, [facility] [place] [facility] [address] [id number] [place] [id number] Jun, [facility] [place] [facility] [address] [id number] [place] [address] Jun, [facility] [place] [facility] [address] [id number] [place] [address] Jun, [facility] [place] [facility] [address] [id number] [place] [address] Jun, [facility] [place] [facility] [address] [id number] [place] [address] May, [facility] [place] [facility] [address] [id number] [place] [address] May, [facility] [place] [facility] [address] [id number] [place] [address] May, [facility] [place] [facility] [address] [id number] [place] [address] May, [facility] [place] [facility] [address] [id number] [place] [address] May, [facility] [place] [facility] [address] [id number] [place] [address] May, [facility] [place] [facility] [address] [id number] [place] [address] May, [facility] [place] [facility] [address] [id number] [place] [address] Apr, [facility] [place] [facility] [address] [id number] [place] [address] Apr, [facility] [place] [facility] [address] [id number] [place] [address] Apr, [facility] [place] [facility] [address] [id number] [place] [address] Apr, [facility] [place] [facility] [address] [id number] [place] [address] Apr, [facility] [place] [facility] [address] [id number] [place] [address] Apr, [facility] [place] [facility] [address] [id number] [place] [address] Feb, [facility] [place] [facility] [address] [id number] [place] [address] Feb, [facility] [place] [facility] [address] [id number] [place] [address] Feb, [facility] [place] [facility] [address] [id number] [place] [address] Feb, [facility] [place] [facility] [address] [id number] [place] [address] Feb, [facility] [place] [facility] [address] [id number], [place] [address] Feb, [facility] [place] [facility] [address] [id number], [place] [address] Jan, [facility] [place] [facility] [address] [id number] [place] [address] Jan, [facility] [place] [facility] [address] [id number] [place] [address] Dec, [facility] [place] [facility] [address] [id number] [place] [address] Dec, [facility] [place] [facility] [address] [id number] [place] [address] Dec, [facility] [place] [facility] [address] [id number] [place] [address] Dec, [facility] [place] [facility] [address] [id number] [place] [address] Dec, [facility] [place] [facility] [address] [id number] [place] [address] Dec, [facility] [place] [facility] [address] [id number] [place] [address] Dec, [facility] [place] [facility] [address] [id number] [place] [address] Dec, [facility] [place] [facility] [address] [id number] [place] [address] Dec, [facility] [place] [facility] [address] [id number] [place] [address] Dec, [facility] [place] [facility] [address] [id number] [place] [address] Dec, [facility] [place] [facility] [address] [id number] [place] [address] Dec, [facility] [place] [facility] [address] [id number] [place] [address] November, [facility] [place] [facility] [address] [id number] [place] [address] November, [facility] [place] [facility] [address] [id number] [place] [address] November, [facility] [place] [facility] [address] [id number] [place] [address] November, [facility] [place] [facility] [address] [id number] [place] [address] November, [facility] [place] [facility] [address] [id number] [place] [address] November, [facility] [place] [facility] [address] [id number] [place] [address] November, [facility] [address] [id number] [place] [address] November, [facility] [address] [id number] [place] [address] November, [facility] [address] [id number] [place] [address] November, [facility] [address] [id number] [place] [address] November, [facility] [address] [id number] [place] [address] Oct, [facility] [address] [id number] [place] [address] Oct, [facility] [address] [id number] [place] [address] Oct, [facility] [place] [facility] [address] [id number] [place] [address] Oct, [facility] [place] [facility] [address] [id number] [place] [address] Oct, [facility] [place] [facility] [address] [id number] [place] [address] Oct, [facility] [place] [facility] [address] [id number] [place] [address] Oct, [facility] [place] [facility] [address] [id number] [place] [address] Oct, [facility] [place] [facility] [address] [id number] [place] [address] Oct, [facility] [place] [facility] [address] [id number] [place] [address] Oct, [facility] [place] [facility] [address] [id number] [place] [address] Oct, [facility] [place] [facility] [address] [id number] [place] [address] Oct, [facility] [place] [facility] [address] [id number] [place] [address] Oct, [facility] [place] [facility] [address] [id number] [place] [address] Oct, [facility] [place] [facility] [address] [id number] [place] [address] Oct, [facility] [place] [facility] [address] [id number] [place] [address] Oct, [facility] [place] [facility] [address] [id number] [place] [address] Oct, [facility] [place] [facility] [address] [id number] [place] [address] Oct, [facility] [place] [facility] [address] [id number] [place] [address] Oct, [facility] [place] [facility] [address] [id number] [place] [address] Sep, [facility] [place] [facility] [address] [id number] [place] [address] Sep, [facility] [place] [facility] [address] [id number] [place] [address] Sep, [facility] [place] [facility] [address] [id number] [place] [address] Sep, [facility] [place] [facility] [address] [id number] [place] [address] Aug, [facility] [place] [facility] [address] [id number] [place] [address] Aug, [facility] [place] [facility] [address] [id number] [place] [address] Aug, [facility] [place] [facility] [address] [id number] [place] [address] 14 Aug, 2013 [facility] [place] [facility] [address] [id number] [place] [address] Aug, [facility] [place] [facility] [address] [id number] [place] [address] Aug, [facility] [place] [facility] [address] [id number] [place] [address] Aug, [facility] [place] [facility] [address] [id number] [place] [address] Aug, [facility] [place] [facility] [address] [id number] [place] [address] Aug, [facility] [place] [facility] [address] [id number] [place] [address] Aug, [facility] [place] [facility] [address] [id number] [place] [address] Aug, [facility] [place] [facility] [address] [id number] [place] [address] Jul, [facility] [place] [facility] [address] [id number] [place] [address] Jul, [facility] [place] [facility] [address] [id number], [place] [address] Jul, [facility] [place] [facility] [address] [id number], [place] [address] Jul, [facility] [place] [facility] [address] [id number] [place] [address] Jul, [facility] [place] [facility] [address] [id number] [place] [address] Jul, [facility] [place] [facility] [address] [id number], [place] [address] Jul, [facility] [place] [facility] [address] [id number], [place] [address] Jul, [facility] [address] [id number] [place] [address] Jul, [facility] [address] [id number] [place] [address] Jul, [facility] [address] [facility] [id number] [place] [address] Jul, [facility] [address] [id number] [place] [address] Jul, [facility] [address] [id number] [place] [address] Jul, [facility] [address] [id number] [place] [address] Jul, [facility] [address] [facility] [id number] [place] [address] Jul, [facility] [address] [id number] [place] [address] Jun, [facility] [address] [id number] [place] [address] Jun, [facility] [address] [facility] [id number] [place] [address] Jun, [facility] [address] [id number] [place] [address] Jun, [facility] [place] [facility] [address] [id number], [place] [address] Jun, [facility] [place] [facility] [address] [id number] [place] [address] Jun, [facility] [place] [facility] [address] [id number] [place] [address] Jun, [facility] [place] [facility] [address] [facility] [id number] [place] [address] 18 Jun, 2013 [facility] [place] [facility] [address] [id number] [place] [address] Jun, [facility] [place] [facility] [address] [id number] [place] [address] May, [facility] [place] [facility] [address] [id number] [place] [address] May, [facility] [place] [facility] [address] [id number] [place] [address] May, [facility] [place] [facility] [address] [id number] [place] [address] May, [facility] [place] [facility] [address] [id number] [place] [address] May, [facility] [place] [facility] [address] [id number] [place] [address] May, [facility] [place] [facility] [address] [id number] [place] [address] May, [facility] [place] [facility] [address] [id number] [place] [address] Apr, [facility] [place] [facility] [address] [id number] [place] [address] Apr, [facility] [place] [facility] [address] [id number] [place] [address] Apr, [facility] [place] [facility] [address] [id number] [place] [address] Apr, [facility] [place] [facility] [address] [id number] [place] [address] Jan, [facility] [place] [facility] [address] [id number] [place] [address] Dec, [facility] [place] [facility] [address] [id number] [place] [address] Dec, [facility] [place] [facility] [address] [id number] [place] [address] Dec, [facility] [place] [facility] [address] [id number] [place] [address] November, [facility] [place] [facility] [address] [id number] [place] [address] November, [facility] [place] [facility] [address] [id number] [place] [address] Oct, [facility] [place] [facility] [address] [id number] [place] [address] Oct, [facility] [place] [facility] [address] [id number] [place] [address] Aug, [facility] [place] [facility] [address] [id number] [place] [address] Jun, [facility] [place] [facility] [address] [id number] [place] [address] Jun, [facility] [place] [facility] [address] [id number] [place] [address] May, [facility] [place] [facility] [address] [id number] [place] [address] May, [facility] [place] [facility] [address] [id number] [place] [address] May, [facility] [place] [facility] [address] [id number] [place] [address] May, [facility] [place] [facility] [address] [id number], [place] [address] 28 Mar, 2012 [facility] [place] [facility] [address] [id number] [place] [address] 27 Mar, 2012 [facility] [place] [facility] [address] [id number] [place] [address] 25 Mar, 2012 [facility] [place] [facility] [address] [id number] [place] [address] 12 Mar, 2012 [facility] [place] [facility] [address], [place] [address] Mar, [facility] [address], [place] [address] Feb, [facility] [address] [place] [address] Feb, [facility] [id number] [address] Feb, [facility] [id number], [place] [address] Jan, [facility] [id number] [address] Dec, [facility] [id number] [address] November, [facility] [id number] [address] Jul, [facility] [id number] [address] Jul, [facility] [id number] [address] Jul, [facility] [id number] [address] Mar, [facility] [id number] [address] May, [facility] [id number], [place] [address] Apr, [facility] [id number], [place] [address] Oct, IMMUNIZATIONS No Known Immunizations SOCIAL HISTORY Never Assessed 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 IUD check, spotting since , patient states she has had the iud si nce 05/2014-- camron kendrick PLAN OF CARE Activity Details Follow Up Keep appt with Hilda Castro for [employer] Reason: VITAL SIGNS Height 64.5 in 2018-05-30 Weight 205.0 lbs 2018-05-30 Temperature 97.0 degrees Fahrenheit 2018-05-30 Heart Rate 72 bpm 2018-05-30 Respiratory Rate 18 2018-05-30 BMI 34.64 kg/m2 2018-05-30 Blood pressure systolic 120 mmHg 2018-05-30 Blood pressure diastolic 76 mmHg 2018-05-30 MEDICATIONS Medication Instructions Dosage Frequency Start Date End Date Duration Status Paragard Intrauterine Copper May, Active Naproxen 500 mg Orally every 12 hrs 1 tablet with food or milk as needed 12h May, Jun, 30 days Active RESULTS No Results PROCEDURES No Known procedures INSTRUCTIONS MEDICATIONS ADMINISTERED No Known Medications MEDICAL (GENERAL) HISTORY Type Description Date Medical History herpes simplex oral - severe Surgical History tonsillectomy and adenoidectomy Surgical History wisdom teeth Hospitalization History childbirth only
--- OUTSIDE RECORDS SUMMARY | 2018-12-27 17:05 | XMS REPORT ---
Author Author Migration, Doctor Organization [facility] Address Unknown Phone Unavailable Care Team Providers Care Tail Dogger Name Role Phone Migration, Doctor Unavailable Unavailable PROBLEMS Type Condition ICD9-CM Code ONC54-EK Code Onset Dates Condition Status SNOMED Code Problem Acute constipation K59.00 Active 499621631 Problem Obesity (BMI 35.0-39.9 without comorbidity) E66.9 Active 448554587 Problem Migraine with aura and without status migrainosus, not intractable G43.109 Active 5278976 Problem Uterine cramping N94.89 Active [id number] ALLERGIES No Information ENCOUNTERS Encounter Location Date Diagnosis [place] [address] [address] Sep, Weight gain R63.5 and Obesity (BMI 35.0-39.9 without comorbidity) E66.9 [place] [address] [place] [id number] [place] [address] Jul, Encounter for immunization Z23 [place] [address] [address] Jul, Visit for TB skin test Z11.1 and Encounter for immunization Z23 [place] [address] [address] May, Well woman exam with routine gynecological exam Z01.419 [place] [address] [place] [id number] [place] [address] May, Vaginal itching L29.8 and Yeast infection involving the vagina and surrounding area B37.3 [facility] [address] [place] [id number] [place] [address] May, Acute epigastric pain R10.13 and Acute constipation K59.00 [place] [address] [address] 08 May, 2018 IUD check up Z30.431 and Uterine cramping N94.89 [facility] [address] [place] [id number] [place] [address] 11 Dec, 2017 Migraine with aura and without status migrainosus, not intractable G43.109 [facility] [address] [place] [id number] [place] [address] 22 Jul, 2017 IUD check up Z30.431 and Pelvic pain R10.2 [facility] [address] [place] [id number] [place] [id number] 24 Feb, 2017 Dental examination Z01.20 [facility] [address] [address] 14 Jan, 2017 Acute vaginitis N76.0 [place] [address] [place] [id number] [place] [address] 11 Jan, 2017 Vaginal discharge N89.8 ; Vaginal odor N89.8 and Acute vaginitis N76.0 [facility] [address] [place] [id number] [place] [id number] 10 Jan, 2017 Encounter for dental examination Z01.20 [place] [address] [place] [id number] [place] [address] 10 Jul, 2016 [facility] [address] [place] [id number] [place] [address] 15 Jun, 2016 Right upper quadrant abdominal pain R10.11 ; Weight gain, abnormal R63.5 ; Alopecia L65.9 ; Dry skin L85.3 and Family history of thyroid disease Z83.49 [place] [address] [place] [id number] [place] [address] May, [place] [address] [address] May, Right upper quadrant pain R10.11 [place] [address] [place] [id number] [place] [address] Sep, Pelvic pain R10.2 [facility] [id number] [place] [address] Aug, Dysuria R30.0 ; Pelvic pain R10.2 ; Encounter for genetic counseling Z31.5 and Inguinal lymphadenopathy R59.0 [facility] [address] [place] [id number] [place] [address] May, Pelvic pain in female R10.2 and IUD (intrauterine device) in place Z97.5 [facility] [address] [place] [id number] [place] [address] May, Unspecified mood [affective] disorder F39 [place] [address] [place] [id number] [place] [address] May, Unspecified mood [affective] disorder F39 [place] [address] [place] [id number] [place] [address] Apr, [facility] [address] [place] [id number] [place] [address] Mar, Unspecified episodic mood disorder 296.90 [place] [address] [place] [id number] [place] [address] Mar, Bilateral amaurosis fugax 362.34 [place] [address] [place] [id number] [place] [address] Feb, Alopecia 704.00 ; Frequent headaches 784.0 ; Anxiety 300.00 ; Family history of thyroid disease in mother V18.19 and Family history of bipolar disorder V17.0 [facility] [id number] [place] [address] Feb, [facility] [address] [place] [id number] [place] [address] Feb, [facility] [address] [place] [id number] [place] [address] Jan, Mood disorder 296.90 [facility] [address] [place] [address] Jan, Panic attacks 300.01 ; Anxiety, generalized 300.02 ; No condition on [place] II V71.09 and No condition on axis III V71.09 [facility] [address] [place] [id number] [place] [address] Jan, Anxiety, generalized 300.02 ; Panic attack 300.01 ; Major depression, melancholic type 296.20 ; No condition on [place] II V71.09 and No condition on axis III V71.09 [facility] [address] [place] [id number] [place] [address] Dec, [facility] [address] [place] [id number] [place] [address] Dec, Routine gynecological examination V72.31 ; Pap test, as part of routine gynecological examination V76.2 ; Breast cancer screening V76.10 and IUD surveillance V25.42 [facility] [address] [place] [id number] [place] [address] Dec, 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 [facility] [address] [place] [id number] [place] [address] Dec, [facility] [address] [place] [id number] [place] [address] Dec, [facility] [address] [address] November, [facility] [address] [place] [id number] [place] [address] Oct, [facility] [address] [place] [id number] [address] Oct, [facility] [address] [place] [id number] [place] [address] Sep, [facility] [address] [address] Sep, [facility] [id number] [place] [address] Aug, 2014 [facility] [place] [facility] [address] [id number] [place] [address] Aug, [facility] [place] [facility] [address] [id number] [place] [address] Jul, [facility] [place] [facility] [address] [id number] [place] [address] Jul, [facility] [place] [facility] [address] [id number] [place] [address] Jul, [facility] [place] [facility] [address] [id number] [place] [address] Jul, [facility] [place] [facility] [address] [id number] [place] [address] Jun, [facility] [place] [facility] [address] [id number] [place] [address] Jun, [facility] [place] [facility] [address] [facility] [id number] [place] [id number] Jun, [facility] [place] [facility] [address] [id number] [place] [address] Jun, [facility] [place] [facility] [address] [facility] [id number] [place] [address] Jun, [facility] [place] [facility] [address] [id number] [place] [address] Jun, [facility] [place] [facility] [address] [id number] [place] [address] May, [facility] [place] [facility] [address] [id number] [place] [address] May, [facility] [place] [facility] [address] [id number] [place] [address] May, [facility] [place] [facility] [address] [id number] [place] [address] May, [facility] [place] [facility] [address] [id number] [place] [address] May, [facility] [place] [facility] [address] [id number] [place] [address] May, [facility] [place] [facility] [address] [id number] [place] [address] May, [facility] [place] [facility] [address] [id number] [place] [address] Apr, [facility] [place] [facility] [address] [id number] [place] [address] Apr, [facility] [place] [facility] [address] [id number] [place] [address] Apr, [facility] [place] [facility] [address] [id number] [place] [address] Apr, [facility] [place] [facility] [address] [id number] [place] [address] Apr, [facility] [place] [facility] [address] [id number] [place] [address] Apr, [facility] [place] [facility] [address] [id number] [place] [address] Feb, [facility] [place] [facility] [address] [id number] [place] [address] Feb, [facility] [place] [facility] [address] [id number] [address] Feb, [facility] [place] [facility] [address] [id number] [place] [address] Feb, [facility] [place] [facility] [address] [id number] [place] [address] Feb, [facility] [place] [facility] [address] [id number] [place] [address] Feb, [facility] [place] [facility] [address] [id number] [address] Jan, [facility] [place] [facility] [address] [id number] [place] [address] Jan, [facility] [place] [facility] [address] [id number] [place] [address] Dec, [facility] [place] [facility] [address] [id number] [place] [address] Dec, [facility] [place] [facility] [address] [id number] [place] [address] Dec, [facility] [place] [facility] [address] [id number] [place] [address] Dec, [facility] [place] [facility] [address] [id number] [place] [address] Dec, [facility] [place] [facility] [address] [id number] [place] [address] Dec, [facility] [place] [facility] [address] [id number] [place] [address] Dec, [facility] [place] [facility] [address] [id number] [place] [address] Dec, [facility] [place] [facility] [address] [id number] [place] [address] Dec, [facility] [place] [facility] [address] [id number] [place] [address] Dec, [facility] [place] [facility] [address] [id number] [place] [address] Dec, [facility] [place] [facility] [address] [id number] [place] [address] Dec, [facility] [place] [facility] [address] [id number] [place] [address] November, [facility] [place] [facility] [address] [id number] [place] [address] November, [facility] [place] [facility] [address] [id number] [place] [address] November, [facility] [place] [facility] [address] [id number] [place] [address] November, [facility] [place] [facility] [address] [id number] [place] [address] November, [facility] [place] [facility] [address] [id number] [place] [address] November, [facility] [place] [facility] [address] [id number] [place] [address] November, [facility] [place] [facility] [address] [id number] [place] [address] November, [facility] [place] [facility] [address] [id number] [place] [address] November, [facility] [place] [facility] [address] [id number] [place] [address] November, [facility] [place] [facility] [address] [id number] [place] [address] November, [facility] [place] [facility] [address] [id number] [place] [address] Oct, [facility] [place] [facility] [address] [id number] [place] [address] Oct, [facility] [place] [facility] [address] [id number] [place] [address] Oct, [facility] [place] [facility] [address] [id number] [place] [address] Oct, [facility] [place] [facility] [address] [id number] [place] [address] Oct, [facility] [place] [facility] [address] [id number] [place] [address] Oct, [facility] [place] [facility] [address] [id number] [place] [address] Oct, [facility] [place] [facility] [address] [id number] [place] [address] Oct, [facility] [place] [facility] [address] [id number] [place] [address] Oct, [facility] [place] [facility] [address] [id number] [place] [address] Oct, [facility] [place] [facility] [address] [id number] [place] [address] Oct, [facility] [place] [facility] [address] [id number] [place] [address] Oct, [facility] [place] [facility] [address] [id number] [place] [address] Oct, [facility] [place] [facility] [address] [id number] [place] [address] Oct, [facility] [place] [facility] [address] [id number] [place] [address] Oct, [facility] [place] [facility] [address] [id number] [place] [address] Oct, [facility] [place] [facility] [address] [id number] [place] [address] Oct, [facility] [place] [facility] [address] [id number] [place] [address] Oct, [facility] [place] [facility] [address] [id number] [place] [address] Oct, [facility] [place] [facility] [address] [id number] [place] [address] Sep, [facility] [place] [facility] [address] [id number] [place] [address] Sep, [facility] [place] [facility] [address] [id number] [place] [address] Sep, [facility] [place] [facility] [address] [id number] [place] [address] Sep, [facility] [place] [facility] [address] [id number] [place] [address] Aug, [facility] [place] [facility] [address] [id number] [place] [address] Aug, [facility] [place] [facility] [address] [id number] [place] [address] Aug, [facility] [place] [facility] [address] [id number] [place] [address] Aug, [facility] [place] [facility] [address] [id number] [place] [address] Aug, [facility] [place] [facility] [address] [id number] [place] [address] Aug, [facility] [place] [facility] [address] [id number] [place] [address] Aug, [facility] [place] [facility] [address] [id number] [place] [address] Aug, [facility] [place] [facility] [address] [id number] [place] [address] Aug, [facility] [place] [facility] [address] [facility] [id number] [place] [address] Aug, [facility] [place] [facility] [address] [id number] [place] [address] Aug, [facility] [place] [facility] [address] [id number] [place] [address] Jul, [facility] [place] [facility] [address] [id number] [place] [address] Jul, [facility] [place] [facility] [address] [id number] [place] [address] Jul, [facility] [place] [facility] [address] [id number] [place] [address] Jul, [facility] [address] [id number] [place] [address] Jul, [facility] [place] [facility] [address] [id number] [place] [address] Jul, [facility] [place] [facility] [address] [id number] [place] [address] Jul, [facility] [place] [facility] [address] [id number] [place] [address] Jul, [facility] [place] [facility] [address] [id number] [place] [address] Jul, [facility] [place] [facility] [address] [id number] [place] [address] Jul, [facility] [place] [facility] [address] [id number] [place] [address] Jul, [facility] [place] [facility] [address] [id number] [place] [address] Jul, [facility] [place] [facility] [address] [id number] [place] [address] Jul, [facility] [place] [facility] [address] [id number] [place] [address] Jul, [facility] [place] [facility] [address] [id number] [place] [address] Jul, [facility] [place] [facility] [address] [id number] [place] [address] Jun, [facility] [place] [facility] [address] [id number] [place] [address] Jun, [facility] [place] [facility] [address] [id number] [place] [address] Jun, [facility] [place] [facility] [address] [id number] [place] [address] Jun, [facility] [place] [facility] [address] [id number] [place] [address] Jun, [facility] [address] [id number] [place] [address] Jun, [facility] [place] [facility] [address] [id number] [place] [address] Jun, [facility] [address] [id number] [place] [address] Jun, [facility] [place] [facility] [address] [id number] [place] [address] Jun, [facility] [address] [id number] [place] [address] May, [facility] [address] [id number] [place] [address] May, [facility] [address] [id number] [place] [address] May, [facility] [address] [id number] [place] [address] May, [facility] [address] [id number] [place] [address] May, [facility] [address] [facility] [id number] [place] [address] May, [facility] [place] [facility] [address] [id number] [place] [address] May, [facility] [place] [facility] [address] [id number] [place] [address] Apr, [facility] [place] [facility] [address] [id number] [place] [address] Apr, [facility] [place] [facility] [address] [id number] [place] [address] Apr, [facility] [place] [facility] [address] [id number] [place] [address] Apr, [facility] [address] [id number] [place] [address] Jan, [facility] [place] [facility] [address] [id number] [place] [address] Dec, [facility] [place] [facility] [address] [id number] [place] [address] Dec, [facility] [place] [facility] [address] [id number] [place] [address] Dec, [facility] [place] [facility] [address] [id number] [place] [address] November, [facility] [place] [facility] [address] [id number] [place] [address] November, [facility] [place] [facility] [address] [id number] [place] [address] Oct, [facility] [place] [facility] [address] [id number] [place] [address] Oct, [facility] [place] [facility] [address] [id number] [place] [address] Aug, [facility] [place] [facility] [address] [facility] [id number] [address] Jun, [facility] [place] [facility] [address] [id number] [place] [address] Jun, [facility] [place] [facility] [address] [id number] [place] [address] May, [facility] [place] [facility] [address] [id number] [place] [address] May, [facility] [place] [facility] [address] [id number] [place] [address] May, [facility] [place] [facility] [address] [facility] [id number] [place] [address] May, [facility] [place] [facility] [address] [id number] [place] [address] 28 Mar, 2012 [facility] [place] [facility] [address] [id number] [place] [address] 27 Mar, 2012 [facility] [place] [facility] [address] [id number] [place] [address] 25 Mar, 2012 [facility] [place] [facility] [address] [id number] [place] [address] Mar, [facility] [place] [facility] [address] [id number] [place] [address] 04 Mar, 2012 [facility] [place] [facility] [address] [id number] [place] [address] Feb, [facility] [place] [facility] [address] [id number] [place] [address] Feb, [facility] [address] [id number] [place] [address] Feb, [facility] [place] [facility] [address] [id number] [place] [address] Jan, [facility] [place] [facility] [address] [id number] [place] [address] Dec, [facility] [place] [facility] [address] [id number] [place] [address] November, [facility] [place] [facility] [address] [id number] [place] [address] Jul, [facility] [place] [facility] [address] [id number] [place] [address] Jul, [facility] [place] [facility] [address] [id number] [place] [address] Jul, [facility] [place] [facility] [address] [id number] [place] [address] 14 Mar, 2011 [facility] [place] [facility] [address] [id number] [place] [address] May, [facility] [place] [facility] [address] [facility] [id number] [place] [address] Apr, [facility] [address] [facility] [id number] [place] [address] Oct, IMMUNIZATIONS No Known Immunizations SOCIAL HISTORY Never Assessed 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 EMR-[facility] [place] PLAN OF CARE VITAL SIGNS MEDICATIONS Unknown Medications RESULTS No Results PROCEDURES No Known procedures INSTRUCTIONS MEDICATIONS ADMINISTERED No Known Medications MEDICAL (GENERAL) HISTORY Type Description Date Medical History herpes simplex oral - severe Medical History PCOS (Polycystic Ovary Syndrome) Surgical History tonsillectomy and adenoidectomy Surgical History wisdom teeth Hospitalization History childbirth only
--- OUTSIDE RECORDS SUMMARY | 2018-12-27 17:06 | XMS REPORT ---
Author Author SUSAN RETANA Organization [facility] Address [address] [place] [address] Care Team Providers Care Flat Sorting Machine Clerk Name Role Phone SUSAN RETANA Unavailable PROBLEMS Type Condition ICD9-CM Code YAH32-TG Code Onset Dates Condition Status SNOMED Code Problem Acute constipation K59.00 Active 683968553 Problem Uterine cramping N94.89 Active 161064893 Problem Migraine with aura and without status migrainosus, not intractable G43.109 Active 4578732 ALLERGIES Substance Reaction Event Type Date Status Amoxicillin rash Drug Allergy May, Active ENCOUNTERS Encounter Location Date Diagnosis [place] [address] [address] May, Well woman exam with routine gynecological exam Z01.419 [place] [address] [address] May, Vaginal itching L29.8 and Yeast infection involving the vagina and surrounding area B37.3 [facility] [address] [place] [id number] [place] [address] 12 May, 2018 Acute epigastric pain R10.13 and Acute constipation K59.00 [place] [address] [place] [id number] [place] [address] 08 May, 2018 IUD check up Z30.431 and Uterine cramping N94.89 [place] [address] [address] Dec, Migraine with aura and without status migrainosus, not intractable G43.109 [place] [address] [address] Jul, IUD check up Z30.431 and Pelvic pain R10.2 [facility] [address] [id number] Feb, Dental examination Z01.20 [facility] [address] [place] [id number] [place] [address] 14 Jan, 2017 Acute vaginitis N76.0 [facility] [address] [place] [id number] [place] [address] 11 Jan, 2017 Vaginal discharge N89.8 ; Vaginal odor N89.8 and Acute vaginitis N76.0 [facility] [address] [place] [id number] [place] [id number] 10 Jan, 2017 Encounter for dental examination Z01.20 [facility] [address] [place] [id number] [place] [address] 10 Jul, 2016 [facility] [address] [place] [id number] [place] [address] 15 Jun, 2016 Right upper quadrant abdominal pain R10.11 ; Weight gain, abnormal R63.5 ; Alopecia L65.9 ; Dry skin L85.3 and Family history of thyroid disease Z83.49 [facility] [address] [place] [id number] [place] [address] May, [facility] [address] [place] [id number] [place] [address] May, Right upper quadrant pain R10.11 [facility] [address] [place] [id number] [place] [address] Sep, Pelvic pain R10.2 [facility] [address] [place] [id number] [place] [address] 24 Aug, 2015 Dysuria R30.0 ; Pelvic pain R10.2 ; Encounter for genetic counseling Z31.5 and Inguinal lymphadenopathy R59.0 [facility] [address] [place] [id number] [place] [address] 20 May, 2015 Pelvic pain in female R10.2 and IUD (intrauterine device) in place Z97.5 [facility] [address] [address] May, Unspecified mood [affective] disorder F39 [facility] [address] [address] May, Unspecified mood [affective] disorder F39 [facility] [address] [address] Apr, [facility] [address] [place] [id number] [place] [address] Mar, Unspecified episodic mood disorder 296.90 [facility] [id number] [place] [address] Mar, Bilateral amaurosis fugax 362.34 [place] [address] [address] Feb, Alopecia 704.00 ; Frequent headaches 784.0 ; Anxiety 300.00 ; Family history of thyroid disease in mother V18.19 and Family history of bipolar disorder V17.0 [facility] [address] [address] Feb, [facility] [address] [address] Feb, [facility] [address] [address] Jan, Mood disorder 296.90 [facility] [address] [address] Jan, Panic attacks 300.01 ; Anxiety, generalized 300.02 ; No condition on Huntley II V71.09 and No condition on axis III V71.09 [facility] [address] [address] Jan, Anxiety, generalized 300.02 ; Panic attack 300.01 ; Major depression, melancholic type 296.20 ; No condition on Huntley II V71.09 and No condition on axis III V71.09 [facility] [address] [place] [address] Dec, [facility] [address] [place] [address] 24 Dec, 2014 Routine gynecological examination V72.31 ; Pap test, as part of routine gynecological examination V76.2 ; Breast cancer screening V76.10 and IUD surveillance V25.42 [facility] [address] [address] 17 Dec, 2014 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 [facility] [address] [place] [address] Dec, [facility] [address] [address] Dec, [facility] [address] [place] [address] November, [facility] [address] [place] [address] Oct, [facility] [address] [place] [address] Oct, [facility] [address] [address] Sep, [facility] [address] [place] [address] Sep, [facility] [address] [address] Aug, [facility] [address] [place] [address] Aug, [facility] [address] [address] Jul, [facility] [address] [id number] [address] Jul, [facility] [place] [facility] [address] [id number] [place] [address] Jul, [facility] [place] [facility] [address] [id number] [place] [address] Jul, [facility] [place] [facility] [address] [id number] [place] [address] Jun, [facility] [place] [facility] [address] [id number] [place] [address] Jun, [facility] [address] [id number] [place] [id number] Jun, [facility] [place] [facility] [address] [id number] [place] [address] Jun, [facility] [address] [id number] [place] [address] Jun, [facility] [place] [facility] [address] [id number] [place] [address] Jun, [facility] [place] [facility] [address] [id number] [place] [address] May, [facility] [place] [facility] [address] [id number] [place] [address] May, [facility] [place] [facility] [address] [id number] [place] [address] May, [facility] [place] [facility] [address] [id number] [place] [address] May, [facility] [place] [facility] [address] [id number] [place] [address] May, [facility] [place] [facility] [address] [id number] [place] [address] May, [facility] [place] [facility] [address] [id number] [place] [address] May, [facility] [place] [facility] [address] [id number] [place] [address] Apr, [facility] [place] [facility] [address] [id number] [place] [address] Apr, [facility] [place] [facility] [address] [id number] [place] [address] Apr, [facility] [place] [facility] [address] [id number] [place] [address] Apr, [facility] [place] [facility] [address] [id number] [place] [address] Apr, [facility] [place] [facility] [address] [id number] [place] [address] Apr, [facility] [place] [facility] [address] [id number] [place] [address] Feb, [facility] [place] [facility] [address] [id number] [place] [address] Feb, [facility] [place] [facility] [address] [id number] [place] [address] Feb, [facility] [place] [facility] [address] [id number] [place] [address] Feb, [facility] [place] [facility] [address] [id number] [place] [address] Feb, [facility] [place] [facility] [address] [id number] [place] [address] Feb, [facility] [place] [facility] [address] [id number] [place] [address] Jan, [facility] [place] [facility] [address] [id number] [place] [address] Jan, [facility] [place] [facility] [address] [id number] [place] [address] Dec, [facility] [place] [facility] [address] [id number] [place] [address] Dec, [facility] [place] [facility] [address] [id number] [place] [address] Dec, [facility] [place] [facility] [address] [id number] [place] [address] Dec, [facility] [place] [facility] [address] [id number] [place] [address] Dec, [facility] [place] [facility] [address] [id number] [place] [address] Dec, [facility] [place] [facility] [address] [id number] [place] [address] Dec, [facility] [place] [facility] [address] [id number] [place] [address] Dec, [facility] [place] [facility] [address] [id number] [place] [address] Dec, [facility] [place] [facility] [address] [id number] [place] [address] Dec, [facility] [place] [facility] [address] [id number] [place] [address] Dec, [facility] [place] [facility] [address] [id number] [place] [address] Dec, [facility] [place] [facility] [address] [id number] [place] [address] November, [facility] [place] [facility] [address] [id number] [place] [address] November, [facility] [place] [facility] [address] [id number] [place] [address] November, [facility] [place] [facility] [address] [id number] [place] [address] November, [facility] [place] [facility] [address] [id number] [place] [address] November, [facility] [place] [facility] [address] [id number] [place] [address] November, [facility] [address] [id number] [place] [address] November, [facility] [place] [facility] [address] [id number] [place] [address] November, [facility] [place] [facility] [address] [id number] [place] [address] November, [facility] [place] [facility] [address] [id number] [place] [address] November, [facility] [place] [facility] [address] [id number] [place] [address] November, [facility] [place] [facility] [address] [id number] [place] [address] Oct, [facility] [place] [facility] [address] [id number] [place] [address] Oct, [facility] [place] [facility] [address] [id number] [place] [address] Oct, [facility] [place] [facility] [address] [id number] [place] [address] Oct, [facility] [place] [facility] [address] [id number] [place] [address] Oct, [facility] [place] [facility] [address] [id number] [place] [address] Oct, [facility] [place] [facility] [address] [id number] [address] Oct, [facility] [place] [facility] [address] [id number] [place] [address] Oct, [facility] [place] [facility] [address] [id number] [place] [address] Oct, [facility] [place] [facility] [address] [id number] [place] [address] Oct, [facility] [place] [facility] [address] [id number] [place] [address] Oct, [facility] [place] [facility] [address] [id number] [place] [address] Oct, [facility] [place] [facility] [address] [id number] [place] [address] Oct, [facility] [place] [facility] [address] [id number] [place] [address] Oct, [facility] [place] [facility] [address] [id number] [place] [address] Oct, [facility] [place] [facility] [address] [id number] [place] [address] Oct, [facility] [place] [facility] [address] [id number] [place] [address] Oct, [facility] [place] [facility] [address] [id number] [place] [address] Oct, [facility] [place] [facility] [address] [id number] [place] [address] Oct, [facility] [place] [facility] [address] [id number] [place] [address] Sep, [facility] [place] [facility] [address] [id number] [place] [address] Sep, [facility] [place] [facility] [address] [id number] [place] [address] Sep, [facility] [place] [facility] [address] [id number] [place] [address] Sep, [facility] [place] [facility] [address] [id number] [place] [address] Aug, [facility] [place] [facility] [address] [id number] [place] [address] Aug, [facility] [place] [facility] [address] [facility] [id number] [place] [address] Aug, [facility] [place] [facility] [address] [id number] [place] [address] Aug, [facility] [place] [facility] [address] [id number] [place] [address] Aug, [facility] [place] [facility] [address] [id number] [place] [address] Aug, [facility] [place] [facility] [address] [id number] [place] [address] Aug, [facility] [place] [facility] [address] [id number] [place] [address] Aug, [facility] [place] [facility] [address] [id number] [place] [address] Aug, [facility] [place] [facility] [address] [id number] [place] [address] Aug, [facility] [place] [facility] [address] [id number] [place] [address] Aug, [facility] [place] [facility] [address] [id number] [place] [address] Jul, [facility] [place] [facility] [address] [id number] [place] [address] Jul, [facility] [place] [facility] [address] [id number] [place] [address] Jul, [facility] [place] [facility] [address] [id number] [place] [address] Jul, [facility] [place] [facility] [address] [id number] [place] [address] Jul, [facility] [place] [facility] [address] [id number] [place] [address] Jul, [facility] [place] [facility] [address] [id number] [place] [address] Jul, [facility] [place] [facility] [address] [id number] [place] [address] Jul, [facility] [address] [id number] [place] [address] Jul, [facility] [place] [facility] [address] [id number] [place] [address] Jul, [facility] [address] [id number] [place] [address] Jul, [facility] [place] [facility] [address] [id number] [place] [address] Jul, [facility] [place] [facility] [address] [id number] [place] [address] Jul, [facility] [place] [facility] [address] [id number] [place] [address] Jul, [facility] [address] [id number] [place] [address] Jul, [facility] [place] [facility] [address] [id number] [place] [address] Jun, [facility] [place] [facility] [address] [id number] [place] [address] Jun, [facility] [place] [facility] [address] [id number] [place] [address] Jun, [facility] [place] [facility] [address] [id number] [place] [address] Jun, [facility] [place] [facility] [address] [id number] [place] [address] Jun, [facility] [place] [facility] [address] [id number] [place] [address] Jun, [facility] [place] [facility] [address] [id number] [place] [address] Jun, [facility] [place] [facility] [address] [id number] [place] [address] 18 Jun, 2013 [facility] [place] [facility] [address] [id number] [place] [address] Jun, [facility] [place] [facility] [address] [id number] [place] [address] May, [facility] [place] [facility] [address] [id number] [place] [address] May, [facility] [place] [facility] [address] [id number] [place] [address] May, [facility] [place] [facility] [address] [id number] [place] [address] May, [facility] [place] [facility] [address] [id number] [place] [address] May, [facility] [place] [facility] [address] [id number] [place] [address] May, [facility] [place] [facility] [address] [id number] [place] [address] May, [facility] [place] [facility] [address] [id number] [place] [address] Apr, [facility] [place] [facility] [address] [id number] [place] [address] Apr, [facility] [place] [facility] [address] [id number] [place] [address] Apr, [facility] [place] [facility] [address] [id number] [place] [address] Apr, [facility] [place] [facility] [address] [id number] [place] [address] Jan, [facility] [place] [facility] [address] [id number] [place] [address] Dec, [facility] [place] [facility] [address] [id number] [place] [address] Dec, [facility] [place] [facility] [address] [id number] [place] [address] Dec, [facility] [place] [facility] [address] [id number] [place] [address] November, [facility] [place] [facility] [address] [id number] [place] [address] November, [facility] [place] [facility] [address] [id number] [place] [address] Oct, [facility] [place] [facility] [address] [id number] [place] [address] Oct, [facility] [place] [facility] [address] [id number] [place] [address] Aug, [facility] [place] [facility] [address] [id number] [place] [address] Jun, [facility] [place] [facility] [address] [id number] [place] [address] Jun, [facility] [place] [facility] [address] [id number] [place] [address] May, [facility] [place] [facility] [address] [id number] [place] [address] May, [facility] [place] [facility] [address] [id number] [place] [address] May, [facility] [place] [facility] [address] [id number] [place] [address] May, [facility] [place] [facility] [address] [id number] [address] 28 Mar, 2012 [facility] [place] [facility] [address] [id number] [place] [address] 27 Mar, 2012 [facility] [place] [facility] [address] [facility] [id number] [place] [address] 25 Mar, 2012 [facility] [place] [facility] [address] [id number] [place] [address] 12 Mar, 2012 [facility] [place] [facility] [id number] [address] Mar, [facility] [id number] [address] Feb, [facility] [id number] [address] Feb, [facility] [id number] [address] Feb, [facility] [address] [facility] [id number] [place] [address] Jan, [facility] [id number] [address] Dec, [facility] [id number] [address] November, [facility] [id number] [address] Jul, [facility] [id number] [address] Jul, [facility] [id number] [address] Jul, [facility] [id number] [address] Mar, [facility] [id number] [address] May, [facility] [id number] [address] Apr, [facility] [id number] [address] Oct, IMMUNIZATIONS No Known Immunizations SOCIAL HISTORY Never Assessed 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 pos yeast infection Tiffany GERARD PLAN OF CARE Activity Details Follow Up w/ PCP Reason:if symptoms worsen or not improving VITAL SIGNS Height 64.5 in 2018-06-11 Weight 208.4 lbs 2018-06-11 Temperature 97.1 degrees Fahrenheit 2018-06-11 Heart Rate 85 bpm 2018-06-11 Respiratory Rate 2018-06-11 BMI 35.22 kg/m2 2018-06-11 Blood pressure systolic 118 mmHg 2018-06-11 Blood pressure diastolic 84 mmHg 2018-06-11 MEDICATIONS Medication Instructions Dosage Frequency Start Date End Date Duration Status Naproxen 500 mg Orally every 12 hrs 1 tablet with food or milk as needed 12h 08 May, 2018 Jun, 30 days Active Paragard Intrauterine Copper May, Active Fluconazole 150 MG Orally Once a day Take 1 tablet today. Take second tablet three days later. 24h May, 2 doses Active MiraLax - Orally Once a day 1 capful mixed with a large glass of juice or water 24h May, May, 14 days Active RESULTS Name Result Date Reference Range UA LONG DIP (IN HOUSE) 2018-06-11 Lot # [id number] Exp date 10/2018 Clarity clear Color yellow Odor none GLU negative OSCAR negative KET negative SG 1.025 BLO 3+ pH 5.0 Protein negative URO 0.2 NIT negative IRINA negative Lot # Exp date PROCEDURES Procedure Date Ordered Result Body Site URINALYSIS, AUTO, W/O SCOPE Jun 11, 2018 INSTRUCTIONS MEDICATIONS ADMINISTERED No Known Medications MEDICAL (GENERAL) HISTORY Type Description Date Medical History herpes simplex oral - severe Surgical History tonsillectomy and adenoidectomy Surgical History wisdom teeth Hospitalization History childbirth only
--- OUTSIDE RECORDS SUMMARY | 2018-12-27 17:06 | XMS REPORT ---
Author Author GREG SCHWARTZ [facility] IN [facility] Address [address] [place] [address] Care Team Providers Care Grain Combiner Name Role Phone GREG SCHWARTZ Unavailable PROBLEMS Type Condition ICD9-CM Code QQV26-CV Code Onset Dates Condition Status SNOMED Code Problem Acute constipation K59.00 Active 975022408 Problem Uterine cramping N94.89 Active 280105320 Problem Migraine with aura and without status migrainosus, not intractable G43.109 Active 2589073 ALLERGIES Substance Reaction Event Type Date Status Amoxicillin rash Drug Allergy May, Active ENCOUNTERS Encounter Location Date Diagnosis [facility] [address] [address] May, [facility] IN [facility] [address] [address] 12 May, 2018 Acute epigastric pain R10.13 and Acute constipation K59.00 [place] [address] [address] May, IUD check up Z30.431 and Uterine cramping N94.89 [facility] [address] [place] [id number] [place] [address] Dec, Migraine with aura and without status migrainosus, not intractable G43.109 [facility] [address] [address] Jul, IUD check up Z30.431 and Pelvic pain R10.2 [facility] [address] [id number] Feb, Dental examination Z01.20 [facility] [address] [address] 14 Jan, 2017 Acute vaginitis N76.0 [place] [id number] [place] [id number] [place] [address] 11 Jan, 2017 Vaginal discharge N89.8 ; Vaginal odor N89.8 and Acute vaginitis N76.0 [facility] [id number] [place] [id number] 10 Jan, 2017 Encounter for dental examination Z01.20 [place] [address] [address] 10 Jul, 2016 [place] [address] [address] 15 Jun, 2016 Right upper quadrant abdominal pain R10.11 ; Weight gain, abnormal R63.5 ; Alopecia L65.9 ; Dry skin L85.3 and Family history of thyroid disease Z83.49 [place] [address] [address] May, [place] [address] [place] [id number] [place] [address] May, Right upper quadrant pain R10.11 [place] [address] [address] 07 Sep, 2015 Pelvic pain R10.2 [place] [address] [id number] [place] [address] 24 Aug, 2015 Dysuria R30.0 ; Pelvic pain R10.2 ; Encounter for genetic counseling Z31.5 and Inguinal lymphadenopathy R59.0 [place] [address] [id number] [place] [address] May, Pelvic pain in female R10.2 and IUD (intrauterine device) in place Z97.5 [place] [address] [id number] [place] [address] 06 May, 2015 Unspecified mood [affective] disorder F39 [place] [address] [address] May, Unspecified mood [affective] disorder F39 [facility] [id number] [address] Apr, [facility] [id number] [place] [address] Mar, Unspecified episodic mood disorder 296.90 [facility] [id number] [place] [address] Mar, Bilateral amaurosis fugax 362.34 [place] [id number] [place] [address] Feb, Alopecia 704.00 ; Frequent headaches 784.0 ; Anxiety 300.00 ; Family history of thyroid disease in mother V18.19 and Family history of bipolar disorder V17.0 [place] [id number] [place] [address] Feb, [facility] [id number] [place] [address] Feb, [facility] [id number] [place] [address] Jan, Mood disorder 296.90 [facility] [id number] [place] [address] Jan, Panic attacks 300.01 ; Anxiety, generalized 300.02 ; No condition on [place] II V71.09 and No condition on axis III V71.09 [facility] [address] [address] Jan, Anxiety, generalized 300.02 ; Panic attack 300.01 ; Major depression, melancholic type 296.20 ; No condition on [place] II V71.09 and No condition on axis III V71.09 [facility] [address] [address] Dec, [facility] [id number] [place] [address] 24 Dec, 2014 Routine gynecological examination V72.31 ; Pap test, as part of routine gynecological examination V76.2 ; Breast cancer screening V76.10 and IUD surveillance V25.42 [facility] [id number] [address] 17 Dec, 2014 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 [facility] [id number] [address] Dec, [facility] [id number] [address] Dec, [facility] [id number] [place] [address] November, [facility] [id number] [address] Oct, [facility] [id number] [address] Oct, [facility] [id number] [address] Sep, [facility] [id number] [address] Sep, [facility] [id number] [address] Aug, [facility] [id number] [address] Aug, [facility] [id number] [address] Jul, [facility] [id number] [address] Jul, [facility] [id number] [address] Jul, [facility] [id number] [address] Jul, [facility] [address] [id number] [place] [address] Jun, [facility] [place] [facility] [address] [id number] [place] [address] Jun, [facility] [address] [id number] [place] [id number] Jun, [facility] [place] [facility] [address] [id number] [place] [address] Jun, [facility] [place] [facility] [address] [id number] [place] [address] Jun, [facility] [place] [facility] [address] [id number] [place] [address] Jun, [facility] [address] [id number] [place] [address] May, [facility] [place] [facility] [address] [id number] [place] [address] May, [facility] [place] [facility] [address] [id number] [place] [address] May, [facility] [place] [facility] [address] [id number] [place] [address] May, [facility] [place] [facility] [address] [id number] [place] [address] May, [facility] [place] [facility] [address] [id number] [address] May, [facility] [place] [facility] [address] [id number] [place] [address] May, [facility] [place] [facility] [address] [id number] [place] [address] Apr, [facility] [place] [facility] [address] [id number] [place] [address] Apr, [facility] [place] [facility] [address] [id number] [place] [address] Apr, [facility] [place] [facility] [address] [id number] [place] [address] Apr, [facility] [place] [facility] [address] [id number] [place] [address] Apr, [facility] [place] [facility] [address] [id number] [place] [address] Apr, [facility] [place] [facility] [address] [id number] [place] [address] Feb, [facility] [place] [facility] [address] [id number] [place] [address] Feb, [facility] [place] [facility] [address] [id number] [place] [address] Feb, [facility] [place] [facility] [address] [id number] [place] [address] Feb, [facility] [place] [facility] [address] [id number] [place] [address] Feb, [facility] [place] [facility] [address] [id number] [place] [address] Feb, [facility] [place] [facility] [address] [id number] [place] [address] Jan, [facility] [place] [facility] [address] [id number] [place] [address] Jan, [facility] [place] [facility] [address] [id number] [place] [address] Dec, [facility] [place] [facility] [address] [id number] [place] [address] Dec, [facility] [place] [facility] [address] [id number] [place] [address] Dec, [facility] [place] [facility] [address] [id number] [place] [address] Dec, [facility] [place] [facility] [address] [id number] [place] [address] Dec, [facility] [place] [facility] [address] [id number] [place] [address] Dec, [facility] [place] [facility] [address] [id number] [place] [address] Dec, [facility] [place] [facility] [address] [id number] [place] [address] Dec, [facility] [place] [facility] [address] [id number] [place] [address] Dec, [facility] [place] [facility] [address] [id number] [place] [address] Dec, [facility] [place] [facility] [address] [id number] [place] [address] Dec, [facility] [place] [facility] [address] [id number] [place] [address] Dec, [facility] [place] [facility] [address] [id number] [place] [address] November, [facility] [place] [facility] [address] [id number] [place] [address] November, [facility] [place] [facility] [address] [id number] [place] [address] November, [facility] [place] [facility] [address] [id number] [place] [address] November, [facility] [place] [facility] [address] [id number] [place] [address] November, [facility] [place] [facility] [address] [id number] [place] [address] November, [facility] [place] [facility] [address] [id number] [place] [address] November, [facility] [place] [facility] [address] [id number] [place] [address] November, [facility] [place] [facility] [address] [id number] [place] [address] November, [facility] [place] [facility] [address] [id number] [place] [address] November, [facility] [place] [facility] [address] [id number] [place] [address] November, [facility] [place] [facility] [address] [id number] [place] [address] Oct, [facility] [place] [facility] [address] [id number] [place] [address] Oct, [facility] [place] [facility] [address] [id number] [place] [address] Oct, [facility] [place] [facility] [address] [id number] [place] [address] Oct, [facility] [place] [facility] [address] [id number] [place] [address] Oct, [facility] [place] [facility] [address] [id number] [place] [address] Oct, [facility] [place] [facility] [address] [id number] [place] [address] Oct, [facility] [place] [facility] [address] [id number] [place] [address] Oct, [facility] [place] [facility] [address] [id number] [place] [address] Oct, [facility] [place] [facility] [address] [id number] [place] [address] Oct, [facility] [place] [facility] [address] [id number] [place] [address] Oct, [facility] [place] [facility] [address] [id number] [place] [address] Oct, [facility] [place] [facility] [address] [id number] [address] Oct, [facility] [place] [facility] [address] [id number] [place] [address] Oct, [facility] [place] [facility] [address] [id number] [place] [address] Oct, [facility] [place] [facility] [address] [facility] [id number] [place] [address] Oct, [facility] [place] [facility] [address] [id number] [place] [address] Oct, [facility] [place] [facility] [address] [id number] [place] [address] Oct, [facility] [place] [facility] [address] [id number] [place] [address] Oct, [facility] [place] [facility] [address] [facility] [id number] [place] [address] Sep, [facility] [place] [facility] [address] [id number] [place] [address] Sep, [facility] [place] [facility] [address] [id number] [place] [address] Sep, [facility] [place] [facility] [address] [facility] [id number] [place] [address] Sep, [facility] [place] [facility] [address] [id number] [place] [address] Aug, [facility] [place] [facility] [address] [id number] [place] [address] Aug, [facility] [place] [facility] [address] [id number] [place] [address] Aug, [facility] [place] [facility] [address] [id number] [place] [address] Aug, [facility] [place] [facility] [address] [facility] [id number] [place] [address] Aug, [facility] [place] [facility] [address] [id number] [place] [address] Aug, [facility] [place] [facility] [address] [id number] [place] [address] Aug, [facility] [place] [facility] [address] [id number] [place] [address] Aug, [facility] [place] [facility] [address] [id number] [place] [address] Aug, [facility] [place] [facility] [address] [id number] [place] [address] Aug, [facility] [place] [facility] [address] [id number] [place] [address] Aug, [facility] [place] [facility] [address] [id number] [place] [address] Jul, [facility] [place] [facility] [address] [id number] [place] [address] Jul, [facility] [place] [facility] [address] [id number] [place] [address] Jul, [facility] [place] [facility] [address] [id number] [place] [address] Jul, [facility] [place] [facility] [address] [id number] [address] Jul, [facility] [place] [facility] [address] [id number], [place] [address] Jul, [facility] [place] [facility] [address] [id number] [place] [address] Jul, [facility] [place] [facility] [address] [id number] [place] [address] Jul, [facility] [place] [facility] [address] [id number] [place] [address] Jul, [facility] [place] [facility] [address] [id number] [place] [address] Jul, [facility] [address] [id number] [place] [address] Jul, [facility] [address] [id number] [place] [address] Jul, [facility] [address] [id number] [place] [address] Jul, [facility] [address] [id number] [place] [address] Jul, [facility] [address] [id number] [place] [address] Jul, [facility] [address] [id number] [place] [address] Jun, [facility] [address] [id number] [place] [address] Jun, [facility] [address] [id number] [place] [address] Jun, [facility] [address] [id number] [place] [address] Jun, [facility] [address] [id number] [place] [address] Jun, [facility] [address] [id number] [place] [address] Jun, [facility] [place] [facility] [address] [id number] [place] [address] Jun, [facility] [place] [facility] [address] [id number] [place] [address] Jun, [facility] [place] [facility] [address] [id number] [place] [address] Jun, [facility] [place] [facility] [address] [id number] [place] [address] May, [facility] [place] [facility] [address] [id number] [place] [address] May, [facility] [place] [facility] [address] [id number] [place] [address] May, [facility] [place] [facility] [address] [id number] [place] [address] May, [facility] [place] [facility] [address] [id number] [place] [address] May, [facility] [place] [facility] [address] [id number] [place] [address] May, [facility] [place] [facility] [address] [id number] [place] [address] May, [facility] [place] [facility] [address] [id number] [place] [address] Apr, [facility] [place] [facility] [address] [id number] [place] [address] Apr, [facility] [place] [facility] [address] [id number] [place] [address] Apr, [facility] [place] [facility] [address] [id number] [place] [address] Apr, [facility] [place] [facility] [address] [id number] [place] [address] Jan, [facility] [place] [facility] [address] [id number] [place] [address] Dec, [facility] [place] [facility] [address] [id number] [place] [address] Dec, [facility] [place] [facility] [address] [id number] [place] [address] Dec, [facility] [place] [facility] [address] [id number] [place] [address] November, [facility] [place] [facility] [address] [id number] [place] [address] November, [facility] [place] [facility] [address] [id number] [place] [address] Oct, [facility] [place] [facility] [address] [id number] [place] [address] Oct, [facility] [place] [facility] [address] [id number] [place] [address] Aug, [facility] [place] [facility] [address] [id number] [place] [address] Jun, [facility] [place] [facility] [address] [id number] [place] [address] Jun, [facility] [place] [facility] [address] [id number] [place] [address] May, [facility] [place] [facility] [address] [id number] [place] [address] May, [facility] [place] [facility] [address] [id number] [place] [address] May, [facility] [place] [facility] [address] [id number] [place] [address] May, [facility] [place] [facility] [address] [id number] [place] [address] Mar, [facility] [place] [facility] [address] [id number] [place] [address] Mar, [facility] [place] [facility] [address] [id number] [place] [address] 25 Mar, 2012 [facility] [place] [facility] [address] [id number] [place] [address] 12 Mar, 2012 [facility] [place] [facility] [address] [id number] [place] [address] Mar, [facility] [place] [facility] [address] [id number] [place] [address] Feb, [facility] [place] [facility] [id number] [address] Feb, [facility] [id number] [place] [address] Feb, [facility] [id number] [address] Jan, [facility] [id number] [place] [address] Dec, [facility] [id number] [place] [id number] November, [facility] [id number] [place] [id number] Jul, [facility] [id number] [place] [id number] Jul, [facility] [id number] [place] [id number] Jul, [facility] [id number] [place] [address] Mar, [facility] [id number] [place] [address] May, [facility] [id number] [address] Apr, [facility] [id number] [address] Oct, IMMUNIZATIONS No Known Immunizations SOCIAL HISTORY Never Assessed 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 upper abdominal/back pain; sharp abdominal and back pain starting 06/02/18, is w orse when laying down - [facility] [employer] PLAN OF CARE Activity Details Follow Up if not improving with PCP or reg follow up Reason: Pending Test H PYLORI (IN HOUSE) VITAL SIGNS Height 64.5 in 2018-06-03 Weight 208.0 lbs 2018-06-03 Temperature 98.3 degrees Fahrenheit 2018-06-03 Heart Rate 82 bpm 2018-06-03 Respiratory Rate 20 2018-06-03 BMI 35.15 kg/m2 2018-06-03 Blood pressure systolic 124 mmHg 2018-06-03 Blood pressure diastolic 90 mmHg 2018-06-03 MEDICATIONS Medication Instructions Dosage Frequency Start Date End Date Duration Status MiraLax - Orally Once a day 1 capful mixed with a large glass of juice or water 24h 12 May, 2018 May, 14 days Active Naproxen 500 mg Orally every 12 hrs 1 tablet with food or milk as needed 12h 08 May, 2018 Jun, 30 days Active Paragard Intrauterine Copper May, Active RESULTS Name Result Date Reference Range Xray : Abdomen 2v (Upright and KUB) - IN HOUSE 2018-06-03 PROCEDURES Procedure Date Ordered Result Body Site X-RAY EXAM ABDOMEN 2 VIEWS Jun 03, 2018 IMMUNOASSAY,INFECTIOUS AGENT Jun 03, 2018 INSTRUCTIONS MEDICATIONS ADMINISTERED No Known Medications MEDICAL (GENERAL) HISTORY Type Description Date Medical History herpes simplex oral - severe Surgical History tonsillectomy and adenoidectomy Surgical History wisdom teeth Hospitalization History childbirth only
--- OUTSIDE RECORDS SUMMARY | 2018-12-27 17:07 | XMS REPORT ---
Author Author JEREMY LOVE [facility] Address [address] [place] [address] Care Team Providers Care Health Director Name Role Phone JEREMY LOVE Unavailable PROBLEMS Type Condition ICD9-CM Code [id number] Code Onset Dates Condition Status SNOMED Code Problem Migraine with aura and without status migrainosus, not intractable G43.109 Active [id number] ALLERGIES Substance Reaction Event Type Date Status Amoxicillin rash Drug Allergy Dec, Active ENCOUNTERS Encounter Location Date Diagnosis [place] [id number] [place] [address] Dec, Migraine with aura and without status migrainosus, not intractable G43.109 [facility] [id number] [place] [address] Jul, IUD check up Z30.431 and Pelvic pain R10.2 [facility] [id number] [place] [id number] Feb, Dental examination Z01.20 [facility] [id number] [place] [address] 14 Jan, 2017 Acute vaginitis N76.0 [facility] [id number] [place] [address] 11 Jan, 2017 Vaginal discharge N89.8 ; Vaginal odor N89.8 and Acute vaginitis N76.0 [facility] [id number] [place] [id number] 10 Jan, 2017 Encounter for dental examination Z01.20 [facility] [id number] [place] [id number] 10 Jul, 2016 [facility] [id number] [place] [address] Jun, Right upper quadrant abdominal pain R10.11 ; Weight gain, abnormal R63.5 ; Alopecia L65.9 ; Dry skin L85.3 and Family history of thyroid disease Z83.49 [place] [address] [address] May, [place] [address] [address] May, Right upper quadrant pain R10.11 [place] [address] [address] Sep, Pelvic pain R10.2 [place] [address] [address] 24 Aug, 2015 Dysuria R30.0 ; Pelvic pain R10.2 ; Encounter for genetic counseling Z31.5 and Inguinal lymphadenopathy R59.0 [place] [address] [address] May, Pelvic pain in female R10.2 and IUD (intrauterine device) in place Z97.5 [place] [address] [address] May, Unspecified mood [affective] disorder F39 [place] [address] [address] May, Unspecified mood [affective] disorder F39 [place] [id number] [place] [address] Apr, [place] [address] [address] Mar, Unspecified episodic mood disorder 296.90 [place] [address] [address] 04 Mar, 2015 Bilateral amaurosis fugax 362.34 [place] [address] [address] Feb, Alopecia 704.00 ; Frequent headaches 784.0 ; Anxiety 300.00 ; Family history of thyroid disease in mother V18.19 and Family history of bipolar disorder V17.0 [place] [id number] [place] [address] Feb, [place] [id number] [place] [address] Feb, [place] [id number] [place] [address] Jan, Mood disorder 296.90 [address] [address] [id number] [place] [address] Jan, Panic attacks 300.01 ; Anxiety, generalized 300.02 ; No condition on [place] II V71.09 and No condition on axis III V71.09 [place] [id number] [place] [address] Jan, Anxiety, generalized 300.02 ; Panic attack 300.01 ; Major depression, melancholic type 296.20 ; No condition on [place] II V71.09 and No condition on axis III V71.09 [place] [id number] [place] [address] Dec, [place] [id number] [place] [address] Dec, Routine gynecological examination V72.31 ; Pap test, as part of routine gynecological examination V76.2 ; Breast cancer screening V76.10 and IUD surveillance V25.42 [place] [id number] [place] [address] Dec, 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 [place] [id number] [place] [address] Dec, [place] [id number] [place] [address] Dec, [facility] [place] [facility] [address] [id number] [place] [address] November, [facility] [place] [facility] [address] [id number] [place] [address] Oct, [facility] [place] [facility] [address] [id number] [place] [address] Oct, [facility] [place] [facility] [address] [id number] [place] [address] Sep, [facility] [place] [facility] [address] [id number] [place] [address] Sep, [facility] [place] [facility] [address] [id number] [place] [address] Aug, [facility] [place] [facility] [address] [id number] [place] [address] Aug, [facility] [place] [facility] [address] [id number] [place] [address] Jul, [facility] [place] [facility] [address] [id number] [place] [address] Jul, [facility] [place] [facility] [address] [id number] [place] [address] Jul, [facility] [place] [facility] [address] [id number] [place] [address] Jul, [facility] [place] [facility] [address] [id number] [place] [address] Jun, [facility] [place] [facility] [address] [id number] [place] [address] Jun, [facility] [place] [facility] [address] [id number] [place] [id number] Jun, [facility] [place] [facility] [address] [id number] [place] [address] Jun, [facility] [place] [facility] [address] [facility] [id number] [place] [address] Jun, [facility] [place] [facility] [address] [id number] [place] [address] Jun, [facility] [place] [facility] [address] [id number] [place] [address] May, [facility] [place] [facility] [address] [id number] [place] [address] May, [facility] [place] [facility] [address] [id number] [place] [address] May, [facility] [place] [facility] [address] [id number] [place] [address] May, [facility] [place] [facility] [address] [id number] [place] [address] May, [facility] [place] [facility] [address] [id number] [place] [address] May, [facility] [place] [facility] [address] [id number] [place] [address] May, [facility] [place] [facility] [address] [id number] [place] [address] Apr, [facility] [place] [facility] [address] [id number] [place] [address] Apr, [facility] [place] [facility] [address] [id number], [place] [address] Apr, [facility] [place] [facility] [address] [id number], [place] [address] Apr, [facility] [place] [facility] [address] [id number] [place] [address] Apr, [facility] [place] [facility] [address] [id number], [place] [address] Apr, [facility] [place] [facility] [address] [id number] [place] [address] Feb, [facility] [place] [facility] [address] [id number] [place] [address] Feb, [facility] [place] [facility] [address] [id number] [place] [address] Feb, [facility] [place] [facility] [address] [id number] [place] [address] Feb, [facility] [place] [facility] [address] [id number] [place] [address] Feb, [facility] [place] [facility] [address] [id number] [place] [address] Feb, [facility] [place] [facility] [address] [id number] [place] [address] Jan, [facility] [place] [facility] [address] [id number] [place] [address] Jan, [facility] [place] [facility] [address] [id number] [place] [address] Dec, [facility] [place] [facility] [address] [id number] [place] [address] Dec, [facility] [place] [facility] [address] [id number] [place] [address] Dec, [facility] [place] [facility] [address] [id number] [place] [address] Dec, [facility] [place] [facility] [address] [id number] [place] [address] Dec, [facility] [place] [facility] [address] [id number] [place] [address] Dec, [facility] [place] [facility] [address] [id number] [place] [address] Dec, [facility] [place] [facility] [address] [id number] [place] [address] Dec, [facility] [place] [facility] [address] [id number] [place] [address] Dec, [facility] [place] [facility] [address] [id number] [place] [address] Dec, [facility] [place] [facility] [address] [id number] [place] [address] Dec, [facility] [place] [facility] [address] [id number] [place] [address] Dec, [facility] [place] [facility] [address] [id number] [place] [address] November, [facility] [place] [facility] [address] [id number] [place] [address] November, [facility] [place] [facility] [address] [id number] [place] [address] November, [facility] [place] [facility] [address] [id number] [place] [address] November, [facility] [place] [facility] [address] [id number] [place] [address] November, [facility] [place] [facility] [address] [id number] [place] [address] November, [facility] [place] [facility] [address] [id number] [place] [address] November, [facility] [place] [facility] [address] [id number] [place] [address] November, [facility] [place] [facility] [address] [id number] [place] [address] November, [facility] [place] [facility] [address] [id number] [place] [address] November, [facility] [place] [facility] [address] [id number] [place] [address] November, [facility] [place] [facility] [address] [id number] [place] [address] Oct, [facility] [place] [facility] [address] [id number] [place] [address] Oct, [facility] [place] [facility] [address] [id number] [place] [address] Oct, [facility] [place] [facility] [address] [id number] [place] [address] Oct, [facility] [place] [facility] [address] [id number] [place] [address] Oct, [facility] [place] [facility] [address] [id number] [place] [address] Oct, [facility] [place] [facility] [address] [id number] [place] [address] Oct, [facility] [place] [facility] [address] [id number] [place] [address] Oct, [facility] [place] [facility] [address] [id number] [place] [address] Oct, [facility] [place] [facility] [address] [id number] [place] [address] Oct, [facility] [place] [facility] [address] [id number] [place] [address] Oct, [facility] [place] [facility] [address] [id number] [place] [address] Oct, [facility] [place] [facility] [address] [id number] [place] [address] Oct, [facility] [place] [facility] [address] [id number] [place] [address] Oct, [facility] [place] [facility] [address] [id number] [place] [address] Oct, [facility] [place] [facility] [address] [id number] [place] [address] Oct, [facility] [place] [facility] [address] [id number] [place] [address] Oct, [facility] [place] [facility] [address] [id number] [place] [address] Oct, [facility] [place] [facility] [address] [id number] [place] [address] Oct, [facility] [place] [facility] [address] [id number] [place] [address] Sep, [facility] [place] [facility] [address] [id number] [place] [address] Sep, [facility] [place] [facility] [address] [id number] [place] [address] Sep, [facility] [place] [facility] [address] [id number] [place] [address] Sep, [facility] [place] [facility] [address] [facility] [id number] [place] [address] Aug, [facility] [place] [facility] [address] [id number] [place] [address] Aug, [facility] [place] [facility] [address] [id number] [place] [address] Aug, [facility] [place] [facility] [address] [facility] [id number] [place] [address] Aug, [facility] [place] [facility] [address] [facility] [facility] [id number] [place] [address] Aug, [facility] [place] [facility] [address] [id number] [place] [address] Aug, [facility] [place] [facility] [address] [id number] [place] [address] Aug, [facility] [place] [facility] [address] [id number] [place] [address] Aug, [facility] [place] [facility] [address] [facility] [id number] [place] [address] Aug, [facility] [place] [facility] [address] [id number], [place] [address] Aug, [facility] [address] [id number] [place] [address] Aug, [facility] [place] [facility] [address] [id number] [place] [address] Jul, [facility] [place] [facility] [address] [id number] [place] [address] Jul, [facility] [place] [facility] [address] [id number] [place] [address] Jul, [facility] [place] [facility] [address] [id number] [place] [address] Jul, [facility] [place] [facility] [address] [id number] [place] [address] Jul, [facility] [address] [id number] [place] [address] Jul, [facility] [place] [facility] [address] [id number] [place] [address] Jul, [facility] [place] [facility] [address] [id number] [place] [address] Jul, [facility] [place] [facility] [address] [id number] [place] [address] Jul, [facility] [place] [facility] [address] [id number] [place] [address] Jul, [facility] [place] [facility] [address] [id number], [place] [address] Jul, [facility] [place] [facility] [address] [id number] [place] [address] Jul, [facility] [place] [facility] [address] [id number] [place] [address] Jul, [facility] [place] [facility] [address] [id number] [place] [address] Jul, [facility] [place] [facility] [address] [id number] [place] [address] Jul, [facility] [place] [facility] [address] [id number] [place] [address] Jun, [facility] [place] [facility] [address] [id number] [place] [address] Jun, [facility] [place] [facility] [address] [id number] [place] [address] Jun, [facility] [place] [facility] [address] [id number] [place] [address] Jun, [facility] [place] [facility] [address] [id number] [place] [address] Jun, [facility] [place] [facility] [address] [id number] [place] [address] Jun, [facility] [place] [facility] [address] [id number] [place] [address] Jun, [facility] [place] [facility] [address] [id number] [place] [address] Jun, [facility] [place] [facility] [address] [id number] [place] [address] Jun, [facility] [place] [facility] [address] [id number] [place] [address] May, [facility] [place] [facility] [address] [id number] [place] [address] May, [facility] [place] [facility] [address] [id number] [place] [address] May, [facility] [place] [facility] [address] [id number] [place] [address] May, [facility] [place] [facility] [address] [id number] [place] [address] May, [facility] [place] [facility] [address] [id number] [place] [address] May, [facility] [address] [id number] [place] [address] May, [facility] [place] [facility] [address] [id number] [place] [address] Apr, [facility] [place] [facility] [address] [id number] [place] [address] Apr, [facility] [place] [facility] [address] [id number] [place] [address] Apr, [facility] [place] [facility] [address] [id number] [place] [address] Apr, [facility] [place] [facility] [address] [id number] [place] [address] Jan, [facility] [place] [facility] [address] [id number] [place] [address] Dec, [facility] [place] [facility] [address] [id number], [place] [address] Dec, [facility] [place] [facility] [address] [id number] [place] [address] Dec, [facility] [place] [facility] [address] [id number] [place] [address] November, [facility] [place] [facility] [address] [id number], [place] [address] November, [facility] [place] [facility] [address] [id number], [place] [address] Oct, [facility] [place] [facility] [address] [id number] [place] [address] Oct, [facility] [place] [facility] [address] [id number], [place] [address] Aug, [facility] [place] [facility] [address] [id number] [place] [address] Jun, [facility] [place] [facility] [address] [id number] [place] [address] Jun, [facility] [place] [facility] [address] [id number] [place] [address] May, [facility] [place] [facility] [address] [id number] [place] [address] May, [facility] [place] [facility] [address] [id number] [place] [address] May, [facility] [place] [facility] [address] [id number] [place] [address] May, [facility] [place] [facility] [address] [id number] [place] [address] Mar, [facility] [place] [facility] [address] [id number] [place] [address] Mar, [facility] [place] [facility] [address] [id number] [place] [address] Mar, [facility] [place] [facility] [address] [id number] [place] [address] Mar, [facility] [place] [facility] [address] [id number] [place] [address] Mar, [facility] [place] [facility] [address] [id number] [place] [address] Feb, [facility] [place] [facility] [address] [id number] [place] [address] Feb, [facility] [place] [facility] [address] [id number] [place] [address] Feb, [facility] [place] [facility] [address] [id number] [place] [address] Jan, [facility] [place] [facility] [address] [id number] [place] [address] Dec, [facility] [place] [facility] [address] [id number] [place] [address] November, [facility] [address] [id number], [place] [address] Jul, [facility] [address] [id number], [place] [address] Jul, [facility] [address] [id number], [place] [address] Jul, [facility] [address] [id number], [place] [address] Mar, [facility] [address] [id number], [place] [address] May, [facility] [address] [id number], [place] [address] Apr, [facility] [address] [id number] [address] Oct, IMMUNIZATIONS No Known Immunizations SOCIAL HISTORY Never Assessed 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 Hormone check-RAJANI Em, pt has had her thyroid check a lot, dr majano said it was large but it always came back normal. Pt's mom wants her to get all her ho rmones check. PLAN OF CARE Activity Details Follow Up 4 Weeks Reason:Migraine VITAL SIGNS Height 64.5 in 2017-12-31 Weight 199 lbs 2017-12-31 Temperature 98.0 degrees Fahrenheit 2017-12-31 Heart Rate 88 bpm 2017-12-31 Respiratory Rate 20 2017-12-31 BMI 33.63 kg/m2 2017-12-31 Blood pressure systolic 112 mmHg 2017-12-31 Blood pressure diastolic 68 mmHg 2017-12-31 MEDICATIONS Medication Instructions Dosage Frequency Start Date End Date Duration Status Paragard Intrauterine Copper May, Active Topiramate 25 MG Orally once daily x 1 wk then 25mg twice daily x 1 week; see taper instruction 1 tablet Dec, 90 days Active RESULTS No Results PROCEDURES No Known procedures INSTRUCTIONS MEDICATIONS ADMINISTERED No Known Medications MEDICAL (GENERAL) HISTORY Type Description Date Medical History herpes simplex oral - severe Surgical History tonsillectomy and adenoidectomy Surgical History wisdom teeth Hospitalization History childbirth only
--- OUTSIDE RECORDS SUMMARY | 2018-12-27 17:07 | XMS REPORT ---
Author Author VICTOR MANUEL SALDANA Organization [facility] Address [address] [place] [id number] Care Team Providers Care Cook Mess Name Role Phone VICTOR MANUEL SALDANA Unavailable PROBLEMS Unknown Problems ALLERGIES Substance Reaction Event Type Date Status Amoxicillin rash Drug Allergy Feb, Active ENCOUNTERS Encounter Location Date Diagnosis [facility] [address] [address] Jul, IUD check up Z30.431 and Pelvic pain R10.2 [facility] [address] [id number] Feb, Dental examination Z01.20 [facility] [address] [address] 14 Jan, 2017 Acute vaginitis N76.0 [facility] [address] [address] 11 Jan, 2017 Vaginal discharge N89.8 ; Vaginal odor N89.8 and Acute vaginitis N76.0 [facility] [address] [id number] Jan, 2017 Encounter for dental examination Z01.20 [facility] [address] [address] 10 Jul, 2016 [facility] [address] [address] Jun, Right upper quadrant abdominal pain R10.11 ; Weight gain, abnormal R63.5 ; Alopecia L65.9 ; Dry skin L85.3 and Family history of thyroid disease Z83.49 [facility] [address] [address] May, [facility] [id number] [place] [address] May, Right upper quadrant pain R10.11 [facility] [id number] [place] [address] Sep, Pelvic pain R10.2 [facility] [id number] [place] [address] Aug, Dysuria R30.0 ; Pelvic pain R10.2 ; Encounter for genetic counseling Z31.5 and Inguinal lymphadenopathy R59.0 [place] [address] [address] May, Pelvic pain in female R10.2 and IUD (intrauterine device) in place Z97.5 [facility] [id number] [place] [address] May, Unspecified mood [affective] disorder F39 [place] [address] [address] May, Unspecified mood [affective] disorder F39 [place] [address] [address] Apr, [facility] [id number] [place] [address] Mar, Unspecified episodic mood disorder 296.90 [facility] [id number] [place] [address] Mar, Bilateral amaurosis fugax 362.34 [facility] [place] [id number] [place] [address] Feb, Alopecia 704.00 ; Frequent headaches 784.0 ; Anxiety 300.00 ; Family history of thyroid disease in mother V18.19 and Family history of bipolar disorder V17.0 [facility] [id number] [place] [address] Feb, [place] [address] [address] Feb, [facility] [id number] [place] [address] Jan, Mood disorder 296.90 [facility] [id number] [place] [address] Jan, Panic attacks 300.01 ; Anxiety, generalized 300.02 ; No condition on [place] II V71.09 and No condition on axis III V71.09 [facility] [id number] [place] [address] Jan, Anxiety, generalized 300.02 ; Panic attack 300.01 ; Major depression, melancholic type 296.20 ; No condition on [place] II V71.09 and No condition on axis III V71.09 [facility] [id number] [place] [address] Dec, [facility] [id number] [place] [address] Dec, Routine gynecological examination V72.31 ; Pap test, as part of routine gynecological examination V76.2 ; Breast cancer screening V76.10 and IUD surveillance V25.42 [facility] [id number] [place] [address] Dec, 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 [place] [place] [id number] [place] [address] Dec, [facility] [id number] [place] [address] Dec, [facility] [place] [id number] [place] [address] November, [facility] [id number] [place] [address] Oct, [facility] [id number] [place] [address] Oct, [facility] [place] [facility] [address] [id number] [place] [address] Sep, [facility] [place] [facility] [address] [id number] [place] [address] Sep, [facility] [place] [facility] [address] [id number] [place] [address] Aug, [facility] [place] [facility] [address] [id number] [place] [address] Aug, [facility] [place] [facility] [address] [id number] [place] [address] Jul, [facility] [place] [facility] [address] [id number] [place] [address] Jul, [facility] [place] [facility] [address] [id number] [place] [address] Jul, [facility] [place] [facility] [address] [id number] [address] Jul, [facility] [place] [facility] [address] [id number] [address] Jun, [facility] [place] [facility] [address] [facility] [id number] [address] Jun, [facility] [place] [facility] [address] [facility] [id number] [id number] Jun, [facility] [place] [facility] [address] [id number] [address] Jun, [facility] [place] [facility] [address] [id number] [place] [address] Jun, [facility] [place] [facility] [address] [id number] [address] Jun, [facility] [place] [facility] [address] [facility] [id number] [address] May, [facility] [place] [facility] [address] [id number] [address] May, [facility] [place] [facility] [address] [id number] [place] [address] May, [facility] [place] [facility] [address] [id number] [place] [address] May, [facility] [place] [facility] [address] [id number] [place] [address] May, [facility] [place] [facility] [address] [id number] [place] [address] May, [facility] [place] [facility] [address] [id number] [place] [address] May, [facility] [place] [facility] [address] [id number] [place] [address] Apr, [facility] [place] [facility] [address] [id number] [place] [address] Apr, [facility] [place] [facility] [address] [id number] [place] [address] Apr, [facility] [place] [facility] [address] [id number] [place] [address] Apr, [facility] [place] [facility] [address] [id number] [place] [address] Apr, [facility] [place] [facility] [address] [id number] [place] [address] Apr, [facility] [place] [facility] [address] [id number] [place] [address] Feb, [facility] [place] [facility] [address] [id number] [place] [address] Feb, [facility] [place] [facility] [address] [id number] [place] [address] Feb, [facility] [place] [facility] [address] [id number] [place] [address] Feb, [facility] [place] [facility] [address] [id number] [place] [address] Feb, [facility] [place] [facility] [address] [id number] [place] [address] Feb, [facility] [place] [facility] [address] [id number] [place] [address] Jan, [facility] [place] [facility] [address] [id number] [place] [address] Jan, [facility] [place] [facility] [address] [id number] [place] [address] Dec, [facility] [place] [facility] [address] [id number] [place] [address] Dec, [facility] [place] [facility] [address] [id number] [place] [address] Dec, [facility] [place] [facility] [address] [id number] [place] [address] Dec, [facility] [place] [facility] [address] [id number] [place] [address] Dec, [facility] [place] [facility] [address] [id number] [place] [address] Dec, [facility] [place] [facility] [address] [id number] [place] [address] Dec, [facility] [place] [facility] [address] [id number] [place] [address] Dec, [facility] [place] [facility] [address] [id number] [place] [address] Dec, [facility] [place] [facility] [address] [id number] [place] [address] Dec, [facility] [place] [facility] [address] [id number] [place] [address] Dec, [facility] [place] [facility] [address] [id number] [place] [address] Dec, [facility] [address] [id number] [place] [address] November, [facility] [place] [facility] [address] [id number] [place] [address] November, [facility] [place] [facility] [address] [id number] [place] [address] November, [facility] [place] [facility] [address] [id number] [place] [address] November, [facility] [place] [facility] [address] [id number] [place] [address] November, [facility] [place] [facility] [address] [id number] [place] [address] November, [facility] [place] [facility] [address] [id number] [place] [address] November, [facility] [place] [facility] [address] [id number] [place] [address] November, [facility] [place] [facility] [address] [id number] [place] [address] November, [facility] [place] [facility] [address] [id number] [place] [address] November, [facility] [place] [facility] [address] [id number] [place] [address] November, [facility] [place] [facility] [address] [id number] [place] [address] Oct, [facility] [place] [facility] [address] [id number] [place] [address] Oct, [facility] [place] [facility] [address] [id number] [place] [address] Oct, [facility] [place] [facility] [address] [id number] [place] [address] Oct, [facility] [place] [facility] [address] [id number] [place] [address] Oct, [facility] [place] [facility] [address] [id number] [place] [address] Oct, [facility] [place] [facility] [address] [id number] [place] [address] Oct, [facility] [place] [facility] [address] [id number] [place] [address] Oct, [facility] [place] [facility] [address] [id number] [place] [address] Oct, [facility] [place] [facility] [address] [id number] [place] [address] Oct, [facility] [place] [facility] [address] [id number] [place] [address] Oct, [facility] [place] [facility] [address] [id number] [place] [address] Oct, [facility] [place] [facility] [address] [id number] [place] [address] Oct, [facility] [place] [facility] [address] [id number] [place] [address] Oct, [facility] [place] [facility] [address] [id number] [place] [address] Oct, [facility] [place] [facility] [address] [id number] [place] [address] Oct, [facility] [place] [facility] [address] [id number] [place] [address] Oct, [facility] [place] [facility] [address] [id number] [place] [address] Oct, [facility] [place] [facility] [address] [id number] [place] [address] Oct, [facility] [place] [facility] [address] [id number] [place] [address] Sep, [facility] [place] [facility] [address] [id number] [place] [address] Sep, [facility] [place] [facility] [address] [id number] [place] [address] Sep, [facility] [place] [facility] [address] [id number] [place] [address] Sep, [facility] [place] [facility] [address] [id number] [place] [address] Aug, [facility] [place] [facility] [address] [id number] [place] [address] Aug, [facility] [place] [facility] [address] [id number] [place] [address] Aug, [facility] [place] [facility] [address] [id number] [place] [address] Aug, [facility] [place] [facility] [address] [id number] [place] [address] Aug, [facility] [place] [facility] [address] [id number] [place] [address] Aug, [facility] [place] [facility] [address] [id number] [place] [address] Aug, [facility] [place] [facility] [address] [id number] [place] [address] Aug, [facility] [place] [facility] [address] [id number] [place] [address] Aug, [facility] [place] [facility] [address] [id number] [place] [address] Aug, [facility] [place] [facility] [address] [id number] [place] [address] Aug, [facility] [place] [facility] [address] [id number] [place] [address] Jul, [facility] [place] [facility] [address] [id number] [place] [address] Jul, [facility] [address] [id number] [place] [address] Jul, [facility] [place] [facility] [address] [id number] [place] [address] Jul, [facility] [place] [facility] [address] [id number] [place] [address] Jul, [facility] [place] [facility] [address] [id number] [place] [address] Jul, [facility] [place] [facility] [address] [id number] [place] [address] Jul, [facility] [place] [facility] [address] [id number] [place] [address] Jul, [facility] [address] [id number] [place] [address] Jul, [facility] [place] [facility] [address] [id number] [place] [address] Jul, [facility] [place] [facility] [address] [id number] [place] [address] Jul, [facility] [place] [facility] [address] [id number] [place] [address] Jul, [facility] [place] [facility] [address] [id number] [place] [address] Jul, [facility] [place] [facility] [address] [id number] [place] [address] Jul, [facility] [place] [facility] [address] [id number] [place] [address] Jul, [facility] [place] [facility] [address] [id number] [place] [address] Jun, [facility] [place] [facility] [address] [id number] [place] [address] Jun, [facility] [place] [facility] [address] [id number] [place] [address] Jun, [facility] [place] [facility] [address] [id number] [place] [address] Jun, [facility] [place] [facility] [address] [id number] [place] [address] Jun, [facility] [place] [facility] [address] [id number] [place] [address] Jun, [facility] [address] [id number] [place] [address] Jun, [facility] [place] [facility] [address] [id number] [place] [address] Jun, [facility] [address] [id number] [place] [address] Jun, [facility] [address] [id number] [place] [address] May, [facility] [place] [facility] [address] [id number] [place] [address] May, [facility] [place] [facility] [address] [id number] [place] [address] May, [facility] [place] [facility] [address] [id number] [place] [address] May, [facility] [place] [facility] [address] [id number] [address] May, [facility] [place] [facility] [address] [id number] [place] [address] May, [facility] [place] [facility] [address] [id number] [place] [address] May, [facility] [place] [facility] [address] [id number] [place] [address] 29 Apr, 2013 [facility] [place] [facility] [address] [id number] [place] [address] Apr, [facility] [address] [id number] [place] [address] Apr, [facility] [place] [facility] [address] [id number] [place] [address] Apr, [facility] [place] [facility] [address] [id number] [place] [address] Jan, [facility] [place] [facility] [address] [id number] [place] [address] Dec, [facility] [place] [facility] [address] [id number] [place] [address] Dec, [facility] [place] [facility] [address] [id number] [place] [address] Dec, [facility] [address] [id number] [place] [address] November, [facility] [place] [facility] [address] [id number] [place] [address] November, [facility] [address] [id number] [place] [address] Oct, [facility] [place] [facility] [address] [id number] [place] [address] Oct, [facility] [address] [id number] [address] Aug, [facility] [place] [facility] [address] [id number] [place] [address] Jun, [facility] [place] [facility] [address] [id number] [place] [address] Jun, [facility] [place] [facility] [address] [id number] [place] [address] May, [facility] [place] [facility] [address] [id number] [place] [address] May, [facility] [place] [facility] [address] [id number] [place] [address] May, [facility] [place] [facility] [address] [id number] [place] [address] May, [facility] [place] [facility] [address] [id number] [place] [address] Mar, [facility] [place] [facility] [address] [id number] [place] [address] Mar, [facility] [place] [facility] [address] [id number] [place] [address] Mar, [facility] [place] [facility] [address] [id number] [place] [address] Mar, [facility] [place] [facility] [address] [id number] [place] [address] Mar, [facility] [place] [facility] [address] [id number] [place] [address] Feb, [facility] [place] [facility] [address] [id number] [place] [address] Feb, [facility] [place] [facility] [address] [id number] [place] [address] Feb, [facility] [place] [facility] [address] [id number] [place] [address] Jan, [facility] [place] [facility] [address] [id number] [place] [address] Dec, [facility] [place] [facility] [address] [id number] [place] [address] November, [facility] [place] [facility] [address] [id number] [place] [address] Jul, [facility] [place] [facility] [address] [id number] [place] [address] Jul, [facility] [place] [facility] [address] [id number] [place] [address] Jul, [facility] [address] [facility] [id number] [place] [address] 14 Mar, 2011 [facility] [address] [facility] [id number] [address] May, [facility] [address] [facility] [id number] [place] [address] Apr, [facility] [address] [facility] [id number] [place] [address] Oct, IMMUNIZATIONS No Known Immunizations SOCIAL HISTORY Never Assessed 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 PLAN OF CARE Activity Details Follow Up prn Reason:filling # 29 VITAL SIGNS Height 64 in 2017-03-15 Blood pressure systolic 107 mmHg 2017-03-15 Blood pressure diastolic 62 mmHg 2017-03-15 MEDICATIONS No Known Medications RESULTS No Results PROCEDURES Procedure Date Ordered Result Body Site COMP ORAL EVALUATION - NEW/EST PT Mar 15, 2017 PANORAMIC FILM SEE ALSO CODE [id number] Mar 15, 2017 Billing Notes on claim Mar 15, 2017 INSTRUCTIONS MEDICATIONS ADMINISTERED No Known Medications MEDICAL (GENERAL) HISTORY Type Description Date Medical History herpes simplex oral - severe Surgical History tonsillectomy and adenoidectomy Surgical History wisdom teeth Hospitalization History childbirth only
--- OUTSIDE RECORDS SUMMARY | 2018-12-27 17:08 | XMS REPORT ---
Author Author VIDHI ROJO [facility] Address [address] [place] [address] Care Team Providers Care Field Sales Engineer Name Role Phone ALIAVIDHI Unavailable PROBLEMS Unknown Problems ALLERGIES Substance Reaction Event Type Date Status Amoxicillin rash Drug Allergy Jan, Active ENCOUNTERS Encounter Location Date Diagnosis [facility] [place] [address] [address] Jul, IUD check up Z30.431 and Pelvic pain R10.2 [facility] [address] [id number] 24 Feb, 2017 Dental examination Z01.20 [facility] [place] [address] [address] 14 Jan, 2017 Acute vaginitis N76.0 [facility] [place] [address] [address] 11 Jan, 2017 Vaginal discharge N89.8 ; Vaginal odor N89.8 and Acute vaginitis N76.0 [facility] [address] [id number] 10 Jan, 2017 Encounter for dental examination Z01.20 [facility] [place] [address] [address] 10 Jul, 2016 [facility] [place] [address] [address] Jun, Right upper quadrant abdominal pain R10.11 ; Weight gain, abnormal R63.5 ; Alopecia L65.9 ; Dry skin L85.3 and Family history of thyroid disease Z83.49 [facility] [place] [address] [address] May, [facility] [place] [id number] [place] [address] May, Right upper quadrant pain R10.11 [facility] [id number] [place] [address] Sep, Pelvic pain R10.2 [facility] [place] [id number] [place] [address] Aug, Dysuria R30.0 ; Pelvic pain R10.2 ; Encounter for genetic counseling Z31.5 and Inguinal lymphadenopathy R59.0 [facility] [id number] [place] [address] May, Pelvic pain in female R10.2 and IUD (intrauterine device) in place Z97.5 [facility] [id number] [place] [address] May, Unspecified mood [affective] disorder F39 [facility] [id number] [place] [address] May, Unspecified mood [affective] disorder F39 [facility] [id number] [place] [address] Apr, [facility] [id number] [place] [address] Mar, Unspecified episodic mood disorder 296.90 [facility] [id number] [place] [address] 04 Mar, 2015 Bilateral amaurosis fugax 362.34 [facility] [id number] [place] [address] Feb, Alopecia 704.00 ; Frequent headaches 784.0 ; Anxiety 300.00 ; Family history of thyroid disease in mother V18.19 and Family history of bipolar disorder V17.0 [facility] [id number] [place] [address] Feb, [facility] [id number] [address] Feb, [facility] [place] [id number] [place] [address] Jan, Mood disorder 296.90 [facility] [place] [address] [address] Jan, Panic attacks 300.01 ; Anxiety, generalized 300.02 ; No condition on Morley II V71.09 and No condition on axis III V71.09 [facility] [place] [id number] [place] [address] Jan, Anxiety, generalized 300.02 ; Panic attack 300.01 ; Major depression, melancholic type 296.20 ; No condition on Morley II V71.09 and No condition on axis III V71.09 [facility] [place] [id number] [place] [address] Dec, [facility] [place] [id number] [place] [address] Dec, Routine gynecological examination V72.31 ; Pap test, as part of routine gynecological examination V76.2 ; Breast cancer screening V76.10 and IUD surveillance V25.42 [facility] [place] [address] [address] Dec, 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 [facility] [id number] [place] [address] Dec, [facility] [place] [id number] [place] [address] Dec, [facility] [place] [id number] [place] [address] November, [facility] [place] [id number] [place] [address] Oct, [facility] [place] [id number] [place] [address] Oct, [facility] [place] [facility] [address] [id number] [place] [address] Sep, [facility] [place] [facility] [address] [id number] [place] [address] Sep, [facility] [place] [facility] [address] [id number] [place] [address] Aug, [facility] [place] [facility] [address] [id number] [place] [address] Aug, [facility] [place] [facility] [address] [id number] [place] [address] Jul, [facility] [place] [facility] [address] [id number] [place] [address] Jul, [facility] [place] [facility] [address] [id number] [place] [address] Jul, [facility] [place] [facility] [address] [id number] [place] [address] Jul, [facility] [place] [facility] [address] [id number] [place] [address] Jun, [facility] [place] [facility] [address] [id number] [place] [address] Jun, [facility] [place] [facility] [address] [id number] [place] [id number] Jun, [facility] [place] [facility] [address] [id number] [address] Jun, [facility] [place] [facility] [address] [id number] [place] [address] Jun, [facility] [place] [facility] [address] [id number] [place] [address] Jun, [facility] [place] [facility] [address] [id number] [place] [address] May, [facility] [place] [facility] [address] [id number] [place] [address] May, [facility] [place] [facility] [address] [id number] [place] [address] May, [facility] [place] [facility] [address] [id number] [place] [address] May, [facility] [place] [facility] [address] [id number] [place] [address] May, [facility] [place] [facility] [address] [id number] [place] [address] May, [facility] [place] [facility] [address] [id number] [place] [address] May, [facility] [place] [facility] [address] [id number] [place] [address] Apr, [facility] [place] [facility] [address] [id number] [place] [address] Apr, [facility] [place] [facility] [address] [id number] [place] [address] Apr, [facility] [place] [facility] [address] [id number] [place] [address] Apr, [facility] [place] [facility] [address] [id number] [place] [address] Apr, [facility] [place] [facility] [address] [id number] [place] [address] Apr, [facility] [place] [facility] [address] [id number] [place] [address] Feb, [facility] [place] [facility] [address] [id number] [place] [address] Feb, [facility] [place] [facility] [address] [id number] [place] [address] Feb, [facility] [place] [facility] [address] [id number] [place] [address] Feb, [facility] [place] [facility] [address] [id number] [place] [address] Feb, [facility] [place] [facility] [address] [id number] [place] [address] Feb, [facility] [place] [facility] [address] [id number] [place] [address] Jan, [facility] [place] [facility] [address] [id number] [place] [address] Jan, [facility] [place] [facility] [address] [id number] [place] [address] Dec, [facility] [place] [facility] [address] [id number] [place] [address] Dec, [facility] [place] [facility] [address] [id number] [place] [address] Dec, [facility] [place] [facility] [address] [id number] [place] [address] Dec, [facility] [place] [facility] [address] [id number] [place] [address] Dec, [facility] [place] [facility] [address] [id number] [place] [address] Dec, [facility] [place] [facility] [address] [id number] [place] [address] Dec, [facility] [place] [facility] [address] [id number] [place] [address] Dec, [facility] [place] [facility] [address] [id number] [place] [address] Dec, [facility] [place] [facility] [address] [id number] [place] [address] Dec, [facility] [place] [facility] [address] [id number] [place] [address] Dec, [facility] [place] [facility] [address] [id number] [place] [address] Dec, [facility] [address] [id number] [place] [address] November, [facility] [place] [facility] [address] [id number] [place] [address] November, [facility] [place] [facility] [address] [id number] [place] [address] November, [facility] [place] [facility] [address] [id number] [place] [address] November, [facility] [place] [facility] [address] [id number] [place] [address] November, [facility] [place] [facility] [address] [id number] [place] [address] November, [facility] [place] [facility] [address] [id number] [place] [address] November, [facility] [place] [facility] [address] [id number] [place] [address] November, [facility] [place] [facility] [address] [id number] [place] [address] November, [facility] [place] [facility] [address] [id number] [place] [address] November, [facility] [place] [facility] [address] [id number] [place] [address] November, [facility] [place] [facility] [address] [id number] [place] [address] Oct, [facility] [place] [facility] [address] [id number] [place] [address] Oct, [facility] [place] [facility] [address] [id number] [place] [address] Oct, [facility] [place] [facility] [address] [id number] [place] [address] Oct, [facility] [place] [facility] [address] [id number] [place] [address] Oct, [facility] [place] [facility] [address] [id number] [place] [address] Oct, [facility] [place] [facility] [address] [id number] [place] [address] Oct, [facility] [place] [facility] [address] [id number] [place] [address] Oct, [facility] [place] [facility] [address] [id number] [place] [address] Oct, [facility] [place] [facility] [address] [id number] [place] [address] Oct, [facility] [place] [facility] [address] [id number] [place] [address] Oct, [facility] [place] [facility] [address] [id number] [place] [address] Oct, [facility] [place] [facility] [address] [id number] [place] [address] Oct, [facility] [place] [facility] [address] [id number] [place] [address] Oct, [facility] [place] [facility] [address] [id number] [place] [address] Oct, [facility] [place] [facility] [address] [id number] [place] [address] Oct, [facility] [place] [facility] [address] [id number] [place] [address] Oct, [facility] [place] [facility] [address] [id number] [place] [address] Oct, [facility] [place] [facility] [address] [id number] [place] [address] Oct, [facility] [place] [facility] [address] [id number] [place] [address] Sep, [facility] [place] [facility] [address] [id number] [place] [address] Sep, [facility] [place] [facility] [address] [id number] [place] [address] Sep, [facility] [place] [facility] [address] [id number] [place] [address] Sep, [facility] [place] [facility] [address] [id number] [place] [address] Aug, [facility] [place] [facility] [address] [id number] [place] [address] Aug, [facility] [place] [facility] [address] [id number] [place] [address] Aug, [facility] [place] [facility] [address] [id number] [place] [address] Aug, [facility] [place] [facility] [address] [id number] [place] [address] Aug, [facility] [place] [facility] [address] [id number] [place] [address] Aug, [facility] [place] [facility] [address] [id number] [place] [address] Aug, [facility] [place] [facility] [address] [id number] [place] [address] Aug, [facility] [place] [facility] [address] [id number] [place] [address] Aug, [facility] [place] [facility] [address] [id number] [place] [address] Aug, [facility] [place] [facility] [address] [id number] [place] [address] Aug, [facility] [place] [facility] [address] [id number] [place] [address] Jul, [facility] [place] [facility] [address] [id number] [place] [address] Jul, [facility] [place] [facility] [address] [id number] [place] [address] Jul, [facility] [place] [facility] [address] [id number] [place] [address] Jul, [facility] [place] [facility] [address] [id number] [place] [address] Jul, [facility] [place] [facility] [address] [id number] [place] [address] Jul, [facility] [place] [facility] [address] [id number] [place] [address] Jul, [facility] [place] [facility] [address] [id number] [place] [address] Jul, [facility] [place] [facility] [address] [id number] [place] [address] Jul, [facility] [place] [facility] [address] [id number] [place] [address] Jul, [facility] [place] [facility] [address] [id number] [place] [address] Jul, [facility] [place] [facility] [address] [id number] [place] [address] Jul, [facility] [place] [facility] [address] [id number] [place] [address] Jul, [facility] [place] [facility] [address] [id number] [place] [address] Jul, [facility] [place] [facility] [address] [id number] [place] [address] Jul, [facility] [place] [facility] [address] [id number] [place] [address] Jun, [facility] [place] [facility] [address] [id number] [place] [address] Jun, [facility] [place] [facility] [address] [id number] [place] [address] Jun, [facility] [place] [facility] [address] [id number] [place] [address] Jun, [facility] [place] [facility] [address] [id number] [place] [address] Jun, [facility] [place] [facility] [address] [id number] [place] [address] Jun, [facility] [place] [facility] [address] [id number] [place] [address] Jun, [facility] [place] [facility] [address] [id number] [place] [address] Jun, [facility] [place] [facility] [address] [id number] [place] [address] Jun, [facility] [place] [facility] [address] [id number] [place] [address] May, [facility] [place] [facility] [address] [id number] [place] [address] May, [facility] [place] [facility] [address] [id number] [place] [address] May, [facility] [place] [facility] [address] [id number] [place] [address] May, [facility] [place] [facility] [address] [id number] [place] [address] May, [facility] [place] [facility] [address] [id number] [place] [address] May, [facility] [place] [facility] [address] [id number] [place] [address] May, [facility] [place] [facility] [address] [id number] [place] [address] 29 Apr, 2013 [facility] [place] [facility] [address] [id number] [place] [address] Apr, [facility] [address] [id number] [place] [address] Apr, [facility] [place] [facility] [address] [id number] [place] [address] Apr, [facility] [place] [facility] [address] [id number] [place] [address] Jan, [facility] [place] [facility] [address] [id number] [place] [address] Dec, [facility] [place] [facility] [address] [id number] [place] [address] Dec, [facility] [place] [facility] [address] [id number] [place] [address] Dec, [facility] [place] [facility] [address] [id number] [place] [address] November, [facility] [place] [facility] [address] [id number] [place] [address] November, [facility] [address] [id number] [place] [address] Oct, [facility] [place] [facility] [address] [id number] [place] [address] Oct, [facility] [place] [facility] [address] [id number] [place] [address] Aug, [facility] [place] [facility] [address] [id number] [address] Jun, [facility] [place] [facility] [address] [id number] [place] [address] Jun, [facility] [place] [facility] [address] [id number] [place] [address] May, [facility] [place] [facility] [address] [id number] [place] [address] May, [facility] [place] [facility] [address] [id number] [place] [address] May, [facility] [address] [id number] [place] [address] May, [facility] [place] [facility] [address] [id number] [place] [address] Mar, [facility] [address] [id number] [place] [address] Mar, [facility] [place] [facility] [address] [id number] [place] [address] Mar, [facility] [address] [id number] [place] [address] Mar, [facility] [place] [facility] [address] [id number] [place] [address] Mar, [facility] [place] [facility] [address] [id number] [place] [address] Feb, [facility] [address] [id number] [place] [address] Feb, [facility] [place] [facility] [address] [id number] [place] [address] Feb, [facility] [address] [id number] [place] [address] Jan, [facility] [place] [facility] [address] [id number] [place] [address] Dec, [facility] [place] [facility] [address] [id number] [place] [address] November, [facility] [place] [facility] [address] [id number] [place] [address] Jul, [facility] [place] [facility] [address] [id number] [place] [address] Jul, [facility] [place] [facility] [address] [id number] [place] [address] Jul, [facility] [place] [address] [facility] [id number], [place] [address] 14 Mar, 2011 [facility] [place] [address] [facility] [id number], [place] [address] May, [facility] [place] [address] [facility] [id number], [place] [address] Apr, [facility] [place] [address] [facility] [id number], [place] [address] Oct, IMMUNIZATIONS No Known Immunizations SOCIAL HISTORY Never Assessed 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 SHAR PLAN OF CARE Activity Details Follow Up [facility] Reason:MAI/PANO/Restorative VITAL SIGNS Heart Rate 68 bpm 2017-01-29 Blood pressure systolic 107 mmHg 2017-01-29 Blood pressure diastolic 68 mmHg 2017-01-29 MEDICATIONS No Known Medications RESULTS No Results PROCEDURES Procedure Date Ordered Result Body Site INTRAORL-PERIAPICAL 1 FILM 20430 January 29, 2017 INTRAORL-PERIAPICAL EA ADD FILM January 29, 2017 BITEWINGS - FOUR FILMS January 29, 2017 INTRAORL-PERIAPICAL EA ADD FILM January 29, 2017 TOPICAL FLUORIDE VARNISH January 29, 2017 PROPHYLAXIS - ADULT January 29, 2017 INSTRUCTIONS MEDICATIONS ADMINISTERED No Known Medications MEDICAL (GENERAL) HISTORY Type Description Date Medical History herpes simplex oral - severe Surgical History tonsillectomy and adenoidectomy Surgical History wisdom teeth Hospitalization History childbirth only
--- OUTSIDE RECORDS SUMMARY | 2018-12-27 17:08 | XMS REPORT ---
Author Author ROBBYTRACILIZZY Organization [facility] Address [address] [place] [address] Care Team Providers Care Community Relations Police Lieutenant Name Role Phone LIZZY BUSTAMANTE Unavailable PROBLEMS Unknown Problems ALLERGIES Substance Reaction Event Type Date Status Amoxicillin rash Drug Allergy Jan, Active ENCOUNTERS Encounter Location Date Diagnosis [facility] [address] [address] Jul, IUD check up Z30.431 and Pelvic pain R10.2 [facility] [address] [id number] Feb, Dental examination Z01.20 [facility] [address] [address] 14 Jan, 2017 Acute vaginitis N76.0 [facility] [address] [address] 11 Jan, 2017 Vaginal discharge N89.8 ; Vaginal odor N89.8 and Acute vaginitis N76.0 [facility] [address] [id number] Jan, 2017 Encounter for dental examination Z01.20 [facility] [address] [address] 10 Jul, 2016 [facility] [address] [address] Jun, Right upper quadrant abdominal pain R10.11 ; Weight gain, abnormal R63.5 ; Alopecia L65.9 ; Dry skin L85.3 and Family history of thyroid disease Z83.49 [facility] [address] [address] May, [place] [id number] [place] [address] May, Right upper quadrant pain R10.11 [place] [id number] [place] [address] Sep, Pelvic pain R10.2 [place] [id number] [place] [address] Aug, Dysuria R30.0 ; Pelvic pain R10.2 ; Encounter for genetic counseling Z31.5 and Inguinal lymphadenopathy R59.0 [place] [id number] [place] [address] May, Pelvic pain in female R10.2 and IUD (intrauterine device) in place Z97.5 [place] [id number] [place] [address] May, Unspecified mood [affective] disorder F39 [place] [id number] [place] [address] May, Unspecified mood [affective] disorder F39 [place] [id number] [place] [address] Apr, [place] [id number] [place] [address] Mar, Unspecified episodic mood disorder 296.90 [place] [id number] [place] [address] Mar, Bilateral amaurosis fugax 362.34 [place] [id number] [place] [address] Feb, Alopecia 704.00 ; Frequent headaches 784.0 ; Anxiety 300.00 ; Family history of thyroid disease in mother V18.19 and Family history of bipolar disorder V17.0 [place] [id number] [place] [address] Feb, [place] [address] [address] Feb, [facility] [id number] [place] [address] Jan, Mood disorder 296.90 [facility] [address], [place] [address] Jan, Panic attacks 300.01 ; Anxiety, generalized 300.02 ; No condition on [place] II V71.09 and No condition on axis III V71.09 [facility] [id number] [place] [address] Jan, Anxiety, generalized 300.02 ; Panic attack 300.01 ; Major depression, melancholic type 296.20 ; No condition on [place] II V71.09 and No condition on axis III V71.09 [facility] [id number] [place] [address] Dec, [facility] [id number] [place] [address] Dec, Routine gynecological examination V72.31 ; Pap test, as part of routine gynecological examination V76.2 ; Breast cancer screening V76.10 and IUD surveillance V25.42 [facility] [address] [address] Dec, 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 [place] [id number] [place] [address] Dec, [facility] [id number] [place] [address] Dec, [place] [id number] [place] [address] November, [facility] [address] [address] Oct, [facility] [id number] [place] [address] Oct, [facility] [place] [facility] [address] [id number] [place] [address] Sep, [facility] [place] [facility] [address] [id number] [place] [address] Sep, [facility] [place] [facility] [address] [id number] [place] [address] Aug, [facility] [place] [facility] [address] [id number] [place] [address] Aug, [facility] [place] [facility] [address] [id number] [place] [address] Jul, [facility] [place] [facility] [address] [id number] [place] [address] Jul, [facility] [place] [facility] [address] [id number] [place] [address] Jul, [facility] [place] [facility] [address] [id number] [place] [address] Jul, [facility] [place] [facility] [address] [id number] [place] [address] Jun, [facility] [place] [facility] [address] [id number] [address] Jun, [facility] [place] [facility] [address] [facility] [id number] [id number] Jun, [facility] [place] [facility] [address] [id number] [address] Jun, [facility] [place] [facility] [address] [id number] [place] [address] Jun, [facility] [place] [facility] [address] [id number] [place] [address] Jun, [facility] [place] [facility] [address] [id number] [place] [address] May, [facility] [place] [facility] [address] [id number] [address] May, [facility] [place] [facility] [address] [id number] [place] [address] May, [facility] [place] [facility] [address] [id number] [place] [address] May, [facility] [place] [facility] [address] [id number] [place] [address] May, [facility] [place] [facility] [address] [id number] [place] [address] May, [facility] [place] [facility] [address] [id number] [place] [address] May, [facility] [place] [facility] [address] [id number] [place] [address] Apr, [facility] [place] [facility] [address] [id number] [place] [address] Apr, [facility] [place] [facility] [address] [id number] [place] [address] Apr, [facility] [place] [facility] [address] [id number] [place] [address] Apr, [facility] [place] [facility] [address] [id number] [place] [address] Apr, [facility] [place] [facility] [address] [id number] [place] [address] Apr, [facility] [place] [facility] [address] [id number] [place] [address] Feb, [facility] [place] [facility] [address] [id number] [place] [address] Feb, [facility] [place] [facility] [address] [id number] [place] [address] Feb, [facility] [place] [facility] [address] [id number] [place] [address] Feb, [facility] [place] [facility] [address] [id number] [place] [address] Feb, [facility] [place] [facility] [address] [id number] [place] [address] Feb, [facility] [place] [facility] [address] [id number] [place] [address] Jan, [facility] [place] [facility] [address] [id number] [place] [address] Jan, [facility] [place] [facility] [address] [id number] [place] [address] Dec, [facility] [place] [facility] [address] [id number] [place] [address] Dec, [facility] [place] [facility] [address] [id number] [place] [address] Dec, [facility] [place] [facility] [address] [id number] [place] [address] Dec, [facility] [place] [facility] [address] [id number] [place] [address] Dec, [facility] [place] [facility] [address] [id number] [place] [address] Dec, [facility] [place] [facility] [address] [id number] [place] [address] Dec, [facility] [place] [facility] [address] [id number] [place] [address] Dec, [facility] [place] [facility] [address] [id number] [place] [address] Dec, [facility] [place] [facility] [address] [id number] [place] [address] Dec, [facility] [place] [facility] [address] [id number] [place] [address] Dec, [facility] [place] [facility] [address] [id number] [place] [address] Dec, [facility] [place] [facility] [address] [id number] [place] [address] November, [facility] [place] [facility] [address] [id number] [place] [address] November, [facility] [place] [facility] [address] [id number] [place] [address] November, [facility] [place] [facility] [address] [id number] [place] [address] November, [facility] [place] [facility] [address] [id number] [place] [address] November, [facility] [place] [facility] [address] [id number] [place] [address] November, [facility] [place] [facility] [address] [id number] [place] [address] November, [facility] [place] [facility] [address] [id number] [place] [address] November, [facility] [place] [facility] [address] [id number] [place] [address] November, [facility] [place] [facility] [address] [id number] [place] [address] November, [facility] [place] [facility] [address] [id number] [place] [address] November, [facility] [place] [facility] [address] [id number] [place] [address] Oct, [facility] [place] [facility] [address] [id number] [place] [address] Oct, [facility] [place] [facility] [address] [id number] [place] [address] Oct, [facility] [place] [facility] [address] [id number] [place] [address] Oct, [facility] [place] [facility] [address] [id number] [place] [address] Oct, [facility] [place] [facility] [address] [id number] [place] [address] Oct, [facility] [place] [facility] [address] [id number] [place] [address] Oct, [facility] [place] [facility] [address] [id number] [place] [address] Oct, [facility] [place] [facility] [address] [id number] [place] [address] Oct, [facility] [place] [facility] [address] [id number] [place] [address] Oct, [facility] [place] [facility] [address] [id number] [place] [address] Oct, [facility] [place] [facility] [address] [id number] [place] [address] Oct, [facility] [place] [facility] [address] [id number] [place] [address] Oct, [facility] [place] [facility] [address] [id number] [place] [address] Oct, [facility] [place] [facility] [address] [id number] [place] [address] Oct, [facility] [place] [facility] [address] [id number] [place] [address] Oct, [facility] [place] [facility] [address] [id number] [place] [address] Oct, [facility] [place] [facility] [address] [id number] [place] [address] Oct, [facility] [place] [facility] [address] [id number] [place] [address] Oct, [facility] [place] [facility] [address] [id number] [place] [address] Sep, [facility] [place] [facility] [address] [id number] [place] [address] Sep, [facility] [place] [facility] [address] [id number] [place] [address] Sep, [facility] [place] [facility] [address] [id number] [place] [address] Sep, [facility] [place] [facility] [address] [id number] [place] [address] Aug, [facility] [place] [facility] [address] [id number] [place] [address] Aug, [facility] [place] [facility] [address] [id number] [place] [address] Aug, [facility] [place] [facility] [address] [id number] [place] [address] Aug, [facility] [place] [facility] [address] [id number] [place] [address] Aug, [facility] [place] [facility] [address] [id number] [place] [address] Aug, [facility] [place] [facility] [address] [id number] [place] [address] Aug, [facility] [place] [facility] [address] [id number] [place] [address] Aug, [facility] [place] [facility] [address] [id number] [place] [address] Aug, [facility] [place] [facility] [address] [id number] [place] [address] Aug, [facility] [place] [facility] [address] [id number] [place] [address] Aug, [facility] [place] [facility] [address] [id number] [place] [address] Jul, [facility] [place] [facility] [address] [id number] [place] [address] Jul, [facility] [place] [facility] [address] [id number] [place] [address] Jul, [facility] [place] [facility] [address] [id number] [place] [address] Jul, [facility] [place] [facility] [address] [id number] [place] [address] Jul, [facility] [place] [facility] [address] [id number] [place] [address] Jul, [facility] [place] [facility] [address] [id number] [place] [address] Jul, [facility] [place] [facility] [address] [id number] [place] [address] Jul, [facility] [place] [facility] [address] [id number] [place] [address] Jul, [facility] [place] [facility] [address] [id number] [place] [address] Jul, [facility] [place] [facility] [address] [id number] [place] [address] Jul, [facility] [place] [facility] [address] [id number] [place] [address] Jul, [facility] [place] [facility] [address] [id number] [place] [address] Jul, [facility] [place] [facility] [address] [id number] [place] [address] Jul, [facility] [place] [facility] [address] [id number] [place] [address] Jul, [facility] [place] [facility] [address] [id number] [place] [address] Jun, [facility] [place] [facility] [address] [id number] [place] [address] Jun, [facility] [place] [facility] [address] [id number] [place] [address] Jun, [facility] [place] [facility] [address] [id number] [place] [address] Jun, [facility] [place] [facility] [address] [id number] [place] [address] Jun, [facility] [place] [facility] [address] [id number] [place] [address] Jun, [facility] [address] [id number] [place] [address] Jun, [facility] [place] [facility] [address] [id number] [place] [address] Jun, [facility] [address] [id number] [place] [address] Jun, [facility] [address] [id number] [place] [address] May, [facility] [place] [facility] [address] [id number] [place] [address] May, [facility] [place] [facility] [address] [id number] [place] [address] May, [facility] [place] [facility] [address] [id number] [place] [address] May, [facility] [place] [facility] [address] [id number] [place] [address] May, [facility] [place] [facility] [address] [id number] [place] [address] May, [facility] [place] [facility] [address] [id number] [place] [address] May, [facility] [place] [facility] [address] [id number] [place] [address] 29 Apr, 2013 [facility] [place] [facility] [address] [id number] [place] [address] Apr, [facility] [address] [id number] [place] [address] Apr, [facility] [place] [facility] [address] [id number] [place] [address] Apr, [facility] [place] [facility] [address] [id number] [place] [address] Jan, [facility] [place] [facility] [address] [id number] [place] [address] Dec, [facility] [place] [facility] [address] [id number] [place] [address] Dec, [facility] [place] [facility] [address] [id number] [place] [address] Dec, [facility] [address] [id number] [place] [address] November, [facility] [place] [facility] [address] [id number] [place] [address] November, [facility] [place] [facility] [address] [id number] [place] [address] Oct, [facility] [place] [facility] [address] [id number] [place] [address] Oct, [facility] [address] [id number] [place] [address] Aug, [facility] [place] [facility] [address] [id number] [place] [address] Jun, [facility] [place] [facility] [address] [id number] [place] [address] Jun, [facility] [place] [facility] [address] [id number] [place] [address] May, [facility] [place] [facility] [address] [id number] [place] [address] May, [facility] [place] [facility] [address] [id number] [place] [address] May, [facility] [place] [facility] [address] [id number] [place] [address] May, [facility] [place] [facility] [address] [id number] [place] [address] 28 Mar, 2012 [facility] [place] [facility] [address] [id number] [place] [address] Mar, [facility] [place] [facility] [address] [id number] [place] [address] Mar, [facility] [place] [facility] [address] [id number] [place] [address] Mar, [facility] [place] [facility] [address] [id number] [place] [address] Mar, [facility] [place] [facility] [address] [id number] [place] [address] Feb, [facility] [address] [id number] [place] [address] Feb, [facility] [place] [facility] [address] [id number] [place] [address] Feb, [facility] [place] [facility] [address] [id number] [place] [address] Jan, [facility] [place] [facility] [address] [id number] [place] [address] Dec, [facility] [place] [facility] [address] [id number] [place] [address] November, [facility] [place] [facility] [address] [id number] [place] [address] Jul, [facility] [place] [facility] [address] [id number] [place] [address] Jul, [facility] [place] [facility] [address] [id number] [place] [address] Jul, [facility] [address] [facility] [id number], [place] [address] Mar, [facility] [address] [facility] [id number], [place] [address] May, [facility] [address] [facility] [id number], [place] [address] Apr, [facility] [address] [facility] [id number][place] [address] Oct, IMMUNIZATIONS No Known Immunizations SOCIAL HISTORY Never Assessed 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 UTI symptoms, pt. states for last three days she has had spotting and her period ended of last week. pt. states she has iud and is not sure if that may be causing the issues----[place],[facility]MA PLAN OF CARE Activity Details Follow Up prn Reason: VITAL SIGNS Height 64 in 2017-01-30 Weight 167.9 lbs 2017-01-30 Temperature 97.6 degrees Fahrenheit 2017-01-30 Heart Rate 66 bpm 2017-01-30 Respiratory Rate 18 2017-01-30 BMI 28.82 kg/m2 2017-01-30 Blood pressure systolic 119 mmHg 2017-01-30 Blood pressure diastolic 68 mmHg 2017-01-30 MEDICATIONS Medication Instructions Dosage Frequency Start Date End Date Duration Status Metronidazole 500 mg Orally Twice a day 1 tablet 12h Jan, 2016Jan, 07 days Active RESULTS Name Result Date Reference Range TRICHOMONAS (IN HOUSE) 2017-01-30 TRICHOMONAS Negative Control + Lot # [id number] Exp date 07/01/30 UA LONG DIP (IN HOUSE) 2017-01-30 Lot # [id number] Exp date 07/12/30 Clarity Clear Color Yellow Odor None GLU Negative OSCAR Negative KET Negative SG 1.020 BLO Trace-lysed pH 7.5 Protein Negative URO 0.2 NIT Negative IRINA Negative Lot # Exp date BACTERIAL VAGINOSIS (IN HOUSE) 2017-01-30 RESULTS Positive Control + Lot # [id number] Exp date CULTURE, GENITAL 2017-01-30 Genital Culture, Routine Final report Result 1 Result 2 GC/CHLAM PROBE (STATE) 2017-01-30 CHLAMYDIA GC PROCEDURES Procedure Date Ordered Result Body Site PELVIC EXAMINATION 2017-01-30 N/A TRICHOMONAS ASSAY W/OPTIC January 30, 2017 No Charge January 30, 2017 CARTAGENA VAG, DNA, DIR PROBE January 30, 2017 URINALYSIS, AUTO, W/O SCOPE January 30, 2017 CULTURE, BACTERIA, OTHER January 30, 2017 INSTRUCTIONS MEDICATIONS ADMINISTERED No Known Medications MEDICAL (GENERAL) HISTORY Type Description Date Medical History herpes simplex oral - severe Surgical History tonsillectomy and adenoidectomy Surgical History wisdom teeth Hospitalization History childbirth only
--- OUTSIDE RECORDS SUMMARY | 2018-12-27 17:11 | XMS REPORT | Continuity of Care Document ---
Author Organization Unknown Address Unknown Allergies Active Description Code Type Severity Reaction Onset Reported/Identified Relationship to Patient Clinical Status Yes Penicillins Drug Allergy N/A N/A 11/09/2009 Yes Penicillins Drug Allergy 11/09/2009 Yes amoxicillin [id number] Drug Allergy Moderate RASH 12/01/2011 Yes latex [id number] Drug Allergy Mild RASH 12/01/2011 Yes Amoxicillin Drug Allergy N/A N/A 04/03/2012 Yes Amoxicillin Drug Allergy 04/03/2012 Yes Penicillins [id number] Drug Allergy Moderate RASH 04/21/2015 Medications There [...] 11/09/2009 MARQUISE GARCÍA MD V25.02 CONTRACEPTIVES 11/09/2009 KALIN GARCÍA MDHANY N V25.02 CONTRACEPTIVES 11/09/2009 RICKY FITZPATRICK, MARQUISE N V25.02 CONTRACEPTIVES 11/09/2009 RICKY FITZPATRICK, MARQUISE N V25.02 CONTRACEPTIVES 11/09/2009 RICKY FITZPATRICK, MARQUISE N V25.02 CONTRACEPTIVES 11/09/2009 RICKY FITZPATRICK, MARQUISE N V25.02 CONTRACEPTIVES 11/09/2009 RICKY FITZPATRICK, MARQUISE Yoo V25.02 CONTRACEPTIVES 11/09/2009 RICKY FITZPATRICK, MARQUISE Yoo V25.02 CONTRACEPTIVES 11/09/2009 SEDRICK FITZPATRICK, SABRINA Ramos V25.02 CONTRACEPTIVES 11/09/2009 SEDRICK FITZPATRICK, SABRINA Ramos V25.02 CONTRACEPTIVES 11/09/2009 QUEZADA DO, HETAL K V25.02 CONTRACEPTIVES 11/09/2009 QUEZADA DO, HETAL K V25.02 CONTRACEPTIVES 11/09/2009 QUEZADA DO, HETAL K V25.02 CONTRACEPTIVES 11/09/2009 QUEZADA DO, HETAL K V25.02 CONTRACEPTIVES 11/09/2009 TOBY CROWDER, ASHISH A V25.02 CONTRACEPTIVES 11/09/2009 GREG LLOYD MD V25.02 CONTRACEPTIVES 11/09/2009 TOBY APRN, ASHISH A V25.02 CONTRACEPTIVES 11/09/2009 ARNOLD ESPINOZA APRN V25.02 CONTRACEPTIVES 11/09/2009 HARJIT GERONIMOS, WISAM Nice V25.02 CONTRACEPTIVES 11/09/2009 TIMOTHY CROWDER, BORA Thompson V25.02 CONTRACEPTIVES 11/09/2009 TOBY CROWDER, ASHISH A V25.02 CONTRACEPTIVES 11/09/2009 RICKY FITZPATRICK, MARQUISE Yoo V25.02 CONTRACEPTIVES 11/09/2009 TOBY APRN, ASHISH A V25.02 CONTRACEPTIVES 01/31/2010 BASSEM BOWER [...] SURVEILLANCE OF OTHER CONTRACEPTIVE METHOD 01/31/2010 TOBY SUPERVISOR COMPOUNDING AND FINISHING, ASHISH A V25.49 SURVEILLANCE OF OTHER CONTRACEPTIVE METHOD 01/31/2010 QUEZADA DOMAIAA K V25.49 SURVEILLANCE OF OTHER CONTRACEPTIVE METHOD 01/31/2010 BASSEM BOWER APRN V25.49 SURVEILLANCE OF OTHER CONTRACEPTIVE METHOD 01/31/2010 V25.49 SURVEILLANCE OF OTHER CONTRACEPTIVE METHOD 01/31/2010 MARQUISE GARCÍA MD V25.49 SURVEILLANCE OF OTHER CONTRACEPTIVE METHOD 01/31/2010 TOBY SUPERVISOR COMPOUNDING AND FINISHINGWILFRIDASHISH A V25.49 SURVEILLANCE OF OTHER CONTRACEPTIVE METHOD 01/31/2010 TOBY SUPERVISOR COMPOUNDING AND FINISHING ASHISH A V25.49 SURVEILLANCE OF OTHER CONTRACEPTIVE [...] V25.49 SURVEILLANCE OF OTHER CONTRACEPTIVE METHOD 01/31/2010 DAMIEN DOHETAL V25.49 SURVEILLANCE OF OTHER CONTRACEPTIVE METHOD 01/31/2010 QUEZADA DOMAIAA K V25.49 SURVEILLANCE OF OTHER CONTRACEPTIVE METHOD 01/31/2010 QUEZADA DOMAIAA K V25.49 SURVEILLANCE OF OTHER CONTRACEPTIVE METHOD 01/31/2010 HETAL QUEZADA DO V25.49 SURVEILLANCE OF OTHER CONTRACEPTIVE METHOD 01/31/2010 TOBYASHISH Yoo APRN A V25.49 SURVEILLANCE OF OTHER CONTRACEPTIVE METHOD 01/31/2010 GREG LLOYD MD V25.49 SURVEILLANCE OF OTHER CONTRACEPTIVE METHOD 01/31/2010 TOBYASHISH Yoo APRN A V25.49 SURVEILLANCE OF OTHER CONTRACEPTIVE METHOD 01/31/2010 OLGA SUPERVISOR COMPOUNDING AND FINISHINGARNOLD Yoo V25.49 SURVEILLANCE OF OTHER CONTRACEPTIVE METHOD 01/31/2010 HARJIT GERONIMOS, WISAM Nice V25.49 SURVEILLANCE OF OTHER CONTRACEPTIVE METHOD 01/31/2010 BORA AGUIRRE APRN V25.49 SURVEILLANCE OF OTHER CONTRACEPTIVE METHOD 01/31/2010 TOBYASHISH Yoo APRN A V25.49 SURVEILLANCE OF OTHER CONTRACEPTIVE METHOD 01/31/2010 RICKY FITZPATRICK, MARQUISE Yoo V25.49 SURVEILLANCE OF OTHER CONTRACEPTIVE METHOD 01/31/2010 ASHISH LUIS APRN A V25.49 SURVEILLANCE OF OTHER CONTRACEPTIVE METHOD 05/12/2010 BASSEM BOWER APRN 054.9 HERPES SIMPLEX WITHOUT COMPLICATION 05/12/2010 BASSEM BOWER APRN V72.31 GROCERY CASHIER EXAM, ROUTINE 05/12/2010 BASSEM BOWER APRN 054.9 HERPES SIMPLEX WITHOUT COMPLICATION 05/12/2010 BASSEM BOWER APRN V72.31 GROCERY CASHIER EXAM, ROUTINE 05/12/2010 054.9 HERPES SIMPLEX WITHOUT COMPLICATION 05/12/2010 V72.31 GROCERY CASHIER EXAM, ROUTINE 05/12/2010 054.9 HERPES SIMPLEX WITHOUT COMPLICATION 05/12/2010 V72.31 GROCERY CASHIER EXAM, ROUTINE 05/12/2010 054.9 HERPES SIMPLEX WITHOUT COMPLICATION 05/12/2010 V72.31 GROCERY CASHIER EXAM, ROUTINE 05/12/2010 054.9 HERPES SIMPLEX WITHOUT COMPLICATION 05/12/2010 V72.31 GROCERY CASHIER EXAM, ROUTINE 05/12/2010 054.9 HERPES SIMPLEX WITHOUT COMPLICATION 05/12/2010 V72.31 GROCERY CASHIER EXAM, ROUTINE 05/12/2010 054.9 HERPES SIMPLEX WITHOUT COMPLICATION 05/12/2010 V72.31 GROCERY CASHIER EXAM, ROUTINE 05/12/2010 ASHISH LUIS APRN A 054.9 HERPES SIMPLEX WITHOUT COMPLICATION 05/12/2010 WILFRID LUIS APRNIDI A V72.31 GROCERY CASHIER EXAM, ROUTINE 05/12/2010 QUEZADA DO, HETAL K 054.9 HERPES SIMPLEX WITHOUT COMPLICATION 05/12/2010 QUEZADA DO HETAL K V72.31 GROCERY CASHIER EXAM, ROUTINE 05/12/2010 SATHISH SUPERVISOR COMPOUNDING AND FINISHINGBASSEM 054.9 HERPES SIMPLEX WITHOUT COMPLICATION 05/12/2010 SATHISH ESPARZANBASSEM V72.31 GROCERY CASHIER EXAM, ROUTINE 05/12/2010 054.9 HERPES SIMPLEX WITHOUT COMPLICATION 05/12/2010 V72.31 GROCERY CASHIER EXAM, ROUTINE 05/12/2010 MARQUISE GARCÍA MD N 054.9 HERPES SIMPLEX WITHOUT COMPLICATION 05/12/2010 MARQUISE GARCÍA MD N V72.31 GROCERY CASHIER EXAM, ROUTINE 05/12/2010 TOBY SUPERVISOR COMPOUNDING AND FINISHING, ASHISH A 054.9 HERPES SIMPLEX WITHOUT COMPLICATION 05/12/2010 TOBY SUPERVISOR COMPOUNDING AND FINISHING, ASHISH A V72.31 GROCERY CASHIER EXAM, ROUTINE 05/12/2010 TOBY SUPERVISOR COMPOUNDING AND FINISHING, ASHISH A 054.9 HERPES SIMPLEX WITHOUT COMPLICATION 05/12/2010 TOBY SUPERVISOR COMPOUNDING AND FINISHING, ASHISH A V72.31 GROCERY CASHIER EXAM, ROUTINE 05/12/2010 MARQUISE GARCÍA MD N 054.9 HERPES SIMPLEX WITHOUT COMPLICATION 05/12/2010 MARQUISE GARCÍA MD N V72.31 GROCERY CASHIER EXAM, ROUTINE 05/12/2010 MARQUISE GARCÍA MD N 054.9 HERPES SIMPLEX WITHOUT COMPLICATION 05/12/2010 MARQUISE GARCÍA MD N V72.31 GROCERY CASHIER EXAM, ROUTINE 05/12/2010 TOBY SUPERVISOR COMPOUNDING AND FINISHING, ASHISH A 054.9 HERPES SIMPLEX WITHOUT COMPLICATION 05/12/2010 TOBY SUPERVISOR COMPOUNDING AND FINISHING, ASHISH A V72.31 GROCERY CASHIER EXAM, ROUTINE 05/12/2010 MARQUISE GARCÍA MD N 054.9 HERPES SIMPLEX WITHOUT COMPLICATION 05/12/2010 MARQUISE GARCÍA MD N V72.31 GROCERY CASHIER EXAM, ROUTINE 05/12/2010 MARQUISE GARCÍA MD N 054.9 HERPES SIMPLEX WITHOUT COMPLICATION 05/12/2010 MARQUISE GARCÍA MD N V72.31 GROCERY CASHIER EXAM, ROUTINE 05/12/2010 MARQUISE GARCÍA MD N 054.9 HERPES SIMPLEX WITHOUT COMPLICATION 05/12/2010 MARQUISE GARCÍA MD N V72.31 GROCERY CASHIER EXAM, ROUTINE 05/12/2010 MARQUISE GARCÍA MD N 054.9 HERPES SIMPLEX WITHOUT COMPLICATION 05/12/2010 RICKY FITZPATRICK, MARQUISE N V72.31 GROCERY CASHIER EXAM, ROUTINE 05/12/2010 RICKY FITZPATRICK, MARQUIES N 054.9 HERPES SIMPLEX WITHOUT COMPLICATION 05/12/2010 RICKY FITZPATRICK, MARQUISE N V72.31 GROCERY CASHIER EXAM, ROUTINE 05/12/2010 RICKY FITZPATRICK, MARQUISE N 054.9 HERPES SIMPLEX WITHOUT COMPLICATION 05/12/2010 RICKY FITZPATRICK, MARQUISE N V72.31 GROCERY CASHIER EXAM, ROUTINE 05/12/2010 RICKY FITZPATRICK, MARQUISE N 054.9 HERPES SIMPLEX WITHOUT COMPLICATION 05/12/2010 RICKY FITZPATRICK, MARQUISE N V72.31 GROCERY CASHIER EXAM, ROUTINE 05/12/2010 MARQUISE GARCÍA MD N 054.9 HERPES SIMPLEX WITHOUT COMPLICATION 05/12/2010 RICKY FITZPATRICK, MARQUISE N V72.31 GROCERY CASHIER EXAM, ROUTINE 05/12/2010 SABRINA DUBOSE MD 054.9 HERPES SIMPLEX WITHOUT COMPLICATION 05/12/2010 SABRINA DUBOSE MD V72.31 GROCERY CASHIER EXAM, ROUTINE 05/12/2010 SABRINA DUBOSE MD 054.9 HERPES SIMPLEX WITHOUT COMPLICATION 05/12/2010 SABRINA DUBOSE MD V72.31 GROCERY CASHIER EXAM, ROUTINE 05/12/2010 QUEZADA DO, HETAL K 054.9 HERPES SIMPLEX WITHOUT COMPLICATION 05/12/2010 QUEZADA DO, HETAL K V72.31 GROCERY CASHIER EXAM, ROUTINE 05/12/2010 QUEZADA DO HETAL K 054.9 HERPES SIMPLEX WITHOUT COMPLICATION 05/12/2010 QUEZADA DO HETAL K V72.31 GROCERY CASHIER EXAM, ROUTINE 05/12/2010 QUEZADA DO, HETAL K 054.9 HERPES SIMPLEX WITHOUT COMPLICATION 05/12/2010 QUEZADA DO, HETAL K V72.31 GROCERY CASHIER EXAM, ROUTINE 05/12/2010 QUEZADA DO, HETAL K 054.9 HERPES SIMPLEX WITHOUT COMPLICATION 05/12/2010 QUEZADA DO, HETAL K V72.31 GROCERY CASHIER EXAM, ROUTINE 05/12/2010 ASHISH LUIS APRN 054.9 HERPES SIMPLEX WITHOUT COMPLICATION 05/12/2010 ASHISH LUIS APRN V72.31 GROCERY CASHIER EXAM, ROUTINE 05/12/2010 GREG LLOYD MD 054.9 HERPES SIMPLEX WITHOUT COMPLICATION 05/12/2010 GREG LLOYD MD V72.31 GROCERY CASHIER EXAM, ROUTINE 05/12/2010 TOBY SUPERVISOR COMPOUNDING AND FINISHING, ASHISH A 054.9 HERPES SIMPLEX WITHOUT COMPLICATION 05/12/2010 TOBY SUPERVISOR COMPOUNDING AND FINISHING, ASHISH A V72.31 GROCERY CASHIER EXAM, ROUTINE 05/12/2010 OLGA SUPERVISOR COMPOUNDING AND FINISHING, ARNOLD R 054.9 HERPES SIMPLEX WITHOUT COMPLICATION 05/12/2010 OLGA SUPERVISOR COMPOUNDING AND FINISHING, ARNOLD R V72.31 GROCERY CASHIER EXAM, ROUTINE 05/12/2010 WHITE DDS, WISAM D 054.9 HERPES SIMPLEX WITHOUT COMPLICATION 05/12/2010 WHITE DDS, WISAM D V72.31 GROCERY CASHIER EXAM, ROUTINE 05/12/2010 TIMOTHY CROWDER, BORA R 054.9 HERPES SIMPLEX WITHOUT COMPLICATION 05/12/2010 TIMOTHY ESPARZAN, BORA R V72.31 GROCERY CASHIER EXAM, ROUTINE 05/12/2010 OTBY APRN, ASHISH A 054.9 HERPES SIMPLEX WITHOUT COMPLICATION 05/12/2010 TOBY CROWDER, ASHISH A V72.31 GROCERY CASHIER EXAM, ROUTINE 05/12/2010 MARQUISE GARCÍA MD N 054.9 HERPES SIMPLEX WITHOUT COMPLICATION 05/12/2010 MARQUISE GARCÍA MD V72.31 GROCERY CASHIER EXAM, ROUTINE 05/12/2010 TOBY CROWDER, ASHISH A 054.9 HERPES SIMPLEX WITHOUT COMPLICATION 05/12/2010 TOBY APRN, ASHISH A V72.31 GROCERY CASHIER EXAM, ROUTINE 04/05/2011 BASSEM BOWER APRN 307.81 [...] APRN A 307.81 TENSION HEADACHE 04/05/2011 TOBY SUPERVISOR COMPOUNDING AND FINISHING, ASHISH A 307.81 TENSION HEADACHE 04/05/2011 MARQUISE GARCÍA MD N 307.81 TENSION HEADACHE 04/05/2011 MARQUISE GARCÍA MD 307.81 TENSION HEADACHE 04/05/2011 WILFRID LUIS APRNIDI A 307.81 TENSION HEADACHE 04/05/2011 MARQUISE [...] DO, HETAL K 307.81 TENSION HEADACHE 04/05/2011 ASHISH LUIS APRN A 307.81 TENSION HEADACHE 04/05/2011 GREG LLOYD MD 307.81 TENSION HEADACHE 04/05/2011 TOBYASHISH Yoo APRN A 307.81 TENSION HEADACHE 04/05/2011 OLGA CROWDER ARNOLD R 307.81 TENSION HEADACHE 04/05/2011 WISAM LOMBARDI DDS 307.81 TENSION HEADACHE 04/05/2011 BORA AGUIRRE APRN R 307.81 TENSION HEADACHE 04/05/2011 WILFRID LUIS APRNIDI A 307.81 TENSION HEADACHE 04/05/2011 MARQUISE GARCÍA MD N 307.81 TENSION HEADACHE 04/05/2011 ASHISH LUIS APRN A 307.81 TENSION HEADACHE 08/15/2011 BASSEM [...] A 780.4 DIZZINESS AND VERTIGO 08/15/2011 QUEZADA DO HETAL K 564.00 CONSTIPATION 08/15/2011 QUEZADA DO [...] N 564.00 CONSTIPATION 08/15/2011 MARQUISE GARCÍA MD 780.4 DIZZINESS AND VERTIGO 08/15/2011 MARQUISE GARCÍA MD N 564.00 CONSTIPATION 08/15/2011 MARQUISE GARCÍA MD 780.4 DIZZINESS AND VERTIGO 08/15/2011 MARQUISE GARCÍA MD N 564.00 CONSTIPATION 08/15/2011 MARQUISE GARCÍA MD N 780.4 DIZZINESS AND VERTIGO 08/15/2011 MARQUISE GARCÍA MD N 564.00 CONSTIPATION 08/15/2011 MARQUISE GARCÍA MD N 780.4 DIZZINESS AND VERTIGO 08/15/2011 MARQUISE GARCÍA MD N 564.00 CONSTIPATION 08/15/2011 MARQUISE GARCÍA MD 780.4 DIZZINESS AND VERTIGO 08/15/2011 SABRINA [...] QUEZADA DO, HETAL K 564.00 CONSTIPATION 08/15/2011 HETAL QUEZADA DO K 780.4 DIZZINESS AND VERTIGO 08/15/2011 QUEZADA , HETAL K 564.00 CONSTIPATION 08/15/2011 QUEZADA , HETAL K 780.4 DIZZINESS AND VERTIGO 08/15/2011 TOBYCLAYTON CROWDER, ASHISH A 564.00 CONSTIPATION 08/15/2011 TOBY APRN, ASHISH A 780.4 DIZZINESS AND VERTIGO 08/15/2011 GREG LLOYD MD 564.00 CONSTIPATION 08/15/2011 GREG LLOYD MD 780.4 DIZZINESS AND VERTIGO 08/15/2011 TBOY CROWDER, ASHISH A 564.00 CONSTIPATION 08/15/2011 TOBY APRN, ASHISH A 780.4 DIZZINESS AND VERTIGO 08/15/2011 OLGA CROWDER, ARNOLD R 564.00 CONSTIPATION 08/15/2011 OLGA CROWDER, ARNOLD R 780.4 DIZZINESS AND VERTIGO 08/15/2011 WHITE DDS, WISAM D 564.00 CONSTIPATION 08/15/2011 WHITE DDS, WISAM D 780.4 DIZZINESS AND VERTIGO 08/15/2011 TIMOTHY CROWDER, BORA R 564.00 CONSTIPATION 08/15/2011 TIMOTHY CROWDER, BORA R 780.4 DIZZINESS AND VERTIGO 08/15/2011 TOBYWILFRID Yoo APRNIDI A 564.00 CONSTIPATION 08/15/2011 TOBYWILFRID Yoo APRNIDI A 780.4 DIZZINESS AND VERTIGO 08/15/2011 MARQUISE GARCÍA MD N 564.00 CONSTIPATION 08/15/2011 MARQUISE GARCÍA MD 780.4 DIZZINESS AND VERTIGO 08/15/2011 TOBYNaila CROWDER ASHISH A 564.00 CONSTIPATION 08/15/2011 TOBYWILFRID Yoo APRNIDI A 780.4 DIZZINESS AND VERTIGO 12/22/2011 BASSEM [...] AN PANIC DIS W/O AGORA 12/22/2011 TOBY ESPARZANWILFRIDASHISH A 300.01 AN PANIC DIS W/O AGORA 12/22/2011 DAMIEN HETAL ERWIN 300.01 AN PANIC DIS W/O AGORA 12/22/2011 [...] 300.01 AN PANIC DIS W/O AGORA 12/22/2011 WISAM LOMBARDI DDS 300.01 AN PANIC DIS W/O AGORA 12/22/2011 [...] AN PANIC DIS W AGORA 01/31/2012 TOBY SUPERVISOR COMPOUNDING AND FINISHING, ASHISH A 300.21 AN PANIC DIS W AGORA 01/31/2012 TOBY SUPERVISOR COMPOUNDING AND FINISHING, ASHISH A 300.21 AN PANIC DIS W AGORA 01/31/2012 MARQUISE GARCÍA MD N 300.21 AN PANIC DIS W AGORA 01/31/2012 MARQUISE GARCÍA MD N 300.21 AN PANIC DIS W AGORA 01/31/2012 TOBY SUPERVISOR COMPOUNDING AND FINISHING, ASHISH A 300.21 AN PANIC DIS W [...] AN PANIC DIS W AGORA 01/31/2012 TOBY CROWDER, ASHISH A 300.21 AN PANIC DIS W AGORA 01/31/2012 GREG LLOYD MD 300.21 AN PANIC DIS W AGORA 01/31/2012 ASHISH LUIS APRN A 300.21 AN PANIC DIS W AGORA 01/31/2012 OLGA ARNOLD CROWDER R 300.21 AN PANIC DIS W AGORA 01/31/2012 WHITE DDS, WISAM D 300.21 AN PANIC DIS W AGORA 01/31/2012 TIMOTHY SUPERVISOR COMPOUNDING AND FINISHINGBORA R 300.21 AN PANIC DIS W AGORA 01/31/2012 TOBY SUPERVISOR COMPOUNDING AND FINISHING, ASHISH A 300.21 AN PANIC DIS W AGORA 01/31/2012 MARQUISE GARCÍA MD N 300.21 AN PANIC DIS W AGORA 01/31/2012 TOBY SUPERVISOR COMPOUNDING AND FINISHING, ASHISH A 300.21 AN PANIC DIS W AGORA 03/19/2012 BASSEM BOWER APRN T 296.90 MOOD DISORDER 03/19/2012 BASSEM BOWER APRN T 296.90 MOOD DISORDER 03/19/2012 296.90 MOOD DISORDER 03/19/2012 296.90 MOOD DISORDER 03/19/2012 296.90 MOOD DISORDER 03/19/2012 296.90 MOOD DISORDER 03/19/2012 296.90 MOOD DISORDER 03/19/2012 296.90 MOOD DISORDER 03/19/2012 TOBYNaila CROWDER ASHISH A 296.90 MOOD DISORDER 03/19/2012 HETAL QUEZADA DO 296.90 MOOD DISORDER 03/19/2012 BASSEM BOWER APRN T 296.90 MOOD DISORDER 03/19/2012 296.90 MOOD DISORDER 03/19/2012 MARQUISE GARCÍA MD 296.90 MOOD DISORDER 03/19/2012 TOBYASHISH Yoo APRN A 296.90 MOOD DISORDER 03/19/2012 TOBYNaila CROWDER ASHISH A 296.90 MOOD DISORDER 03/19/2012 MARQUISE GARCÍA MD 296.90 MOOD DISORDER 03/19/2012 MARQUISE GARCÍA MD 296.90 MOOD DISORDER 03/19/2012 TOBYNaila CROWDER ASHISH A 296.90 MOOD DISORDER 03/19/2012 MARQUISE GARCÍA MD 296.90 MOOD DISORDER 03/19/2012 MARQUISE GARCÍA MD 296.90 MOOD DISORDER 03/19/2012 MARQUISE GARCÍA MD 296.90 MOOD DISORDER 03/19/2012 MARQUISE GARCÍA MD 296.90 MOOD DISORDER 03/19/2012 MARQUISE GARCÍA MD 296.90 MOOD DISORDER 03/19/2012 RICKY MD, MARQUISE N 296.90 MOOD DISORDER 03/19/2012 MARQUISE GARCÍA MD N 296.90 MOOD DISORDER 03/19/2012 MARQUISE GARCÍA MD N 296.90 MOOD DISORDER 03/19/2012 SABRINA DUBOSE MD [...] GREG LLOYD MD 296.90 MOOD DISORDER 03/19/2012 ASHISH LUIS APRN A 296.90 MOOD DISORDER 03/19/2012 OLGA CROWDER ARNOLD R 296.90 MOOD DISORDER 03/19/2012 WISAM LOMBARDI DDS 296.90 MOOD DISORDER 03/19/2012 TIMOTHY CROWDER BORA R 296.90 MOOD DISORDER 03/19/2012 WILFRID LUIS APRNIDI A 296.90 MOOD DISORDER 03/19/2012 MARQUISE GARCÍA MD N 296.90 MOOD DISORDER 03/19/2012 ASHISH LUIS APRN A 296.90 MOOD DISORDER 04/03/2012 BASSEM BOWER APRN V74.5 STD SCREEN 04/03/2012 BASSEM BOWER APRN V74.5 STD SCREEN 04/03/2012 V74.5 STD SCREEN 04/03/2012 V74.5 STD SCREEN 04/03/2012 V74.5 STD SCREEN 04/03/2012 V74.5 STD SCREEN 04/03/2012 V74.5 STD SCREEN 04/03/2012 V74.5 STD SCREEN 04/03/2012 ASHISH LUIS APRN A V74.5 STD SCREEN 04/03/2012 HETAL QUEZADA DO K V74.5 STD SCREEN 04/03/2012 BASSEM BOWER APRN V74.5 STD SCREEN 04/03/2012 V74.5 STD SCREEN 04/03/2012 MARQUISE GARCÍA MD V74.5 STD SCREEN 04/03/2012 TOBY SUPERVISOR COMPOUNDING AND FINISHING, ASHISH A V74.5 STD SCREEN 04/03/2012 TOBY CROWDER, ASHISH [...] FITZPATRICK, MARQUISE Yoo V74.5 STD SCREEN 04/03/2012 SABRINA DUBOSE MD V74.5 STD SCREEN 04/03/2012 SABRINA DUBOSE MD V74.5 STD SCREEN 04/03/2012 QUEZADA DO, HETAL [...] MARQUISE GARCÍA MD V74.5 STD SCREEN 04/03/2012 WILFRID LUIS APRNIDI Sanchez V74.5 STD SCREEN 04/18/2012 BASSEM BOWER APRN Raegan 300.00 AN ANXIETY UNSPEC 04/18/2012 BASSEM BOWER APRN Raegan 300.00 AN ANXIETY UNSPEC 04/18/2012 300.00 AN ANXIETY UNSPEC 04/18/2012 300.00 AN ANXIETY UNSPEC 04/18/2012 300.00 AN ANXIETY UNSPEC 04/18/2012 300.00 AN ANXIETY UNSPEC 04/18/2012 300.00 AN ANXIETY UNSPEC 04/18/2012 300.00 AN ANXIETY UNSPEC 04/18/2012 TOBY ESPARZANWILFRIDASHISH A 300.00 AN ANXIETY UNSPEC 04/18/2012 HETAL QUEZADA DO 300.00 AN ANXIETY UNSPEC 04/18/2012 BASSEM BOWER APRN Raegan 300.00 AN ANXIETY UNSPEC 04/18/2012 300.00 AN ANXIETY UNSPEC 04/18/2012 MARQUISE GARCÍA MD 300.00 AN ANXIETY UNSPEC 04/18/2012 TOBY ESPARZANWILFRIDASHISH A 300.00 AN ANXIETY UNSPEC 04/18/2012 TOBY ESPARZANWILFRIDASHISH A 300.00 AN ANXIETY UNSPEC 04/18/2012 MARQUISE GARCÍA MD 300.00 AN ANXIETY UNSPEC 04/18/2012 MARQUISE GARCÍA MD 300.00 AN ANXIETY UNSPEC 04/18/2012 TOBY SUPERVISOR COMPOUNDING AND FINISHINGWILFRIDASHISH A 300.00 AN ANXIETY UNSPEC 04/18/2012 MARQUISE [...] MD N 300.00 AN ANXIETY UNSPEC 04/18/2012 SABRINA DUBOSE [...] LLOYD MD 300.00 AN ANXIETY UNSPEC 04/18/2012 ASHISH LUIS APRN A 300.00 AN ANXIETY UNSPEC 04/18/2012 ARNOLD ESPINOZA APRN R 300.00 AN ANXIETY UNSPEC 04/18/2012 HARJIT GERONIMOS, WISAM D 300.00 AN ANXIETY UNSPEC 04/18/2012 BORA AGUIRRE APRN R 300.00 AN ANXIETY UNSPEC 04/18/2012 ASHISH LUIS [...] APRN A 354.0 CARPAL TUNNEL SYNDROME 06/17/2012 DAMIEN ERWIN, HETAL K 354.0 CARPAL TUNNEL SYNDROME 06/17/2012 BASSEM BOWER APRN 354.0 CARPAL TUNNEL SYNDROME 06/17/2012 354.0 CARPAL TUNNEL SYNDROME 06/17/2012 MARQUISE GARCÍA MD 354.0 CARPAL TUNNEL SYNDROME 06/17/2012 ASHISH LUIS APRN A 354.0 CARPAL TUNNEL SYNDROME 06/17/2012 ASHISH LUIS APRN A 354.0 CARPAL TUNNEL SYNDROME 06/17/2012 MARQUISE GARCÍA MD 354.0 CARPAL TUNNEL SYNDROME 06/17/2012 RICKY MD, MARQUISE N 354.0 CARPAL TUNNEL SYNDROME 06/17/2012 ASHISH LUIS APRN A 354.0 CARPAL TUNNEL SYNDROME 06/17/2012 MARQUISE GARCÍA MD 354.0 CARPAL TUNNEL SYNDROME 06/17/2012 RICKY FITZPATRICK, MARQUISE N 354.0 CARPAL TUNNEL SYNDROME 06/17/2012 MARQUISE [...] CARPAL TUNNEL SYNDROME 06/17/2012 ARNOLD ESPINOZA APRN R 354.0 CARPAL TUNNEL SYNDROME 06/17/2012 WISAM LOMBARDI DDS 354.0 CARPAL TUNNEL SYNDROME 06/17/2012 BORA AGUIRRE APRN 354.0 CARPAL TUNNEL SYNDROME 06/17/2012 ASHISH LUIS APRN A 354.0 CARPAL TUNNEL SYNDROME 06/17/2012 MARQUISE GARCÍA MD N 354.0 CARPAL TUNNEL SYNDROME 06/17/2012 ASHISH LUIS APRN A 354.0 CARPAL TUNNEL SYNDROME 10/29/2012 V25.09 CONTRACEPTIVE COUNSELING - GENERAL 10/29/2012 V25.09 CONTRACEPTIVE COUNSELING - GENERAL 10/29/2012 V25.09 CONTRACEPTIVE COUNSELING - GENERAL 10/29/2012 V25.09 CONTRACEPTIVE COUNSELING - GENERAL 10/29/2012 V25.09 CONTRACEPTIVE COUNSELING - GENERAL 10/29/2012 V25.09 CONTRACEPTIVE COUNSELING - GENERAL 10/29/2012 ASHISH LUIS APRN A V25.09 CONTRACEPTIVE COUNSELING - GENERAL 10/29/2012 HETAL QUEZADA DO V25.09 CONTRACEPTIVE COUNSELING - GENERAL 10/29/2012 BASSEM BOWER APRN V25.09 CONTRACEPTIVE COUNSELING - GENERAL 10/29/2012 V25.09 CONTRACEPTIVE COUNSELING - GENERAL 10/29/2012 MARQUISE GARCÍA MD V25.09 CONTRACEPTIVE COUNSELING - GENERAL 10/29/2012 ASHISH LUIS APRN V25.09 CONTRACEPTIVE COUNSELING - GENERAL 10/29/2012 ASHISH LUIS APRN V25.09 CONTRACEPTIVE COUNSELING - GENERAL 10/29/2012 MARQUISE GARCÍA MD V25.09 CONTRACEPTIVE COUNSELING - GENERAL 10/29/2012 MARQUISE GARCÍA MD V25.09 CONTRACEPTIVE COUNSELING - GENERAL 10/29/2012 ASHISH LUIS APRN V25.09 CONTRACEPTIVE COUNSELING - GENERAL 10/29/2012 MARQUISE [...] DO V25.09 CONTRACEPTIVE COUNSELING - GENERAL 10/29/2012 QUEZADA DO, HETAL K V25.09 CONTRACEPTIVE COUNSELING - GENERAL 10/29/2012 QUEZADA DOMAIAA K V25.09 CONTRACEPTIVE COUNSELING - GENERAL 10/29/2012 QUEZADA DO, HETAL K V25.09 CONTRACEPTIVE COUNSELING - GENERAL 10/29/2012 TOBY CROWDER, ASHISH A V25.09 CONTRACEPTIVE COUNSELING - GENERAL 10/29/2012 GREG LLOYD MD V25.09 CONTRACEPTIVE COUNSELING - GENERAL 10/29/2012 ASHISH LUIS APRN A V25.09 CONTRACEPTIVE COUNSELING - GENERAL 10/29/2012 ARNOLD ESPINOZA APRN V25.09 CONTRACEPTIVE COUNSELING - GENERAL 10/29/2012 HARJIT GERONIMOS, WISAM D V25.09 CONTRACEPTIVE COUNSELING - GENERAL 10/29/2012 BORA [...] APRN A V25.11 IUD INSERTION 11/06/2012 HETAL QEUZADA DO V25.11 IUD INSERTION 11/06/2012 BASSEM BOWER APRN V25.11 IUD INSERTION 11/06/2012 V25.11 IUD INSERTION 11/06/2012 MARQUISE GARCÍA MD V25.11 IUD INSERTION 11/06/2012 ASHISH LUIS APRN A V25.11 IUD INSERTION 11/06/2012 ASHISH LUIS APRN A V25.11 IUD INSERTION 11/06/2012 MARQUISE GARCÍA MD V25.11 IUD INSERTION 11/06/2012 MARQUISE GARCÍA MD V25.11 IUD INSERTION 11/06/2012 ASHISH LUIS APRN A V25.11 IUD INSERTION 11/06/2012 MARQUISE GARCÍA MD V25.11 IUD INSERTION 11/06/2012 RICKY FITZPATRICK, MARQUISE [...] FITZPATRICK, SABRINA Ramos V25.11 IUD INSERTION 11/06/2012 HETAL QUEZADA DO K V25.11 IUD INSERTION 11/06/2012 DAMIEN ERWIN HETAL K V25.11 IUD INSERTION 11/06/2012 MAIA QUEZADA DOA K V25.11 IUD INSERTION 11/06/2012 MAIA QUEZADA DOA K V25.11 IUD INSERTION 11/06/2012 ASHISH LUIS APRN A V25.11 IUD INSERTION 11/06/2012 GREG LLOYD MD V25.11 IUD INSERTION 11/06/2012 ASHISH LUIS APRN A V25.11 IUD INSERTION 11/06/2012 ARNOLD ESPINOZA APRN R V25.11 IUD INSERTION 11/06/2012 HARJIT GERONIMOS, WISAM Nice V25.11 IUD INSERTION 11/06/2012 BORA AGUIRRE APRN R V25.11 IUD INSERTION 11/06/2012 ASHISH LUIS APRN [...] CONTRACEPTION SURVEILLANCE (IUD) 12/17/2012 HETAL QUEZADA DO K 682.9 CELLULITIS AND ABSCESS OF UNSPECIFIED SITES 12/17/2012 HETAL QUEZADA DO K V25.42 CONTRACEPTION SURVEILLANCE (IUD) 12/17/2012 BASSEM [...] AND ABSCESS OF UNSPECIFIED SITES 12/17/2012 QUEZADA DO, HETAL K V25.42 CONTRACEPTION SURVEILLANCE (IUD) 12/17/2012 QUEZADA DO, HETAL K 682.9 CELLULITIS AND ABSCESS OF UNSPECIFIED SITES 12/17/2012 QUEZADA DO, HETAL K V25.42 CONTRACEPTION SURVEILLANCE (IUD) 12/17/2012 QUEZADA DO, HETAL K 682.9 CELLULITIS AND ABSCESS OF UNSPECIFIED SITES 12/17/2012 QUEZADA DO HETAL K V25.42 CONTRACEPTION SURVEILLANCE (IUD) 12/17/2012 ASHISH [...] APRN V25.42 CONTRACEPTION SURVEILLANCE (IUD) 12/17/2012 MARQUISE GRACÍA MD 682.9 CELLULITIS AND ABSCESS OF UNSPECIFIED [...] OR REMOVAL OF NONSURGICAL WOUND DRESSING 12/19/2012 DAMIEN ERWIN HETAL K V58.30 ENCOUNTER FOR CHANGE OR REMOVAL OF NONSURGICAL WOUND DRESSING 12/19/2012 DAMIEN ERWIN HETAL K V58.30 ENCOUNTER FOR CHANGE OR REMOVAL [...] OR REMOVAL OF NONSURGICAL WOUND DRESSING 12/19/2012 RICKY MD, MARQUISE N V58.30 ENCOUNTER FOR CHANGE OR REMOVAL OF NONSURGICAL WOUND DRESSING 12/19/2012 WILFRID LUIS APRNIDI A V58.30 ENCOUNTER FOR CHANGE OR REMOVAL OF NONSURGICAL WOUND DRESSING 02/12/2013 TOBYNaila CROWDER ASHISH A V25.12 IUD REMOVAL 02/12/2013 HETAL QUEZADA DO V25.12 IUD REMOVAL 02/12/2013 BASSEM BOWER APRN V25.12 IUD REMOVAL 02/12/2013 V25.12 IUD REMOVAL 02/12/2013 MARQUISE GARCÍA MD N V25.12 IUD REMOVAL 02/12/2013 TOBYASHISH Yoo APRN A V25.12 IUD REMOVAL 02/12/2013 ASHISH LUIS APRN A V25.12 IUD REMOVAL 02/12/2013 MARQUISE GARCÍA MD V25.12 IUD REMOVAL 02/12/2013 MARQUISE GARCÍA MD V25.12 IUD REMOVAL 02/12/2013 ASHISH LUIS APRN A V25.12 IUD REMOVAL 02/12/2013 MARQUISE GARCÍA [...] MARQUISE GARCÍA MD V25.12 IUD REMOVAL 02/12/2013 SABRINA DUBOSE MD V25.12 IUD REMOVAL 02/12/2013 SABRINA DUBOSE MD V25.12 IUD REMOVAL 02/12/2013 HETAL QUEZADA DO K V25.12 IUD REMOVAL 02/12/2013 MAIA QUEZADA DOA K V25.12 IUD REMOVAL 02/12/2013 MAIA QUEZADA DOA K V25.12 IUD REMOVAL 02/12/2013 HETAL QUEZADA DO K V25.12 IUD REMOVAL 02/12/2013 TOBYCLAYTON ESPARZAN, ASHISH A V25.12 IUD REMOVAL 02/12/2013 GABINO FITZPATRICK, GREG V25.12 IUD REMOVAL 02/12/2013 TOBY SUPERVISOR COMPOUNDING AND FINISHING, ASHISH A V25.12 IUD REMOVAL 02/12/2013 OLGA SUPERVISOR COMPOUNDING AND FINISHING, ARNOLD R V25.12 IUD REMOVAL 02/12/2013 WHITE DDS, WISAM D V25.12 IUD REMOVAL 02/12/2013 TIMOTHY SUPERVISOR COMPOUNDING AND FINISHING, BORA R V25.12 IUD REMOVAL 02/12/2013 TOBY SUPERVISOR COMPOUNDING AND FINISHING, ASHISH A V25.12 IUD REMOVAL 02/12/2013 RICKY FITZPATRICK, MARQUISE Yoo V25.12 IUD REMOVAL 02/12/2013 TOBY APRN, ASHISH A V25.12 IUD REMOVAL 05/12/2013 TOBY APRN, ASHISH A V65.45 COUNSELING - STD 05/12/2013 HETAL [...] LOMBARDI DDS V65.45 COUNSELING - STD 05/12/2013 BORA AGUIRRE APRN V65.45 COUNSELING - STD 05/12/2013 ASHISH LUIS APRN V65.45 COUNSELING - STD 05/12/2013 MARQUISE GARCÍA MD V65.45 COUNSELING - STD 05/12/2013 ASHISH LUIS APRN V65.45 COUNSELING - STD 05/20/2013 HETAL QUEZADA [...] GARCÍA MD V72.42 TEST POSITIVE RESULT 05/20/2013 TOBY SUPERVISOR COMPOUNDING AND FINISHING, ASHISH A V72.42 TEST POSITIVE RESULT 05/20/2013 MARQUISE [...] TEST POSITIVE RESULT 05/20/2013 ARNOLD ESPINOZA APRN R V72.42 TEST POSITIVE RESULT 05/20/2013 WISAM LOMBARDI DDS V72.42 TEST POSITIVE RESULT 05/20/2013 BORA AGUIRRE APRN V72.42 TEST POSITIVE RESULT 05/20/2013 ASHISH LUIS APRN A V72.42 TEST POSITIVE RESULT 05/20/2013 MARQUISE GARCÍA MD V72.42 TEST POSITIVE RESULT 05/20/2013 ASHISH LUIS APRN A V72.42 TEST POSITIVE RESULT 06/02/2013 BASSEM BOWER APRN T 008.8 GASTROENTERITIS, VIRAL 06/02/2013 SATHISH SUPERVISOR COMPOUNDING AND FINISHING, BASSEM T 465.9 UPPER RESPIRATORY INFECTION 06/02/2013 008.8 GASTROENTERITIS, VIRAL 06/02/2013 465.9 UPPER RESPIRATORY INFECTION 06/02/2013 MARQUISE GARCÍA MD N 008.8 GASTROENTERITIS, VIRAL 06/02/2013 MARQUISE GARCÍA MD N 465.9 UPPER RESPIRATORY INFECTION 06/02/2013 [facility] SUPERVISOR COMPOUNDING AND FINISHING, ASHISH A 008.8 GASTROENTERITIS, VIRAL 06/02/2013 [facility] SUPERVISOR COMPOUNDING AND FINISHING, ASHISH A 465.9 UPPER RESPIRATORY INFECTION 06/02/2013 [facility] SUPERVISOR COMPOUNDING AND FINISHING, ASHISH A 008.8 GASTROENTERITIS, VIRAL 06/02/2013 [facility] SUPERVISOR COMPOUNDING AND FINISHING, ASHISH A 465.9 UPPER RESPIRATORY INFECTION 06/02/2013 MARQUISE GARCÍA MD N 008.8 GASTROENTERITIS, VIRAL 06/02/2013 MARQUISE GARCÍA MD N 465.9 UPPER RESPIRATORY INFECTION 06/02/2013 MARQUISE GARCÍA MD N 008.8 GASTROENTERITIS, VIRAL 06/02/2013 MARQUISE GARCÍA MD N 465.9 UPPER RESPIRATORY INFECTION 06/02/2013 [facility] VEL, ASHISH A 008.8 GASTROENTERITIS, VIRAL 06/02/2013 TOBY APRN, ASHISH A 465.9 UPPER RESPIRATORY INFECTION 06/02/2013 [...] MD N 465.9 UPPER RESPIRATORY INFECTION 06/02/2013 SABRINA [...] HETAL K 008.8 GASTROENTERITIS, VIRAL 06/02/2013 QUEZADA DO, HETAL K 465.9 UPPER RESPIRATORY INFECTION 06/02/2013 QUEZADA DO, HETAL K 008.8 GASTROENTERITIS, VIRAL 06/02/2013 QUEZADA , HETAL K 465.9 UPPER RESPIRATORY INFECTION 06/02/2013 TOBY CROWDER, ASHISH A 008.8 GASTROENTERITIS, VIRAL 06/02/2013 TOBY APRN, ASHISH A 465.9 UPPER RESPIRATORY INFECTION 06/02/2013 GREG LLOYD MD 008.8 GASTROENTERITIS, VIRAL 06/02/2013 GREG LLOYD MD 465.9 UPPER RESPIRATORY INFECTION 06/02/2013 TOBY SUPERVISOR COMPOUNDING AND FINISHING, ASHISH A 008.8 GASTROENTERITIS, VIRAL 06/02/2013 TOBY SUPERVISOR COMPOUNDING AND FINISHING, ASHISH A 465.9 UPPER RESPIRATORY INFECTION 06/02/2013 OLGA CROWDER, ARNOLD R 008.8 GASTROENTERITIS, VIRAL 06/02/2013 OLGA CROWDER, ARNOLD R 465.9 UPPER RESPIRATORY INFECTION 06/02/2013 HARJIT GERONIMOS, WISAM Nice 008.8 GASTROENTERITIS, VIRAL 06/02/2013 HARJIT GERONIMOSWISAM 465.9 UPPER RESPIRATORY INFECTION 06/02/2013 BORA AGUIRRE APRN R 008.8 GASTROENTERITIS, VIRAL 06/02/2013 TIMOTHY CROWDER BORA R 465.9 UPPER RESPIRATORY INFECTION 06/02/2013 TOBY APRN, ASHISH A 008.8 GASTROENTERITIS, VIRAL 06/02/2013 TOBY SUPERVISOR COMPOUNDING AND FINISHING, ASHISH A 465.9 UPPER RESPIRATORY INFECTION 06/02/2013 MARQUISE GARCÍA MD N 008.8 GASTROENTERITIS, VIRAL 06/02/2013 MARQUISE GARCÍA MD 465.9 UPPER RESPIRATORY INFECTION 06/02/2013 TOBY APRN, ASHISH A 008.8 GASTROENTERITIS, VIRAL 06/02/2013 TOBY APRN, ASHISH A 465.9 UPPER RESPIRATORY INFECTION 06/18/2013 V04.3 RUBELLA NON-IMMUNE - NEED FOR VACCINATION 06/18/2013 V22.0 , [...] ERWINA K V22.0 , NORMAL FIRST 06/18/2013 QUEZADA MAIA ERWINA K V04.3 RUBELLA NON-IMMUNE - NEED FOR VACCINATION 06/18/2013 QUEZADA DO HETAL K V22.0 , NORMAL FIRST 06/18/2013 QUEZADA DO, HETAL K V04.3 RUBELLA NON-IMMUNE - NEED FOR VACCINATION 06/18/2013 QUEZADA DO, HETAL K V22.0 , NORMAL FIRST 06/18/2013 QUEZADA DO, HETAL K V04.3 RUBELLA NON-IMMUNE - NEED FOR VACCINATION 06/18/2013 QUEZADA DO, HETAL K V22.0 , NORMAL FIRST 06/18/2013 TOBY SUPERVISOR COMPOUNDING AND FINISHING, ASHISH A V04.3 RUBELLA NON-IMMUNE - NEED FOR VACCINATION 06/18/2013 TOBY SUPERVISOR COMPOUNDING AND FINISHING, ASHISH A V22.0 , NORMAL FIRST 06/18/2013 GREG LLOYD MD V04.3 RUBELLA NON-IMMUNE - NEED FOR VACCINATION 06/18/2013 GREG LLOYD MD V22.0 , NORMAL FIRST 06/18/2013 TOBY APRN, ASHISH A V04.3 RUBELLA NON-IMMUNE - NEED FOR VACCINATION 06/18/2013 TOBY APRN, ASHISH A V22.0 , NORMAL FIRST 06/18/2013 OLGA ESPARZAN, ARNOLD R V04.3 RUBELLA NON-IMMUNE - NEED FOR VACCINATION 06/18/2013 OLGA ESPARZAN, ARNOLD R V22.0 , NORMAL FIRST 06/18/2013 HARJIT DDS, WISAM Nice V04.3 RUBELLA NON-IMMUNE - NEED FOR VACCINATION 06/18/2013 WHITE DDS, WISAM Nice V22.0 , NORMAL FIRST 06/18/2013 TIMOTHY CROWDER, BORA R V04.3 RUBELLA NON-IMMUNE - NEED FOR VACCINATION 06/18/2013 LEMUEL AGUIRRE APRNRICIA R V22.0 , NORMAL FIRST 06/18/2013 TOBY APRN, ASHISH A V04.3 RUBELLA NON-IMMUNE - NEED FOR VACCINATION 06/18/2013 TOBY APRN, ASHISH A V22.0 , NORMAL FIRST 06/18/2013 MARQUISE GARCÍA MD V04.3 RUBELLA NON-IMMUNE - NEED FOR VACCINATION 06/18/2013 MARQUISE GARCÍA MD V22.0 , NORMAL FIRST 06/18/2013 TOBY APRN, ASHISH A V04.3 RUBELLA NON-IMMUNE - NEED FOR VACCINATION 06/18/2013 TOBY SUPERVISOR COMPOUNDING AND FINISHING, ASHISH A V22.0 , NORMAL FIRST 07/09/2013 RICKY FITZPATRICK, MARQUISE N 784.0 HEADACHE 07/09/2013 TOBY SUPERVISOR COMPOUNDING AND FINISHING, ASHISH A 784.0 HEADACHE 07/09/2013 TOBY SUPERVISOR COMPOUNDING AND FINISHING, ASHISH A 784.0 HEADACHE 07/09/2013 RICKY FITZPATRICK, MARQUISE N 784.0 HEADACHE 07/09/2013 RICKY FITZPATRICK, MARQUISE N 784.0 HEADACHE 07/09/2013 TOBY SUPERVISOR COMPOUNDING AND FINISHING, ASHISH A 784.0 HEADACHE 07/09/2013 RICKY FITZPATRICK, [...] QUEZADA DO, HETAL K 784.0 HEADACHE 07/09/2013 QUEZDAA DO, HETAL K 784.0 HEADACHE 07/09/2013 TOBY SUPERVISOR COMPOUNDING AND FINISHING, ASHISH A 784.0 HEADACHE 07/09/2013 GREG LLOYD MD 784.0 HEADACHE 07/09/2013 TOBY SUPERVISOR COMPOUNDING AND FINISHING, ASHISH A 784.0 HEADACHE 07/09/2013 OLGA SUPERVISOR COMPOUNDING AND FINISHING, ARNOLD R 784.0 HEADACHE 07/09/2013 WISAM LOMBARDI DDS 784.0 HEADACHE 07/09/2013 TIMOTHY SUPERVISOR COMPOUNDING AND FINISHING, BORA R 784.0 HEADACHE 07/09/2013 TOBY SUPERVISOR COMPOUNDING AND FINISHING, ASHISH A 784.0 HEADACHE 07/09/2013 RICKY MD, MARQUISE N 784.0 HEADACHE 07/09/2013 TOBY APRN, ASHISH A 784.0 HEADACHE 07/28/2013 TOBYASHISH Yoo APRN A 112.1 CANDIDIASIS VAGINAL 07/28/2013 MARQUISE GARCÍA MD N 112.1 CANDIDIASIS VAGINAL 07/28/2013 MARQUISE GARCÍA MD 112.1 CANDIDIASIS VAGINAL 07/28/2013 TOBYASHISH Yoo APRN A 112.1 CANDIDIASIS VAGINAL 07/28/2013 MARQUISE GARCÍA MD N 112.1 CANDIDIASIS VAGINAL 07/28/2013 MARQUISE GARCÍA MD N 112.1 CANDIDIASIS VAGINAL 07/28/2013 MARQUISE GARCÍA MD N 112.1 CANDIDIASIS VAGINAL 07/28/2013 MARQUISE GARCÍA MD 112.1 CANDIDIASIS VAGINAL 07/28/2013 MARQUISE GARCÍA MD N 112.1 CANDIDIASIS VAGINAL 07/28/2013 MARQUISE GARCÍA MD N 112.1 CANDIDIASIS VAGINAL 07/28/2013 MARQUISE GARCÍA MD N 112.1 CANDIDIASIS VAGINAL 07/28/2013 MARQUISE GARCÍA MD N 112.1 CANDIDIASIS VAGINAL 07/28/2013 SABRINA DUBOSE MD 112.1 CANDIDIASIS VAGINAL 07/28/2013 SABRINA DUBOSE MD 112.1 CANDIDIASIS VAGINAL 07/28/2013 DAMIEN ERWIN HETAL K 112.1 CANDIDIASIS VAGINAL 07/28/2013 DAMIEN ERWIN HETAL K 112.1 CANDIDIASIS VAGINAL 07/28/2013 DAMIEN ERWIN HETAL K 112.1 CANDIDIASIS VAGINAL 07/28/2013 DAMIEN ERWIN HETAL K 112.1 CANDIDIASIS VAGINAL 07/28/2013 TOBYASHISH Yoo APRN A 112.1 CANDIDIASIS VAGINAL 07/28/2013 GREG LLOYD MD 112.1 CANDIDIASIS VAGINAL 07/28/2013 TOBYASHISH Yoo APRN A 112.1 CANDIDIASIS VAGINAL 07/28/2013 ARNOLD ESPINOZA APRN R 112.1 CANDIDIASIS VAGINAL 07/28/2013 WISAM LOMBARDI DDS 112.1 CANDIDIASIS VAGINAL 07/28/2013 BORA AGUIRRE APRN R 112.1 CANDIDIASIS VAGINAL 07/28/2013 TOBYASHISH Yoo APRN A 112.1 CANDIDIASIS VAGINAL 07/28/2013 MARQUISE GARCÍA MD 112.1 CANDIDIASIS VAGINAL 07/28/2013 TOBY SUPERVISOR COMPOUNDING AND FINISHING, ASHISH A 112.1 CANDIDIASIS VAGINAL 08/26/2013 TOBY SUPERVISOR COMPOUNDING AND FINISHING, ASHISH A 455.3 EXTERNAL HEMORRHOIDS WITHOUT COMPLICATION [...] 455.3 EXTERNAL HEMORRHOIDS WITHOUT COMPLICATION 08/26/2013 TOBY SUPERVISOR COMPOUNDING AND FINISHING, ASHISH A 455.3 EXTERNAL HEMORRHOIDS WITHOUT COMPLICATION 08/26/2013 GREG LLOYD MD 455.3 EXTERNAL HEMORRHOIDS WITHOUT COMPLICATION 08/26/2013 TOBY SUPERVISOR COMPOUNDING AND FINISHING, ASHISH A 455.3 EXTERNAL HEMORRHOIDS WITHOUT COMPLICATION 08/26/2013 OLGA SUPERVISOR COMPOUNDING AND FINISHING, ARNOLD R 455.3 EXTERNAL HEMORRHOIDS WITHOUT COMPLICATION 08/26/2013 WISAM LOMBARDI DDS 455.3 EXTERNAL HEMORRHOIDS WITHOUT COMPLICATION 08/26/2013 TIMOTHY SUPERVISOR COMPOUNDING AND FINISHING, BORA R 455.3 EXTERNAL HEMORRHOIDS WITHOUT COMPLICATION 08/26/2013 TOBY SUPERVISOR COMPOUNDING AND FINISHING, ASHISH A 455.3 EXTERNAL HEMORRHOIDS WITHOUT COMPLICATION 08/26/2013 MARQUISE GARCÍA MD 455.3 EXTERNAL HEMORRHOIDS WITHOUT COMPLICATION 08/26/2013 TOBY ESPARZAN, ASHISH A 455.3 EXTERNAL HEMORRHOIDS WITHOUT COMPLICATION 10/02/2013 MARQUISE GARCÍA MD Ot 646.83 PREG COMPL NEC-ANTEPART 10/02/2013 MARQUISE GARCÍA MD Ot 789.00 ABDOMINAL PAIN, UNSPECIFIED SITE 10/17/2013 MARQUISE GARCÍA MD N 789.07 ABDOMINAL PAIN GENERALIZED 10/17/2013 MARQUISE GARCÍA [...] ERWINA K 789.07 ABDOMINAL PAIN GENERALIZED 10/17/2013 ASHISH LUIS APRN A 789.07 ABDOMINAL PAIN GENERALIZED 10/17/2013 GREG LLOYD MD 789.07 ABDOMINAL PAIN GENERALIZED 10/17/2013 ASHISH LUIS APRN A 789.07 ABDOMINAL PAIN GENERALIZED 10/17/2013 ARNOLD ESPINOZA APRN R 789.07 ABDOMINAL PAIN GENERALIZED 10/17/2013 WISAM LOMBARDI DDS 789.07 ABDOMINAL PAIN GENERALIZED 10/17/2013 BORA AGUIRRE APRN 789.07 ABDOMINAL PAIN GENERALIZED 10/17/2013 ASHISH LUIS APRN A 789.07 ABDOMINAL PAIN GENERALIZED 10/17/2013 MARQUISE GARCÍA MD 789.07 ABDOMINAL PAIN GENERALIZED 10/17/2013 ASHISH LUIS APRN A 789.07 ABDOMINAL PAIN GENERALIZED 10/29/2013 MARQUISE GARCÍA MD V06.1 DTAP DX 10/29/2013 MARQUISE GARCÍA MD V06.1 DTAP DX 10/29/2013 RICKY FITZPATRICK, MARQUISE Yoo V06.1 DTAP DX 10/29/2013 SABRINA DUBOSE MD V06.1 DTAP DX 10/29/2013 SEDRICK FITZPATRICK, SABRINA Ramos V06.1 DTAP DX 10/29/2013 QUEZADA DO, HETAL K V06.1 DTAP DX 10/29/2013 QUEZADA DO, HETAL K V06.1 DTAP DX 10/29/2013 QUEZADA DO, HETAL K V06.1 DTAP DX 10/29/2013 QUEZADA DO, HETAL K V06.1 DTAP DX 10/29/2013 TOBY SUPERVISOR COMPOUNDING AND FINISHING, ASHISH A V06.1 DTAP DX 10/29/2013 GABINO FITZPATRICK, GREG V06.1 DTAP DX 10/29/2013 TOBY SUPERVISOR COMPOUNDING AND FINISHING, ASHISH A V06.1 DTAP DX 10/29/2013 OLGA SUPERVISOR COMPOUNDING AND FINISHING, ARNOLD R V06.1 DTAP DX 10/29/2013 HARJIT GERONIMOS, WISAM D V06.1 DTAP DX 10/29/2013 TIMOTHY SUPERVISOR COMPOUNDING AND FINISHING, BORA R V06.1 DTAP DX 10/29/2013 TOBY SUPERVISOR COMPOUNDING AND FINISHING, ASHISH A V06.1 DTAP DX 10/29/2013 RICKY FITZPATRICK, MARQUISE Yoo V06.1 DTAP DX 10/29/2013 TOBYCLAYTON CROWDER, ASHISH A V06.1 DTAP DX 12/22/2013 SABRINA [...] P/P 01/17/2014 SABRINA DUBOSE MD Ot V06.4 AOG-GIWEKZ-QSTLP-RUBELLA 01/17/2014 SABRINA DUBOSE MD J Ot V27.0 DELIVER-SINGLE LIVEBORN 02/26/2014 ASHISH LUIS APRN [...] V24.2 F/U, ROUTINE 02/26/2014 ARNOLD ESPINOZA APRN R V25.01 CONTRACEPTION - ORAL CONTRACEPTION 02/26/2014 WHITE DDS, WISAM Nice V24.2 F/U, ROUTINE 02/26/2014 WHITE DDS, WISAM Nice V25.01 CONTRACEPTION - ORAL CONTRACEPTION 02/26/2014 HELIO AGUIRRE APRNIA R V24.2 F/U, ROUTINE 02/26/2014 HELIO AGUIRRE APRNIA R V25.01 CONTRACEPTION - ORAL CONTRACEPTION 02/26/2014 [...] JOINT DISORDERS ARTHRALGIA OF TEMPOROMANDIBULAR JOINT 03/05/2014 ARNOLD ESPINOZA APRN 524.62 TEMPOROMANDIBULAR JOINT DISORDERS ARTHRALGIA OF TEMPOROMANDIBULAR JOINT 03/05/2014 WHITE JUANPABLOS, WISAM Nice 524.62 TEMPOROMANDIBULAR JOINT DISORDERS ARTHRALGIA OF TEMPOROMANDIBULAR JOINT 03/05/2014 BORA AGUIRRE APRN R 524.62 TEMPOROMANDIBULAR JOINT DISORDERS ARTHRALGIA OF TEMPOROMANDIBULAR JOINT 03/05/2014 TOBYASHISH ARNOLD APRN A 524.62 TEMPOROMANDIBULAR JOINT DISORDERS ARTHRALGIA OF TEMPOROMANDIBULAR JOINT 03/05/2014 MARQUISE GARCÍA MD N 524.62 TEMPOROMANDIBULAR JOINT DISORDERS ARTHRALGIA OF TEMPOROMANDIBULAR JOINT 03/05/2014 ASHISH LUIS APRN A 524.62 TEMPOROMANDIBULAR JOINT DISORDERS ARTHRALGIA OF TEMPOROMANDIBULAR JOINT 04/30/2014 WILFRID LUIS APRNIDI A 789.01 ABDOMINAL PAIN RIGHT UPPER QUADRANT 04/30/2014 ALIX ESPINOZA APRNINA R 789.01 ABDOMINAL PAIN RIGHT UPPER QUADRANT 04/30/2014 HARJIT GERONIMOS, WISAM Nice 789.01 ABDOMINAL PAIN RIGHT UPPER QUADRANT 04/30/2014 BORA AGUIRRE APRN R 789.01 ABDOMINAL PAIN RIGHT UPPER QUADRANT 04/30/2014 WILFRID LUIS APRNIDI A 789.01 ABDOMINAL PAIN RIGHT UPPER QUADRANT 04/30/2014 MARQUISE GARCÍA MD N 789.01 ABDOMINAL PAIN RIGHT UPPER QUADRANT 04/30/2014 WILFRID LUIS APRNIDI A 789.01 ABDOMINAL PAIN RIGHT UPPER QUADRANT 05/21/2014 TOBYWILFRID ARNOLD APRNIDI A 623.5 LEUKORRHEA NOT SPECIFIED INFECTIVE 05/21/2014 WILFRID LUIS APRNIDI A V25.09 CONTRACEPTIVE COUNSELING - GENERAL 05/21/2014 ALIX ESPINOZA APRNINA R 623.5 LEUKORRHEA NOT SPECIFIED INFECTIVE 05/21/2014 ALIX ESPINOZA APRNINA R V25.09 CONTRACEPTIVE COUNSELING - GENERAL 05/21/2014 HARJIT GERONIMOSWISAM 623.5 LEUKORRHEA NOT SPECIFIED INFECTIVE 05/21/2014 HARJIT GERONIMOSWISAM V25.09 CONTRACEPTIVE COUNSELING - GENERAL 05/21/2014 BORA AGUIRRE APRN R 623.5 LEUKORRHEA NOT SPECIFIED INFECTIVE 05/21/2014 BORA AGUIRRE APRN R V25.09 CONTRACEPTIVE COUNSELING - GENERAL 05/21/2014 ASHISH LUIS APRN A 623.5 LEUKORRHEA NOT SPECIFIED INFECTIVE 05/21/2014 ASHISH LUIS APRN A V25.09 CONTRACEPTIVE COUNSELING - GENERAL 05/21/2014 MARQUISE GARCÍA MD N 623.5 LEUKORRHEA NOT SPECIFIED INFECTIVE 05/21/2014 MARQUISE GARCÍA MD N V25.09 CONTRACEPTIVE COUNSELING - GENERAL 05/21/2014 ASHISH LUIS APRN A 623.5 LEUKORRHEA NOT SPECIFIED INFECTIVE 05/21/2014 ASHISH LUIS APRN A V25.09 CONTRACEPTIVE COUNSELING - GENERAL 06/16/2014 ARNOLD ESPNIOZA APRN R 719.44 PAIN IN JOINT INVOLVING HAND 06/16/2014 ARNOLD ESPINOZA APRN R 727.49 OTHER GANGLION AND CYST OF SYNOVIUM TENDON AND BURSA 06/16/2014 WISAM LOMBARDI DDS D 719.44 PAIN IN JOINT INVOLVING HAND [...] OF SYNOVIUM TENDON AND BURSA 06/16/2014 MARQUISE GARCAÍ MD N 719.44 PAIN IN JOINT INVOLVING HAND 06/16/2014 MARQUISE GARCÍA MD N 727.49 OTHER GANGLION AND CYST OF SYNOVIUM TENDON AND BURSA 06/16/2014 ASHISH LUIS APRN A 719.44 PAIN IN JOINT INVOLVING HAND 06/16/2014 ASHISH LUIS APRN A 727.49 OTHER GANGLION AND CYST OF SYNOVIUM TENDON AND BURSA 07/22/2014 BORA AGUIRRE APRN R 465.9 UPPER RESPIRATORY INFECTION 07/22/2014 BORA AGUIRRE APRN R V15.82 NICOTINE ABUSE 07/22/2014 TOBY CROWDER ASHISH A 465.9 UPPER RESPIRATORY INFECTION 07/22/2014 [...] TOBY APRN, ASHISH A 786.2 COUGH 08/31/2014 TOBYASHISH Yoo APRN A 625.8 OTHER [...] ABNORMAL BLEEDING FROM FEMALE GENITAL TRACT 04/21/2015 MARQIUSE GARCÍA MD Ot V28.81 04/21/2015 ARNOLD ESPINOZA [...] Ot V28.81 ENCOUNTER FOR ANATOMIC SURVEY 05/25/2016 ARNOLD ESPINOZA SUPERVISOR COMPOUNDING AND FINISHING Ot 789.01 ABDOMINAL PAIN, RIGHT UPPER QUADRANT 05/25/2016 MARQUISE GARCÍA MD Ot R10.2 PELVIC AND PERINEAL PAIN 05/26/2016 MADL, GAYLE L PRESS 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 Ot R10.11 RIGHT UPPER QUADRANT PAIN 05/29/2016 MADL, GAYLE L PRESS 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 Ot R10.11 RIGHT UPPER QUADRANT PAIN 06/08/2016 MADL, GAYLE L PRESS 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 Ot R10.11 RIGHT UPPER QUADRANT PAIN 07/28/2016 BASSEM BOWER PRESS 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 Ot R10.11 RIGHT UPPER QUADRANT PAIN 08/09/2016 BASSEM BOWER PRESS 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 Ot R10.11 RIGHT UPPER QUADRANT PAIN 08/28/2016 BASSEM BOWER PRESS 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 Ot R10.11 RIGHT UPPER QUADRANT PAIN 07/18/2017 MONICA STEWART APRN Ot J11.1 FLU DUE TO UNIDENTIFIED INFLUENZA VIRUS 07/18/2017 MONICA STEWART APRN Ot R05 COUGH 07/18/2017 MARQUISE GARCÍA MD Ot V28.81 ENCOUNTER FOR ANATOMIC SURVEY 07/18/2017 ARNOLD ESPINOZA SUPERVISOR COMPOUNDING AND FINISHING Ot 789.01 ABDOMINAL PAIN, RIGHT UPPER QUADRANT 07/18/2017 MARQUISE GARCÍA MD Ot R10.2 PELVIC AND PERINEAL PAIN 07/18/2017 DICKL, GAYLE L PRESS 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 Ot R10.11 RIGHT UPPER QUADRANT PAIN 09/06/2017 MARQUISE GARCÍA MD Ot V28.81 ENCOUNTER FOR ANATOMIC SURVEY 09/06/2017 ARNOLD ESPINOZA SUPERVISOR COMPOUNDING AND FINISHING Ot 789.01 ABDOMINAL PAIN, RIGHT UPPER QUADRANT 09/06/2017 MARQUISE GARCÍA MD Ot R10.2 PELVIC AND PERINEAL PAIN 09/06/2017 MADL, GAYLE L PRESS 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 Ot R10.11 RIGHT UPPER QUADRANT PAIN 07/12/2018 MARQUISE GARCÍA MD Ot V28.81 ENCOUNTER FOR ANATOMIC SURVEY 07/12/2018 ARNOLD ESPINOZA SUPERVISOR COMPOUNDING AND FINISHING Ot 789.01 ABDOMINAL PAIN, RIGHT UPPER QUADRANT 07/12/2018 MARQUISE GARCÍA MD Ot R10.2 PELVIC AND PERINEAL PAIN 07/12/2018 GAYLE PURDY Ot R10.11 RIGHT UPPER QUADRANT PAIN 12/23/2018 RICKY FITZPATRICK, MARQUISE Yoo Ot V28.81 ENCOUNTER FOR ANATOMIC SURVEY 12/23/2018 ARNOLD ESPINOZA APRN Ot 789.01 ABDOMINAL PAIN, RIGHT UPPER QUADRANT 12/23/2018 RICKY FITZPATRICK, MARQUISE Yoo Ot R10.2 PELVIC AND PERINEAL PAIN 12/23/2018 GAYLE PURDY Ot R10.11 RIGHT UPPER QUADRANT PAIN 12/24/2018 GUCCI VERAS MD, Ot Z01.818 ENCOUNTER FOR OTHER PREPROCEDURAL EXAMIN 12/24/2018 GUCCI VERAS MD, Ot Z01.818 ENCOUNTER FOR OTHER PREPROCEDURAL EXAMIN 12/24/2018 GUCCI VERAS MD, Ot Z01.818 ENCOUNTER FOR OTHER PREPROCEDURAL EXAMIN Procedures Code Description [place] [address] URINE TEST (IN-HOUSE) 10/29/2012 59470 GC/CHLAM URINE (STATE) 10/30/2012 48861 URINE TEST (IN-HOUSE) 11/06/2012 75423 IUD INSERTION 11/07/2012 [id number] LEVONORGESTREL IU CONTRACEPT 11/07/2012 51160 I/D SIMPLE ABSCESS 12/18/2012 01376 URINE TEST (IN-HOUSE) 05/20/2013 94239 ROUTINE VENIPUNCTURE 06/18/2013 81188 CBC 06/18/2013 93066 TSH 06/18/2013 [id number] ANTIBODY SCREEN (RESULT ONLY) 06/19/2013 08571 BLOOD TYPE/Rh FACTOR 06/19/2013 10703 HIV ANTIBODIES (RML) 06/19/2013 86912 RUBELLA ANTIBODY, IGG 06/19/2013 97698 CULTURE URINE 06/19/2013 26508 [facility] 06/23/2013 35918 ANTIBODY SCREEN (order) 06/23/2013 04864 HEP B SURFACE ANTIGEN (STATE) 06/23/2013 31842 GC/CHLAM PROBE (STATE) 07/14/2013 67948 UA OB DIP 07/14/2013 50727 CULTURE UROGENITAL 07/17/2013 01187 UA W/ CULTURE IF INDICATED 07/28/2013 26367 CULTURE URINE 07/28/2013 35661 UA OB DIP 08/08/2013 00018 CULTURE UROGENITAL 08/08/2013 TETRA TETRA SCREEN 08/08/2013 75842 CULTURE UROGENITAL 08/22/2013 18109 UA OB DIP 08/22/2013 26022 TRICHOMONAS (IN-HOUSE) 08/22/2013 33603 UA OB DIP 09/05/2013 50147 US OB - COMPLETE >14 WEEKS 09/05/2013 61672 UA OB DIP 10/03/2013 59948 UA W/ CULTURE IF INDICATED 10/17/2013 54829 UA OB DIP 10/21/2013 79383 UA W/ CULTURE IF INDICATED 10/21/2013 30715 CULTURE UROGENITAL 10/21/2013 73560 GC/CHLAM PROBE ([facility]) 10/21/2013 10049 TRICHOMONAS (IN-HOUSE) 10/21/2013 81684 ROUTINE VENIPUNCTURE 10/29/2013 45634 UA OB DIP 10/29/2013 51615 GLUCOSE WILI 1 HOUR 10/29/2013 28955 UA OB DIP 11/12/2013 37102 UA OB DIP 11/26/2013 03821 UA OB DIP 12/10/2013 08091 UA OB DIP 12/17/2013 27408 CULTURE GROUP B STREP VAG 12/19/2013 39218 UA OB DIP 12/24/2013 78876 UA OB DIP 12/31/2013 59003 UA OB DIP 01/07/2014 96.49 OTHER INSTILLATION 01/14/2014 67537 UA OB DIP 01/14/2014 73.6 EPISIOTOMY 01/15/2014 78423 TEST, URINE (IN-HOUSE) 02/26/2014 02996 US GALLBLADDER ULTRASOUND 05/11/2014 94113 CULTURE UROGENITAL 05/24/2014 02706 XRAY HAND LEFT 2 VIEWS 06/22/2014 55326 INFLUENZA A & B (IN-HOUSE) 07/24/2014 80825 CULTURE UROGENITAL 10/29/2014 Results Test Result Range TSH+Free T4 - 07/06/16 10:56 TSH 2.940 uIU/mL 0.450-4.500 T4,Free(Direct) 1.06 ng/dL 0.82-1.77 Genital Culture, Routine - 01/30/17 11:59 Genital Culture, Routine Note CULTURE, VAGINAL YEAST - 06/12/18 17:18 CULTURE, YEAST, W/DIRECT FLUORESCENT CHARLES SEE NOTE NRG SUREPATH PAP RFX HPV mRNA E6/E7 - 06/12/18 17:18 CLINICAL INFORMATION: NRG LMP: 05/29/18 NRG PREV. PAP: 2014 NRG PREV. BX: WNL NRG SOURCE: Cervix NRG STATEMENT OF ADEQUACY: NRG INTERPRETATION/RESULT: NRG PERSONNEL QUALITY ASSURANCE AUDITOR: NRG COMMENT NRG Complete blood count (CBC) with automated white blood cell (WBC) differential - 12/27/18 14:05 Blood leukocytes automated count (number/volume) 10.0 10*3/uL 4.3-11.0 Blood erythrocytes automated count (number/volume) 5.13 10*6/uL 4.35-5.85 Venous blood hemoglobin measurement (mass/volume) 12.7 g/dL 11.5-16.0 Blood hematocrit (volume fraction) 39 % 35-52 Automated erythrocyte mean corpuscular volume 76 [foz_us] 80-99 Automated erythrocyte mean corpuscular hemoglobin (mass per erythrocyte) 25 pg 25-34 Automated erythrocyte mean corpuscular hemoglobin concentration measurement (mass/volume) 33 g/dL 32-36 Automated erythrocyte distribution width ratio 14.6 % 10.0- 14.5 Automated blood platelet count (count/volume) 331 10*3/uL 130-400 Automated blood platelet mean volume measurement 11.3 [foz_us] 7.4-10.4 Automated blood neutrophils/100 leukocytes 51 % 42-75 Automated blood lymphocytes/100 leukocytes 41 % 12-44 Blood monocytes/100 leukocytes 6 % 0-12 Automated blood eosinophils/100 leukocytes 2 % 0-10 Automated blood basophils/100 leukocytes 0 % 0-10 Blood neutrophils automated count (number/volume) 5.1 10*3 1.8-7.8 Blood lymphocytes automated count (number/volume) 4.1 10*3 1.0-4.0 Blood monocytes automated count (number/volume) 0.6 10*3 0.0- 1.0 Automated eosinophil count 0.2 10*3/uL 0.0-0.3 Automated blood basophil count (count/volume) 0.0 10*3/uL 0.0-0.1 Encounters ACCT No. Visit Date/Time Discharge Status Pt. Type Provider Facility Loc./Unit Complaint [id number] 10/29/2014 14:04:00 10/29/2014 23:59:59 CLS Outpatient ASHISH LUIS APRN [id number] 10/29/2014 11:14:00 10/29/2014 23:59:59 CLS Outpatient MARQUISE GARCÍA MD [id number] 08/31/2014 09:49:00 08/31/2014 23:59:59 CLS Outpatient ASIHSH LUIS APRN Sanchez [id number] 07/24/2014 14:00:00 07/24/2014 23:59:59 CLS Outpatient BORA AGUIRRE APRN Jay [id number] 06/26/2014 13:00:00 06/26/2014 23:59:59 CLS Outpatient WISAM LOMBARDI DDS [id number] 06/16/2014 17:18:00 06/16/2014 23:59:59 CLS Outpatient OLGA ALIX CROWDERMATTHEW Thompson [id number] 05/21/2014 11:04:00 05/21/2014 23:59:59 CLS Outpatient TOBYASHISH Yoo APRN Sanchez [id number] 03/05/2014 16:36:00 03/05/2014 23:59:59 CLS Outpatient GREG LLOYD MD [id number] 02/26/2014 09:48:00 02/26/2014 23:59:59 CLS Outpatient ASHISH LUIS APRN Sanchez [id number] 01/07/2014 14:39:00 01/07/2014 23:59:59 CLS Outpatient HETAL QUEZADA DO [id number] 01/07/2014 14:39:00 01/07/2014 23:59:59 CLS Outpatient HETAL QUEZADA DO [id number] 12/31/2013 15:20:00 12/31/2013 23:59:59 CLS Outpatient HETAL QUEZADA DO [id number] 12/31/2013 15:20:00 12/31/2013 23:59:59 CLS Outpatient SABRINA DUBOSE MD [id number] 12/24/2013 15:20:00 12/24/2013 23:59:59 CLS Outpatient HETAL QUEZADA DO [id number] 12/10/2013 13:42:00 12/10/2013 23:59:59 CLS Outpatient SABRINA DUBOSE MD [id number] 11/12/2013 14:11:00 11/12/2013 23:59:59 CLS Outpatient MARQUISE GARCÍA MD [id number] 11/12/2013 14:11:00 11/12/2013 23:59:59 CLS Outpatient MARQUISE GARCÍA MD [id number] 10/29/2013 13:46:00 10/29/2013 23:59:59 CLS Outpatient MARQUISE GARCÍA MD [id number] 10/21/2013 14:35:00 10/21/2013 23:59:59 CLS Outpatient MARQUISE GARCÍA MD [id number] 10/17/2013 08:33:00 10/17/2013 23:59:59 CLS Outpatient MARQUISE GARCÍA MD [id number] 10/03/2013 14:24:00 10/03/2013 23:59:59 CLS Outpatient MARQUISE GARCÍA MD [id number] 10/03/2013 14:24:00 10/03/2013 23:59:59 CLS Outpatient MARQUISE GARCÍA MD [id number] 09/05/2013 14:40:00 09/05/2013 23:59:59 CLS Outpatient MARQUISE GARCÍA MD [id number] 08/26/2013 09:46:00 08/26/2013 23:59:59 CLS Outpatient ASHISH LUIS APRN [id number] 08/22/2013 13:37:00 08/22/2013 23:59:59 CLS Outpatient MARQUISE GARCÍA MD [id number] 08/08/2013 13:51:00 08/08/2013 23:59:59 CLS Outpatient MARQUISE GARCÍA MD [id number] 07/28/2013 10:26:00 07/28/2013 23:59:59 CLS Outpatient ASHISH LUIS APRN [id number] 07/14/2013 14:41:00 07/14/2013 23:59:59 CLS Outpatient ASHISH LUIS APRN [id number] 07/09/2013 13:59:00 07/09/2013 23:59:59 CLS Outpatient MARQUISE GARCÍA MD [id number] 06/23/2013 08:08:00 06/23/2013 23:59:59 CLS Outpatient [id number] 06/02/2013 12:45:00 06/02/2013 23:59:59 CLS Outpatient BASSEM BOWER APRN [id number] 05/20/2013 11:16:00 05/20/2013 23:59:59 CLS Outpatient HETAL QUEZADA DO [id number] 05/12/2013 15:26:00 05/12/2013 23:59:59 CLS Outpatient ASHISH LUIS APRN [id number] 10/29/2012 10:36:00 10/29/2012 23:59:59 CLS Outpatient [id number] 06/17/2012 11:49:00 06/17/2012 23:59:59 CLS Outpatient SATHISH ESPARZANBASSEM Raegan [id number] 04/18/2012 13:10:00 04/18/2012 23:59:59 CLS Outpatient SATHISH ESPARZAN BASSEM Carlin [id number] 01/03/2013 10:23:00 Document Registration [id number] 12/26/2012 09:07:00 Document Registration [id number] 12/23/2012 10:24:00 Document Registration [id number] 12/17/2012 10:23:00 Document Registration [id number] 11/06/2012 16:07:00 Document Registration [email or web address] 04/21/2015 15:34:00 ACT Document Registration [id number] 12/24/2018 15:00:00 12/24/2018 15:36:00 DIS Outpatient RITO FITZPATRICK, GUCCI Elizabeth [facility] PREOP DYSFUNCTIONAL UTERINE BLEEDING [id number] 07/18/2017 16:41:00 07/18/2017 17:10:00 DIS Emergency MONICA STEWART APRN [facility] ER CONGESTION,COUGH,FEVER [id number] 07/27/2016 08:03:00 07/27/2016 23:59:59 CLS Outpatient SATHISH BASSEM Raegan PRESS 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 [facility] CARD RUQ PAIN [id number] 05/25/2016 08:41:00 05/25/2016 23:59:59 CLS Outpatient GAYLE PURDY PRESS 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 [facility] RAD RUQ PAIN [id number] 09/22/2015 14:48:00 09/22/2015 23:59:59 CLS Outpatient MARQUISE GARCÍA MD [facility] RAD PELVIC PAIN [id number] 04/21/2015 15:33:00 04/21/2015 17:30:00 DIS Emergency MIAH FITZPATRICK, OHLLIE Bradford [facility] ER DIZZINESS, LOSS OF VISION [id number] 05/08/2014 09:53:00 05/08/2014 23:59:59 CLS Outpatient ARNOLD ESPINOZA APRN [facility] RAD RUQ PAIN [id number] 01/14/2014 18:43:00 01/17/2014 15:30:00 DIS Inpatient SABRINA DUBOSE MD [facility] LDRP INDUCTION [id number] 12/25/2013 09:24:00 12/25/2013 10:35:00 DIS Outpatient SABRINA DUBOSE MD [facility] WSo VAG BLEEDING/DEC BABY MOVEMENT [id number] 12/22/2013 18:59:00 12/22/2013 23:59:59 CLS Emergency [id number] 12/22/2013 19:41:00 12/22/2013 20:55:00 DIS Outpatient SABRINA DUBOSE MD [facility] WSo RIGHT SIDE NUMBNESS [id number] 10/02/2013 20:05:00 10/02/2013 22:29:00 DIS Outpatient MARQUISE GARCÍA MD [facility] WSo LOWER ABD PAIN [id number] 09/15/2013 13:47:00 09/15/2013 23:59:59 CLS Outpatient MARQUISE GARCÍA MD [facility] RAD ANATOMY [id number] 12/27/2018 15:15:00 PEN Preadmit GUCCI VERAS MD [facility] DYSFUNCTIONAL UTERINE BLEEDING [id number] 02/02/2017 13:06:00 Document Registration [id number] 10/04/2018 14:20:00 10/04/2018 23:59:59 CLS Outpatient BASSEM BOWER APRN [facility] [id number] 06/12/2018 14:00:00 Document Registration [id number] 07/07/2016 08:36:00 Document Registration
[2018-12-27] MEDS ORDERED: SEVOFLURANE (ULTANE) 15 ML INHAL SOLN ONE (17:13)
--- NOTE | 2018-12-27 21:48 | OPERATIVE REPORT ---
DATE OF SERVICE: 12/27/2018 PREOPERATIVE DIAGNOSES: Dysfunctional uterine bleeding, menorrhagia and endometrial mass on ultrasound. POSTOPERATIVE DIAGNOSES: Dysfunctional uterine bleeding, menorrhagia and endometrial mass on ultrasound with pathology pending. OPERATIVE PROCEDURE: Hysteroscopy with directed biopsy and D and C. OPERATIVE DESCRIPTION: With the patient in the supine position under satisfactory general anesthesia, she was repositioned in the dorsal lithotomy position in the [facility] and then prepped and draped in the usual fashion for vaginal surgery. Weighted speculum placed in the posterior fornix of vagina, cervix exposed and grasped anteriorly with single tooth tenaculum. There was an IUD present. It was removed with a Macey clamp and then the endometrial cavity was sounded to 9 cm. The cervix was then serially dilated with Victorino dilators to accommodate a hysteroscope, which was introduced and using LR as a distending medium, the endometrial cavity was examined. There were multiple polypoid masses in the endometrial cavity biopsies were taken and then the hysteroscope was removed and the endometrial cavity was curettaged in all 4 quadrants to good uterine cry with removal of significant aliquot of endometrial tissue. That tissue was sent separately for permanent section. The hysteroscope was reintroduced and endometrial cavity was examined again, there were still several small polypoid lesions remaining. These were removed under direct vision with a grasping forceps. With all of the abnormal tissue released and removed, there was no significant bleeding. The procedure was terminated. The hysteroscope was removed as was the tenaculum. The IUD was replaced using a spinal needle sheath as an introducer. Plan is for ultrasound at return to clinic for her postoperative exam to confirm the position of the IUD. There was some bleeding from the puncture sites from the tenaculum. This was touched with silver nitrate to effect hemostasis. Now with hemostasis assured, sponge and needle counts correct, estimated blood loss around 25 to 30 mL and with 700 mL of LR in and 600 removed, the procedure was complete. The patient was uneventfully awakened from her general anesthesia and transferred to the recovery room in stable condition with plans for discharge home PAR. Job ID: [id number] DocumentID: [id number] Dictated Date: 12/27/2018 18:18:05 Flight Simulator Teacher Date: 12/27/2018 21:47:38 Dictated By: GUCCI VERAS MD
== END 2018-12-27 19:00 | disposition home or self-care (01) ==
LOC: SDC 13:05
PROVIDERS: ATTEND Obstetrics & Gynecology
DX: N93.8 Other specified abnormal uterine and vaginal bleeding (principal); N92.0 Excessive and frequent menstruation with regular cycle; N84.0 Polyp of corpus uteri; F41.9 Anxiety disorder, unspecified; E66.9 Obesity, unspecified; Z68.35 Body mass index [BMI] 35.0-35.9, adult; Z87.891 Personal history of nicotine dependence
CPT/HCPCS: 36415; 84703; 85025; 87081

== ENCOUNTER → 2021-07-19 | Outpatient (CLI) | payer MEDICAID ==
[~2021-07-19] MED LIST changes: +PROP60CA36 PO; -PROP60CA8 PO
--- NOTE | 2021-07-19 09:33 | Diagnostic Imaging Report ---
CLINICAL INDICATION: Patient having trouble with her high blood pressure. EXAM: MRI of the brain performed without IV contrast. Sequences include sagittal T1, axial T2, axial flair, axial gradient echo, DWI, ADC map, axial T1, and axial T1. COMPARISON: MRA of the [place] without contrast dated 04/21/2015. FINDINGS: There is no evidence of acute cerebral infarct, intracranial hemorrhage, or gross mass effect. The brain parenchymal volume appears appropriate for patient's age. There is normal lord-white matter distinction. There is no significant midline shift or herniation. The [place] vascular structures show no gross abnormality as visualized. The pituitary gland, sella, and suprasellar regions are unremarkable as visualized. There is no evidence of hydrocephalus. The basal cisterns are unremarkable. The skull, extracranial soft tissue, and orbits are unremarkable. There is mild mucosal thickening involving both maxillary sinuses. There is minimal mucosal thickening involving the ethmoid sinus and sphenoid sinus. Temporal bones show no significant abnormality. IMPRESSION: Mild paranasal sinus disease; otherwise, unremarkable MRI of the brain. Dictated by: Dictated on workstation # [id number]
== END ==
LOC: RAD 08:45
PROVIDERS: ATTEND Nurse Practitioner Family
DX: J32.9 Chronic sinusitis, unspecified (principal); H53.8 Other visual disturbances; R03.0 Elevated blood-pressure reading, without diagnosis of hypertension; R20.2 Paresthesia of skin
CPT/HCPCS: 70551

== ENCOUNTER 2021-09-14 05:32 | Outpatient (CLI) | payer MEDICAID ==
[~2021-09-14] VITALS: Ht 160.2 cm; Wt 94.8 kg
[2021-09-14] MEDS ORDERED: LISI10TA25 PO (09:16)
== END 2021-09-14 09:28 | disposition home or self-care (01) ==
LOC: PREOP 05:32
PROVIDERS: ATTEND Surgery
DX: Z01.818 Encounter for other preprocedural examination (principal)

== ENCOUNTER 2021-09-21 07:31 | Day surgery (SDC) | payer MEDICAID ==
[~2021-09-21] VITALS: Ht 160.2 cm; Wt 94.8 kg
[2021-09-21] VITALS (10 sets, daily range): BP systolic 95–136; BP diastolic 44–91
[~2021-09-21 07:31] MED LIST changes: +LISI10TA25 PO
[2021-09-21] MEDS ORDERED: ceFAZolin 2 GM IV Premixed 50 ML IV ONE (07:45)
[2021-09-21] MEDS: LACTATED RINGERS 1,000 ML IV PRN ×2 (08:05→10:29)
[2021-09-21] MEDS ORDERED: LIDOCAINE/EPI 1%-1:200,000 (XYLOCAINE) 30 ML VIAL ONE (08:35)
--- NOTE | 2021-09-21 09:29 | Progress Note-Pre Operative ---
Pre-Operative Progress Note H&P Reviewed The H&P was reviewed, patient examined and no changes noted. Time Seen by Provider: 09:27 Date H&P Reviewed: Sep 21, 2021 Time H&P Reviewed: :27 Pre-Operative Diagnosis: Pilonidal cyst SEAN VILCHIS DO Sep 21, 2021 09:29
--- NOTE | 2021-09-21 10:30 | Progress Note-Post Operative ---
Post-Operative Progess Note Surgeon (s)/Utility Worker [employer] (s) Surgeon SEAN VILCHIS DO Utility Work[employer]: REMEDIOS Hearn Pre-Operative Diagnosis Pilonidal cyst Post-Operative Diagnosis same 2 spots Procedure & Operative Findings Date of Procedure 09/21/21 Procedure Performed/Findings Excision of pilonidal cyst and packing Anesthesia Type GET Estimated Blood Loss Estimated blood loss (mL): scant Specimens/Packing Specimens Removed pilonidal cyst Packin/4" iodophor packing SEAN VILCHIS DO Sep 21, 2021 10:30
[2021-09-21] MEDS ORDERED: ACHD5005 PO (10:31)
--- NOTE | 2021-09-21 10:33 | Discharge Inst-Surgical ---
Discharge Inst-Surgical Depart Medication/Instructions New, Converted or Re-Newed RX: Transmitted to Pharmacy Patient Instructions Follow up Appt: Make appointment for 1 week. [phone] Instructions: No lifting greater than 20 pounds. No strenuous activity. May shower in 24 hours, no tub bath or soaking. Use incentive spirometer at home as directed. No Smoking Skin/Wound Care: May remove bandages in am. You need to leave the Dermabond on incision it will fall off on it's own. Symptoms to Report: Appetite Changes, Extremity Discoloration, Numbness/Tingling, Swelling Increased, Bleeding Excessive, Eyesight Changes, Pain Increased, Urine Color Change, Constipation(Persistent), Fever over 101 degree F, Pain/Pressure in chest, Urinating Difficulty, Cough Up/Vomit Blood, Heart Beat Irreg/Pounding, Pain/Pressure in jaw, Cramps in feet or legs, Lightheadedness, Pain/Pressure in shoulder, Diarrhea(Persistent), Memory Changes Suddenly, Questions/Concerns, Weight gain consecutive days, Dizziness/Fainting, Nausea/Vomiting, Shortness of Breath, Weight gain over 2 pounds If questions or concerns contact your physician Or seek help at emergency department. Activity Activity as Tolerated: Yes Activity Instructions: Avoid Stress to Incision Driving Instructions: No Driving/Refer to Dr. Fields Discharge Diet: No Restrictions If Any Problems/Questions/Issu: Contact Your Physician, Go to Emergency Room Skin/Wound Care Infection Signs and Symptoms: Increased Redness, Foul Odor of Wound, Increased Drainage, Skin Itchy or Has a Rash, Increased Swelling, Temperature Above 101 F Wound Care Comment: change packing daily Bathing Instructions: Shower Operative Area Clean and Dry: Keep Incision Clean/Dry SEAN VILCHIS DO Sep 21, 2021 10:33
--- NOTE | 2021-09-21 10:35 | Anesthesia-General Post-Op ---
General Patient Condition Mental Status/LOC: Same as Preop Cardiovascular: Satisfactory Nausea/Vomiting: Absent Respiratory: Satisfactory Pain: Controlled Complications: Absent Post Op Complications Complications None Follow Up Care/Instructions Patient Instructions None needed. Anesthesia/Patient Condition Patient Condition Patient is doing well, no complaints, stable vital signs, no apparent adverse anesthesia problems. No complications reported per nursing. MADINA ATKINSON CRNA Sep 21, 2021 10:35
[2021-09-21] MEDS ORDERED: morphine INJ 10 MG/ML 1ML (SYR OR VIAL) IVP ONE (10:45)
[2021-09-21] MEDS ORDERED: ONDANSETRON 4 MG/2 ML (SDV) Z0FRAN IVP PRN (10:45)
[2021-09-21] MEDS ORDERED: MEPERIDINE (DEMEROL) INJ 50 MG/ML IVP ONE (10:45)
[2021-09-21] MEDS ORDERED: fentaNYL INJ 100 MCG/2 ML AMP IVP ONE (10:45)
--- NOTE | 2021-09-21 19:03 | OPERATIVE REPORT ---
DATE OF SERVICE: 09/21/2021 PREOPERATIVE DIAGNOSIS: Pilonidal cyst. POSTOPERATIVE DIAGNOSIS: Pilonidal cyst. PROCEDURE: Excision of pilonidal cyst with packing. SURGEON: Matthew Neil DO FOREST MANAGEMENT PROFESSOR: Madyson Pickens MS3 ANESTHESIA: General endotracheal tube. SPECIMEN: Pilonidal cyst. BLOOD LOSS: Scant. FLUIDS: Per anesthesia. POSTOPERATIVE CONDITION: Stable. INDICATION FOR PROCEDURE: The patient is a 25-year-old female who has pilonidal cyst drained and bothering her and she wanted to get them removed. FINDINGS: The patient had 2 areas, 2 small pilonidal cysts just between the gluteal cheeks, right in the mid and right above the sacrum, both found to have large amounts of hair retained in them. PROCEDURE NOTE: After informed consent was obtained, the patient was brought to the operating room, placed on the table. She was intubated and placed on table in the prone position. She was then sterilely prepped and draped in normal fashion. She had 2 small openings right between the gluteal cheeks just directly above the sacrum. I elected to the larger one was a little bit lower this was only about 2 mm opening. The one above was only about a millimeter, placed angiocatheter into the lower one and then injected some hydrogen peroxide, did not appear to communicate. At this point, then made a small incision little bit about 0.5 cm taken out this pilonidal cyst tract all the way down to the sacrum, taken out large amounts of hair with it and then tried to scrape all this out and then cauterized with Bovie electrocautery to keep it to control the bleeding, then went above and did another approximately 4 mm incisions. This went more elliptical about 4 mm x about 2 mm to remove this area. It did look like it went a little bit above, it was not a straight line all the way down, but able to then take out as much of the hairs we found, flushed the areas, dried, hemostasis obtained and then packed with a quarter inch iodoform packing. Area was then cleaned and dried. The patient tolerated the procedure. She was transferred to recovery room in stable condition. Sponge, instrument and needle count correct at the end of the case. Job ID: [id number] DocumentID: [id number] Dictated Date: 09/21/2021 14:37:50 Funeral Home Assistant Date: 09/21/2021 19:02:46 Dictated By: MATTHEW NEIL DO
== END 2021-09-21 12:17 | disposition home or self-care (01) ==
LOC: SDC 07:31
PROVIDERS: ATTEND Surgery
DX: L05.01 Pilonidal cyst with abscess (principal); Z87.891 Personal history of nicotine dependence
CPT/HCPCS: 84703; 87081; 88304

== ENCOUNTER 2021-11-17 17:25 | Emergency (ER) | payer MEDICAID ==
[~2021-11-17] VITALS: Ht 160 cm; Wt 97.0 kg
[~2021-11-17 17:25] MED LIST changes: +ACHD5005 PO
--- NOTE | 2021-11-17 18:07 | ED Cardiac General ---
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 pt is on losartan 25 mg daily but has not taken it yet today, normally takes in the evening. a little dizziness, this morning had tingling on rt arm and rt cheek. Source: patient Exam Limitations: no limitations (KIERSTEN LORENZ MD) History of Present Illness Date Seen by Provider: Nov 17, 2021 Time Seen by Provider: 17:45 Initial Comments Dionne is a 26-year-old female who presents to the emergency department with a chief complaint of elevated blood pressure and just not feeling well today. Patient states that she has a history of hypertension, diagnosed 6 months ago. She took lisinopril for short time but developed an associated cough so it was discontinued. She was changed over to losartan 25 mg daily but states that her blood pressure stayed down "naturally" for quite a while. She noticed increased blood pressures over the course of the last 3 days so started the losartan again. She states her blood pressure has continued to be high. She denies any headache, vision, speech changes. She denies chest pain, shortness of breath, abdominal pain. She is not having any nausea, GI or symptoms. She is currently on her menstrual cycle, last day. Denies burning with urination or abnormal vaginal discharge. She is on no other medications. History of PCOS. She at some point this afternoon experienced a little "tingling" to the right side of her mouth as well as her right forearm, this was brief and resolved spontaneously. No history of early coronary artery disease in the family, she believes her mother has high blood pressure. She has never had a "work-up" for her high blood pressure. All other review of systems reviewed and negative except as stated. Timing/Duration: 24 hours Severity: mild ASA po COLD ROLLING COORDINATOR: No Associated Systoms: Other ("tingling") (KIERSTEN LORENZ MD) Allergies and Home Medications Allergies Coded Allergies: Penicillins (Unverified Adverse Reaction, Intermediate, RASH, 04/21/15) amoxicillin (Verified Adverse Reaction, Intermediate, RASH, 12/01/11) latex (Unverified Adverse Reaction, Mild, RASH, 12/01/11) Patient Home Medication List Home Medication List Reviewed: Yes (KIERSTEN LORENZ MD) Hydrocodone Bit/Acetaminophen (HYDROcodone/APAP 5 MG/325 MG TAB) 1 Tab Tab, 1 TAB PO Q8H PRN for PAIN-MODERATE (5-7) Prescribed by: SEAN VILCHIS on 09/21/21 1031 Lisinopril (Lisinopril) 10 Mg Tablet, 10 MG PO DAILY, (Reported) Entered as Reported by: MARCUS HERNADEZ on 09/14/21 0916 Review of Systems Review of Systems Constitutional: see HPI EENTM: No Symptoms Reported Respiratory: No Symptoms Reported Cardiovascular: No Symptoms Reported Gastrointestinal: No Symptoms Reported Genitourinary: No Symptoms Reported Musculoskeletal: no symptoms reported Skin: no symptoms reported Psychiatric/Neurological: Paresthesia Endocrine: Increased Thrist (KIERSTEN LORENZ MD) All Other Systems Reviewed Negative Unless Noted: Yes (KIERSTEN LORENZ MD) Past Mphysop-Xfozud-Skdqeq Hx Patient Social History Tobacco Use?: Yes Tobacco type used: Cigarettes Smoking Status: Former Smoker Substance use?: No Alcohol Use?: No (KIERSTEN LORENZ MD) Immunizations Up To Date Tetanus Booster (TDap): Less than 5yrs PED Vaccines UTD: No First/Initial COVID19 Vaccinat: no Second COVID19 Vaccination Fredy: no Third COVID19 Vaccination Date: no (KIERSTEN LORENZ MD) Seasonal Allergies Seasonal Allergies: Yes (NO INHALER USE) (KIERSTEN LORENZ MD) Past Medical History Surgery/Hospitalization HX: hypertension tonsils, dental surgery, d&c, cyst removal Surgeries: Yes ([place] teeth, TONSILLECTOMY, D&C) Tonsillectomy Respiratory: No Currently Using CPAP: No Currently Using BIPAP: No Cardiac: Yes Hypertension Neurological: No Last Menstrual Period: Nov 17, 2021 Reproductive Disorders: No Genitourinary: No Gastrointestinal: No Musculoskeletal: No Endocrine: No HEENT: Yes (WEARS CONTACTS AND GLASSES) Cancer: No Psychosocial: Yes Anxiety Integumentary: Yes (CYST) Blood Disorders: No Adverse Reaction/Blood Tranf: No (KIERSTEN LORENZ MD) Family Medical History Patient reports no known family medical history. Physical Exam Vital Signs Vital Signs - First Documented 11/17/21 17:33 Temp 36.8 Pulse 93 Resp 18 B/P (MAP) 161/116 (131) Pulse Ox 98 O2 Delivery Room Air (SHIMON GIRON) Vital Signs Capillary Refill : Less Than 3 Seconds (KIERSTEN LORENZ MD) Height, Weight, BMI Height: 5'4.00" Weight: 205lbs. 0.0oz. 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-XII Norm as Tested Skin: Normal Color, Warm/Dry (KIERSTEN LORENZ MD) Progress/Results/Core Measures Results/Orders Lab Results Laboratory Tests Test 11/17/21 18:10 Range/Units White Blood Count 10.4 4.3-11.0 10^3/uL Red Blood Count 5.00 3.80-5.11 10^6/uL Hemoglobin 13.1 11.5-16.0 g/dL Hematocrit 40 35-52 % Mean Corpuscular Volume 80 80-99 fL Mean Corpuscular Hemoglobin 26 25-34 pg Mean Corpuscular Hemoglobin Concent 33 32-36 g/dL Red Cell Distribution Width 13.2 10.0-14.5 % Platelet Count 363 130-400 10^3/uL Mean Platelet Volume 10.3 9.0-12.2 fL Immature Granulocyte % (Auto) 0 % Neutrophils (%) (Auto) 52 42-75 % Lymphocytes (%) (Auto) 39 12-44 % Monocytes (%) (Auto) 6 0-12 % Eosinophils (%) (Auto) 3 0-10 % Basophils (%) (Auto) 1 0-10 % Neutrophils # (Auto) 5.4 1.8-7.8 10^3/uL Lymphocytes # (Auto) 4.0 1.0-4.0 10^3/uL Monocytes # (Auto) 0.6 0.0-1.0 10^3/uL Eosinophils # (Auto) 0.3 0.0-0.3 10^3/uL Basophils # (Auto) 0.1 0.0-0.1 10^3/uL Immature Granulocyte # (Auto) 0.0 0.0-0.1 10^3/uL Sodium Level 139 135-145 MMOL/L Potassium Level 3.6 3.6-5.0 MMOL/L Chloride Level 105 98-107 MMOL/L Carbon Dioxide Level 20 L 21-32 MMOL/L Anion Gap 14 5-14 MMOL/L Blood Urea Nitrogen 11 7-18 MG/DL Creatinine 0.87 0.60-1.30 MG/DL Estimat Glomerular Filtration Rate 93 BUN/Creatinine Ratio 13 Glucose Level 125 H 70-105 MG/DL Calcium Level 9.2 8.5-10.1 MG/DL Serum Test, Qualitative NEGATIVE NEGATIVE (SHIMON GIRON) Vital Signs/I&O 11/17/21 17:33 Temp 36.8 Pulse 93 Resp 18 B/P (MAP) 161/116 (131) Pulse Ox 98 O2 Delivery Room Air (SHIMON GIRON) Blood Pressure Mean: 131 Progress Progress Note : Time: 18:07 Progress Note Care passed to Dr Giron at shift change (KIERSTEN LORENZ MD) Progress Note : Progress Note Assumed care of the patient at shift change. We did review her labs with her. Her blood pressure is down to 117/98. We have suggested that she continue to log her blood pressure and if over the next week it continues to remain high ove r 140 systolic or over 100 diastolic then we would recommend she double up on her losartan. She has a follow-up appointment in December. We discussed return precautions. 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 Since is the first time it happened and they went away relatively easily without any intervention we are suggesting that she just follow them and pay attention to the pattern and return if they are getting worse or keep her follow-up appointment with primary care. All her questions were answered to her satisfaction. She had no material deterioration during her ER stay (SHIMON GIRON) Departure Impression Primary Impression: High blood pressure Qualified Codes: I10 - Essential (primary) hypertension Additional Impression: Arm paresthesia, right Disposition: 01 HOME, SELF-CARE Condition: Stable Departure-Patient Inst. Decision time for Depature: 19:26 (SHIMON GIRON) Referrals: [facility] (PCP/Family) Primary Care Physician Patient Instructions: High Blood Pressure (DC) Add. Discharge Instructions: Continue taking her losartan as prescribed. Record your blood pressure 3-5 times a week first thing in the morning after you wake up and take this information with you to your primary care visit. If your blood pressure remains above 140 systolic or above 100 diastolic then I would suggest you double up on the losartan. You may take 2 tablets for a total of 50 mg daily. If you begin to experience new neurologic symptoms, chest pain, shortness of air or other worrisome symptoms then I would encourage you to return to the nearest ER promptly. All discharge instructions reviewed with patient and/or family. Voiced understanding. Scripts Losartan Potassium (Losartan Potassium) 25 Mg Tablet 25-50 MG PO DAILY for 30 Days, #30 TAB 0 Refills Prov: SHIMON GIRON 11/17/21 KIERSTEN LORENZ MD Nov 17, 2021 18:07 SHIMON GIRON Nov 17, 2021 19:28
[2021-11-17 18:26] LABS: BASOPHILS # (AUTO) 0.1 10^3/uL (0.0-0.1); BASOPHILS % (AUTO) 1 % (0-10); EOSINOPHILS # (AUTO) 0.3 10^3/uL (0.0-0.3); EOSINOPHILS % (AUTO) 3 % (0-10); HEMATOCRIT 40 % (35-52); HEMOGLOBIN 13.1 g/dL (11.5-16.0); LYMPHOCYTES % (AUTO) 39 % (12-44); MEAN CORPUSCULAR HEMOGLOBIN 26 pg (25-34); MEAN CORPUSCULAR HGB CONC 33 g/dL (32-36); MEAN CORPUSCULAR VOLUME 80 fL (80-99); MEAN PLATELET VOLUME 10.3 fL (9.0-12.2); MONOCYTES # (AUTO) 0.6 10^3/uL (0.0-1.0); MONOCYTES % (AUTO) 6 % (0-12); NEUTROPHILS # (AUTO) 5.4 10^3/uL (1.8-7.8); NEUTROPHILS % (AUTO) 52 % (42-75); PLATELET COUNT 363 10^3/uL (130-400); WHITE BLOOD COUNT 10.4 10^3/uL (4.3-11.0)
[2021-11-17 18:41] LABS: POTASSIUM 3.6 MMOL/L (3.6-5.0)
[2021-11-17 18:42] LABS: CALCIUM 9.2 MG/DL (8.5-10.1)
[2021-11-17 18:47] LABS: CREATININE SERUM 0.87 MG/DL (0.60-1.30)
[2021-11-17] MEDS ORDERED: LOSA25TA41 PO (19:28)
[2021-11-17 19:30] VITALS: BP 128/90
== END 2021-11-17 19:31 | disposition home or self-care (01) ==
LOC: EDUNIT# 17:25 → ER 17:28
DX: I10 Essential (primary) hypertension (principal); R20.2 Paresthesia of skin; Z87.891 Personal history of nicotine dependence; Z79.899 Other long term (current) drug therapy
CPT/HCPCS: 36415; 80048; 84703; 85025

== ENCOUNTER 2022-08-09 17:02 | Emergency (ER) | payer MEDICAID ==
[~2022-08-09] VITALS: Ht 160 cm; Wt 103.5 kg
[~2022-08-09 17:02] MED LIST changes: +LOSA25TA41 PO
[2022-08-09] MEDS ORDERED: NAPROXEN 250 MG (NAPROSYN) TABLET PO ONE (17:30)
--- NOTE | 2022-08-09 17:36 | ED Neurological Problem ---
General Chief Complaint: Neurological Problems Stated Complaint: VISION CHANGES, LEFT ARM WENT TINGLY Nursing Triage Note: PATIENT STATES SBOUT ONE HOUR AGO SHE WAS SITTING WATCHING TV AND SUDDENLY HER LEFT EYE VISION BECAME STATICY LOOKING AND REMAINED THAT WAY FOR ABOUT 20 MINUTES, THEN SHE BEGAN HAVING TINGLING IN HER LEFT SHOULDER AND DOWN HER LEFT ARM INTO HER FINGERS THAT LASTED ABOUT 30 MINUTES. STATES SHE ALSO HAS A HEADACHE AT THIS TIME RATING THE PAIN AT A 4/10. Source: patient Exam Limitations: no limitations History of Present Illness Date Seen by Provider: Aug 09, 2022 Time Seen by Provider: 17:20 Initial Comments Patient is a 26-year-old female history of hypertension, insulin resistance, PCOS presents to the emergency room with a complaint of 1 hour ago experienced what felt like "static" vision in her left eye (she does wear contact lenses)., Sudden in onset while she was sitting watching TV. No associated pain in her vision. She states it lasted about 30 minutes. During that time she also was experienced numbness and tingling down the left side of her neck into her left arm to her fingertips. No weakness in the left upper extremity. She states it is resolved completely. At about 445 she took a "Goody's powder" for headache that subsequently developed that she rates at about a 4, right temporal. She states she does not usually have headaches. No history of similar. The headache was not "thunderclap" in origin. No associated nausea, shortness of breath. No recent fevers chills or URI symptoms. She does not use excessive caffeine. She did take her losartan today, she admits to noncompliance with this medication. At presentation blood pressure in the 150s over 100 range. Non smoker. She is not on medication for her insulin resistance. She endorses good sleep, nutrition and hydration. No excess stress. No family history of cerebral aneurysm, stroke. No GI complaints. Copper IUD in place 7 /8yr. Tingling resolved in the left upper extremity. Timing/Duration: 1 hour Severity: mild Associated Symptoms: paresthesia (LUE), other (headache) Allergies and Home Medications Allergies Coded Allergies: Penicillins (Unverified Adverse Reaction, Intermediate, RASH, 04/21/15) amoxicillin (Verified Adverse Reaction, Intermediate, RASH, 12/01/11) latex (Unverified Adverse Reaction, Mild, RASH, 12/01/11) Patient Home Medication List Home Medication List Reviewed: Yes Hydrocodone Bit/Acetaminophen (HYDROcodone/APAP 5 MG/325 MG TAB) 1 Tab Tab, 1 TAB PO Q8H PRN for PAIN-MODERATE (5-7) Prescribed by: SEAN VILCHIS on 09/21/21 1031 Lisinopril (Lisinopril) 10 Mg Tablet, 10 MG PO DAILY, (Reported) Entered as Reported by: MARCUS HERNADEZ on 09/14/21 0916 Losartan Potassium (Losartan Potassium) 25 Mg Tablet, 25-50 MG PO DAILY Prescribed by: SHIMON OZUNA on 11/17/21 192 Review of Systems Review of Systems Constitutional: see HPI Eyes: Blurred Vision ("tv static left eye") Ears, Nose, Mouth, Throat: no symptoms reported Respiratory: no symptoms reported Cardiovascular: no symptoms reported Gastrointestinal: no symptoms reported Genitourinary: no symptoms reported : No Skin: no symptoms reported Psychiatric/Neurological: Headache, Tingling (left arm) All Other Systems Reviewed Negative Unless Noted: Yes Past Nmghbgb-Evhgeg-Kisric Hx Patient Social History Tobacco Use?: No Use of E-Cig and/or Vaping dev: No Substance use?: No Alcohol Use?: Yes Alcohol Frequency: Once in a while Pt feels they are or have been: No Immunizations Up To Date Tetanus Booster (TDap): Less than 5yrs PED Vaccines UTD: No Influenza Vaccine Up-to-Date: No; Not Current First/Initial COVID19 Vaccinat: no Second COVID19 Vaccination Fredy: no Third COVID19 Vaccination Date: no Seasonal Allergies Seasonal Allergies: Yes (NO INHALER USE) Past Medical History Surgery/Hospitalization HX: hypertension, PCOS tonsils, dental surgery, d&c, cyst removal Surgeries: Yes ([place] teeth, TONSILLECTOMY, D&C) Tonsillectomy Respiratory: No Currently Using CPAP: No Currently Using BIPAP: No Cardiac: Yes Hypertension Neurological: No Last Menstrual Period: Jul 16, 2022 Reproductive Disorders: No Genitourinary: No Gastrointestinal: No Musculoskeletal: No Endocrine: No HEENT: Yes (WEARS CONTACTS AND GLASSES) Cancer: No Psychosocial: Yes Anxiety Integumentary: Yes (CYST) Blood Disorders: No Adverse Reaction/Blood Tranf: No Family Medical History Patient reports no known family medical history. Physical Exam Vital Signs Vital Signs - First Documented 08/09/22 17:08 Temp 36.6 Pulse 89 Resp 18 B/P (MAP) 141/99 (113) Pulse Ox 98 O2 Delivery Room Air Capillary Refill : Less Than 3 Seconds Height, Weight, BMI Height: 5'4.00" Weight: 205lbs. 0.0oz. 92.612908dh; 40.00 BMI Method:Stated General Appearance: WD/WN, no apparent distress HEENT: PERRL/EOMI, other (unable to obtain fundoscopic exam due to contact lenses. PERRLA. no obvious globe pathology; VIsion reported as "normal" currently) Respiratory: lungs clear, normal breath sounds, no respiratory distress, no accessory muscle use Cardiovascular: regular rate, rhythm Gastrointestinal: normal bowel sounds, non tender, soft Extremities: normal range of motion, non-tender, normal inspection, no pedal edema, no calf tenderness Neurologic/Psychiatric: cokeman II-XII nml as tested, no motor/sensory deficits, alert, normal mood/affect, oriented x 3 Crainal Nerves: normal hearing, normal speech, PERRL; No abnormal speech, No facial asymmetry, No facial droop, No facial paresthesias, No facial weakness, No gaze palsy, No hearing deficit (R), No hearing deficit (L), No tongue deviation to R, No tongue deviation to L Coordination/Gait: No normal finger to nose, No normal gait, No negative Romberg's sign Motor/Sensory: no motor deficit, no sensory deficit, no pronator drift Skin: normal color, warm/dry Stroke Onset of Symptoms Date of Onset of Symptoms: Aug 09, 2022 Time of Symptom Onset: 16:30 Onset of Symptoms: Yes Symptoms onset unknown: No NIH Stroke Scale Assessment Select: Initial Level of Consciousness: 0=Alert (0), LOC Commands: 0=Performs both tasks (0), Gaze: Normal (0), Visual Khan: 0=No visual loss (0), Facial Movement (Facial Paresis): 0=Normal symmetrical mnt (0), Motor Function-Arms Right: 0=No drift (0), Motor Function-Arms Left: 0=No drift (0), Motor Function-Legs Right: 0=No drift (0), Motor Function-Legs Left: 0=No drift (0), Limb Ataxia: 0=Absent (0), Sensory: 0=Normal:no loss (0), Best Language: 0=No aphasia (0), Dysarthria: 0=Normal (0), Extinction & Inattention: 0=No abnormality (0), Total: 0 Progress/Results/Core Measures Results/Orders Lab Results Laboratory Tests Test 08/09/22 17:42 Range/Units Sodium Level 139 135-145 MMOL/L Potassium Level 3.7 3.6-5.0 MMOL/L Chloride Level 106 98-107 MMOL/L Carbon Dioxide Level 23 21-32 MMOL/L Anion Gap 10 5-14 MMOL/L Blood Urea Nitrogen 14 7-18 MG/DL Creatinine 0.86 0.60-1.30 MG/DL Estimat Glomerular Filtration Rate 94 BUN/Creatinine Ratio 16 Glucose Level 89 70-105 MG/DL Calcium Level 9.5 8.5-10.1 MG/DL My Orders Orders - KIERSTEN LORENZ MD Basic Metabolic Panel (08/09/22 17:30) Urine Bedside (08/09/22 17:30) Naproxen Tablet (Naprosyn Tablet) (08/09/22 17:30) Medications Given in ED Current Medications Medications Dose Ordered Sig/Danielito Route Start Time Stop Time Status Last Admin Dose Admin Naproxen 500 mg ONCE ONCE PO 08/09/22 17:30 08/09/22 17:31 DC 08/09/22 17:46 500 MG Vital Signs/I&O 08/09/22 17:08 Temp 36.6 Pulse 89 Resp 18 B/P (MAP) 141/99 (113) Pulse Ox 98 O2 Delivery Room Air Blood Pressure Mean: 113 Progress Progress Note : Time: 17:43 Progress Note Patient seen and evaluated, 26-year-old with right-sided headache, left-sided vision change. Vision change, paresthesias to the left upper extremity lasted 15 to 30 minutes. Completely resolved by the time she arrived to the emergency room with residual headache at a "4". Evaluation today includes physical exam with neuro exam. NIH is 0. Blood pressure is a little high. She has taken her blood pressure medicine a couple of hours ago. Losartan 50 mg. No recent illnesses, no nausea vomiting diarrhea. No clinical or objective findings to warrant laboratory evaluation. Physical exam and history do not support the need for advanced imaging, CT head. Patient is at low risk for acute cerebrovascular accident, subarachnoid hemorrhage, low clinical concern for space-occupying lesion in the brain as her neuro exam is completely normal. Patient evaluation also includes basic metabolic panel (normal), urine test. Preg negative. She is treated with 500 mg of naproxen. 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 Departure Impression Primary Impression: Migraine Qualified Codes: G43.B0 - Ophthalmoplegic migraine, not intractable Disposition: 01 HOME, SELF-CARE Condition: Stable Departure-Patient Inst. Decision time for Depature: 18:05 Referrals: [facility] (PCP) Primary Care Physician ALIREZA RAMIREZ APRN (Family) Primary Care Physician Patient Instructions: Migraines (DC) Add. Discharge Instructions: Drink plenty of fluids to stay well-hydrated. You can take another dose of Aleve/naproxen tomorrow morning if you have a m ildly persistent headache. You can take 2 [id number] tablets twice daily with food as needed. If you notice any new, concerning symptoms such as new weakness in 1 arm over the other, facial droop, speech difficulty, swallowing difficulty, persistent vision change please come back to the emergency room for reevaluation. Please follow-up with your primary care physician as well as with your eye doctor in the next week. Copy Copies To 1: HETAL QUEZADA KATHRYN M MD Aug 09, 2022 17:36
[2022-08-09 17:55] LABS: POTASSIUM 3.7 MMOL/L (3.6-5.0)
[2022-08-09 17:57] LABS: CALCIUM 9.5 MG/DL (8.5-10.1)
[2022-08-09 18:01] LABS: CREATININE SERUM 0.86 MG/DL (0.60-1.30)
[2022-08-09 18:32] VITALS: BP 132/92
== END 2022-08-09 18:33 | disposition home or self-care (01) ==
LOC: EDUNIT# 17:02 → ER 17:03
DX: G43.909 Migraine, unspecified, not intractable, without status migrainosus (principal); I10 Essential (primary) hypertension; Z28.310 Unvaccinated for COVID-19; Z91.040 Latex allergy status
CPT/HCPCS: 36415; 80048; 84703

== ENCOUNTER → 2023-03-29 | Outpatient (CLI) | payer MEDICAID, OTHER | LOC: CARD 13:15 | PROVIDERS: ATTEND Nurse Practitioner Family | DX: R00.0 Tachycardia, unspecified (principal) | CPT/HCPCS: 93225; 93226 ==

== ENCOUNTER → 2023-05-14 | Outpatient (CLI) | payer OTHER ==
[~2023-05-14] MED LIST changes: +BROM118S61 PO; -D-ME118S33 PO
--- NOTE | 2023-05-14 12:42 | Diagnostic Imaging Report ---
PROCEDURE: Pelvic comp/transvaginal sonogram. TECHNIQUE: Complete transabdominal and transvaginal pelvic ultrasound was performed. In addition, limited pelvic Doppler was performed. INDICATION: Abnormal uterine bleeding. Patient has an IUD. FINDINGS: Uterus is retroverted measuring 8.7 x 5.1 x 7.0 cm. There is an IUD which appears to be appropriately centered in the endometrial canal. Endometrium does not appear to be thickened. No myometrial mass is identified. Right ovary measures 4.7 x 2.7 x 2.2 cm and the left ovary measures 4.3 x 2.7 x 2.7 cm. Both ovaries contain multiple follicles. There may be a small complex cyst right ovary approximately 10 mm in size. There is blood flow to the ovaries. No free fluid is detected. IMPRESSION: The IUD is appropriately centered in the endometrial canal. Study is otherwise unremarkable apart from a small 10 mm hemorrhagic right ovarian cyst. Dictated by: Dictated on workstation # [id number]
== END ==
LOC: RAD 10:43
PROVIDERS: ATTEND Nurse Practitioner Women's Health
DX: N83.201 Unspecified ovarian cyst, right side (principal); N93.9 Abnormal uterine and vaginal bleeding, unspecified; Z97.5 Presence of (intrauterine) contraceptive device
CPT/HCPCS: 76830; 76856